=== PATIENT | female | born 1935 | race Caucasian/White ===

== ENCOUNTER 2016-06-28 17:39 | Inpatient (IN) | payer MEDICARE, BC ==
[2016-06-28] MEDS ORDERED: HYDROmorphone 0.5 MG/0.5 ML Syringe IVPUSH ONE (19:11)
--- NOTE | 2016-06-28 19:44 | EDM.PDOC ---
ED UPPER BACK/NECK PAIN/INJURY - General Chief Complaint: Back Pain or Injury Stated Complaint: LEFT SIDE BACK PN Time Seen by Provider: 06/28/16 19:01 Source of Information: Reports: Patient History Limitations: Reports: No limitations - History of Present Illness INITIAL COMMENTS - FREE TEXT/NARRATIVE: Patient is a 80-year-old female who presents to the ED complaining of thoracic/ lumbar back pain. States she's been complaining of back discomfort for the past 3 weeks between her shoulder blades with unknown etiology. Patient states pain is worsened with movement and palpation. She describes the pain as an achy sensation rated 10 out of 10 at its peak. Pain is localized with no radiation. She was seen by her nurse epidemiologist on June 20, 2016 for routine visit and was prescribed muscle relaxers with some improvement. States the medication is not working anymore and thus is here for further treatment. She's had no formal workup. She denies numbness tingling, fever/chills, chest pain, worsening shortness of breath, weakness, increasing weight, or worsening lower leg edema. States she does have a history of osteoporosis does not recall any event that may contribute to discomfort. Patient is oxygen dependent. Patient has history of Atrial Fibrillation, CHF, hypertension, CO, COPD, oxygen dependence, and anxiety/depression. Current medications include Tylenol, albuterol, aspirin, Celexa, Lasix, Cozaar, metoprolol succinate, Nitrostat, Zantac, zero to, Zocor, trazodone, albuterol, and lorazepam. Timing/Duration: Reports: Constant, Waxing/waning Location: Reports: upper, lower. 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 (see below) (See HPI) - Related Data Allergies/ADRs: Allergies Allergy/AdvReac Type Severity Reaction Status Date / Time No Known Allergies Allergy Verified 06/28/16 18:05 Home Meds: Home Meds Acetaminophen [Tylenol Arthritis Pain] 650 mg PO DAILY PRN 07/27/14 [History] Albuterol [Proventil Neb Soln] 2.5 mg NEB Q4HRRT PRN #60 neb 07/27/14 [Rx] Aspirin [Ernestine Chewable Aspirin] 81 mg PO DAILY 07/27/14 [History] Citalopram Hydrobromide [Celexa] 40 mg PO DAILY 07/27/14 [History] Furosemide [Lasix] 40 mg PO DAILY 07/27/14 [History] Losartan [Cozaar] 100 mg PO DAILY 07/27/14 [History] Metoprolol Succinate 25 mg PO DAILY 07/27/14 [History] Nitroglycerin [Nitrostat] 0.4 mg PO TID PRN 07/27/14 [History] Ranitidine [Zantac] 75 mg PO DAILY 07/27/14 [History] Rivaroxaban [Xarelto] 15 mg PO DAILY 07/27/14 [History] Simvastatin [Zocor] 20 mg PO DAILY 07/27/14 [History] traZODone 150 mg PO BEDTIME 07/27/14 [History] Albuterol Sulfate [Proair Hfa] 2 puff INH Q6H PRN 07/27/15 [History] LORazepam 1 mg PO Q4H PRN 07/27/15 [History] Past Medical History HEENT History: Reports: Cataract Cardiovascular History: Reports: Heart Failure, Hypertension, CO, Stents Other Cardiovascular History: CHF Respiratory History: Reports: COPD, Pneumonia, recurrent, SOB Gastrointestinal History: Reports: None Genitourinary History: Reports: None Other OB/BYN History: Hysterectomy 1994 Musculoskeletal History: Reports: Arthritis Neurological History: Reports: None Other Neuro History: bilateral carotoid Psychiatric History: Reports: None, Anxiety, Depression Endocrine/Metabolic History: Reports: None Hematologic History: Reports: None Immunologic History: Reports: None Oncologic (Cancer) History: Reports: None - Infectious Disease History Infectious Disease History: Reports: None, Shingles - Past Surgical History Cardiovascular Surgical History: Reports: Carotid endarterectomy Other Cardiovascular Surgeries/Procedures: 4 stents Respiratory Surgical History: Reports: None GI Surgical History: Reports: Appendectomy Female Surgical History: Reports: Hysterectomy Social & Family History - Family History Family Medical History: Noncontributory Neurological: Reports: CVA - Tobacco Use Smoking Status *Q: Former Smoker Years of Tobacco use: 30 Packs/Tins Daily: 1 Used Tobacco, but Quit: No Month Tobacco Last Used: mar Second Hand Smoke Exposure: No - Caffeine Use Caffeine Use: Reports: None - Recreational Drug Use Recreational Drug Use: No ED ROS GENERAL - Review of Systems Review Of Systems: See Below Constitutional: Denies: fever, chills, decreased appetite Respiratory: Reports: Shortness of Breath (chronic), Wheezing, Cough, Sputum Cardiovascular: Reports: Dyspnea on exertion. Denies: Chest pain, Palpitations GI/Abdominal: Denies: Abdominal pain, Diarrhea, Nausea, Vomiting : Denies: discharge, dysuria, flank pain Musculoskeletal: Reports: back pain (thoracic/lumbar) Neurological: Reports: Difficulty Walking. Denies: Dizziness, Numbness, Tingling ED EXAM, UPPER BACK/NECK PAIN - Physical Exam Exam: See Below Exam Limited By: No limitations General Appearance: alert, WD/WN, moderate distress Ears Exam: hearing grossly normal Nose Exam: normal inspection Throat/Mouth Exam: Normal voice, No airway compromise Cardiovascular/Respiratory: normal peripheral pulses, irregularly irregular, wheezing, other (crackles) GI/Abdominal: normal bowel sounds, soft, non tender, no distention Back Exam: CVA tenderness (L), CVA tenderness (R), paraspinal tenderness (t10- t12, l1-2), vertebral tenderness (t10-12, l1-l2) Extremities: non-tender, pedal edema Neurologic: no motor/sensory deficits, alert, normal mood/affect, oriented x 3 Psychiatric: normal affect, normal mood Skin Exam: Normal color, Warm/dry Course - Vital Signs Last Recorded V/S: Last Vital Signs Temp 97.9 F 06/28/16 17:55 Pulse 112 H 06/28/16 17:55 Resp 22 H 06/28/16 17:55 BP 123/89 06/28/16 17:55 Pulse Ox 94 L 06/28/16 17:55 - Orders/Labs/Meds Orders: Active Orders 24 hr Category Date Time Status Admission Status [Patient Status] [ADT] Routine ADT 06/28/16 22:06 Active EKG 12 Lead [EKG Documentation Completion] [RC] STAT Care 06/28/16 18:22 Active EKG Documentation Completion [RC] STAT Care 06/28/16 19:14 Active Chest 2V [CR] Stat Exams 06/28/16 19:11 Taken Lumbar Spine wo Cont [CT] Stat Exams 06/28/16 19:20 Stop Req Thoracic Spine wo Cont [CT] Stat Exams 06/28/16 19:20 Stop Req CULTURE URINE [RM] Stat Lab 06/28/16 22:07 Ordered TROPONIN I [CHEM] Timed Lab 06/28/16 21:49 Received cefTRIAXone [Rocephin] 1 gm Med 06/28/16 22:07 Ordered Sodium Chloride 0.9% [Normal Saline] 100 ml IV ONETIME Medication Orders Ceftriaxone Sodium 1 gm/ (Sodium Chloride) 100 mls @ 200 mls/hr IV ONETIME ONE Stop: 06/28/16 22:36 Labs: Laboratory Tests 06/28/16 06/28/16 06/28/16 Range/Units 19:40 19:40 19:40 WBC 12.55 H (3.98-10.04) K/mm3 RBC 5.25 H (3.98-5.22) M/mm3 Hgb 13.8 (11.2-15.7) gm/L Hct 46.3 H (34.1-44.9) % MCV 88.2 (79.4-94.8) fl MCH 26.3 (25.6-32.2) pg MCHC 29.8 L (32.2-35.5) g/dl RDW Std Deviation 52.1 H (36.4-46.3) fL Plt Count 246 (182-369) K/mm3 MPV 10.4 (9.4-12.3) fl Neut % (Auto) 83.4 H (34.0-71.1) % Lymph % (Auto) 5.2 L (19.3-51.7) % [place] % (Auto) 10.4 (4.7-12.5) % Eos % (Auto) 0.5 L (0.7-5.8) Baso % (Auto) 0.4 (0.1-1.2) % Neut # (Auto) 10.47 H (1.56-6.13) K/mm3 Lymph # (Auto) 0.65 L (1.18-3.74) K/mm3 [place] # (Auto) 1.31 H (0.24-0.36) K/mm3 Eos # (Auto) 0.06 (0.04-0.36) K/mm3 Baso # (Auto) 0.05 (0.01-0.08) K/mm3 Manual Slide Review Abnormal smear ESR (0-20) mm/hr Sodium 137 (136-145) mEq/L Potassium 3.9 (3.5-5.1) mEq/L Chloride 99 (98-107) mEq/L Carbon Dioxide 31 (21-32) mEq/L Anion Gap 10.9 (5-15) BUN 29 H (7-18) mg/dL Creatinine 1.4 H (0.55-1.02) mg/dL Est Cr Clr Drug Dosing 24.18 mL/min Estimated GFR (MDRD) 36 (>60) mL/min BUN/Creatinine Ratio 20.7 H (14-18) Glucose 104 (83-115) mg/dL Calcium 9.5 (8.5-10.1) mg/dL Total Bilirubin 0.6 (0.2-1.0) mg/dL AST 16 (15-37) U/L ALT 35 (14-59) U/L Alkaline Phosphatase 123 H (46-116) U/L Troponin I 0.061 H* (0.00-0.056) ng/mL C-Reactive Protein 5.8 H* (<1.0) mg/dL B-Natriuretic Peptide 1450 H (0-100) pg/mL Total Protein 7.8 (6.4-8.2) g/dl Albumin 3.3 L (3.4-5.0) g/dl Globulin 4.5 gm/dL Albumin/Globulin Ratio 0.7 L (1-2) Urine Color (Yellow) Urine Appearance (Clear) Urine pH (5.0-8.0) Ur Specific [place] (1.005-1.030) Urine Protein (Negative) Urine Glucose (UA) (Negative) Urine Ketones (Negative) Urine Occult Blood (Negative) Urine Nitrite (Negative) Urine Bilirubin (Negative) Urine Urobilinogen (0.2-1.0) Ur Leukocyte Esterase (Negative) Urine RBC (0-5) /hpf Urine WBC (0-5) /hpf Ur Epithelial Cells (0-5) /hpf Amorphous Sediment (NOT SEEN) /hpf Urine Bacteria (FEW) /hpf Hyaline Casts (0-5) /lpf Urine Mucus (FEW) /hpf Urine Yeast (Budding) (NOT SEEN) 06/28/16 06/28/16 Range/Units 19:40 21:10 WBC (3.98-10.04) K/mm3 RBC (3.98-5.22) M/mm3 Hgb (11.2-15.7) gm/L Hct (34.1-44.9) % MCV (79.4-94.8) fl MCH (25.6-32.2) pg MCHC (32.2-35.5) g/dl RDW Std Deviation (36.4-46.3) fL Plt Count (182-369) K/mm3 MPV (9.4-12.3) fl Neut % (Auto) (34.0-71.1) % Lymph % (Auto) (19.3-51.7) % [place] % (Auto) (4.7-12.5) % Eos % (Auto) (0.7-5.8) Baso % (Auto) (0.1-1.2) % Neut # (Auto) (1.56-6.13) K/mm3 Lymph # (Auto) (1.18-3.74) K/mm3 [place] # (Auto) (0.24-0.36) K/mm3 Eos # (Auto) (0.04-0.36) K/mm3 Baso # (Auto) (0.01-0.08) K/mm3 Manual Slide Review ESR 22 H (0-20) mm/hr Sodium (136-145) mEq/L Potassium (3.5-5.1) mEq/L Chloride (98-107) mEq/L Carbon Dioxide (21-32) mEq/L Anion Gap (5-15) BUN (7-18) mg/dL Creatinine (0.55-1.02) mg/dL Est Cr Clr Drug Dosing mL/min Estimated GFR (MDRD) (>60) mL/min BUN/Creatinine Ratio (14-18) Glucose (83-115) mg/dL Calcium (8.5-10.1) mg/dL Total Bilirubin (0.2-1.0) mg/dL AST (15-37) U/L ALT (14-59) U/L Alkaline Phosphatase (46-116) U/L Troponin I (0.00-0.056) ng/mL C-Reactive Protein (<1.0) mg/dL B-Natriuretic Peptide (0-100) pg/mL Total Protein (6.4-8.2) g/dl Albumin (3.4-5.0) g/dl Globulin gm/dL Albumin/Globulin Ratio (1-2) Urine Color Light yellow (Yellow) Urine Appearance Slt cloudy H (Clear) Urine pH 6.0 (5.0-8.0) Ur Specific [place] 1.020 (1.005-1.030) Urine Protein Trace H (Negative) Urine Glucose (UA) Negative (Negative) Urine Ketones Negative (Negative) Urine Occult Blood 2+ H (Negative) Urine Nitrite Negative (Negative) Urine Bilirubin Negative (Negative) Urine Urobilinogen 0.2 (0.2-1.0) Ur Leukocyte Esterase Trace H (Negative) Urine RBC 0-5 (0-5) /hpf Urine WBC 5-10 H (0-5) /hpf Ur Epithelial Cells 5-10 H (0-5) /hpf Amorphous Sediment Few H (NOT SEEN) /hpf Urine Bacteria Moderate H (FEW) /hpf Hyaline Casts 5-10 H (0-5) /lpf Urine Mucus Not seen (FEW) /hpf Urine Yeast (Budding) Few H (NOT SEEN) Meds: Medications Generic Name Dose Route Start Last Admin Trade Name Freq PRN Reason Stop Dose Admin Ceftriaxone Sodium 1 gm/ 100 mls @ 200 mls/hr 06/28/16 22:07 Sodium Chloride IV 06/28/16 22:36 ONETIME ONE Discontinued Medications Generic Name Dose Route Start Last Admin Trade Name Freq PRN Reason Stop Dose Admin Diazepam 2.5 mg 06/28/16 20:26 06/28/16 20:34 Valium IVPUSH 06/28/16 20:27 2.5 mg ONETIME ONE Administration Diltiazem HCl 5 mg 06/28/16 19:46 06/28/16 20:08 Diltiazem IVPUSH 06/28/16 19:47 5 mg ONETIME ONE Administration Diltiazem HCl 5 mg 06/28/16 20:25 06/28/16 20:26 Diltiazem IVPUSH 06/28/16 20:26 5 mg ONETIME ONE Administration Diltiazem HCl 5 mg 06/28/16 21:17 06/28/16 21:47 Diltiazem IVPUSH 06/28/16 21:18 5 mg ONETIME ONE Administration Diltiazem HCl 10 mg 06/28/16 22:02 Diltiazem IVPUSH 06/28/16 22:03 ONETIME ONE Furosemide 40 mg 06/28/16 20:32 06/28/16 20:42 Lasix IVPUSH 06/28/16 20:33 40 mg NOW ONE Administration Hydromorphone HCl 0.5 mg 06/28/16 19:11 06/28/16 19:47 Dilaudid IVPUSH 06/28/16 19:12 0.5 mg ONETIME ONE Administration - Re-Assessments/Exams Free Text/Narrative Re-Assessment/Exam: EKG revealed A. fib with a rate of 115 to 155. Blood pressure has been normotensive. She is on Toprol succinate 25 mg every day. Will go ahead with Cardizem 5 mg IVP. 06/28/16 20:[address] of the lumbar and thoracic spine secondary to worsening pain to her back. 06/28/16 20:20 Patient's heart rate continues to be in the 130s. Pain is minimally controlled with Dilaudid. Will go ahead with another 5 mg of Cardizem IVP. In addition will go to with valium 2.5 mg IVP for any spasms present. 06/28/16 20:30 White blood cell count 12.55, hemoglobin is 13.8, platelet count 246, neutrophil percentage 83.4, neutrophil #10.47, sodium is 137, potassium is 3.9, CO2 31, BUN is 29, creatinine 1.4, troponin 0.061, CRP is 5.8, BNP is 1450. Troponin most likely elevated due to A-Fib with RVR. Will obtain 2nd troponin in 2 hours. Chest x-ray reveals: Cardiomegaly with mild chronic pulmonary vascular congestion. Consistent with previous chest x-ray obtained jul 27 2015. Severe degenerative changes to the spine with possible compression fracture T6. This was reviewed by Dr. Rosado. BNP is 1450 which appears to be elevated above baseline of 700-800 from previous labs. Ordered Lasix 40 mg IVP. 06/28/16 21:18 Patient is resting much more comfortably in the wheelchair. Pain is drastically improved with the Valium. Heart rate remains 106-126. Blood pressure normotensive. Will go ahead with 5 mg Cardizem IVP. In addition second troponin order for 2140. 06/28/16 22:[address] 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 She has accepted patient. Will admit to ICU. Requested starting cardizem 10 mg/hr with 250ml bolus of NS if becomes hypotensive. Admission orders placed by Dr. Rosado. 06/28/16 22:08 UA was reviewed. Positive for UTI. Ordered rocephin 1 gram IV. Cardizem gtt will be started in the ICU. 06/28/16 22:26 2nd troponin 0.056. Departure - Departure Time of Disposition: 22:09 Disposition: Home, Self-Care 01 Condition: fair Clinical Impression: Atrial fibrillation with RVR, Elevated troponin CHF (congestive heart failure) Qualifiers: Congestive heart failure type: unspecified congestive heart failure type Congestive heart failure chronicity: acute on chronic Qualified Code(s): I50.9 - Heart failure, unspecified Back pain Qualifiers: Back pain location: back pain in unspecified location Chronicity: acute Back pain laterality: bilateral Qualified Code(s): M54.9 - Dorsalgia, unspecified UTI (urinary tract infection) Qualifiers: Urinary tract infection type: site unspecified Hematuria presence: with hematuria Qualified Code(s): N39.0 - Urinary tract infection, site not specified Referrals: Rodney Marin MD [Primary Care Provider] - Forms: ED Department Discharge - My Orders Last 24 Hours: My Active Orders 06/28/16 18:22 EKG 12 Lead [EKG Documentation Completion] [RC] STAT 06/28/16 19:11 Chest 2V [CR] Stat 06/28/16 19:14 EKG Documentation Completion [RC] STAT 06/28/16 19:20 Lumbar Spine wo Cont [CT] Stat Thoracic Spine wo Cont [CT] Stat 06/28/16 21:49 TROPONIN I [CHEM] Timed 06/28/16 22:07 CULTURE URINE [RM] Stat cefTRIAXone [Rocephin] 1 gm Sodium Chloride 0.9% [Normal Saline] 100 ml IV ONETIME - Assessment/Plan Last 24 Hours: My Active Orders 06/28/16 18:22 EKG 12 Lead [EKG Documentation Completion] [RC] STAT 06/28/16 19:11 Chest 2V [CR] Stat 06/28/16 19:14 EKG Documentation Completion [RC] STAT 06/28/16 19:20 Lumbar Spine wo Cont [CT] Stat Thoracic Spine wo Cont [CT] Stat 06/28/16 21:49 TROPONIN I [CHEM] Timed 06/28/16 22:07 CULTURE URINE [RM] Stat cefTRIAXone [Rocephin] 1 gm Sodium Chloride 0.9% [Normal Saline] 100 ml IV ONETIME
[2016-06-28] MEDS ORDERED: Diltiazem 25 MG/5 ML SDV IVPUSH ONE ×4 (19:46→22:02)
[2016-06-28] MEDS ORDERED: Furosemide 40 MG/4 ML VIAL IVPUSH ONE (20:32)
[2016-06-28] MEDS ORDERED: cefTRIAXone 1 GM in Sodium Chloride 0.9% 100 ML IV ONE (22:07)
[2016-06-28] MEDS ORDERED: methylPREDNISolone Sodium Succinate 40 MG/1 ML SDV IVPUSH ONE (22:26)
[2016-06-28] MEDS: Temazepam 7.5 MG Cap PO PRN (23:17)
[2016-06-28] MEDS: Acetaminophen/HYDROcodone 325-5 MG Tab PO PRN (23:17)
[2016-06-28] MEDS: Diltiazem 100 MG in Sodium Chloride 0.9% 100 ML IV SCH (23:18)
[2016-06-29] MEDS: Acetaminophen/HYDROcodone 325-5 MG Tab PO PRN ×4 (06:54→21:22)
--- NOTE | 2016-06-29 09:32 | PCM.HP ---
H&P History of Present Illness - General Date of Service: 06/29/16 Admit Problem/Dx: Admission Diagnosis/Problem Admission Diagnosis/Problem Atrial fibrillation Source of Information: Patient, Provider History Limitations: Reports: No limitations - History of Present Illness Initial Comments - Free Text/Narative: 80 year old female held in the ED, unable to be moved until day shift; treatment per ED until transferred to unit bed. At time of transfer, patient was in A fib with controlled ventricular rate at 80; Cardizem gtt was given in the ED. She had presented with a complaint of back pain, no recent injury or trauma. Initially had relief by prescription provided during scheduled cardiology office visit. However has had a return of the discomfort with minimal relief. No previous radiographic studies reportedly have been performed prior to the current ED visit per the patient. A UTI has been documented and Rocephin has been started. Onset of Symptoms: Reports: unknown/unsure Duration of Symptoms: Reports: Week(s):, Getting worse Location: Reports: back Quality: Reports: Same as previous episode Severity: moderate Improves with: Reports: Medication Worsens with: Reports: None Associated Symptoms: Reports: shortness of breath mid back/lower shoulder area Pain Score (Numeric/FACES): 3 - Related Data Allergies/Adverse Reactions: Allergies Allergy/AdvReac Type Severity Reaction Status Date / Time No Known Allergies Allergy Verified 06/28/16 18:05 Home Medications: Home Meds Acetaminophen [Tylenol Arthritis Pain] 650 mg PO DAILY PRN 07/27/14 [History] Albuterol [Proventil Neb Soln] 2.5 mg NEB Q4HRRT PRN #60 neb 07/27/14 [Rx] Aspirin [Ernestine Chewable Aspirin] 81 mg PO DAILY 07/27/14 [History] Citalopram Hydrobromide [Celexa] 40 mg PO DAILY 07/27/14 [History] Furosemide [Lasix] 40 mg PO DAILY 07/27/14 [History] Losartan [Cozaar] 100 mg PO DAILY 07/27/14 [History] Metoprolol Succinate 25 mg PO DAILY 07/27/14 [History] Nitroglycerin [Nitrostat] 0.4 mg PO TID PRN 07/27/14 [History] Ranitidine [Zantac] 75 mg PO DAILY 07/27/14 [History] Rivaroxaban [Xarelto] 15 mg PO DAILY 07/27/14 [History] Simvastatin [Zocor] 20 mg PO DAILY 07/27/14 [History] traZODone 150 mg PO BEDTIME 07/27/14 [History] Albuterol Sulfate [Proair Hfa] 2 puff INH Q6H PRN 07/27/15 [History] LORazepam 1 mg PO Q4H PRN 07/27/15 [History] Past Medical History HEENT History: Reports: Cataract Cardiovascular History: Reports: Heart Failure, Hypertension, SC, Stents Other Cardiovascular History: CHF Respiratory History: Reports: COPD, Pneumonia, recurrent, SOB Gastrointestinal History: Reports: None Genitourinary History: Reports: None Other OB/BYN History: Hysterectomy 1994 Musculoskeletal History: Reports: Arthritis Neurological History: Reports: None Other Neuro History: bilateral carotoid Psychiatric History: Reports: None, Anxiety, Depression Endocrine/Metabolic History: Reports: None Hematologic History: Reports: None Immunologic History: Reports: None Oncologic (Cancer) History: Reports: None - Infectious Disease History Infectious Disease History: Reports: None, Shingles - Past Surgical History Cardiovascular Surgical History: Reports: Carotid endarterectomy Other Cardiovascular Surgeries/Procedures: 4 stents Respiratory Surgical History: Reports: None GI Surgical History: Reports: Appendectomy Female Surgical History: Reports: Hysterectomy Social & Family History - Family History Family Medical History: Noncontributory Neurological: Reports: CVA - Tobacco Use Smoking Status *Q: Never Smoker Years of Tobacco use: 30 Packs/Tins Daily: 1 Used Tobacco, but Quit: No Month Tobacco Last Used: mar Second Hand Smoke Exposure: No - Caffeine Use Caffeine Use: Reports: None - Recreational Drug Use Recreational Drug Use: No H&P Review of Systems - Review of Systems: Review Of Systems: See Below General: Reports: weakness HEENT: Reports: no symptoms Pulmonary: Reports: Shortness of Breath Cardiovascular: Reports: palpitations, lightheadedness Gastrointestinal: Reports: No symptoms Genitourinary: Reports: no symptoms Musculoskeletal: Reports: back pain Skin: Reports: no symptoms Psychiatric: Reports: no symptoms Neurological: Reports: No Symptoms Hematologic/Lymphatic: Reports: no symptoms Immunologic: Reports: no symptoms Exam - Exam Exam: See Below - Vital Signs Vital Signs: Last Vital Signs Temp 36.5 C 06/29/16 07:59 Pulse 122 H 06/29/16 09:03 Resp 16 04/16/17 09:03 BP 105/60 06/29/16 09:03 Pulse Ox 100 06/29/16 09:03 Weight: 101.151 kg - Exam Quality Assessment: supplemental oxygen, DVT prophylaxis General: alert, oriented, cooperative HEENT: Conjunctiva clear, EACs clear, EOMI, Nares patent, Normal nasal septum, Pupils equal, Pupils reactive Neck: supple, trachea midline Lungs: Normal respiratory effort Cardiovascular: regular rate, irregular rhythm Abdomen: normal bowel sounds, soft (Female) Exam: Deferred Rectal (Female) Exam: Deferred Back Exam: normal inspection Extremities: normal inspection, normal pulses Skin: warm Neurological: cranial nerves intact Neuro Extensive - Mental Status: alert, oriented x3, normal mood/affect, normal cognition, memory intact Neuro Extensive - Motor, Sensory, Reflexes: CN II-XII intact Psychiatric: alert, normal affect, normal mood - Patient Data Lab Results last 24 hrs: Laboratory Results - last 24 hr 06/29/16 Range/Units 09:14 WBC 9.86 (3.98-10.04) K/mm3 RBC 5.22 (3.98-5.22) M/mm3 Hgb 13.7 (11.2-15.7) gm/L Hct 45.8 H (34.1-44.9) % MCV 87.7 (79.4-94.8) fl MCH 26.2 (25.6-32.2) pg MCHC 29.9 L (32.2-35.5) g/dl RDW Std Deviation 51.6 H (36.4-46.3) fL Plt Count 222 (182-369) K/mm3 MPV 10.1 (9.4-12.3) fl Result Diagrams: 06/29/16 09:14 06/29/16 09:14 *Q Meaningful Use (ADM) - VTE *Q VTE Criteria *Q: - Stroke *Q Stroke Criteria *Q: - AMI *Q AMI Criteria *Q: - Problem List (1) Atrial fibrillation with RVR SNOMED Code(s): 370056687485296 ICD Code: I48.91 - UNSPECIFIED ATRIAL FIBRILLATION Status: Acute Current Visit: Yes (2) Back pain SNOMED Code(s): 040528156 ICD Code: M54.9 - DORSALGIA, UNSPECIFIED Status: Acute Current Visit: Yes Qualifiers: Back pain location: back pain in unspecified location Chronicity: acute Back pain laterality: bilateral Qualified Code(s): M54.9 - Dorsalgia, unspecified (3) CHF (congestive heart failure) SNOMED Code(s): 91172058 ICD Code: I50.9 - HEART FAILURE, UNSPECIFIED Status: Acute Current Visit : Yes Qualifiers: Congestive heart failure type: unspecified congestive heart failure type Congestive heart failure chronicity: acute on chronic Qualified Code(s): I50.9 - Heart failure, unspecified (4) Elevated troponin SNOMED Code(s): 557034427, 940744255 ICD Code: R74.8 - ABNORMAL LEVELS OF OTHER SERUM ENZYMES Status: Acute Current Visit: Yes (5) UTI (urinary tract infection) SNOMED Code(s): 02235848 ICD Code: N39.0 - URINARY TRACT INFECTION, SITE NOT SPECIFIED Status: Acute Current Visit: Yes Qualifiers: Urinary tract infection type: site unspecified Hematuria presence: with hematuria Qualified Code(s): N39.0 - Urinary tract infection, site not specified; R31.9 - Hematuria, unspecified (6) COPD (chronic obstructive pulmonary disease) SNOMED Code(s): 61461988 ICD Code: J44.9 - CHRONIC OBSTRUCTIVE PULMONARY DISEASE, UNSPECIFIED Status : Acute Current Visit: No Qualifiers: COPD type: COPD with acute exacerbation Qualified Code(s): J44.1 - Chronic obstructive pulmonary disease with (acute) exacerbation (7) Leg edema SNOMED Code(s): 408965419 ICD Code: R60.0 - LOCALIZED EDEMA Status: Acute Current Visit: No Qualifiers: Laterality: bilateral Qualified Code(s): R60.0 - Localized edema Problem List Initiated/Reviewed/Updated: Yes Orders Last 24hrs: Active Orders 24 hr Category Date Time Status Heart Healthy Diet [DIET] Diet 06/29/16 Breakfast Active B-TYPE NATRIURETIC PEPTIDE,BNP [CHEM] Routine Lab 06/29/16 09:14 Received BASIC METABOLIC PANEL,BMP [CHEM] Routine Lab 06/29/16 09:14 Received CULTURE URINE [RM] Stat Lab 06/28/16 21:10 Results MAGNESIUM [CHEM] Routine Lab 06/29/16 09:14 Received Acetaminophen/HYDROcodone [Bessie 325-5 MG] Med 06/28/16 22:26 Active 1 tab PO Q4H PRN Diltiazem [Cardizem] 100 mg Med 06/28/16 22:30 Active Sodium Chloride 0.9% [Normal Saline] 100 ml IV TITRATE HYDROmorphone [Dilaudid] Med 06/28/16 22:26 Active 0.5 mg IVPUSH Q2H PRN Metoprolol Tartrate [Lopressor] Med 06/28/16 22:26 Active 5 mg IVPUSH Q6H PRN Ondansetron [Zofran] Med 06/28/16 22:26 Active 4 mg IVPUSH Q8H PRN Temazepam [Restoril] Med 06/28/16 22:26 Active 7.5 mg PO BEDTIME PRN Medication Orders Hydrocodone Bitart/Acetaminophen (Bessie 325-5 Mg) 1 tab PO Q4H PRN PRN Reason: Pain Last Admin: 06/29/16 06:54 Dose: 1 tab Admin: 06/28/16 23:17 Dose: 1 tab Hydromorphone HCl (Dilaudid) 0.5 mg IVPUSH Q2H PRN PRN Reason: Pain Diltiazem HCl 100 mg/ Sodium (Chloride) 100 mls @ 10 mls/hr IV TITRATE TONJA; 10 MG/HR PRN Reason: Protocol Last Titration: 06/29/16 08:18 Dose: 10 mg/hr, 10 mls/hr Titration: 06/29/16 02:29 Dose: 5 mg/hr, 5 mls/hr Titration: 06/29/16 02:05 Dose: 10 mg/hr, 10 mls/hr Admin: 06/28/16 23:18 Dose: 5 mg/hr, 5 mls/hr Metoprolol Tartrate (Lopressor) 5 mg IVPUSH Q6H PRN PRN Reason: Tachycardia Ondansetron HCl (Zofran) 4 mg IVPUSH Q8H PRN PRN Reason: Nausea Temazepam (Restoril) 7.5 mg PO BEDTIME PRN PRN Reason: Insomnia Last Admin: 06/28/16 23:17 Dose: 7.5 mg Assessment/Plan Comment:: Impression: AUTI, urine culture is pending AFib with RVR on Xarelto Back pain, intractable COPD, O2 dependent Elevated Tn, Demand ischemia Chronic CAD, history of [place]/PCI CHF Hyperlipidemia Anxiety Depression CKD Plan: Cardizem gtt Home meds IV ATB Nebs Obtain clinic EMR and noninvasive card reports DVT prophylaxis with Xarelto GI prophylaxis
[2016-06-29] MEDS ORDERED: Pneumococcal Polyvalent-23 Vaccine 0.5 ML SDV IM ONE (11:14)
[2016-06-29] MEDS: Diltiazem 100 MG in Sodium Chloride 0.9% 100 ML IV SCH ×2 (11:59→17:44)
[2016-06-29] MEDS ORDERED: Albuterol 6.7 GM Inhaler INH PRN (15:40)
[2016-06-29] MEDS ORDERED: Nitroglycerin 0.4 MG Tab.SL SL PRN (15:40)
[2016-06-29] MEDS ORDERED: Sodium Chloride 0.9% 1,000 ML IV SCH (16:00)
[2016-06-29] MEDS: Metoprolol Tartrate 5 MG/5 ML SDV IVPUSH PRN (17:43)
--- NOTE | 2016-06-29 17:45 | CR ---
Chest: Two views of the chest were obtained. Comparison: Previous chest x-ray of 07/27/15. Heart is enlarged. Pulmonary vessels appear somewhat congested. Findings are fairly stable from prior exam. Lungs otherwise are clear. Bony structures show scoliosis within the spine with mild scoliosis. Surgical clips are seen at the base of the neck. Impression: 1. Cardiomegaly and pulmonary vascular congestion which appear fairly stable from prior exam. 2. Other incidental findings as noted above. Diagnostic code #3
[2016-06-29] MEDS ORDERED: Losartan 100 MG Tab PO SCH (21:00)
[2016-06-29] MEDS: Temazepam 7.5 MG Cap PO PRN (21:22)
[2016-06-29] MEDS: traZODone 50 MG Tab PO SCH (21:22)
[2016-06-29] MEDS: LORazepam 1 MG Tab PO PRN (21:22)
[2016-06-29] MEDS: HYDROmorphone 0.5 MG/0.5 ML Syringe IVPUSH PRN (21:29)
[2016-06-29] MEDS ORDERED: cefTRIAXone 1 GM in Sodium Chloride 0.9% 100 ML IV SCH (22:00)
[2016-06-30] MEDS: HYDROmorphone 0.5 MG/0.5 ML Syringe IVPUSH PRN ×6 (02:36→22:01)
[2016-06-30] MEDS: Acetaminophen/HYDROcodone 325-5 MG Tab PO PRN ×3 (02:40→14:32)
[2016-06-30] MEDS: LORazepam 1 MG Tab PO PRN (05:12)
[2016-06-30] MEDS: Diltiazem 100 MG in Sodium Chloride 0.9% 100 ML IV SCH ×2 (06:17→14:29)
[2016-06-30] MEDS: Furosemide 40 MG Tab PO SCH (08:12)
[2016-06-30] MEDS: Aspirin 81 MG Tab.Chew PO SCH (08:12)
[2016-06-30] MEDS: Losartan 100 MG Tab PO SCH ×2 (08:13→20:32)
[2016-06-30] MEDS: Rivaroxaban 10 MG Tab PO SCH (08:15)
[2016-06-30] MEDS: Simvastatin 20 MG Tab PO SCH (08:16)
[2016-06-30] MEDS ORDERED: Metoprolol Succinate 25 MG Tab.ER PO SCH (09:00)
[2016-06-30] MEDS ORDERED: Citalopram 20 MG Tab PO SCH (09:00)
[2016-06-30] MEDS: Lidocaine 5% 700 MG Patch TRDERM SCH (11:58)
[2016-06-30] MEDS ORDERED: Diazepam 2 MG Tab PO PRN (13:37)
[2016-06-30] MEDS ORDERED: fentaNYL 12 MCG/HR Transdermal Patch TRDERM SCH (13:45)
--- NOTE | 2016-06-30 13:45 | PCM.PN ---
- General Info Date of Service: 06/30/16 Functional Status: Reports: tolerating diet, ambulating (minimal), urinating - Review of Systems General: Reports: No Symptoms HEENT: Reports: no symptoms Pulmonary: Reports: no symptoms Cardiovascular: Reports: No Symptoms Gastrointestinal: Reports: No symptoms Genitourinary: Reports: no symptoms Musculoskeletal: Reports: no symptoms Skin: Reports: no symptoms Neurological: Reports: No Symptoms Psychiatric: Reports: no symptoms - Patient Data Vitals - most recent: Last Vital Signs Temp 36.4 C 06/30/16 12:00 Pulse 76 06/30/16 12:00 Resp 18 06/30/16 12:00 BP 104/59 L 06/30/16 12:00 Pulse Ox 93 L 06/30/16 12:00 Weight - most recent: 103.2 kg I&O - last 24 hours: Intake & Output 06/29/16 06/30/16 06/30/16 22:59 06:59 14:59 Intake Total 1475 1100 720 Output Total 400 450 1 Balance 1075 650 719 Lab Results last 24 hrs: Laboratory Results - last 24 hr 06/30/16 06/30/16 06/30/16 Range/Units 05:07 05:07 05:07 WBC 13.93 H (3.98-10.04) K/mm3 RBC 4.70 (3.98-5.22) M/mm3 Hgb 12.5 (11.2-15.7) gm/L Hct 41.8 (34.1-44.9) % MCV 88.9 (79.4-94.8) fl MCH 26.6 (25.6-32.2) pg MCHC 29.9 L (32.2-35.5) g/dl RDW Std Deviation 51.2 H (36.4-46.3) fL Plt Count 217 (182-369) K/mm3 MPV 10.6 (9.4-12.3) fl Neut % (Auto) 87.6 H (34.0-71.1) % Lymph % (Auto) 4.3 L (19.3-51.7) % Pike % (Auto) 8.0 (4.7-12.5) % Eos % (Auto) 0 L (0.7-5.8) Baso % (Auto) 0.0 L (0.1-1.2) % Neut # (Auto) 12.21 H (1.56-6.13) K/mm3 Lymph # (Auto) 0.60 L (1.18-3.74) K/mm3 Pike # (Auto) 1.11 H (0.24-0.36) K/mm3 Eos # (Auto) 0.00 L (0.04-0.36) K/mm3 Baso # (Auto) 0.00 L (0.01-0.08) K/mm3 Manual Slide Review Abnormal smear Sodium 137 (136-145) mEq/L Potassium 4.5 (3.5-5.1) mEq/L Chloride 103 (98-107) mEq/L Carbon Dioxide 31 (21-32) mEq/L Anion Gap 7.5 (5-15) BUN 43 H (7-18) mg/dL Creatinine 1.4 H (0.55-1.02) mg/dL Est Cr Clr Drug Dosing 24.18 mL/min Estimated GFR (MDRD) 36 (>60) mL/min BUN/Creatinine Ratio 30.7 H (14-18) Glucose 122 H (83-115) mg/dL Calcium 9.1 (8.5-10.1) mg/dL Magnesium 2.2 (1.8-2.4) mg/dl Troponin I 0.029 (0.00-0.056) ng/mL C-Reactive Protein 4.7 H* (<1.0) mg/dL B-Natriuretic Peptide (0-100) pg/mL 06/30/16 Range/Units 05:07 WBC (3.98-10.04) K/mm3 RBC (3.98-5.22) M/mm3 Hgb (11.2-15.7) gm/L Hct (34.1-44.9) % MCV (79.4-94.8) fl MCH (25.6-32.2) pg MCHC (32.2-35.5) g/dl RDW Std Deviation (36.4-46.3) fL Plt Count (182-369) K/mm3 MPV (9.4-12.3) fl Neut % (Auto) (34.0-71.1) % Lymph % (Auto) (19.3-51.7) % Pike % (Auto) (4.7-12.5) % Eos % (Auto) (0.7-5.8) Baso % (Auto) (0.1-1.2) % Neut # (Auto) (1.56-6.13) K/mm3 Lymph # (Auto) (1.18-3.74) K/mm3 Pike # (Auto) (0.24-0.36) K/mm3 Eos # (Auto) (0.04-0.36) K/mm3 Baso # (Auto) (0.01-0.08) K/mm3 Manual Slide Review Sodium (136-145) mEq/L Potassium (3.5-5.1) mEq/L Chloride (98-107) mEq/L Carbon Dioxide (21-32) mEq/L Anion Gap (5-15) BUN (7-18) mg/dL Creatinine (0.55-1.02) mg/dL Est Cr Clr Drug Dosing mL/min Estimated GFR (MDRD) (>60) mL/min BUN/Creatinine Ratio (14-18) Glucose (83-115) mg/dL Calcium (8.5-10.1) mg/dL Magnesium (1.8-2.4) mg/dl Troponin I (0.00-0.056) ng/mL C-Reactive Protein (<1.0) mg/dL B-Natriuretic Peptide 921 H (0-100) pg/mL Med Orders - Current: Current Medications Hydrocodone Bitart/Acetaminophen ([place] 325-5 Mg) 1 tab PO Q4H PRN PRN Reason: Pain Last Admin: 06/30/16 08:11 Dose: 1 tab Albuterol (Proventil Hfa) 0 gm INH Q6H PRN PRN Reason: Shortness of Breath Albuterol (Proventil Neb Soln) 2.5 mg NEB Q4H PRN PRN Reason: Dyspnea Aspirin (Aspirin) 81 mg PO DAILY [facility] Last Admin: 06/30/16 08:12 Dose: 81 mg Citalopram Hydrobromide (Celexa) 20 mg PO DAILY TONJA Diazepam (Valium) 2 mg PO BEDTIME PRN PRN Reason: backpain Fentanyl (Duragesic) 12 mcg TRDERM Q72H TONJA Furosemide (Lasix) 40 mg PO DAILY [facility] Last Admin: 06/30/16 08:12 Dose: 40 mg Hydromorphone HCl (Dilaudid) 0.5 mg IVPUSH Q2H PRN PRN Reason: Pain Last Admin: 06/30/16 11:31 Dose: 0.5 mg Diltiazem HCl 100 mg/ Sodium (Chloride) 100 mls @ 10 mls/hr IV TITRATE TONJA; 10 MG/HR PRN Reason: Protocol Last Titration: 06/30/16 08:47 Dose: 15 mg/hr, 15 mls/hr Ceftriaxone Sodium 1 gm/ (Sodium Chloride) 100 mls @ 200 mls/hr IV Q24H TONJA Last Admin: 06/29/16 21:23 Dose: 200 mls/hr Lidocaine (Lidoderm 5%) 700 mg TRDERM Q24H [facility] Last Admin: 06/30/16 11:58 Dose: 700 mg Lorazepam (Ativan) 1 mg PO Q4H PRN PRN Reason: Anxiety Last Admin: 06/30/16 05:12 Dose: 1 mg Losartan Potassium (Cozaar) 50 mg PO BID [facility] Last Admin: 06/30/16 08:13 Dose: 50 mg Metoprolol Succinate (Toprol Xl) 25 mg PO BID [facility] Metoprolol Tartrate (Lopressor) 5 mg IVPUSH Q6H PRN PRN Reason: Tachycardia Last Admin: 06/29/16 17:43 Dose: 5 mg Miscellaneous Information (Remove Patch) 1 ea TRDERM Q24H [facility] Nitroglycerin (Nitrostat) 0.4 mg SL TID PRN PRN Reason: Chest Pain Ondansetron HCl (Zofran) 4 mg IVPUSH Q8H PRN PRN Reason: Nausea Rivaroxaban (Xarelto) 15 mg PO DAILY [facility] Last Admin: 06/30/16 08:15 Dose: 15 mg Simvastatin (Zocor) 20 mg PO DAILY [facility] Last Admin: 06/30/16 08:16 Dose: 20 mg Temazepam (Restoril) 7.5 mg PO BEDTIME PRN PRN Reason: Insomnia Last Admin: 06/29/16 21:22 Dose: 7.5 mg Trazodone HCl (Trazodone) 150 mg PO BEDTIME [facility] Last Admin: 06/29/16 21:22 Dose: 150 mg Discontinued Medications Citalopram Hydrobromide (Celexa) 40 mg PO DAILY [facility] Last Admin: 06/30/16 08:13 Dose: 40 mg Diazepam (Valium) 2.5 mg IVPUSH ONETIME ONE Stop: 06/28/16 20:27 Last Admin: 06/28/16 20:34 Dose: 2.5 mg Diltiazem HCl (Diltiazem) 5 mg IVPUSH ONETIME ONE Stop: 06/28/16 19:47 Last Admin: 06/28/16 20:08 Dose: 5 mg Diltiazem HCl (Diltiazem) 5 mg IVPUSH ONETIME ONE Stop: 06/28/16 20:26 Last Admin: 06/28/16 20:26 Dose: 5 mg Diltiazem HCl (Diltiazem) 5 mg IVPUSH ONETIME ONE Stop: 06/28/16 21:18 Last Admin: 06/28/16 21:47 Dose: 5 mg Diltiazem HCl (Diltiazem) 10 mg IVPUSH ONETIME ONE Stop: 06/28/16 22:03 Last Admin: 06/29/16 08:19 Dose: Not Given Furosemide (Lasix) 40 mg IVPUSH NOW ONE Stop: 06/28/16 20:33 Last Admin: 06/28/16 20:42 Dose: 40 mg Hydromorphone HCl (Dilaudid) 0.5 mg IVPUSH ONETIME ONE Stop: 06/28/16 19:12 Last Admin: 06/28/16 19:47 Dose: 0.5 mg Ceftriaxone Sodium 1 gm/ (Sodium Chloride) 100 mls @ 200 mls/hr IV ONETIME ONE Stop: 06/28/16 22:36 Last Admin: 06/28/16 22:17 Dose: 200 mls/hr Sodium Chloride (Normal Saline) 1,000 mls @ 75 mls/hr IV ASDIRECTED [facility] Stop: 06/29/16 22:01 Last Admin: 06/29/16 18:43 Dose: 75 mls/hr Losartan Potassium (Cozaar) 50 mg PO BID [facility] Methylprednisolone Sodium Succinate (Solu-Medrol) 80 mg IVPUSH ONETIME ONE Stop: 06/28/16 22:27 Last Admin: 06/28/16 23:17 Dose: 80 mg Metoprolol Succinate (Toprol Xl) 25 mg PO DAILY [facility] Last Admin: 06/30/16 08:14 Dose: 25 mg Pneumococcal Polyvalent Vaccine (Pneumovax 23) 0.5 ml IM .ONCE ONE Stop: 06/29/16 11:15 - Exam Quality Assessment: supplemental oxygen, DVT prophylaxis General: alert, oriented, cooperative HEENT: Pupils equal, Pupils reactive, EOMI Neck: supple, trachea midline Lungs: Clear to auscultation Cardiovascular: Regular Rate, Irregular Rhythm, Tachycardia Abdomen: bowel sounds present, soft, no tenderness, no distension (Female) Exam: Deferred Back Exam: normal inspection Extremities: normal pulses Skin: warm Neurological: no new focal deficit Psy/Mental Status: alert, normal affect, normal mood - Problem List & Annotations (1) Atrial fibrillation with RVR SNOMED Code(s): 741093495147250 Code(s): I48.91 - UNSPECIFIED ATRIAL FIBRILLATION Status: Acute Current Visit: Yes (2) Back pain SNOMED Code(s): 154394313 Code(s): M54.9 - DORSALGIA, UNSPECIFIED Status: Acute Current Visit: Yes Qualifiers: Back pain location: back pain in unspecified location Chronicity: acute Back pain laterality: bilateral Qualified Code(s): M54.9 - Dorsalgia, unspecified (3) CHF (congestive heart failure) SNOMED Code(s): 14213505 Code(s): I50.9 - HEART FAILURE, UNSPECIFIED Status: Acute Current Visit: Yes Qualifiers: Congestive heart failure type: unspecified congestive heart failure type Congestive heart failure chronicity: acute on chronic Qualified Code(s): I50.9 - Heart failure, unspecified (4) Elevated troponin SNOMED Code(s): 100530119, 558004925 Code(s): R74.8 - ABNORMAL LEVELS OF OTHER SERUM ENZYMES Status: Acute Current Visit: Yes (5) UTI (urinary tract infection) SNOMED Code(s): 56167603 Code(s): N39.0 - URINARY TRACT INFECTION, SITE NOT SPECIFIED Status: Acute Current Visit: Yes Qualifiers: Urinary tract infection type: site unspecified Hematuria presence: with hematuria Qualified Code(s): N39.0 - Urinary tract infection, site not specified; R31.9 - Hematuria, unspecified (6) COPD (chronic obstructive pulmonary disease) SNOMED Code(s): 74170252 Code(s): J44.9 - CHRONIC OBSTRUCTIVE PULMONARY DISEASE, UNSPECIFIED Status : Acute Current Visit: No Qualifiers: COPD type: COPD with acute exacerbation Qualified Code(s): J44.1 - Chronic obstructive pulmonary disease with (acute) exacerbation (7) Leg edema SNOMED Code(s): 034781656 Code(s): R60.0 - LOCALIZED EDEMA Status: Acute Current Visit: No Qualifiers: Laterality: bilateral Qualified Code(s): R60.0 - Localized edema - Problem List Review Problem List Initiated/Reviewed/Updated: Yes - My Orders Last 24 Hours: My Active Orders 06/29/16 15:40 Albuterol [Proventil HFA] 0 gm INH Q6H PRN Albuterol [Proventil Neb Soln] 2.5 mg NEB Q4H PRN LORazepam [Ativan] 1 mg PO Q4H PRN Nitroglycerin [Nitrostat] 0.4 mg SL TID PRN 06/29/16 15:49 Bedrest Bathroom Privileges [RC] ASDIRECTED Vital Signs [RC] PER UNIT ROUTINE 06/29/16 21:00 traZODone 150 mg PO BEDTIME 06/29/16 22:00 cefTRIAXone [Rocephin] 1 gm Sodium Chloride 0.9% [Normal Saline] 100 ml IV Q24H 06/30/16 09:00 Aspirin 81 mg PO DAILY Furosemide [Lasix] 40 mg PO DAILY Losartan [Cozaar] 50 mg PO BID Rivaroxaban [Xarelto] 15 mg PO DAILY Simvastatin [Zocor] 20 mg PO DAILY 06/30/16 10:00 Consult to Occupational Therapy [OT Evaluation and Treatment] [CONS] Routine Consult to Physical Therapy [PT Evaluation and Treatment] [CONS] Routine 06/30/16 12:00 Lidocaine 5% [Lidoderm 5%] 700 mg TRDERM Q24H 06/30/16 13:37 Diazepam [Valium] 2 mg PO BEDTIME PRN 06/30/16 13:45 fentaNYL [Duragesic] 12 mcg TRDERM Q72H 06/30/16 21:00 Metoprolol Succinate [Toprol XL] 25 mg PO BID 07/01/16 00:00 Remove Patch 1 ea TRDERM Q24H 07/01/16 05:00 BASIC METABOLIC PANEL,BMP [CHEM] DAILY CBC WITH AUTO DIFF [HEME] DAILY CRP [C-REACTIVE PROTEIN] [CHEM] DAILY MAGNESIUM [CHEM] DAILY 07/01/16 09:00 Citalopram [Celexa] 20 mg PO DAILY 07/02/16 05:00 BASIC METABOLIC PANEL,BMP [CHEM] DAILY CBC WITH AUTO DIFF [HEME] DAILY CRP [C-REACTIVE PROTEIN] [CHEM] DAILY MAGNESIUM [CHEM] DAILY 07/03/16 05:00 BASIC METABOLIC PANEL,BMP [CHEM] DAILY - Plan Plan:: Impression: AUTI, urine culture is sensitive to Rocephin AFib with RVR on Xarelto; BB was recently decreased by assistant hall director Back pain, intractable COPD, O2 dependent Elevated Tn, Demand ischemia Chronic CAD, history of [place]/PCI CHF Hyperlipidemia Anxiety Depression CKD Plan: Cardizem gtt Home meds IV ATB Nebs Obtain clinic EMR and noninvasive card reports DVT prophylaxis with Xarelto GI prophylaxis
[2016-06-30] MEDS ORDERED: Nitroglycerin 0.4 MG Tab.SL SL PRN (13:58)
[2016-06-30] MEDS: Metoprolol Succinate 25 MG Tab.ER PO SCH (20:29)
[2016-06-30] MEDS: traZODone 50 MG Tab PO SCH (20:29)
[2016-06-30] MEDS: Diazepam 2 MG Tab PO PRN (20:30)
[2016-06-30] MEDS: Temazepam 7.5 MG Cap PO PRN (20:31)
[2016-06-30] MEDS: cefTRIAXone 2 GM in Sodium Chloride 0.9% 100 ML IV SCH (22:01)
[2016-07-01] MEDS: Acetaminophen/HYDROcodone 325-10 MG Tab PO PRN ×3 (00:04→21:31)
[2016-07-01] MEDS: HYDROmorphone 0.5 MG/0.5 ML Syringe IVPUSH PRN ×3 (00:04→14:15)
[2016-07-01] MEDS: Albuterol 0.083% 2.5 MG/3 ML Neb Soln NEB PRN ×4 (02:27→13:49)
[2016-07-01] MEDS: Diltiazem 100 MG in Sodium Chloride 0.9% 100 ML IV SCH ×2 (03:41→11:22)
[2016-07-01] MEDS ORDERED: Polyethylene Glycol 3350 Powder 17 GM Packet PO PRN (06:30)
[2016-07-01] MEDS ORDERED: Sennosides 8.6 MG Tab PO PRN (06:31)
[2016-07-01] MEDS ORDERED: Naloxone 0.4 MG/ML SDV ONE (07:15)
[2016-07-01] MEDS ORDERED: Naloxone 2 MG/2 ML Syringe IVPUSH ONE (07:20)
[2016-07-01] MEDS ORDERED: Furosemide 40 MG/4 ML VIAL IVPUSH ONE (07:20)
[2016-07-01] MEDS ORDERED: Naloxone 0.4 MG/ML SDV IVPUSH ONE (07:30)
--- NOTE | 2016-07-01 08:33 | PCM.PN ---
<Yudith Machado - Last Filed: 07/01/16 08:23> - General Info Date of Service: 07/01/16 Admission Dx/Problem (Free Text): Admission Diagnosis/Problem Admission Diagnosis/Problem Atrial fibrillation Patient is seen this morning in her room. She has just had large emesis with hypoxemia, sats in the 70's. RT was summoned for breathing tx, then patient vomited. ABG was obtained. See labs for details. Denies abdominal pain, no nausea now. Last BM was 3 days ago (normal for her to go every 3 days) Patient states she feels "better" now, "less bloated". Continues to have back pain with radiation to bilateral sides, worse in the middle and "travels" to both sides. She has noted this pain for at least a week to 10 days. Muscle relaxants have provided minimal relief. She denies fall, lifting, pushing or pulling anything heavy or straining her back. Denies bladder concerns today, no dysuria or flank pain today. Functional Status: Reports: pain controlled, ambulating, urinating - Review of Systems Systems Review Comment:: See HPI for ROS - Patient Data Vitals - most recent: Last Vital Signs Temp 98.4 F 07/01/16 06:00 Pulse 88 07/01/16 06:00 Resp 14 07/01/16 06:00 BP 117/69 07/01/16 06:00 Pulse Ox 84 L 07/01/16 07:37 Weight - most recent: 104.1 kg I&O - last 24 hours: Intake & Output 06/30/16 07/01/16 07/01/16 22:59 06:59 14:59 Intake Total 1088 300 Output Total 100 200 Balance 988 100 Lab Results last 24 hrs: Laboratory Results - last 24 hr 07/01/16 07/01/16 07/01/16 Range/Units 02:35 02:35 02:35 WBC 14.29 H (3.98-10.04) K/mm3 RBC 5.03 (3.98-5.22) M/mm3 Hgb 13.2 (11.2-15.7) gm/L Hct 45.3 H (34.1-44.9) % MCV 90.1 (79.4-94.8) fl MCH 26.2 (25.6-32.2) pg MCHC 29.1 L (32.2-35.5) g/dl RDW Std Deviation 52.4 H (36.4-46.3) fL Plt Count 238 (182-369) K/mm3 MPV 10.6 (9.4-12.3) fl Neut % (Auto) 87.3 H (34.0-71.1) % Lymph % (Auto) 3.9 L (19.3-51.7) % [place] % (Auto) 8.5 (4.7-12.5) % Eos % (Auto) 0.1 L (0.7-5.8) Baso % (Auto) 0.1 (0.1-1.2) % Neut # (Auto) 12.47 H (1.56-6.13) K/mm3 Lymph # (Auto) 0.56 L (1.18-3.74) K/mm3 [place] # (Auto) 1.22 H (0.24-0.36) K/mm3 Eos # (Auto) 0.01 L (0.04-0.36) K/mm3 Baso # (Auto) 0.01 (0.01-0.08) K/mm3 Manual Slide Review Abnormal smear ESR 14 (0-20) mm/hr Puncture Site ABG pH (7.35-7.45) ABG pCO2 (35.0-45.0) mmHg ABG pO2 (80.0-100.0) mmHg ABG HCO3 (22.0-26.0) meq/L ABG O2 Saturation (96.0-97.0) % ABG Base Excess (-2-2.0) Asael Test A-a Gradient mmHg O2 Delivery Device Oxygen Flow Rate FiO2 (21.00-100.00) % Sodium 140 (136-145) mEq/L Potassium 3.9 (3.5-5.1) mEq/L Chloride 98 (98-107) mEq/L Carbon Dioxide 36 H (21-32) mEq/L Anion Gap 9.9 (5-15) BUN 54 H (7-18) mg/dL Creatinine 1.9 H (0.55-1.02) mg/dL Est Cr Clr Drug Dosing 17.82 mL/min Estimated GFR (MDRD) 25 (>60) mL/min BUN/Creatinine Ratio 28.4 H (14-18) Glucose 161 H (83-115) mg/dL Calcium 9.7 (8.5-10.1) mg/dL Magnesium 2.3 (1.8-2.4) mg/dl C-Reactive Protein 4.1 H* (<1.0) mg/dL B-Natriuretic Peptide (0-100) pg/mL 07/01/16 07/01/16 Range/Units 02:35 07:18 WBC (3.98-10.04) K/mm3 RBC (3.98-5.22) M/mm3 Hgb (11.2-15.7) gm/L Hct (34.1-44.9) % MCV (79.4-94.8) fl MCH (25.6-32.2) pg MCHC (32.2-35.5) g/dl RDW Std Deviation (36.4-46.3) fL Plt Count (182-369) K/mm3 MPV (9.4-12.3) fl Neut % (Auto) (34.0-71.1) % Lymph % (Auto) (19.3-51.7) % [place] % (Auto) (4.7-12.5) % Eos % (Auto) (0.7-5.8) Baso % (Auto) (0.1-1.2) % Neut # (Auto) (1.56-6.13) K/mm3 Lymph # (Auto) (1.18-3.74) K/mm3 [place] # (Auto) (0.24-0.36) K/mm3 Eos # (Auto) (0.04-0.36) K/mm3 Baso # (Auto) (0.01-0.08) K/mm3 Manual Slide Review ESR (0-20) mm/hr Puncture Site Rt radial ABG pH 7.32 L (7.35-7.45) ABG pCO2 71.2 H* (35.0-45.0) mmHg ABG pO2 55.0 L (80.0-100.0) mmHg ABG HCO3 35.6 H (22.0-26.0) meq/L ABG O2 Saturation 83.6 L (96.0-97.0) % ABG Base Excess 7.3 H (-2-2.0) Asael Test Positive A-a Gradient 85 mmHg O2 Delivery Device Nasal cannula Oxygen Flow Rate 3.5 FiO2 34.00 (21.00-100.00) % Sodium (136-145) mEq/L Potassium (3.5-5.1) mEq/L Chloride (98-107) mEq/L Carbon Dioxide (21-32) mEq/L Anion Gap (5-15) BUN (7-18) mg/dL Creatinine (0.55-1.02) mg/dL Est Cr Clr Drug Dosing mL/min Estimated GFR (MDRD) (>60) mL/min BUN/Creatinine Ratio (14-18) Glucose (83-115) mg/dL Calcium (8.5-10.1) mg/dL Magnesium (1.8-2.4) mg/dl C-Reactive Protein (<1.0) mg/dL B-Natriuretic Peptide 512 H (0-100) pg/mL Med Orders - Current: Current Medications Hydrocodone Bitart/Acetaminophen ([place] 325-10 Mg) 1 tab PO Q6H PRN PRN Reason: Pain Last Admin: 07/01/16 05:24 Dose: 1 tab Albuterol (Proventil Hfa) 0 gm INH Q6H PRN PRN Reason: Shortness of Breath Albuterol (Proventil Neb Soln) 2.5 mg NEB Q4H PRN PRN Reason: Dyspnea Last Admin: 07/01/16 07:37 Dose: 2.5 mg Aspirin (Aspirin) 81 mg PO DAILY TONJA Last Admin: 06/30/16 08:12 Dose: 81 mg Citalopram Hydrobromide (Celexa) 20 mg PO DAILY TONJA Diazepam (Valium) 2 mg PO BID PRN PRN Reason: backpain Last Admin: 06/30/16 20:30 Dose: 2 mg Furosemide (Lasix) 40 mg PO DAILY TONJA Last Admin: 06/30/16 08:12 Dose: 40 mg Hydromorphone HCl (Dilaudid) 0.5 mg IVPUSH Q2H PRN PRN Reason: Pain Last Admin: 07/01/16 05:24 Dose: 0.5 mg Diltiazem HCl 100 mg/ Sodium (Chloride) 100 mls @ 10 mls/hr IV TITRATE TONJA; 10 MG/HR PRN Reason: Protocol Last Admin: 07/01/16 03:41 Dose: 15 mg/hr, 15 mls/hr Ceftriaxone Sodium 2 gm/ (Sodium Chloride) 100 mls @ 200 mls/hr IV Q24H [facility] Last Admin: 06/30/16 22:01 Dose: 200 mls/hr Piperacillin Sod/Tazobactam (Sod 4.5 gm/ Sodium Chloride) 100 mls @ 25 mls/hr IV Q8H [facility] Lidocaine (Lidoderm 5%) 700 mg TRDERM Q24H [facility] Last Admin: 06/30/16 11:58 Dose: 700 mg Metoprolol Succinate (Toprol Xl) 25 mg PO BID [facility] Last Admin: 06/30/16 20:29 Dose: 25 mg Metoprolol Tartrate (Lopressor) 5 mg IVPUSH Q6H PRN PRN Reason: Tachycardia Last Admin: 06/29/16 17:43 Dose: 5 mg Miscellaneous Information (Remove Patch) 1 ea TRDERM Q24H [facility] Last Admin: 07/01/16 00:11 Dose: Not Given Miscellaneous Information (Remove Patch) 0 ea TRDERM Q72H [facility] Nitroglycerin (Nitrostat) 0.4 mg SL Q5M PRN PRN Reason: Chest Pain Ondansetron HCl (Zofran) 4 mg IVPUSH Q8H PRN PRN Reason: Nausea Polyethylene Glycol (Miralax) 17 gm PO TID PRN PRN Reason: Constipation Rivaroxaban (Xarelto) 15 mg PO DAILY [facility] Last Admin: 06/30/16 08:15 Dose: 15 mg Senna (Senna) 17.2 mg PO BID PRN PRN Reason: Constipation Simvastatin (Zocor) 20 mg PO DAILY [facility] Last Admin: 06/30/16 08:16 Dose: 20 mg Temazepam (Restoril) 7.5 mg PO BEDTIME PRN PRN Reason: Insomnia Last Admin: 06/30/16 20:31 Dose: 7.5 mg Trazodone HCl (Trazodone) 150 mg PO BEDTIME [facility] Last Admin: 06/30/16 20:29 Dose: 150 mg Discontinued Medications Hydrocodone Bitart/Acetaminophen ([place] 325-5 Mg) 1 tab PO Q4H PRN PRN Reason: Pain Last Admin: 06/30/16 14:32 Dose: 1 tab Citalopram Hydrobromide (Celexa) 40 mg PO DAILY [facility] Last Admin: 06/30/16 08:13 Dose: 40 mg Diazepam (Valium) 2.5 mg IVPUSH ONETIME ONE Stop: 06/28/16 20:27 Last Admin: 06/28/16 20:34 Dose: 2.5 mg Diazepam (Valium) 2 mg PO BEDTIME PRN PRN Reason: backpain Diltiazem HCl (Diltiazem) 5 mg IVPUSH ONETIME ONE Stop: 06/28/16 19:47 Last Admin: 06/28/16 20:08 Dose: 5 mg Diltiazem HCl (Diltiazem) 5 mg IVPUSH ONETIME ONE Stop: 06/28/16 20:26 Last Admin: 06/28/16 20:26 Dose: 5 mg Diltiazem HCl (Diltiazem) 5 mg IVPUSH ONETIME ONE Stop: 06/28/16 21:18 Last Admin: 06/28/16 21:47 Dose: 5 mg Diltiazem HCl (Diltiazem) 10 mg IVPUSH ONETIME ONE Stop: 06/28/16 22:03 Last Admin: 06/29/16 08:19 Dose: Not Given Fentanyl (Duragesic) 12 mcg TRDERM Q72H [facility] Last Admin: 06/30/16 13:52 Dose: 12 mcg Furosemide (Lasix) 40 mg IVPUSH NOW ONE Stop: 06/28/16 20:33 Last Admin: 06/28/16 20:42 Dose: 40 mg Furosemide (Lasix) 40 mg IVPUSH NOW ONE Stop: 07/01/16 07:21 Hydromorphone HCl (Dilaudid) 0.5 mg IVPUSH ONETIME ONE Stop: 06/28/16 19:12 Last Admin: 06/28/16 19:47 Dose: 0.5 mg Ceftriaxone Sodium 1 gm/ (Sodium Chloride) 100 mls @ 200 mls/hr IV ONETIME ONE Stop: 06/28/16 22:36 Last Admin: 06/28/16 22:17 Dose: 200 mls/hr Ceftriaxone Sodium 1 gm/ (Sodium Chloride) 100 mls @ 200 mls/hr IV Q24H [facility] Last Admin: 06/29/16 21:23 Dose: 200 mls/hr Sodium Chloride (Normal Saline) 1,000 mls @ 75 mls/hr IV ASDIRECTED [facility] Stop: 06/29/16 22:01 Last Admin: 06/29/16 18:43 Dose: 75 mls/hr Lorazepam (Ativan) 1 mg PO Q4H PRN PRN Reason: Anxiety Last Admin: 06/30/16 05:12 Dose: 1 mg Losartan Potassium (Cozaar) 50 mg PO BID [facility] Losartan Potassium (Cozaar) 50 mg PO BID [facility] Last Admin: 06/30/16 20:32 Dose: Not Given Methylprednisolone Sodium Succinate (Solu-Medrol) 80 mg IVPUSH ONETIME ONE Stop: 06/28/16 22:27 Last Admin: 06/28/16 23:17 Dose: 80 mg Metoprolol Succinate (Toprol Xl) 25 mg PO DAILY [facility] Last Admin: 06/30/16 08:14 Dose: 25 mg Naloxone HCl (Narcan) Confirm Administered Dose 0.8 mg .ROUTE .STK-MED ONE Stop: 07/01/16 07:16 Naloxone HCl (Narcan) 0.6 mg IVPUSH ONETIME ONE Stop: 07/01/16 07:31 Nitroglycerin (Nitrostat) 0.4 mg SL TID PRN PRN Reason: Chest Pain Pneumococcal Polyvalent Vaccine (Pneumovax 23) 0.5 ml IM .ONCE ONE Stop: 06/29/16 11:15 - Exam Quality Assessment: supplemental oxygen, DVT prophylaxis (Eliquis) General: alert, oriented, cooperative, no acute distress HEENT: Pupils equal, Pupils reactive, EOMI, Mucous membr. moist/pink Neck: supple Lungs: Decreased breath sounds (to bases), Crackles (fine to lt base), Wheezing (scattered throughout) Cardiovascular: Irregular Rhythm Abdomen: bowel sounds present, soft, no tenderness, no distension (Female) Exam: Deferred Back Exam: normal inspection Extremities: no calf tenderness (no popliteal tenderness, no medial thigh tenderness), edema (trace to ankles/pedal) Peripheral Pulses: 1+: dorsalis pedis (L), dorsalis pedis (R) Skin: warm, dry, intact Neurological: no new focal deficit Psy/Mental Status: alert, normal affect, normal mood, other (confused to time) - Problem List & Annotations (1) Chronic congestive heart failure SNOMED Code(s): 02672868 Code(s): I50.9 - HEART FAILURE, UNSPECIFIED Status: Acute Priority: High Current Visit: Yes Qualifiers: Congestive heart failure type: unspecified congestive heart failure type Qualified Code(s): I50.9 - Heart failure, unspecified Annotation/Comment:: acute on chronic (2) COPD (chronic obstructive pulmonary disease) SNOMED Code(s): 10164933 Code(s): J44.9 - CHRONIC OBSTRUCTIVE PULMONARY DISEASE, UNSPECIFIED Status : Acute Priority: High Current Visit: Yes Qualifiers: COPD type: COPD with acute exacerbation Qualified Code(s): J44.1 - Chronic obstructive pulmonary disease with (acute) exacerbation (3) Morbid obesity with BMI of 40.0-44.9, adult SNOMED Code(s): 731267364 Code(s): E66.01 - MORBID (SEVERE) OBESITY DUE TO EXCESS CALORIES; Z68.41 - BODY MASS INDEX (BMI) 40.0-44.9, ADULT Status: Chronic Priority: Medium Current Visit: No (4) Back pain SNOMED Code(s): 094348932 Code(s): M54.9 - DORSALGIA, UNSPECIFIED Status: Acute Priority: High Current Visit: Yes Qualifiers: Back pain location: thoracic back pain Chronicity: acute Back pain laterality: bilateral Qualified Code(s): M54.6 - Pain in thoracic spine (5) Atrial fibrillation with RVR SNOMED Code(s): 047192218586078 Code(s): I48.91 - UNSPECIFIED ATRIAL FIBRILLATION Status: Acute Priority : High Current Visit: Yes (6) UTI (urinary tract infection) SNOMED Code(s): 57102192 Code(s): N39.0 - URINARY TRACT INFECTION, SITE NOT SPECIFIED Status: Acute Priority: High Current Visit: Yes Qualifiers: Urinary tract infection type: acute cystitis Hematuria presence: with hematuria Qualified Code(s): N30.01 - Acute cystitis with hematuria - Problem List Review Problem List Initiated/Reviewed/Updated: Yes - My Orders Last 24 Hours: My Active Orders 07/01/16 08:30 Piperacillin/Tazobactam [Zosyn] 4.5 gm Sodium Chloride 0.9% [Normal Saline] 100 ml IV Q8H - Plan Plan:: Impression: AUTI, urine culture is sensitive to Rocephin; minimal improvement of labs/WBC; will add Zosyn today AFib with RVR on Xarelto; BB was recently decreased by paid search marketing strategist- on cardiazem drip Back pain, intractable--discussed obtaining CT of thoracic spine to assess ? compression fx. She wishes to think this over COPD, O2 dependent Elevated Tn, Demand ischemia Chronic CAD, history of NM/PCI CHF--CXR early this am with worsening cardiomegaly, lt pleural effusion Hyperlipidemia Anxiety Depression CKD Plan: Cardizem gtt Home meds IV ATB- added zosyn to rocephin Nebs Obtain clinic EMR and noninvasive card reports- obtain most recent echo: EF of 55% in 2016 DVT prophylaxis with Xarelto GI prophylaxis Discussed obtaining thoracic CT Episode of emesis this am with hypoxia; feels better now. Continues with intermittent hypoxia. Cont to assess through the day. Cont with current tx. LOS will be >96 hours due to complexity of case, longer than expected course of improvement/recovery, still on cardizem drip, hypoxia. <Doris Kendall - Last Filed: 07/01/16 19:53> - Patient Data Vitals - most recent: Last Vital Signs Temp 36.7 C 07/01/16 16:00 Pulse 105 H 07/01/16 18:55 Resp 14 07/01/16 18:55 BP 107/58 L 07/01/16 18:55 Pulse Ox 94 L 07/01/16 18:55 I&O - last 24 hours: Intake & Output 07/01/16 07/01/16 07/01/16 06:59 14:59 22:59 Intake Total 300 700 118 Output Total 200 500 575 Balance 100 200 -457 Lab Results last 24 hrs: Laboratory Results - last 24 hr 07/01/16 07/01/16 07/01/16 Range/Units 02:35 02:35 02:35 WBC 14.29 H (3.98-10.04) K/mm3 RBC 5.03 (3.98-5.22) M/mm3 Hgb 13.2 (11.2-15.7) gm/L Hct 45.3 H (34.1-44.9) % MCV 90.1 (79.4-94.8) fl MCH 26.2 (25.6-32.2) pg MCHC 29.1 L (32.2-35.5) g/dl RDW Std Deviation 52.4 H (36.4-46.3) fL Plt Count 238 (182-369) K/mm3 MPV 10.6 (9.4-12.3) fl Neut % (Auto) 87.3 H (34.0-71.1) % Lymph % (Auto) 3.9 L (19.3-51.7) % [place] % (Auto) 8.5 (4.7-12.5) % Eos % (Auto) 0.1 L (0.7-5.8) Baso % (Auto) 0.1 (0.1-1.2) % Neut # (Auto) 12.47 H (1.56-6.13) K/mm3 Lymph # (Auto) 0.56 L (1.18-3.74) K/mm3 [place] # (Auto) 1.22 H (0.24-0.36) K/mm3 Eos # (Auto) 0.01 L (0.04-0.36) K/mm3 Baso # (Auto) 0.01 (0.01-0.08) K/mm3 Manual Slide Review Abnormal smear ESR 14 (0-20) mm/hr Puncture Site ABG pH (7.35-7.45) ABG pCO2 (35.0-45.0) mmHg ABG pO2 (80.0-100.0) mmHg ABG HCO3 (22.0-26.0) meq/L ABG O2 Saturation (96.0-97.0) % ABG Base Excess (-2-2.0) Asael Test A-a Gradient mmHg O2 Delivery Device Oxygen Flow Rate FiO2 (21.00-100.00) % Tidal Volume cc Blood Gas Comments Sodium 140 (136-145) mEq/L Potassium 3.9 (3.5-5.1) mEq/L Chloride 98 (98-107) mEq/L Carbon Dioxide 36 H (21-32) mEq/L Anion Gap 9.9 (5-15) BUN 54 H (7-18) mg/dL Creatinine 1.9 H (0.55-1.02) mg/dL Est Cr Clr Drug Dosing 17.82 mL/min Estimated GFR (MDRD) 25 (>60) mL/min BUN/Creatinine Ratio 28.4 H (14-18) Glucose 161 H (83-115) mg/dL Calcium 9.7 (8.5-10.1) mg/dL Magnesium 2.3 (1.8-2.4) mg/dl C-Reactive Protein 4.1 H* (<1.0) mg/dL B-Natriuretic Peptide (0-100) pg/mL 07/01/16 07/01/16 07/01/16 Range/Units 02:35 07:18 13:56 WBC (3.98-10.04) K/mm3 RBC (3.98-5.22) M/mm3 Hgb (11.2-15.7) gm/L Hct (34.1-44.9) % MCV (79.4-94.8) fl MCH (25.6-32.2) pg MCHC (32.2-35.5) g/dl RDW Std Deviation (36.4-46.3) fL Plt Count (182-369) K/mm3 MPV (9.4-12.3) fl Neut % (Auto) (34.0-71.1) % Lymph % (Auto) (19.3-51.7) % [place] % (Auto) (4.7-12.5) % Eos % (Auto) (0.7-5.8) Baso % (Auto) (0.1-1.2) % Neut # (Auto) (1.56-6.13) K/mm3 Lymph # (Auto) (1.18-3.74) K/mm3 [place] # (Auto) (0.24-0.36) K/mm3 Eos # (Auto) (0.04-0.36) K/mm3 Baso # (Auto) (0.01-0.08) K/mm3 Manual Slide Review ESR (0-20) mm/hr Puncture Site Rt radial Rt radial ABG pH 7.32 L 7.26 L (7.35-7.45) ABG pCO2 71.2 H* 80.6 H* (35.0-45.0) mmHg ABG pO2 55.0 L 65.0 L (80.0-100.0) mmHg ABG HCO3 35.6 H 34.9 H (22.0-26.0) meq/L ABG O2 Saturation 83.6 L 87.5 L (96.0-97.0) % ABG Base Excess 7.3 H 5.6 H (-2-2.0) Asael Test Positive A-a Gradient 85 77 mmHg O2 Delivery Device Nasal cannula Nasal cannula Oxygen Flow Rate 3.5 4.0 FiO2 34.00 36.00 (21.00-100.00) % Tidal Volume cc Blood Gas Comments P Sodium (136-145) mEq/L Potassium (3.5-5.1) mEq/L Chloride (98-107) mEq/L Carbon Dioxide (21-32) mEq/L Anion Gap (5-15) BUN (7-18) mg/dL Creatinine (0.55-1.02) mg/dL Est Cr Clr Drug Dosing mL/min Estimated GFR (MDRD) (>60) mL/min BUN/Creatinine Ratio (14-18) Glucose (83-115) mg/dL Calcium (8.5-10.1) mg/dL Magnesium (1.8-2.4) mg/dl C-Reactive Protein (<1.0) mg/dL B-Natriuretic Peptide 512 H (0-100) pg/mL 07/01/16 07/01/16 07/01/16 Range/Units 14:02 14:02 16:50 WBC 13.80 H (3.98-10.04) K/mm3 RBC 4.84 (3.98-5.22) M/mm3 Hgb 12.7 (11.2-15.7) gm/L Hct 44.4 (34.1-44.9) % MCV 91.7 (79.4-94.8) fl MCH 26.2 (25.6-32.2) pg MCHC 28.6 L (32.2-35.5) g/dl RDW Std Deviation 53.2 H (36.4-46.3) fL Plt Count 224 (182-369) K/mm3 MPV 10.4 (9.4-12.3) fl Neut % (Auto) 86.5 H (34.0-71.1) % Lymph % (Auto) 4.2 L (19.3-51.7) % [place] % (Auto) 9.1 (4.7-12.5) % Eos % (Auto) 0 L (0.7-5.8) Baso % (Auto) 0.1 (0.1-1.2) % Neut # (Auto) 11.93 H (1.56-6.13) K/mm3 Lymph # (Auto) 0.58 L (1.18-3.74) K/mm3 [place] # (Auto) 1.26 H (0.24-0.36) K/mm3 Eos # (Auto) 0.00 L (0.04-0.36) K/mm3 Baso # (Auto) 0.01 (0.01-0.08) K/mm3 Manual Slide Review Abnormal smear ESR (0-20) mm/hr Puncture Site Rt radial ABG pH 7.30 L (7.35-7.45) ABG pCO2 71.2 H* (35.0-45.0) mmHg ABG pO2 76.0 L (80.0-100.0) mmHg ABG HCO3 33.7 H (22.0-26.0) meq/L ABG O2 Saturation 95.2 L (96.0-97.0) % ABG Base Excess 5.5 H (-2-2.0) Asael Test A-a Gradient 104 mmHg O2 Delivery Device Bipap 12 Oxygen Flow Rate FiO2 40.00 (21.00-100.00) % Tidal Volume 361.0 cc Blood Gas Comments Sodium 142 (136-145) mEq/L Potassium 4.1 (3.5-5.1) mEq/L Chloride 100 (98-107) mEq/L Carbon Dioxide 38 H (21-32) mEq/L Anion Gap 8.1 (5-15) BUN 54 H (7-18) mg/dL Creatinine 1.7 H (0.55-1.02) mg/dL Est Cr Clr Drug Dosing 19.92 mL/min Estimated GFR (MDRD) 29 (>60) mL/min BUN/Creatinine Ratio 31.8 H (14-18) Glucose 139 H (83-115) mg/dL Calcium 9.3 (8.5-10.1) mg/dL Magnesium (1.8-2.4) mg/dl C-Reactive Protein 5.4 H* (<1.0) mg/dL B-Natriuretic Peptide (0-100) pg/mL Med Orders - Current: Current Medications Hydrocodone Bitart/Acetaminophen ([place] 325-10 Mg) 1 tab PO Q6H PRN PRN Reason: Pain Last Admin: 07/01/16 05:24 Dose: 1 tab Albuterol (Proventil Hfa) 0 gm INH Q6H PRN PRN Reason: Shortness of Breath Albuterol (Proventil Neb Soln) 2.5 mg NEB Q4H PRN PRN Reason: Dyspnea Last Admin: 07/01/16 13:49 Dose: 2.5 mg Aspirin (Aspirin) 81 mg PO DAILY [facility]ONJA Last Admin: 07/01/16 08:36 Dose: 81 mg Citalopram Hydrobromide (Celexa) 20 mg PO DAILY [facility]ON[facility] Last Admin: 07/01/16 08:37 Dose: 20 mg Diazepam (Valium) 2 mg PO BID PRN PRN Reason: backpain Last Admin: 06/30/16 20:30 Dose: 2 mg Diltiazem HCl (Cardizem) 30 mg PO Q6HR [facility]ON[facility] Last Admin: 07/01/16 17:22 Dose: 30 mg Furosemide (Lasix) 40 mg PO DAILY [facility]ON[facility] Last Admin: 07/01/16 08:48 Dose: Not Given Hydralazine HCl (Apresoline) 25 mg IVPUSH Q6H PRN PRN Reason: Hypertension Hydromorphone HCl (Dilaudid) 0.5 mg IVPUSH Q2H PRN PRN Reason: Pain Last Admin: 07/01/16 14:15 Dose: 0.5 mg Diltiazem HCl 100 mg/ Sodium (Chloride) 100 mls @ 10 mls/hr IV TITRATE TONJA; 10 MG/HR PRN Reason: Protocol Last Titration: 07/01/16 12:29 Dose: 5 mg/hr, 5 mls/hr Ceftriaxone Sodium 2 gm/ (Sodium Chloride) 100 mls @ 200 mls/hr IV Q24H [facility] Last Admin: 06/30/16 22:01 Dose: 200 mls/hr Piperacillin Sod/Tazobactam (Sod 4.5 gm/ Sodium Chloride) 100 mls @ 25 mls/hr IV Q12H [facility] Lidocaine (Lidoderm 5%) 700 mg TRDERM Q24H [facility] Last Admin: 07/01/16 11:25 Dose: Not Given Metoclopramide HCl (Reglan) 5 mg IVPUSH Q6H [facility] Last Admin: 07/01/16 15:42 Dose: 5 mg Metoprolol Succinate (Toprol Xl) 25 mg PO BID [facility] Last Admin: 07/01/16 08:38 Dose: 25 mg Metoprolol Tartrate (Lopressor) 5 mg IVPUSH Q6H PRN PRN Reason: Tachycardia Last Admin: 06/29/16 17:43 Dose: 5 mg Miscellaneous Information (Remove Patch) 1 ea TRDERM Q24H [facility] Last Admin: 07/01/16 00:11 Dose: Not Given Nitroglycerin (Nitrostat) 0.4 mg SL Q5M PRN PRN Reason: Chest Pain Ondansetron HCl (Zofran) 4 mg IVPUSH Q8H PRN PRN Reason: Nausea Last Admin: 07/01/16 09:45 Dose: 4 mg [facility] Admin: 07/01/16 17:22 Dose: 40 mg Polyethylene Glycol (Miralax) 17 gm PO TID PRN PRN Reason: Constipation Last Admin: 07/01/16 08:38 Dose: 17 gm Rivaroxaban (Xarelto) 15 mg PO DAILY [facility] Last Admin: 07/01/16 08:37 Dose: 15 mg Senna (Senna) 17.2 mg PO BID PRN PRN Reason: Constipation Last Admin: 07/01/16 08:38 Dose: 17.2 mg Simvastatin (Zocor) 20 mg PO DAILY [facility] Last Admin: 07/01/16 08:39 Dose: 20 mg Temazepam (Restoril) 7.5 mg PO BEDTIME PRN PRN Reason: Insomnia Last Admin: 06/30/16 20:31 Dose: 7.5 mg Trazodone HCl (Trazodone) 150 mg PO BEDTIME [facility] Last Admin: 06/30/16 20:29 Dose: 150 mg Discontinued Medications Hydrocodone Bitart/Acetaminophen ([place] 325-5 Mg) 1 tab PO Q4H PRN PRN Reason: Pain Last Admin: 06/30/16 14:32 Dose: 1 tab Citalopram Hydrobromide (Celexa) 40 mg PO DAILY [facility] Last Admin: 06/30/16 08:13 Dose: 40 mg Diazepam (Valium) 2.5 mg IVPUSH ONETIME ONE Stop: 06/28/16 20:27 Last Admin: 06/28/16 20:34 Dose: 2.5 mg Diazepam (Valium) 2 mg PO BEDTIME PRN PRN Reason: backpain Diltiazem HCl (Diltiazem) 5 mg IVPUSH ONETIME ONE Stop: 06/28/16 19:47 Last Admin: 06/28/16 20:08 Dose: 5 mg Diltiazem HCl (Diltiazem) 5 mg IVPUSH ONETIME ONE Stop: 06/28/16 20:26 Last Admin: 06/28/16 20:26 Dose: 5 mg Diltiazem HCl (Diltiazem) 5 mg IVPUSH ONETIME ONE Stop: 06/28/16 21:18 Last Admin: 06/28/16 21:47 Dose: 5 mg Diltiazem HCl (Diltiazem) 10 mg IVPUSH ONETIME ONE Stop: 06/28/16 22:03 Last Admin: 06/29/16 08:19 Dose: Not Given Famotidine (Pepcid) 20 mg IVPUSH ONETIME ONE Stop: 07/01/16 09:31 Last Admin: 07/01/16 09:44 Dose: 20 mg Fentanyl (Duragesic) 12 mcg TRDERM Q72H [facility] Last Admin: 06/30/16 13:52 Dose: 12 mcg Flumazenil (Romazicon) 0.2 mg IVPUSH ONETIME ONE Stop: 07/01/16 15:32 Last Admin: 07/01/16 15:47 Dose: 0.2 mg Furosemide (Lasix) 40 mg IVPUSH NOW ONE Stop: 06/28/16 20:33 Last Admin: 06/28/16 20:42 Dose: 40 mg Furosemide (Lasix) 40 mg IVPUSH NOW ONE Stop: 07/01/16 07:21 Last Admin: 07/01/16 08:39 Dose: 40 mg Haloperidol Lactate (Haldol) 0.5 mg IVPUSH ONETIME ONE Stop: 07/01/16 14:46 Last Admin: 07/01/16 14:50 Dose: 0.5 mg Haloperidol Lactate (Haldol) 1 mg IVPUSH ONETIME ONE Stop: 07/01/16 15:01 Last Admin: 07/01/16 15:10 Dose: 1 mg Hydromorphone HCl (Dilaudid) 0.5 mg IVPUSH ONETIME ONE Stop: 06/28/16 19:12 Last Admin: 06/28/16 19:47 Dose: 0.5 mg Ceftriaxone Sodium 1 gm/ (Sodium Chloride) 100 mls @ 200 mls/hr IV ONETIME ONE Stop: 06/28/16 22:36 Last Admin: 06/28/16 22:17 Dose: 200 mls/hr Ceftriaxone Sodium 1 gm/ (Sodium Chloride) 100 mls @ 200 mls/hr IV Q24H [facility] Last Admin: 06/29/16 21:23 Dose: 200 mls/hr Sodium Chloride (Normal Saline) 1,000 mls @ 75 mls/hr IV ASDIRECTED [facility] Stop: 06/29/16 22:01 Last Admin: 06/29/16 18:43 Dose: 75 mls/hr Piperacillin Sod/Tazobactam (Sod 4.5 gm/ Sodium Chloride) 100 mls @ 200 mls/hr IV ONETIME ONE Stop: 07/01/16 09:29 Last Admin: 07/01/16 09:47 Dose: 200 mls/hr Lorazepam (Ativan) 1 mg PO Q4H PRN PRN Reason: Anxiety Last Admin: 06/30/16 05:12 Dose: 1 mg Lorazepam (Ativan) 0.5 mg PO ONETIME ONE Stop: 07/01/16 09:31 Last Admin: 07/01/16 10:03 Dose: 0.5 mg Losartan Potassium (Cozaar) 50 mg PO BID [facility] Losartan Potassium (Cozaar) 50 mg PO BID [facility] Last Admin: 06/30/16 20:32 Dose: Not Given Methylprednisolone Sodium Succinate (Solu-Medrol) 80 mg IVPUSH ONETIME ONE Stop: 06/28/16 22:27 Last Admin: 06/28/16 23:17 Dose: 80 mg Metoprolol Succinate (Toprol Xl) 25 mg PO DAILY [facility] Last Admin: 06/30/16 08:14 Dose: 25 mg Miscellaneous Information (Remove Patch) 0 ea TRDERM Q72H [facility] Naloxone HCl (Narcan) Confirm Administered Dose 0.8 mg .ROUTE .STK-MED ONE Stop: 07/01/16 07:16 Last Admin: 07/01/16 08:48 Dose: Not Given Naloxone HCl (Narcan) 0.6 mg IVPUSH ONETIME ONE Stop: 07/01/16 07:31 Last Admin: 07/01/16 07:18 Dose: 0.6 mg Nitroglycerin (Nitrostat) 0.4 mg SL TID PRN PRN Reason: Chest Pain Ondansetron HCl (Zofran) 4 mg IVPUSH ONETIME ONE Stop: 07/01/16 14:49 Last Admin: 07/01/16 15:42 Dose: 4 mg Pneumococcal Polyvalent Vaccine (Pneumovax 23) 0.5 ml IM .ONCE ONE Stop: 06/29/16 11:15 - Problem List & Annotations (1) Atrial fibrillation with RVR SNOMED Code(s): 121999592927777 Code(s): I48.91 - UNSPECIFIED ATRIAL FIBRILLATION Status: Acute Priority : High Current Visit: Yes (2) Back pain SNOMED Code(s): 524476901 Code(s): M54.9 - DORSALGIA, UNSPECIFIED Status: Acute Priority: High Current Visit: Yes Qualifiers: Back pain location: thoracic back pain Chronicity: acute Back pain laterality: bilateral Qualified Code(s): M54.6 - Pain in thoracic spine (3) CHF (congestive heart failure) SNOMED Code(s): 67954582 Code(s): I50.9 - HEART FAILURE, UNSPECIFIED Status: Acute Current Visit: Yes Qualifiers: Congestive heart failure type: unspecified congestive heart failure type Congestive heart failure chronicity: acute on chronic Qualified Code(s): I50.9 - Heart failure, unspecified (4) Elevated troponin SNOMED Code(s): 646826291, 112806980 Code(s): R74.8 - ABNORMAL LEVELS OF OTHER SERUM ENZYMES Status: Acute Current Visit: Yes (5) UTI (urinary tract infection) SNOMED Code(s): 91657532 Code(s): N39.0 - URINARY TRACT INFECTION, SITE NOT SPECIFIED Status: Acute Priority: High Current Visit: Yes Qualifiers: Urinary tract infection type: acute cystitis Hematuria presence: with hematuria Qualified Code(s): N30.01 - Acute cystitis with hematuria (6) COPD (chronic obstructive pulmonary disease) SNOMED Code(s): 25735155 Code(s): J44.9 - CHRONIC OBSTRUCTIVE PULMONARY DISEASE, UNSPECIFIED Status : Acute Priority: High Current Visit: Yes Qualifiers: COPD type: COPD with acute exacerbation Qualified Code(s): J44.1 - Chronic obstructive pulmonary disease with (acute) exacerbation (7) Leg edema SNOMED Code(s): 929375683 Code(s): R60.0 - LOCALIZED EDEMA Status: Acute Current Visit: No Qualifiers: Laterality: bilateral Qualified Code(s): R60.0 - Localized edema - My Orders Last 24 Hours: My Active Orders 06/30/16 20:08 Acetaminophen/HYDROcodone [[place] 325-10 MG] 1 tab PO Q6H PRN 06/30/16 20:11 Diazepam [Valium] 2 mg PO BID PRN 06/30/16 21:00 Metoprolol Succinate [Toprol XL] 25 mg PO BID 06/30/16 22:00 cefTRIAXone [Rocephin] 2 gm Sodium Chloride 0.9% [Normal Saline] 100 ml IV Q24H 06/30/16 22:29 Oxygen Therapy [RC] ASDIRECTED 07/01/16 00:00 Remove Patch 1 ea TRDERM Q24H 07/01/16 06:30 Polyethylene Glycol 3350 [MiraLAX] 17 gm PO TID PRN 07/01/16 06:31 Sennosides [Senna] 17.2 mg PO BID PRN 07/01/16 09:00 Citalopram [Celexa] 20 mg PO DAILY 07/01/16 09:29 PT Evaluation and Treatment [CONS] Routine hydrALAZINE [Apresoline] 25 mg IVPUSH Q6H PRN 07/01/16 09:30 Consult to Plant Specialist [CONS] Routine 07/01/16 15:25 RT BiPAP/CPAP [RC] ASDIRECTED BiPAP [RESPCARE] Routine 07/01/16 21:00 Piperacillin/Tazobactam [Zosyn] 4.5 gm Sodium Chloride 0.9% [Normal Saline] 100 ml IV Q12H 07/02/16 05:00 BASIC METABOLIC PANEL,BMP [CHEM] DAILY CBC WITH AUTO DIFF [HEME] DAILY CRP [C-REACTIVE PROTEIN] [CHEM] DAILY MAGNESIUM [CHEM] DAILY 07/02/16 05:11 B-TYPE NATRIURETIC PEPTIDE,BNP [CHEM] AM C-REACTIVE PROTEIN [CHEM] AM CBC WITH MANUAL DIFF [HEME] AM LACTIC ACID [CHEM] AM 07/02/16 06:00 Chest 1V Frontal [CR] Routine 07/03/16 05:00 BASIC METABOLIC PANEL,BMP [CHEM] DAILY - Plan Plan:: Periodic increase in pCO2 with MS changes; ABGs serially after change on O2 delivery. Has responded to BiPAP.
[2016-07-01] MEDS: Aspirin 81 MG Tab.Chew PO SCH (08:36)
[2016-07-01] MEDS: Rivaroxaban 10 MG Tab PO SCH (08:37)
[2016-07-01] MEDS: Metoprolol Succinate 25 MG Tab.ER PO SCH ×2 (08:38→20:27)
[2016-07-01] MEDS: Simvastatin 20 MG Tab PO SCH (08:39)
[2016-07-01] MEDS: Furosemide 40 MG Tab PO SCH (08:48)
--- NOTE | 2016-07-01 08:53 | CR ---
Chest: Frontal view of the chest was obtained. Comparison: Previous chest x-ray of 06/28/16. Heart is enlarged. Pulmonary vessels show stable prominence. Left retrocardiac region not well penetrated. Lungs otherwise are clear. Bony structures are grossly intact. Impression: 1. Cardiomegaly with stable pulmonary vascular congestion. 2. Poorly seen left retrocardiac region due to portable technique. Agree with preliminary report issued by [facility] (preliminary report dictated on 07/01/16, 5:24 AM Central Time) Diagnostic code #3
[2016-07-01] MEDS ORDERED: Citalopram 20 MG Tab PO SCH (09:00)
[2016-07-01] MEDS ORDERED: Piperacillin/Tazobactam 4.5 GM in Sodium Chloride 0.9% 100 ML IV ONE (09:00)
[2016-07-01] MEDS ORDERED: hydrALAZINE 20 MG/ML SDV IVPUSH PRN (09:29)
[2016-07-01] MEDS ORDERED: LORazepam 0.5 MG Tab PO ONE (09:30)
[2016-07-01] MEDS ORDERED: Famotidine 20 MG/2 ML SDV IVPUSH ONE (09:30)
[2016-07-01] MEDS: Ondansetron 4 MG/2 ML SDV IVPUSH PRN (09:45)
[2016-07-01] MEDS: Diltiazem IR 30 MG Tab PO SCH ×3 (11:24→22:07)
[2016-07-01] MEDS: Lidocaine 5% 700 MG Patch TRDERM SCH (11:25)
--- NOTE | 2016-07-01 12:24 | CT ---
CT chest Technique: Multiple axial sections through the chest were obtained. Intravenous contrast not utilized. Comparison: Previous chest x-ray performed on the same day, no previous chest CT. Findings: No axillary adenopathy is seen. Atherosclerotic calcification noted within a nondilated thoracic aorta. Prominent coronary artery calcification is seen. Mitral annulus calcification noted. Heart is enlarged. Gallstones are seen within the gallbladder. Minimal left sided pleural effusion is seen. Slight parenchymal density within the left base is noted. Nodule noted within the left mid lung measuring approximately 9 mm. This shows no calcifications. Emphysematous change is seen within both lungs. Scattered degenerative spurring is seen within the spine. Impression: 1. Minimal left-sided pleural effusion. 2. Mild parenchymal density within the left base. Differential includes chronic change, small area of pneumonia as well as aspiration. 3. 9 mm noncalcified nodule within the left mid lung with differential of a solitary pulmonary nodule. 4. Emphysematous change. Diagnostic code #9 Social Media Developer called report to Yudith Machado at 11:40 on 07/01/2016
--- NOTE | 2016-07-01 12:24 | CT ---
CT thoracic spine Technique: Multiple axial sections were obtained through the thoracic spine. Reconstructed sagittal and coronal images were reviewed. Findings: Disc space narrowing is seen within the mid and lower thoracic spine. Diffuse endplate osteophytes are seen most prominent within the mid to lower thoracic spine. Compression deformity seen of T7 with what appears to be an osteolytic lesion to the left side of this vertebral body. This lytic lesion extends into the left pedicle. No other lytic lesions are appreciated within the thoracic spine. Impression: 1. Lytic lesion within the left vertebral body of T7 extending into the left pedicle. This is most likely metastatic in etiology with infection being within the differential but felt less likely. Minimal soft tissue density anterior to the thoracic cord is partially seen. 2. Degenerative change as noted above. No additional lytic lesions are seen. Diagnostic code #9 [employer] Coater Machine Operator called report to Hazel Machado at 11:46 on 07/01/2016
--- NOTE | 2016-07-01 14:44 | PCM.SN ---
- Free Text/Narrative Note: Repeat ABG obtained with PH of 7.26; pCO2 of 80.6 and pO2 at 65; RT notified, due to hypercapnia will start and apply bipap at 12/6 settings. I had a long phone conversation with daughter Jumana: reviewed events of the day, CXR, chest CT and thoracic spine CT results with daughter including lytic lesion in T7, likely metastatic lesion. Discussed that respiratory status and hypoxia is fluctuating; currently in xray for VQ to R/O PE. Labs ordered for further evaluation of possible metastatic process, will need further imaging of of abdomen and pelvis- likely tomorrow, CEA ordered. Discussed case with Dr. Lizarraga briefly. Reviewed above with Dr. Kendall
[2016-07-01] MEDS ORDERED: Haloperidol Lactate 5 MG/ML SDV IVPUSH ONE ×2 (14:45→15:00)
[2016-07-01] MEDS ORDERED: Ondansetron 4 MG/2 ML SDV IVPUSH ONE (14:48)
[2016-07-01] MEDS ORDERED: Flumazenil 0.1 MG/ML 5 ML MDV ONE (15:25)
[2016-07-01] MEDS ORDERED: Flumazenil 0.1 MG/ML 5 ML MDV IVPUSH ONE (15:31)
[2016-07-01] MEDS: Metoclopramide 10 MG/2 ML SDV IVPUSH SCH ×2 (15:42→20:30)
--- NOTE | 2016-07-01 15:45 | NM ---
Ventilation/perfusion lung scan Technique: 2.0 mCi of technetium 99m MAA was injected. Scintigraphic imaging obtained over the lung crane. 40 mCi of technetium 99m DTPA was aerosolized and patient inhaled mixture. Study is incomplete as patient could not complete ventilation study. Findings: Minimal patchiness of uptake is seen. Findings are felt to have a low probability for pulmonary embolism. Impression: 1. Low probability for pulmonary embolism. Diagnostic code #2
[2016-07-01] MEDS: Pantoprazole 40 MG Tab.CR PO SCH (17:22)
[2016-07-01] MEDS: traZODone 50 MG Tab PO SCH (20:28)
[2016-07-01] MEDS ORDERED: Piperacillin/Tazobactam 4.5 GM in Sodium Chloride 0.9% 100 ML IV SCH (21:00)
[2016-07-01] MEDS ORDERED: cefTRIAXone 1 GM AdvVial IV ONE (22:49)
[2016-07-01] MEDS: cefTRIAXone 2 GM in Sodium Chloride 0.9% 100 ML IV SCH ×2 (23:05→23:52)
[2016-07-02] MEDS: Diltiazem IR 30 MG Tab PO SCH ×5 (00:55→23:58)
[2016-07-02] MEDS: Metoclopramide 10 MG/2 ML SDV IVPUSH SCH ×4 (02:24→21:25)
[2016-07-02] MEDS ORDERED: Bumetanide 1 MG/4 ML MDV IVPUSH ONE (06:42)
[2016-07-02] MEDS: Pantoprazole 40 MG Tab.CR PO SCH ×2 (06:57→15:04)
[2016-07-02] MEDS: Piperacillin/Tazobactam 4.5 GM in Sodium Chloride 0.9% 100 ML IV SCH ×2 (08:02→17:27)
[2016-07-02] MEDS: Rivaroxaban 10 MG Tab PO SCH (08:06)
[2016-07-02] MEDS: traMADol 50 MG Tab PO PRN (08:08)
[2016-07-02] MEDS: Acetaminophen/HYDROcodone 325-10 MG Tab PO PRN (09:40)
[2016-07-02] MEDS: Aspirin 81 MG Tab.Chew PO SCH (09:46)
[2016-07-02] MEDS: Metoprolol Succinate 25 MG Tab.ER PO SCH ×2 (09:47→21:28)
[2016-07-02] MEDS: Citalopram 20 MG Tab PO SCH (09:47)
[2016-07-02] MEDS: Simvastatin 20 MG Tab PO SCH (09:48)
--- NOTE | 2016-07-02 13:37 | PCM.PN ---
<Yudith Machado M - Last Filed: 07/02/16 13:46> - General Info Date of Service: 07/02/16 Admission Dx/Problem (Free Text): Admission Diagnosis/Problem Admission Diagnosis/Problem Atrial fibrillation Patient is seen this morning in ICU room, resting. She was maintained on bipap for part of the night due to hypercapnia; maintained sats while on bipap. Rested fairly well. At times she is orientated to place, time and situation but currently disorientated and confused. She is arousable this morning and will answer questions. Denies complaints of pain, discomfort, chest or abdominal pain. Has c/o thoracic back pain with any movements. CT of thoracic spine done yesterday reveals lytic lesion in T7 vertebra, suspicious for metastatic disease. She also underwent VQ scan yesterday which was with low probability for PE. HR has been 80's-140's since off diltiazem drip yesterday, transitioned to PO- tolerating well thus far, continues metoprolol BID and xarelto for afib. Lopez catheter was placed yesterday for adequate I&O with IV diuretic therapy for CHF exacerbation. Output was not as good as expected with IV lasix dosing. Daughter Jumana was updated of all of above findings by myself yesterday afternoon. Functional Status: Reports: urinating (lopez cath ). Denies: tolerating diet - Review of Systems General: Denies: Fever HEENT: Denies: headaches Pulmonary: Reports: shortness of breath Cardiovascular: Denies: Chest Pain, Palpitations Neurological: Reports: Confusion Psychiatric: Reports: confusion (difficult to obtain this morning as patient is confused and intermittently lethargic) - Patient Data Vitals - most recent: Last Vital Signs Temp 98.1 F 07/02/16 12:00 Pulse 47 L 07/02/16 06:46 Resp 24 H 07/02/16 12:00 BP 98/52 L 07/02/16 12:00 Pulse Ox 97 07/02/16 12:00 Weight - most recent: 103.782 kg I&O - last 24 hours: Intake & Output 07/01/16 07/02/16 07/02/16 22:59 06:59 14:59 Intake Total 558 840 360 Output Total 715 465 750 Balance -157 375 -390 Lab Results last 24 hrs: Laboratory Results - last 24 hr 07/01/16 07/01/16 07/01/16 Range/Units 13:56 14:02 14:02 WBC 13.80 H (3.98-10.04) K/mm3 RBC 4.84 (3.98-5.22) M/mm3 Hgb 12.7 (11.2-15.7) gm/L Hct 44.4 (34.1-44.9) % MCV 91.7 (79.4-94.8) fl MCH 26.2 (25.6-32.2) pg MCHC 28.6 L (32.2-35.5) g/dl RDW Std Deviation 53.2 H (36.4-46.3) fL Plt Count 224 (182-369) K/mm3 MPV 10.4 (9.4-12.3) fl Neut % (Auto) 86.5 H (34.0-71.1) % Lymph % (Auto) 4.2 L (19.3-51.7) % York % (Auto) 9.1 (4.7-12.5) % Eos % (Auto) 0 L (0.7-5.8) Baso % (Auto) 0.1 (0.1-1.2) % Neut # (Auto) 11.93 H (1.56-6.13) K/mm3 Lymph # (Auto) 0.58 L (1.18-3.74) K/mm3 York # (Auto) 1.26 H (0.24-0.36) K/mm3 Eos # (Auto) 0.00 L (0.04-0.36) K/mm3 Baso # (Auto) 0.01 (0.01-0.08) K/mm3 Neutrophils % (Manual) (40-60) % Band Neutrophils % (0-10) % Lymphocytes % (Manual) (20-40) % Atypical Lymphs % % Monocytes % (Manual) (2-10) % Eosinophils % (Manual) (0.7-5.8) % Basophils % (Manual) (0.1-1.2) Differential Comment Manual Slide Review Abnormal smear Platelet Estimate RBC Morph Comment Puncture Site Rt radial ABG pH 7.26 L (7.35-7.45) ABG pCO2 80.6 H* (35.0-45.0) mmHg ABG pO2 65.0 L (80.0-100.0) mmHg ABG HCO3 34.9 H (22.0-26.0) meq/L ABG O2 Saturation 87.5 L (96.0-97.0) % ABG Base Excess 5.6 H (-2-2.0) Asael Test A-a Gradient 77 mmHg O2 Delivery Device Nasal cannula Oxygen Flow Rate 4.0 FiO2 36.00 (21.00-100.00) % Tidal Volume cc Blood Gas Comments P Sodium 142 (136-145) mEq/L Potassium 4.1 (3.5-5.1) mEq/L Chloride 100 (98-107) mEq/L Carbon Dioxide 38 H (21-32) mEq/L Anion Gap 8.1 (5-15) BUN 54 H (7-18) mg/dL Creatinine 1.7 H (0.55-1.02) mg/dL Est Cr Clr Drug Dosing 19.92 mL/min Estimated GFR (MDRD) 29 (>60) mL/min BUN/Creatinine Ratio 31.8 H (14-18) Glucose 139 H (83-115) mg/dL Lactic Acid (0.4-2.0) mmol/L Calcium 9.3 (8.5-10.1) mg/dL Magnesium (1.8-2.4) mg/dl C-Reactive Protein 5.4 H* (<1.0) mg/dL B-Natriuretic Peptide (0-100) pg/mL 07/01/16 07/02/16 07/02/16 Range/Units 16:50 04:47 04:47 WBC 12.70 H (3.98-10.04) K/mm3 RBC 4.47 (3.98-5.22) M/mm3 Hgb 11.8 (11.2-15.7) gm/L Hct 41.0 (34.1-44.9) % MCV 91.7 (79.4-94.8) fl MCH 26.4 (25.6-32.2) pg MCHC 28.8 L (32.2-35.5) g/dl RDW Std Deviation 52.4 H (36.4-46.3) fL Plt Count 165 L (182-369) K/mm3 MPV 10.6 (9.4-12.3) fl Neut % (Auto) (34.0-71.1) % Lymph % (Auto) (19.3-51.7) % York % (Auto) (4.7-12.5) % Eos % (Auto) (0.7-5.8) Baso % (Auto) (0.1-1.2) % Neut # (Auto) (1.56-6.13) K/mm3 Lymph # (Auto) (1.18-3.74) K/mm3 York # (Auto) (0.24-0.36) K/mm3 Eos # (Auto) (0.04-0.36) K/mm3 Baso # (Auto) (0.01-0.08) K/mm3 Neutrophils % (Manual) 87 H (40-60) % Band Neutrophils % 1 (0-10) % Lymphocytes % (Manual) 6 L (20-40) % Atypical Lymphs % 0 % Monocytes % (Manual) 6 (2-10) % Eosinophils % (Manual) 0 L (0.7-5.8) % Basophils % (Manual) 0 L (0.1-1.2) Differential Comment See note Manual Slide Review Platelet Estimate Adequate RBC Morph Comment Normal Puncture Site Rt radial ABG pH 7.30 L (7.35-7.45) ABG pCO2 71.2 H* (35.0-45.0) mmHg ABG pO2 76.0 L (80.0-100.0) mmHg ABG HCO3 33.7 H (22.0-26.0) meq/L ABG O2 Saturation 95.2 L (96.0-97.0) % ABG Base Excess 5.5 H (-2-2.0) Asael Test A-a Gradient 104 mmHg O2 Delivery Device Bipap 12 Oxygen Flow Rate FiO2 40.00 (21.00-100.00) % Tidal Volume 361.0 cc Blood Gas Comments Sodium 140 (136-145) mEq/L Potassium 3.8 (3.5-5.1) mEq/L Chloride 103 (98-107) mEq/L Carbon Dioxide 33 H (21-32) mEq/L Anion Gap 7.8 (5-15) BUN 46 H (7-18) mg/dL Creatinine 1.5 H (0.55-1.02) mg/dL Est Cr Clr Drug Dosing 22.57 mL/min Estimated GFR (MDRD) 33 (>60) mL/min BUN/Creatinine Ratio 30.7 H (14-18) Glucose 152 H (83-115) mg/dL Lactic Acid (0.4-2.0) mmol/L Calcium 8.7 (8.5-10.1) mg/dL Magnesium 2.2 (1.8-2.4) mg/dl C-Reactive Protein (<1.0) mg/dL B-Natriuretic Peptide (0-100) pg/mL 07/02/16 07/02/16 07/02/16 Range/Units 04:47 04:47 04:47 WBC (3.98-10.04) K/mm3 RBC (3.98-5.22) M/mm3 Hgb (11.2-15.7) gm/L Hct (34.1-44.9) % MCV (79.4-94.8) fl MCH (25.6-32.2) pg MCHC (32.2-35.5) g/dl RDW Std Deviation (36.4-46.3) fL Plt Count (182-369) K/mm3 MPV (9.4-12.3) fl Neut % (Auto) (34.0-71.1) % Lymph % (Auto) (19.3-51.7) % York % (Auto) (4.7-12.5) % Eos % (Auto) (0.7-5.8) Baso % (Auto) (0.1-1.2) % Neut # (Auto) (1.56-6.13) K/mm3 Lymph # (Auto) (1.18-3.74) K/mm3 York # (Auto) (0.24-0.36) K/mm3 Eos # (Auto) (0.04-0.36) K/mm3 Baso # (Auto) (0.01-0.08) K/mm3 Neutrophils % (Manual) (40-60) % Band Neutrophils % (0-10) % Lymphocytes % (Manual) (20-40) % Atypical Lymphs % % Monocytes % (Manual) (2-10) % Eosinophils % (Manual) (0.7-5.8) % Basophils % (Manual) (0.1-1.2) Differential Comment Manual Slide Review Platelet Estimate RBC Morph Comment Puncture Site ABG pH (7.35-7.45) ABG pCO2 (35.0-45.0) mmHg ABG pO2 (80.0-100.0) mmHg ABG HCO3 (22.0-26.0) meq/L ABG O2 Saturation (96.0-97.0) % ABG Base Excess (-2-2.0) Asael Test A-a Gradient mmHg O2 Delivery Device Oxygen Flow Rate FiO2 (21.00-100.00) % Tidal Volume cc Blood Gas Comments Sodium (136-145) mEq/L Potassium (3.5-5.1) mEq/L Chloride (98-107) mEq/L Carbon Dioxide (21-32) mEq/L Anion Gap (5-15) BUN (7-18) mg/dL Creatinine (0.55-1.02) mg/dL Est Cr Clr Drug Dosing mL/min Estimated GFR (MDRD) (>60) mL/min BUN/Creatinine Ratio (14-18) Glucose (83-115) mg/dL Lactic Acid 0.8 (0.4-2.0) mmol/L Calcium (8.5-10.1) mg/dL Magnesium (1.8-2.4) mg/dl C-Reactive Protein 6.5 H* (<1.0) mg/dL B-Natriuretic Peptide 1049 H (0-100) pg/mL 07/02/16 07/02/16 Range/Units 07:54 12:38 WBC (3.98-10.04) K/mm3 RBC (3.98-5.22) M/mm3 Hgb (11.2-15.7) gm/L Hct (34.1-44.9) % MCV (79.4-94.8) fl MCH (25.6-32.2) pg MCHC (32.2-35.5) g/dl RDW Std Deviation (36.4-46.3) fL Plt Count (182-369) K/mm3 MPV (9.4-12.3) fl Neut % (Auto) (34.0-71.1) % Lymph % (Auto) (19.3-51.7) % York % (Auto) (4.7-12.5) % Eos % (Auto) (0.7-5.8) Baso % (Auto) (0.1-1.2) % Neut # (Auto) (1.56-6.13) K/mm3 Lymph # (Auto) (1.18-3.74) K/mm3 York # (Auto) (0.24-0.36) K/mm3 Eos # (Auto) (0.04-0.36) K/mm3 Baso # (Auto) (0.01-0.08) K/mm3 Neutrophils % (Manual) (40-60) % Band Neutrophils % (0-10) % Lymphocytes % (Manual) (20-40) % Atypical Lymphs % % Monocytes % (Manual) (2-10) % Eosinophils % (Manual) (0.7-5.8) % Basophils % (Manual) (0.1-1.2) Differential Comment Manual Slide Review Platelet Estimate RBC Morph Comment Puncture Site Lt radial Rt radial ABG pH 7.27 L 7.31 L (7.35-7.45) ABG pCO2 77.1 H* 71.8 H* (35.0-45.0) mmHg ABG pO2 60.0 L 82.0 (80.0-100.0) mmHg ABG HCO3 34.3 H 35.0 H (22.0-26.0) meq/L ABG O2 Saturation 88.2 L 96.0 (96.0-97.0) % ABG Base Excess 5.6 H 7.1 H (-2-2.0) Asael Test Positive A-a Gradient 33 98 mmHg O2 Delivery Device Nasal cannula Bipap 12/6 Oxygen Flow Rate 2.0 FiO2 40.00 (21.00-100.00) % Tidal Volume cc Blood Gas Comments Sodium (136-145) mEq/L Potassium (3.5-5.1) mEq/L Chloride (98-107) mEq/L Carbon Dioxide (21-32) mEq/L Anion Gap (5-15) BUN (7-18) mg/dL Creatinine (0.55-1.02) mg/dL Est Cr Clr Drug Dosing mL/min Estimated GFR (MDRD) (>60) mL/min BUN/Creatinine Ratio (14-18) Glucose (83-115) mg/dL Lactic Acid (0.4-2.0) mmol/L Calcium (8.5-10.1) mg/dL Magnesium (1.8-2.4) mg/dl C-Reactive Protein (<1.0) mg/dL B-Natriuretic Peptide (0-100) pg/mL Med Orders - Current: Current Medications Hydrocodone Bitart/Acetaminophen ([place] 325-10 Mg) 1 tab PO Q6H PRN PRN Reason: Pain Last Admin: 07/02/16 09:40 Dose: 1 tab Albuterol (Proventil Hfa) 0 gm INH Q6H PRN PRN Reason: Shortness of Breath Albuterol (Proventil Neb Soln) 2.5 mg NEB Q4H PRN PRN Reason: Dyspnea Last Admin: 07/01/16 13:49 Dose: 2.5 mg Aspirin (Aspirin) 81 mg PO DAILY [facility] Last Admin: 07/02/16 09:46 Dose: Not Given Citalopram Hydrobromide (Celexa) 30 mg PO DAILY [facility] Last Admin: 07/02/16 09:47 Dose: Not Given Diazepam (Valium) 2 mg PO BID PRN PRN Reason: backpain Last Admin: 06/30/16 20:30 Dose: 2 mg Diltiazem HCl (Cardizem) 30 mg PO Q6HR [facility] Last Admin: 07/02/16 06:57 Dose: 30 mg Furosemide (Lasix) 40 mg PO DAILY [facility] Hydralazine HCl (Apresoline) 25 mg IVPUSH Q6H PRN PRN Reason: Hypertension Ceftriaxone Sodium 2 gm/ (Sodium Chloride) 100 mls @ 200 mls/hr IV Q24H [facility] Last Admin: 07/01/16 23:05 Dose: 200 mls/hr Piperacillin Sod/Tazobactam (Sod 4.5 gm/ Sodium Chloride) 100 mls @ 25 mls/hr IV Q8H [facility] Last Admin: 07/02/16 08:02 Dose: 25 mls/hr Lidocaine (Lidoderm 5%) 700 mg TRDERM Q24H [facility] Last Admin: 07/01/16 11:25 Dose: Not Given Metoclopramide HCl (Reglan) 5 mg IVPUSH Q6H [facility] Last Admin: 07/02/16 08:03 Dose: 5 mg Metoprolol Succinate (Toprol Xl) 25 mg PO BID [facility] Last Admin: 07/02/16 09:47 Dose: Not Given Metoprolol Tartrate (Lopressor) 5 mg IVPUSH Q6H PRN PRN Reason: Tachycardia Last Admin: 06/29/16 17:43 Dose: 5 mg Miscellaneous Information (Remove Patch) 1 ea TRDERM Q24H [facility] Last Admin: 07/02/16 00:56 Dose: Not Given Nitroglycerin (Nitrostat) 0.4 mg SL Q5M PRN PRN Reason: Chest Pain Ondansetron HCl (Zofran) 4 mg IVPUSH Q8H PRN PRN Reason: Nausea Last Admin: 07/01/16 09:45 Dose: 4 mg [facility] Last Admin: 07/02/16 06:57 Dose: 40 mg Polyethylene Glycol (Miralax) 17 gm PO TID PRN PRN Reason: Constipation Last Admin: 07/01/16 08:38 Dose: 17 gm Rivaroxaban (Xarelto) 15 mg PO DAILY [facility] Senna (Senna) 17.2 mg PO BID PRN PRN Reason: Constipation Last Admin: 07/01/16 08:38 Dose: 17.2 mg Simvastatin (Zocor) 20 mg PO DAILY [facility] Last Admin: 07/02/16 09:48 Dose: Not Given Temazepam (Restoril) 7.5 mg PO BEDTIME PRN PRN Reason: Insomnia Last Admin: 06/30/16 20:31 Dose: 7.5 mg Tramadol HCl (Ultram) 50 mg PO Q4H PRN PRN Reason: Pain Last Admin: 07/02/16 08:08 Dose: 50 mg Trazodone HCl (Trazodone) 150 mg PO BEDTIME [facility] Last Admin: 07/01/16 20:28 Dose: 150 mg Discontinued Medications Hydrocodone Bitart/Acetaminophen ([place] 325-5 Mg) 1 tab PO Q4H PRN PRN Reason: Pain Last Admin: 06/30/16 14:32 Dose: 1 tab Bumetanide (Bumex) 1 mg IVPUSH ONETIME ONE Stop: 07/02/16 06:43 Last Admin: 07/02/16 08:06 Dose: 1 mg Ceftriaxone Sodium (Rocephin) Confirm Administered Dose 2 gm IV .STK-MED ONE Stop: 07/01/16 22:50 Last Admin: 07/01/16 23:00 Dose: Not Given Citalopram Hydrobromide (Celexa) 40 mg PO DAILY [facility] Last Admin: 06/30/16 08:13 Dose: 40 mg Citalopram Hydrobromide (Celexa) 20 mg PO DAILY [facility] Last Admin: 07/01/16 08:37 Dose: 20 mg Diazepam (Valium) 2.5 mg IVPUSH ONETIME ONE Stop: 06/28/16 20:27 Last Admin: 06/28/16 20:34 Dose: 2.5 mg Diazepam (Valium) 2 mg PO BEDTIME PRN PRN Reason: backpain Diltiazem HCl (Diltiazem) 5 mg IVPUSH ONETIME ONE Stop: 06/28/16 19:47 Last Admin: 06/28/16 20:08 Dose: 5 mg Diltiazem HCl (Diltiazem) 5 mg IVPUSH ONETIME ONE Stop: 06/28/16 20:26 Last Admin: 06/28/16 20:26 Dose: 5 mg Diltiazem HCl (Diltiazem) 5 mg IVPUSH ONETIME ONE Stop: 06/28/16 21:18 Last Admin: 06/28/16 21:47 Dose: 5 mg Diltiazem HCl (Diltiazem) 10 mg IVPUSH ONETIME ONE Stop: 06/28/16 22:03 Last Admin: 06/29/16 08:19 Dose: Not Given Famotidine (Pepcid) 20 mg IVPUSH ONETIME ONE Stop: 07/01/16 09:31 Last Admin: 07/01/16 09:44 Dose: 20 mg Fentanyl (Duragesic) 12 mcg TRDERM Q72H [facility] Last Admin: 06/30/16 13:52 Dose: 12 mcg Flumazenil (Romazicon) 0.2 mg IVPUSH ONETIME ONE Stop: 07/01/16 15:32 Last Admin: 07/01/16 15:47 Dose: 0.2 mg Furosemide (Lasix) 40 mg IVPUSH NOW ONE Stop: 06/28/16 20:33 Last Admin: 06/28/16 20:42 Dose: 40 mg Furosemide (Lasix) 40 mg PO DAILY [facility] Last Admin: 07/01/16 08:48 Dose: Not Given Furosemide (Lasix) 40 mg IVPUSH NOW ONE Stop: 07/01/16 07:21 Last Admin: 07/01/16 08:39 Dose: 40 mg Haloperidol Lactate (Haldol) 0.5 mg IVPUSH ONETIME ONE Stop: 07/01/16 14:46 Last Admin: 07/01/16 14:50 Dose: 0.5 mg Haloperidol Lactate (Haldol) 1 mg IVPUSH ONETIME ONE Stop: 07/01/16 15:01 Last Admin: 07/01/16 15:10 Dose: 1 mg Hydromorphone HCl (Dilaudid) 0.5 mg IVPUSH ONETIME ONE Stop: 06/28/16 19:12 Last Admin: 06/28/16 19:47 Dose: 0.5 mg Hydromorphone HCl (Dilaudid) 0.5 mg IVPUSH Q2H PRN PRN Reason: Pain Last Admin: 07/01/16 14:15 Dose: 0.5 mg Ceftriaxone Sodium 1 gm/ (Sodium Chloride) 100 mls @ 200 mls/hr IV ONETIME ONE Stop: 06/28/16 22:36 Last Admin: 06/28/16 22:17 Dose: 200 mls/hr Diltiazem HCl 100 mg/ Sodium (Chloride) 100 mls @ 10 mls/hr IV TITRATE [facility]ONJA; 10 MG/HR PRN Reason: Protocol Last Titration: 07/01/16 12:29 Dose: 5 mg/hr, 5 mls/hr Ceftriaxone Sodium 1 gm/ (Sodium Chloride) 100 mls @ 200 mls/hr IV Q24H [facility] Last Admin: 06/29/16 21:23 Dose: 200 mls/hr Sodium Chloride (Normal Saline) 1,000 mls @ 75 mls/hr IV ASDIRECTED TONJA Stop: 06/29/16 22:01 Last Admin: 06/29/16 18:43 Dose: 75 mls/hr Ceftriaxone Sodium 2 gm/ (Sodium Chloride) 100 mls @ 200 mls/hr IV Q24H [facility] Last Admin: 07/01/16 23:52 Dose: Not Given Piperacillin Sod/Tazobactam (Sod 4.5 gm/ Sodium Chloride) 100 mls @ 200 mls/hr IV ONETIME ONE Stop: 07/01/16 09:29 Last Admin: 07/01/16 09:47 Dose: 200 mls/hr Piperacillin Sod/Tazobactam (Sod 4.5 gm/ Sodium Chloride) 100 mls @ 25 mls/hr IV Q12H [facility] Last Admin: 07/01/16 20:38 Dose: 25 mls/hr Albumin Human (Flexbumin 25%) 25 gm in 100 mls @ 100 mls/hr IV ONETIME ONE Stop: 07/02/16 11:30 Last Admin: 07/02/16 11:19 Dose: 100 mls/hr Lorazepam (Ativan) 1 mg PO Q4H PRN PRN Reason: Anxiety Last Admin: 06/30/16 05:12 Dose: 1 mg Lorazepam (Ativan) 0.5 mg PO ONETIME ONE Stop: 07/01/16 09:31 Last Admin: 07/01/16 10:03 Dose: 0.5 mg Losartan Potassium (Cozaar) 50 mg PO BID [facility] Losartan Potassium (Cozaar) 50 mg PO BID [facility] Last Admin: 06/30/16 20:32 Dose: Not Given Methylprednisolone Sodium Succinate (Solu-Medrol) 80 mg IVPUSH ONETIME ONE Stop: 06/28/16 22:27 Last Admin: 06/28/16 23:17 Dose: 80 mg Metoprolol Succinate (Toprol Xl) 25 mg PO DAILY [facility] Last Admin: 06/30/16 08:14 Dose: 25 mg Miscellaneous Information (Remove Patch) 0 ea TRDERM Q72H [facility] Naloxone HCl (Narcan) Confirm Administered Dose 0.8 mg .ROUTE .STK-MED ONE Stop: 07/01/16 07:16 Last Admin: 07/01/16 08:48 Dose: Not Given Naloxone HCl (Narcan) 0.6 mg IVPUSH ONETIME ONE Stop: 07/01/16 07:31 Last Admin: 07/01/16 07:18 Dose: 0.6 mg Nitroglycerin (Nitrostat) 0.4 mg SL TID PRN PRN Reason: Chest Pain Ondansetron HCl (Zofran) 4 mg IVPUSH ONETIME ONE Stop: 07/01/16 14:49 Last Admin: 07/01/16 15:42 Dose: 4 mg Pneumococcal Polyvalent Vaccine (Pneumovax 23) 0.5 ml IM .ONCE ONE Stop: 06/29/16 11:15 Rivaroxaban (Xarelto) 15 mg PO DAILY [facility] Last Admin: 07/02/16 08:06 Dose: 15 mg - Exam Quality Assessment: supplemental oxygen, DVT prophylaxis General: alert, cooperative HEENT: Pupils equal, Pupils reactive Neck: supple Lungs: Rales (fine to left mid and lower lobes), Wheezing Cardiovascular: Irregular Rhythm Abdomen: bowel sounds present, soft, no tenderness, other (round, somewhat distended today) (Female) Exam: Deferred Back Exam: normal inspection Extremities: edema (trace at ankles/pedal) Peripheral Pulses: 1+: dorsalis pedis (L), dorsalis pedis (R) Skin: warm, dry Neurological: other (confusion intermittent) Psy/Mental Status: other (intermittent confusion; anxious at times) - Problem List & Annotations (1) Chronic congestive heart failure SNOMED Code(s): 90733381 Code(s): I50.9 - HEART FAILURE, UNSPECIFIED Status: Acute Priority: High Current Visit: Yes Qualifiers: Congestive heart failure type: unspecified congestive heart failure type Qualified Code(s): I50.9 - Heart failure, unspecified Annotation/Comment:: acute on chronic (2) COPD (chronic obstructive pulmonary disease) SNOMED Code(s): 59356959 Code(s): J44.9 - CHRONIC OBSTRUCTIVE PULMONARY DISEASE, UNSPECIFIED Status : Acute Priority: High Current Visit: Yes Qualifiers: COPD type: COPD with acute exacerbation Qualified Code(s): J44.1 - Chronic obstructive pulmonary disease with (acute) exacerbation (3) Hypercapnia SNOMED Code(s): 66970149 Code(s): R06.89 - OTHER ABNORMALITIES OF BREATHING Status: Acute Priority : High Current Visit: Yes (4) Back pain SNOMED Code(s): 100922085 Code(s): M54.9 - DORSALGIA, UNSPECIFIED Status: Acute Priority: High Current Visit: Yes Qualifiers: Back pain location: thoracic back pain Chronicity: acute Back pain laterality: bilateral Qualified Code(s): M54.6 - Pain in thoracic spine (5) Atrial fibrillation with RVR SNOMED Code(s): 078766690615693 Code(s): I48.91 - UNSPECIFIED ATRIAL FIBRILLATION Status: Acute Priority : High Current Visit: Yes (6) UTI (urinary tract infection) SNOMED Code(s): 93051628 Code(s): N39.0 - URINARY TRACT INFECTION, SITE NOT SPECIFIED Status: Acute Priority: High Current Visit: Yes Qualifiers: Urinary tract infection type: acute cystitis Hematuria presence: with hematuria Qualified Code(s): N30.01 - Acute cystitis with hematuria (7) Thoracic spine tumor SNOMED Code(s): 47735720 Code(s): D49.2 - NEOPLASM OF UNSP BEHAVIOR OF BONE, SOFT TISSUE, AND SKIN Status: Acute Priority: High Current Visit: Yes Annotation/Comment:: lytic lesion of T7, 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 by Radiology report (8) Morbid obesity with BMI of 40.0-44.9, adult SNOMED Code(s): 019945024 Code(s): E66.01 - MORBID (SEVERE) OBESITY DUE TO EXCESS CALORIES; Z68.41 - BODY MASS INDEX (BMI) 40.0-44.9, ADULT Status: Chronic Priority: Medium Current Visit: No - Problem List Review Problem List Initiated/Reviewed/Updated: Yes - My Orders Last 24 Hours: My Active Orders 07/01/16 13:40 Urinary Catheter Assessment [RC] Q2HR 07/01/16 13:45 Lopez Catheter Insertion [Insert Urinary Catheter] [OM.PC] Q24H 07/01/16 15:00 Metoclopramide [Reglan] 5 mg IVPUSH Q6H 07/01/16 16:00 Pantoprazole [ProTONIX] 40 mg PO BIDAC 07/02/16 07:17 Chest 2V [CR] Routine 07/02/16 07:38 Abdomen Pelvis wo Cont [CT] Routine 07/02/16 07:41 traMADol [Ultram] 50 mg PO Q4H PRN 07/02/16 09:00 Citalopram [Celexa] 30 mg PO DAILY 07/02/16 11:10 Antiembolic Devices [RC] PER UNIT ROUTINE SUSANNE Hose [Antiembolic Hose] [OM.PC] Routine 07/02/16 11:13 Echo Comp wo Cont [US] Routine 07/02/16 13:35 Venous Doppler Lwr Ext Bi [US] Routine 07/03/16 05:11 C-REACTIVE PROTEIN [CHEM] AM CBC WITH AUTO DIFF [HEME] AM 07/04/16 05:11 C-REACTIVE PROTEIN [CHEM] AM CBC WITH AUTO DIFF [HEME] AM 07/05/16 05:11 C-REACTIVE PROTEIN [CHEM] AM CBC WITH AUTO DIFF [HEME] AM 07/06/16 05:11 C-REACTIVE PROTEIN [CHEM] AM CBC WITH AUTO DIFF [HEME] AM 07/07/16 05:11 C-REACTIVE PROTEIN [CHEM] AM CBC WITH AUTO DIFF [HEME] AM - Plan Plan:: Impression/Plan CHF exacerbation -Last echo with EF of 55% in 2015; repeat echo today -BNP up to >1,000 today from 500 range yesterday, CXR with cardiomegaly and lt sided effusion- worsening -IV lasix yesterday with some diuresis but not as much as would like; will try bumex IVP today -Albumin infusion this afternoon -Lopez cath for accurate I&O -Bipap as below for hypercapnia -For now plan to hold xarelto in preparation for lt sided thoracentesis in 48 hours COPD, O2 dependent- acute exacerbation -hypercapnia -failed with supplemental oxygen- on Bipap now; repeat ABG's as ordered -RT for Bipap -Rocephin and Zosyn as below AUTI -Urine culture is pansensitive. -Initially on Rocephin with minimal lab improvement; added zosyn yesterday, WBC improved today. -Cont with current abx therapy AFib with RVR on Xarelto -BB was recently decreased by civil rights representative -Transitioned to PO Cardizem from drip yesterday- HR in good control thus far Back pain, intractable -discussed obtaining CT of thoracic spine to assess ? compression fx. Patient was agreeable yesterday -CT findings with lytic lesion of T7, likely representing metastatic disease -Pain is fluctuant; she is very sensitive to any narcotic medications- has required narcan on 2 occasions thus far due to resp depression. Would like to avoid narcotics and benzodiazapines if possible due to increased sedation for this patient. Will try tramadol Q4 hours and tylenol for now. Warm packs PRN. -CT abd/pelvis today to look for primary site, CEA ordered. CT of chest is completed and with 9mm nodule, not suspicious at this time by Radiologists report. -I reviewed findings and further eval/workup process with daughter Jumana yesterday afternoon and this morning. She wishes to proceed with further eval for location of a primary site. Reviewed with her that if negative CT scans today, this may need to have further evaluation done as outpatient- she voices understanding and is in agreement. Elevated Tn, Demand ischemia Chronic CAD, history of RI/PCI CHF--CXR early this am with worsening cardiomegaly, lt pleural effusion---- acute exacerbation as above Hyperlipidemia Anxiety Depression CKD Other: Cont usual Home meds when not on bipap Obtain clinic EMR and noninvasive card reports- obtain most recent echo: EF of 55% in 2016 DVT prophylaxis with Xarelto; teds when xarelto on hold GI prophylaxis PT/OT Code status is DNR/DNI- reviewed this with patient yesterday when she was in usual and alert mental status. LOS will be >96 hours due to complexity of case, longer than expected course of improvement/recovery, now with hypercapnia, CHF exacerbation requiring IV diuretics/albumin, serial CXR/ABG levels, spinal lytic mass. <Doris Kendall M - Last Filed: 07/02/16 18:47> - Patient Data Vitals - most recent: Last Vital Signs Temp 36.8 C 07/02/16 16:00 Pulse 47 L 07/02/16 06:46 Resp 17 07/02/16 16:00 BP 122/73 07/02/16 16:00 Pulse Ox 96 07/02/16 16:00 I&O - last 24 hours: Intake & Output 07/02/16 07/02/16 07/02/16 06:59 14:59 22:59 Intake Total 840 480 270 Output Total 465 900 210 Balance 375 -420 60 Lab Results last 24 hrs: Laboratory Results - last 24 hr 07/02/16 07/02/16 07/02/16 Range/Units 04:47 04:47 04:47 WBC 12.70 H (3.98-10.04) K/mm3 RBC 4.47 (3.98-5.22) M/mm3 Hgb 11.8 (11.2-15.7) gm/L Hct 41.0 (34.1-44.9) % MCV 91.7 (79.4-94.8) fl MCH 26.4 (25.6-32.2) pg MCHC 28.8 L (32.2-35.5) g/dl RDW Std Deviation 52.4 H (36.4-46.3) fL Plt Count 165 L (182-369) K/mm3 MPV 10.6 (9.4-12.3) fl Neutrophils % (Manual) 87 H (40-60) % Band Neutrophils % 1 (0-10) % Lymphocytes % (Manual) 6 L (20-40) % Atypical Lymphs % 0 % Monocytes % (Manual) 6 (2-10) % Eosinophils % (Manual) 0 L (0.7-5.8) % Basophils % (Manual) 0 L (0.1-1.2) Differential Comment See note Platelet Estimate Adequate RBC Morph Comment Normal Puncture Site ABG pH (7.35-7.45) ABG pCO2 (35.0-45.0) mmHg ABG pO2 (80.0-100.0) mmHg ABG HCO3 (22.0-26.0) meq/L ABG O2 Saturation (96.0-97.0) % ABG Base Excess (-2-2.0) Asael Test A-a Gradient mmHg O2 Delivery Device Oxygen Flow Rate FiO2 (21.00-100.00) % Sodium 140 (136-145) mEq/L Potassium 3.8 (3.5-5.1) mEq/L Chloride 103 (98-107) mEq/L Carbon Dioxide 33 H (21-32) mEq/L Anion Gap 7.8 (5-15) BUN 46 H (7-18) mg/dL Creatinine 1.5 H (0.55-1.02) mg/dL Est Cr Clr Drug Dosing 22.57 mL/min Estimated GFR (MDRD) 33 (>60) mL/min BUN/Creatinine Ratio 30.7 H (14-18) Glucose 152 H (83-115) mg/dL Lactic Acid (0.4-2.0) mmol/L Calcium 8.7 (8.5-10.1) mg/dL Magnesium 2.2 (1.8-2.4) mg/dl C-Reactive Protein 6.5 H* (<1.0) mg/dL B-Natriuretic Peptide (0-100) pg/mL 07/02/16 07/02/16 07/02/16 Range/Units 04:47 04:47 07:54 WBC (3.98-10.04) K/mm3 RBC (3.98-5.22) M/mm3 Hgb (11.2-15.7) gm/L Hct (34.1-44.9) % MCV (79.4-94.8) fl MCH (25.6-32.2) pg MCHC (32.2-35.5) g/dl RDW Std Deviation (36.4-46.3) fL Plt Count (182-369) K/mm3 MPV (9.4-12.3) fl Neutrophils % (Manual) (40-60) % Band Neutrophils % (0-10) % Lymphocytes % (Manual) (20-40) % Atypical Lymphs % % Monocytes % (Manual) (2-10) % Eosinophils % (Manual) (0.7-5.8) % Basophils % (Manual) (0.1-1.2) Differential Comment Platelet Estimate RBC Morph Comment Puncture Site Lt radial ABG pH 7.27 L (7.35-7.45) ABG pCO2 77.1 H* (35.0-45.0) mmHg ABG pO2 60.0 L (80.0-100.0) mmHg ABG HCO3 34.3 H (22.0-26.0) meq/L ABG O2 Saturation 88.2 L (96.0-97.0) % ABG Base Excess 5.6 H (-2-2.0) Asael Test A-a Gradient 33 mmHg O2 Delivery Device Nasal cannula Oxygen Flow Rate 2.0 FiO2 (21.00-100.00) % Sodium (136-145) mEq/L Potassium (3.5-5.1) mEq/L Chloride (98-107) mEq/L Carbon Dioxide (21-32) mEq/L Anion Gap (5-15) BUN (7-18) mg/dL Creatinine (0.55-1.02) mg/dL Est Cr Clr Drug Dosing mL/min Estimated GFR (MDRD) (>60) mL/min BUN/Creatinine Ratio (14-18) Glucose (83-115) mg/dL Lactic Acid 0.8 (0.4-2.0) mmol/L Calcium (8.5-10.1) mg/dL Magnesium (1.8-2.4) mg/dl C-Reactive Protein (<1.0) mg/dL B-Natriuretic Peptide 1049 H (0-100) pg/mL 07/02/16 Range/Units 12:38 WBC (3.98-10.04) K/mm3 RBC (3.98-5.22) M/mm3 Hgb (11.2-15.7) gm/L Hct (34.1-44.9) % MCV (79.4-94.8) fl MCH (25.6-32.2) pg MCHC (32.2-35.5) g/dl RDW Std Deviation (36.4-46.3) fL Plt Count (182-369) K/mm3 MPV (9.4-12.3) fl Neutrophils % (Manual) (40-60) % Band Neutrophils % (0-10) % Lymphocytes % (Manual) (20-40) % Atypical Lymphs % % Monocytes % (Manual) (2-10) % Eosinophils % (Manual) (0.7-5.8) % Basophils % (Manual) (0.1-1.2) Differential Comment Platelet Estimate RBC Morph Comment Puncture Site Rt radial ABG pH 7.31 L (7.35-7.45) ABG pCO2 71.8 H* (35.0-45.0) mmHg ABG pO2 82.0 (80.0-100.0) mmHg ABG HCO3 35.0 H (22.0-26.0) meq/L ABG O2 Saturation 96.0 (96.0-97.0) % ABG Base Excess 7.1 H (-2-2.0) Asael Test Positive A-a Gradient 98 mmHg O2 Delivery Device Bipap 12/6 Oxygen Flow Rate FiO2 40.00 (21.00-100.00) % Sodium (136-145) mEq/L Potassium (3.5-5.1) mEq/L Chloride (98-107) mEq/L Carbon Dioxide (21-32) mEq/L Anion Gap (5-15) BUN (7-18) mg/dL Creatinine (0.55-1.02) mg/dL Est Cr Clr Drug Dosing mL/min Estimated GFR (MDRD) (>60) mL/min BUN/Creatinine Ratio (14-18) Glucose (83-115) mg/dL Lactic Acid (0.4-2.0) mmol/L Calcium (8.5-10.1) mg/dL Magnesium (1.8-2.4) mg/dl C-Reactive Protein (<1.0) mg/dL B-Natriuretic Peptide (0-100) pg/mL Med Orders - Current: Current Medications Hydrocodone Bitart/Acetaminophen ([place] 325-10 Mg) 1 tab PO Q6H PRN PRN Reason: Pain Last Admin: 07/02/16 09:40 Dose: 1 tab Albuterol (Proventil Hfa) 0 gm INH Q6H PRN PRN Reason: Shortness of Breath Albuterol (Proventil Neb Soln) 2.5 mg NEB Q4H PRN PRN Reason: Dyspnea Last Admin: 07/01/16 13:49 Dose: 2.5 mg Aspirin (Aspirin) 81 mg PO DAILY [facility] Last Admin: 07/02/16 09:46 Dose: Not Given Citalopram Hydrobromide (Celexa) 30 mg PO DAILY [facility] Last Admin: 07/02/16 09:47 Dose: Not Given Diazepam (Valium) 2 mg PO BID PRN PRN Reason: backpain Last Admin: 06/30/16 20:30 Dose: 2 mg Diltiazem HCl (Cardizem) 30 mg PO Q6HR [facility] Last Admin: 07/02/16 17:33 Dose: Not Given Furosemide (Lasix) 40 mg PO DAILY [facility] Hydralazine HCl (Apresoline) 25 mg IVPUSH Q6H PRN PRN Reason: Hypertension Ceftriaxone Sodium 2 gm/ (Sodium Chloride) 100 mls @ 200 mls/hr IV Q24H [facility] Last Admin: 07/01/16 23:05 Dose: 200 mls/hr Piperacillin Sod/Tazobactam (Sod 4.5 gm/ Sodium Chloride) 100 mls @ 25 mls/hr IV Q8H [facility] Last Admin: 07/02/16 17:27 Dose: 25 mls/hr Lidocaine (Lidoderm 5%) 700 mg TRDERM Q24H [facility] Last Admin: 07/02/16 14:45 Dose: 700 mg Metoclopramide HCl (Reglan) 5 mg IVPUSH Q6H [facility] Last Admin: 07/02/16 14:43 Dose: 5 mg Metoprolol Succinate (Toprol Xl) 25 mg PO BID [facility] Last Admin: 07/02/16 09:47 Dose: Not Given Metoprolol Tartrate (Lopressor) 5 mg IVPUSH Q6H PRN PRN Reason: Tachycardia Last Admin: 06/29/16 17:43 Dose: 5 mg Miscellaneous Information (Remove Patch) 1 ea TRDERM Q24H [facility] Last Admin: 07/02/16 00:56 Dose: Not Given Nitroglycerin (Nitrostat) 0.4 mg SL Q5M PRN PRN Reason: Chest Pain Ondansetron HCl (Zofran) 4 mg IVPUSH Q8H PRN PRN Reason: Nausea Last Admin: 07/01/16 09:45 Dose: 4 mg Pantoprazole Sodium (Protonix) 40 mg PO BIDAC [facility] Last Admin: 07/02/16 15:04 Dose: 40 mg Polyethylene Glycol (Miralax) 17 gm PO TID PRN PRN Reason: Constipation Last Admin: 07/01/16 08:38 Dose: 17 gm Rivaroxaban (Xarelto) 15 mg PO DAILY [facility] Senna (Senna) 17.2 mg PO BID PRN PRN Reason: Constipation Last Admin: 07/01/16 08:38 Dose: 17.2 mg Simvastatin (Zocor) 20 mg PO DAILY [facility] Last Admin: 07/02/16 09:48 Dose: Not Given Temazepam (Restoril) 7.5 mg PO BEDTIME PRN PRN Reason: Insomnia Last Admin: 06/30/16 20:31 Dose: 7.5 mg Tramadol HCl (Ultram) 50 mg PO Q4H PRN PRN Reason: Pain Last Admin: 07/02/16 08:08 Dose: 50 mg Trazodone HCl (Trazodone) 150 mg PO BEDTIME [facility] Last Admin: 07/01/16 20:28 Dose: 150 mg Discontinued Medications Hydrocodone Bitart/Acetaminophen ([place] 325-5 Mg) 1 tab PO Q4H PRN PRN Reason: Pain Last Admin: 06/30/16 14:32 Dose: 1 tab Bumetanide (Bumex) 1 mg IVPUSH ONETIME ONE Stop: 07/02/16 06:43 Last Admin: 07/02/16 08:06 Dose: 1 mg Ceftriaxone Sodium (Rocephin) Confirm Administered Dose 2 gm IV .STK-MED ONE Stop: 07/01/16 22:50 Last Admin: 07/01/16 23:00 Dose: Not Given Citalopram Hydrobromide (Celexa) 40 mg PO DAILY [facility] Last Admin: 06/30/16 08:13 Dose: 40 mg Citalopram Hydrobromide (Celexa) 20 mg PO DAILY [facility] Last Admin: 07/01/16 08:37 Dose: 20 mg Diazepam (Valium) 2.5 mg IVPUSH ONETIME ONE Stop: 06/28/16 20:27 Last Admin: 06/28/16 20:34 Dose: 2.5 mg Diazepam (Valium) 2 mg PO BEDTIME PRN PRN Reason: backpain Diltiazem HCl (Diltiazem) 5 mg IVPUSH ONETIME ONE Stop: 06/28/16 19:47 Last Admin: 06/28/16 20:08 Dose: 5 mg Diltiazem HCl (Diltiazem) 5 mg IVPUSH ONETIME ONE Stop: 06/28/16 20:26 Last Admin: 06/28/16 20:26 Dose: 5 mg Diltiazem HCl (Diltiazem) 5 mg IVPUSH ONETIME ONE Stop: 06/28/16 21:18 Last Admin: 06/28/16 21:47 Dose: 5 mg Diltiazem HCl (Diltiazem) 10 mg IVPUSH ONETIME ONE Stop: 06/28/16 22:03 Last Admin: 06/29/16 08:19 Dose: Not Given Famotidine (Pepcid) 20 mg IVPUSH ONETIME ONE Stop: 07/01/16 09:31 Last Admin: 07/01/16 09:44 Dose: 20 mg Fentanyl (Duragesic) 12 mcg TRDERM Q72H [facility] Last Admin: 06/30/16 13:52 Dose: 12 mcg Flumazenil (Romazicon) 0.2 mg IVPUSH ONETIME ONE Stop: 07/01/16 15:32 Last Admin: 07/01/16 15:47 Dose: 0.2 mg Furosemide (Lasix) 40 mg IVPUSH NOW ONE Stop: 06/28/16 20:33 Last Admin: 06/28/16 20:42 Dose: 40 mg Furosemide (Lasix) 40 mg PO DAILY [facility] Last Admin: 07/01/16 08:48 Dose: Not Given Furosemide (Lasix) 40 mg IVPUSH NOW ONE Stop: 07/01/16 07:21 Last Admin: 07/01/16 08:39 Dose: 40 mg Haloperidol Lactate (Haldol) 0.5 mg IVPUSH ONETIME ONE Stop: 07/01/16 14:46 Last Admin: 07/01/16 14:50 Dose: 0.5 mg Haloperidol Lactate (Haldol) 1 mg IVPUSH ONETIME ONE Stop: 07/01/16 15:01 Last Admin: 07/01/16 15:10 Dose: 1 mg Hydromorphone HCl (Dilaudid) 0.5 mg IVPUSH ONETIME ONE Stop: 06/28/16 19:12 Last Admin: 06/28/16 19:47 Dose: 0.5 mg Hydromorphone HCl (Dilaudid) 0.5 mg IVPUSH Q2H PRN PRN Reason: Pain Last Admin: 07/01/16 14:15 Dose: 0.5 mg Ceftriaxone Sodium 1 gm/ (Sodium Chloride) 100 mls @ 200 mls/hr IV ONETIME ONE Stop: 06/28/16 22:36 Last Admin: 06/28/16 22:17 Dose: 200 mls/hr Diltiazem HCl 100 mg/ Sodium (Chloride) 100 mls @ 10 mls/hr IV TITRATE [facility]; 10 MG/HR PRN Reason: Protocol Last Titration: 07/01/16 12:29 Dose: 5 mg/hr, 5 mls/hr Ceftriaxone Sodium 1 gm/ (Sodium Chloride) 100 mls @ 200 mls/hr IV Q24H [facility] Last Admin: 06/29/16 21:23 Dose: 200 mls/hr Sodium Chloride (Normal Saline) 1,000 mls @ 75 mls/hr IV ASDIRECTED [facility]ONJA Stop: 06/29/16 22:01 Last Admin: 06/29/16 18:43 Dose: 75 mls/hr Ceftriaxone Sodium 2 gm/ (Sodium Chloride) 100 mls @ 200 mls/hr IV Q24H [facility] Last Admin: 07/01/16 23:52 Dose: Not Given Piperacillin Sod/Tazobactam (Sod 4.5 gm/ Sodium Chloride) 100 mls @ 200 mls/hr IV ONETIME ONE Stop: 07/01/16 09:29 Last Admin: 07/01/16 09:47 Dose: 200 mls/hr Piperacillin Sod/Tazobactam (Sod 4.5 gm/ Sodium Chloride) 100 mls @ 25 mls/hr IV Q12H [facility] Last Admin: 07/01/16 20:38 Dose: 25 mls/hr Albumin Human (Flexbumin 25%) 25 gm in 100 mls @ 100 mls/hr IV ONETIME ONE Stop: 07/02/16 11:30 Last Admin: 07/02/16 11:19 Dose: 100 mls/hr Lorazepam (Ativan) 1 mg PO Q4H PRN PRN Reason: Anxiety Last Admin: 06/30/16 05:12 Dose: 1 mg Lorazepam (Ativan) 0.5 mg PO ONETIME ONE Stop: 07/01/16 09:31 Last Admin: 07/01/16 10:03 Dose: 0.5 mg Losartan Potassium (Cozaar) 50 mg PO BID [facility] Losartan Potassium (Cozaar) 50 mg PO BID [facility] Last Admin: 06/30/16 20:32 Dose: Not Given Methylprednisolone Sodium Succinate (Solu-Medrol) 80 mg IVPUSH ONETIME ONE Stop: 06/28/16 22:27 Last Admin: 06/28/16 23:17 Dose: 80 mg Metoprolol Succinate (Toprol Xl) 25 mg PO DAILY [facility] Last Admin: 06/30/16 08:14 Dose: 25 mg Miscellaneous Information (Remove Patch) 0 ea TRDERM Q72H [facility] Naloxone HCl (Narcan) Confirm Administered Dose 0.8 mg .ROUTE .STK-MED ONE Stop: 07/01/16 07:16 Last Admin: 07/01/16 08:48 Dose: Not Given Naloxone HCl (Narcan) 0.6 mg IVPUSH ONETIME ONE Stop: 07/01/16 07:31 Last Admin: 07/01/16 07:18 Dose: 0.6 mg Nitroglycerin (Nitrostat) 0.4 mg SL TID PRN PRN Reason: Chest Pain Ondansetron HCl (Zofran) 4 mg IVPUSH ONETIME ONE Stop: 07/01/16 14:49 Last Admin: 07/01/16 15:42 Dose: 4 mg Pneumococcal Polyvalent Vaccine (Pneumovax 23) 0.5 ml IM .ONCE ONE Stop: 06/29/16 11:15 Rivaroxaban (Xarelto) 15 mg PO DAILY [facility] Last Admin: 07/02/16 08:06 Dose: 15 mg - Problem List & Annotations (1) Atrial fibrillation with RVR SNOMED Code(s): 252939750261224 Code(s): I48.91 - UNSPECIFIED ATRIAL FIBRILLATION Status: Acute Priority : High Current Visit: Yes (2) Back pain SNOMED Code(s): 068215215 Code(s): M54.9 - DORSALGIA, UNSPECIFIED Status: Acute Priority: High Current Visit: Yes Qualifiers: Back pain location: thoracic back pain Chronicity: acute Back pain laterality: bilateral Qualified Code(s): M54.6 - Pain in thoracic spine (3) CHF (congestive heart failure) SNOMED Code(s): 47591653 Code(s): I50.9 - HEART FAILURE, UNSPECIFIED Status: Acute Current Visit: Yes Qualifiers: Congestive heart failure type: unspecified congestive heart failure type Congestive heart failure chronicity: acute on chronic Qualified Code(s): I50.9 - Heart failure, unspecified (4) Elevated troponin SNOMED Code(s): 590548614, 044161214 Code(s): R74.8 - ABNORMAL LEVELS OF OTHER SERUM ENZYMES Status: Acute Current Visit: Yes (5) UTI (urinary tract infection) SNOMED Code(s): 35024182 Code(s): N39.0 - URINARY TRACT INFECTION, SITE NOT SPECIFIED Status: Acute Priority: High Current Visit: Yes Qualifiers: Urinary tract infection type: acute cystitis Hematuria presence: with hematuria Qualified Code(s): N30.01 - Acute cystitis with hematuria (6) COPD (chronic obstructive pulmonary disease) SNOMED Code(s): 60364686 Code(s): J44.9 - CHRONIC OBSTRUCTIVE PULMONARY DISEASE, UNSPECIFIED Status : Acute Priority: High Current Visit: Yes Qualifiers: COPD type: COPD with acute exacerbation Qualified Code(s): J44.1 - Chronic obstructive pulmonary disease with (acute) exacerbation (7) Leg edema SNOMED Code(s): 604610580 Code(s): R60.0 - LOCALIZED EDEMA Status: Acute Current Visit: No Qualifiers: Laterality: bilateral Qualified Code(s): R60.0 - Localized edema - Problem List Review Problem List Initiated/Reviewed/Updated: Yes - My Orders Last 24 Hours: My Active Orders 07/01/16 23:00 [email or web address] [Rocephin] 2 gm Sodium Chloride 0.9% [Normal Saline] 100 ml IV Q24H 07/02/16 09:00 Piperacillin/Tazobactam [Zosyn] 4.5 gm Sodium Chloride 0.9% [Normal Saline] 100 ml IV Q8H 07/02/16 14:14 One To One Therapy [BH] Stat 07/02/16 21:00 ABG [BLOOD GAS ARTERIAL] [BG] Urgent 07/03/16 05:00 ABG [BLOOD GAS ARTERIAL] [BG] Urgent BASIC METABOLIC PANEL,BMP [CHEM] DAILY 07/03/16 09:00 Furosemide [Lasix] 40 mg PO DAILY 07/07/16 09:00 Rivaroxaban [Xarelto] 15 mg PO DAILY - Plan Plan:: Improving slowly, continues to need BiPAP. CXR increasing pulmonary congestion and possible infiltrate, left base.
[2016-07-02] MEDS: Lidocaine 5% 700 MG Patch TRDERM SCH (14:45)
--- NOTE | 2016-07-02 15:17 | CT ---
CT abdomen and pelvis Technique: Multiple axial sections were obtained from above the dome of the diaphragm inferiorly through the pubic symphysis. Intravenous and oral contrast was not utilized. Comparison: Previous noncontrast chest CT study of 07/01/16. Findings: Minimal pleural effusions are seen. Increased density within the left lung base is seen compatible with atelectasis/aspiration or small area of pneumonia. This finding within the left base has slightly increased from previous exam. Heart is enlarged. Liver shows no focal abnormality. Spleen appears normal. Adrenal glands show no nodule. Pancreas is atrophied but shows no discrete mass. Gallstones seen within the gallbladder. Air-filled structure seen next to the duodenum presumably due to duodenal diverticulum. Aorta shows atherosclerotic change without aneurysmal dilatation. Atherosclerotic change continues into the iliac vessels. Kidneys show no hydronephrosis or abnormal calcifications. No mesenteric abnormalities are seen. No pelvic mass or adenopathy is noted. Diverticuli seen within the descending and sigmoid regions of the colon. Minimal fluid seen within the pelvis. Haziness noted within the subcutaneous fat of the abdomen presumably due to mild body wall edema. Degenerative change is present within the spine. Impression: 1. Mild increasing density within the left lung base from prior's chest CT with differential being atelectasis, small area of pneumonia or change from aspiration. 2. Small bilateral pleural effusions are seen. 3. Calcified gallstones. Probable duodenal diverticulum. 4. Other incidental findings as described above. Nothing acute is appreciated on noncontrast CT study of the abdomen and pelvis. Diagnostic code #3
--- NOTE | 2016-07-02 15:18 | CR ---
Chest: Two views of the chest were obtained. Comparison: Previous chest x-ray of 07/01/16. Heart is enlarged. Increasing pulmonary vascular congestion is seen from prior study. Left retrocardiac region poorly penetrated. Bony structures are grossly intact. Surgical clips are seen within the right side of the neck. Impression: 1. Increasing pulmonary vascular congestion. 2. Other incidental findings as noted above. Diagnostic code #3
[2016-07-02] MEDS: traZODone 50 MG Tab PO SCH (21:29)
[2016-07-02] MEDS: methylPREDNISolone Sodium Succinate 125 MG/2 ML SDV IVPUSH SCH (21:38)
[2016-07-02] MEDS: cefTRIAXone 2 GM in Sodium Chloride 0.9% 100 ML IV SCH (22:33)
[2016-07-03] MEDS: Piperacillin/Tazobactam 4.5 GM in Sodium Chloride 0.9% 100 ML IV SCH ×2 (00:04→08:54)
[2016-07-03] MEDS: traMADol 50 MG Tab PO PRN (00:20)
[2016-07-03] MEDS: Metoclopramide 10 MG/2 ML SDV IVPUSH SCH ×2 (03:09→08:45)
[2016-07-03] MEDS: methylPREDNISolone Sodium Succinate 125 MG/2 ML SDV IVPUSH SCH ×2 (03:11→08:49)
[2016-07-03] MEDS: Acetaminophen/HYDROcodone 325-10 MG Tab PO PRN ×2 (03:37→20:31)
[2016-07-03] MEDS ORDERED: Bumetanide 1 MG/4 ML MDV IVPUSH ONE (05:00)
[2016-07-03] MEDS: Diltiazem IR 30 MG Tab PO SCH ×2 (05:41→11:33)
[2016-07-03] MEDS: Pantoprazole 40 MG Tab.CR PO SCH ×2 (05:41→15:59)
[2016-07-03] MEDS: Simvastatin 20 MG Tab PO SCH (08:41)
[2016-07-03] MEDS: Metoprolol Succinate 25 MG Tab.ER PO SCH ×2 (08:42→20:28)
[2016-07-03] MEDS: Aspirin 81 MG Tab.Chew PO SCH (08:43)
[2016-07-03] MEDS: Citalopram 20 MG Tab PO SCH (08:44)
[2016-07-03] MEDS ORDERED: Furosemide 40 MG Tab PO SCH (09:00)
--- NOTE | 2016-07-03 09:15 | CR ---
Chest: Two views of the chest were obtained. Comparison: Previous chest x-ray of 07/01/16. Heart is enlarged. Pulmonary vessels are increased. Focal parenchymal density is seen behind the left heart. Lungs otherwise are clear. Bony structures are unremarkable for the patient's age. Impression: 1. Focal density behind the left heart. This appears as an interval change from prior exam and difficult to exclude change from aspiration or worsening pneumonia. 2. Cardiomegaly and pulmonary vascular congestion. Pulmonary vascular congestion may be slightly increased from previous exam. Diagnostic code #3
[2016-07-03] MEDS: Metoprolol Tartrate 5 MG/5 ML SDV IVPUSH PRN (09:50)
--- NOTE | 2016-07-03 09:51 | PCM.PN ---
- General Info Date of Service: 07/03/16 Admission Dx/Problem (Free Text): Admission Diagnosis/Problem Admission Diagnosis/Problem Atrial fibrillation Subjective Update: Follow Up Functional Status: Reports: pain controlled, tolerating diet, ambulating, urinating. Denies: new symptoms - Review of Systems General: Denies: Fever, Chills HEENT: Reports: no symptoms Pulmonary: Reports: shortness of breath, wheezing Cardiovascular: Denies: Chest Pain, Palpitations, Dyspnea on Exertion, Edema Gastrointestinal: Denies: Abdominal pain, Difficulty swallowing, Nausea, Vomiting Genitourinary: Reports: no symptoms Musculoskeletal: Reports: no symptoms Skin: Reports: no symptoms Neurological: Denies: Confusion, Dizziness, Difficulty Walking, Weakness, Gait Disturbance Psychiatric: Denies: depression, anxiety, hallucinations Systems Review Comment:: No overnight issues. She is alert and awake, very reasonable. She is currently on BIPAP. She feels she is getting better. - Patient Data Vitals - most recent: Last Vital Signs Temp 36.3 C 07/03/16 07:39 Pulse 114 H 07/03/16 08:42 Resp 15 07/03/16 07:39 BP 158/93 H 07/03/16 08:42 Pulse Ox 97 07/03/16 07:39 Weight - most recent: 103.192 kg I&O - last 24 hours: Intake & Output 07/02/16 07/03/16 07/03/16 22:59 06:59 14:59 Intake Total 910 650 180 Output Total 410 800 350 Balance 500 -150 -170 Lab Results last 24 hrs: Laboratory Results - last 24 hr 07/01/16 07/02/16 07/02/16 Range/Units 02:35 12:38 20:00 WBC (3.98-10.04) K/mm3 RBC (3.98-5.22) M/mm3 Hgb (11.2-15.7) gm/L Hct (34.1-44.9) % MCV (79.4-94.8) fl MCH (25.6-32.2) pg MCHC (32.2-35.5) g/dl RDW Std Deviation (36.4-46.3) fL Plt Count (182-369) K/mm3 MPV (9.4-12.3) fl Neut % (Auto) (34.0-71.1) % Lymph % (Auto) (19.3-51.7) % [place] % (Auto) (4.7-12.5) % Eos % (Auto) (0.7-5.8) Baso % (Auto) (0.1-1.2) % Neut # (Auto) (1.56-6.13) K/mm3 Lymph # (Auto) (1.18-3.74) K/mm3 [place] # (Auto) (0.24-0.36) K/mm3 Eos # (Auto) (0.04-0.36) K/mm3 Baso # (Auto) (0.01-0.08) K/mm3 Manual Slide Review Puncture Site Rt radial ABG pH 7.31 L (7.35-7.45) ABG pCO2 71.8 H* (35.0-45.0) mmHg ABG pO2 82.0 (80.0-100.0) mmHg ABG HCO3 35.0 H (22.0-26.0) meq/L ABG O2 Saturation 96.0 (96.0-97.0) % ABG Base Excess 7.1 H (-2-2.0) Asael Test Positive A-a Gradient 98 mmHg O2 Delivery Device Bipap 12/6 FiO2 40.00 (21.00-100.00) % Sodium (136-145) mEq/L Potassium (3.5-5.1) mEq/L Chloride (98-107) mEq/L Carbon Dioxide (21-32) mEq/L Anion Gap (5-15) BUN (7-18) mg/dL Creatinine (0.55-1.02) mg/dL Est Cr Clr Drug Dosing mL/min Estimated GFR (MDRD) (>60) mL/min BUN/Creatinine Ratio (14-18) Glucose (83-115) mg/dL Calcium (8.5-10.1) mg/dL Troponin I 0.032 (0.00-0.056) ng/mL C-Reactive Protein (<1.0) mg/dL B-Natriuretic Peptide (0-100) pg/mL Carcinoembryonic Ag 1.5 (0.0-3.0) ng/mL 07/02/16 07/02/16 07/03/16 Range/Units 20:00 21:00 05:00 WBC (3.98-10.04) K/mm3 RBC (3.98-5.22) M/mm3 Hgb (11.2-15.7) gm/L Hct (34.1-44.9) % MCV (79.4-94.8) fl MCH (25.6-32.2) pg MCHC (32.2-35.5) g/dl RDW Std Deviation (36.4-46.3) fL Plt Count (182-369) K/mm3 MPV (9.4-12.3) fl Neut % (Auto) (34.0-71.1) % Lymph % (Auto) (19.3-51.7) % [place] % (Auto) (4.7-12.5) % Eos % (Auto) (0.7-5.8) Baso % (Auto) (0.1-1.2) % Neut # (Auto) (1.56-6.13) K/mm3 Lymph # (Auto) (1.18-3.74) K/mm3 [place] # (Auto) (0.24-0.36) K/mm3 Eos # (Auto) (0.04-0.36) K/mm3 Baso # (Auto) (0.01-0.08) K/mm3 Manual Slide Review Puncture Site Lt radial Lt radial ABG pH 7.31 L 7.33 L (7.35-7.45) ABG pCO2 71.2 H* 68.1 H (35.0-45.0) mmHg ABG pO2 89.0 85.0 (80.0-100.0) mmHg ABG HCO3 34.4 H 34.8 H (22.0-26.0) meq/L ABG O2 Saturation 97.2 H 97.5 H (96.0-97.0) % ABG Base Excess 6.3 H 7.3 H (-2-2.0) Asael Test Positive Positive A-a Gradient 92 99 mmHg O2 Delivery Device Bipap Bipap FiO2 0.00 L 0.00 L (21.00-100.00) % Sodium (136-145) mEq/L Potassium (3.5-5.1) mEq/L Chloride (98-107) mEq/L Carbon Dioxide (21-32) mEq/L Anion Gap (5-15) BUN (7-18) mg/dL Creatinine (0.55-1.02) mg/dL Est Cr Clr Drug Dosing mL/min Estimated GFR (MDRD) (>60) mL/min BUN/Creatinine Ratio (14-18) Glucose (83-115) mg/dL Calcium (8.5-10.1) mg/dL Troponin I (0.00-0.056) ng/mL C-Reactive Protein (<1.0) mg/dL B-Natriuretic Peptide 957 H (0-100) pg/mL Carcinoembryonic Ag (0.0-3.0) ng/mL 07/03/16 07/03/16 07/03/16 Range/Units 06:20 06:20 06:20 WBC 6.54 (3.98-10.04) K/mm3 RBC 4.66 (3.98-5.22) M/mm3 Hgb 12.4 (11.2-15.7) gm/L Hct 42.5 (34.1-44.9) % MCV 91.2 (79.4-94.8) fl MCH 26.6 (25.6-32.2) pg MCHC 29.2 L (32.2-35.5) g/dl RDW Std Deviation 51.9 H (36.4-46.3) fL Plt Count 166 L (182-369) K/mm3 MPV 10.6 (9.4-12.3) fl Neut % (Auto) 96.1 H (34.0-71.1) % Lymph % (Auto) 2.9 L (19.3-51.7) % [place] % (Auto) 0.8 L (4.7-12.5) % Eos % (Auto) 0 L (0.7-5.8) Baso % (Auto) 0.0 L (0.1-1.2) % Neut # (Auto) 6.29 H (1.56-6.13) K/mm3 Lymph # (Auto) 0.19 L (1.18-3.74) K/mm3 [place] # (Auto) 0.05 L (0.24-0.36) K/mm3 Eos # (Auto) 0.00 L (0.04-0.36) K/mm3 Baso # (Auto) 0.00 L (0.01-0.08) K/mm3 Manual Slide Review Abnormal smear Puncture Site ABG pH (7.35-7.45) ABG pCO2 (35.0-45.0) mmHg ABG pO2 (80.0-100.0) mmHg ABG HCO3 (22.0-26.0) meq/L ABG O2 Saturation (96.0-97.0) % ABG Base Excess (-2-2.0) Asael Test A-a Gradient mmHg O2 Delivery Device FiO2 (21.00-100.00) % Sodium 139 (136-145) mEq/L Potassium 3.8 (3.5-5.1) mEq/L Chloride 99 (98-107) mEq/L Carbon Dioxide 34 H (21-32) mEq/L Anion Gap 9.8 (5-15) BUN 31 H (7-18) mg/dL Creatinine 1.2 H (0.55-1.02) mg/dL Est Cr Clr Drug Dosing 28.21 mL/min Estimated GFR (MDRD) 43 (>60) mL/min BUN/Creatinine Ratio 25.8 H (14-18) Glucose 152 H (83-115) mg/dL Calcium 9.2 (8.5-10.1) mg/dL Troponin I (0.00-0.056) ng/mL C-Reactive Protein 6.3 H* (<1.0) mg/dL B-Natriuretic Peptide (0-100) pg/mL Carcinoembryonic Ag (0.0-3.0) ng/mL Med Orders - Current: Current Medications Hydrocodone Bitart/Acetaminophen ([place] 325-10 Mg) 1 tab PO Q6H PRN PRN Reason: Pain Last Admin: 07/03/16 03:37 Dose: 1 tab Albuterol (Proventil Hfa) 0 gm INH Q6H PRN PRN Reason: Shortness of Breath Albuterol (Proventil Neb Soln) 2.5 mg NEB Q4H PRN PRN Reason: Dyspnea Last Admin: 07/01/16 13:49 Dose: 2.5 mg Aspirin (Aspirin) 81 mg PO DAILY [facility] Last Admin: 07/03/16 08:43 Dose: 81 mg Citalopram Hydrobromide (Celexa) 30 mg PO DAILY [facility] Last Admin: 07/03/16 08:44 Dose: 30 mg Diazepam (Valium) 2 mg PO BID PRN PRN Reason: backpain Last Admin: 06/30/16 20:30 Dose: 2 mg Diltiazem HCl (Cardizem) 30 mg PO Q6HR [facility] Last Admin: 07/03/16 05:41 Dose: 30 mg Hydralazine HCl (Apresoline) 25 mg IVPUSH Q6H PRN PRN Reason: Hypertension Piperacillin Sod/Tazobactam (Sod 4.5 gm/ Sodium Chloride) 100 mls @ 25 mls/hr IV Q8H [facility] Last Admin: 07/03/16 08:54 Dose: 25 mls/hr Levofloxacin/Dextrose 750 mg/ (Premix) 150 mls @ 100 mls/hr IV Q48H [facility] Lidocaine (Lidoderm 5%) 700 mg TRDERM Q24H [facility] Last Admin: 07/02/16 14:45 Dose: 700 mg Methylprednisolone Sodium Succinate (Solu-Medrol) 125 mg IVPUSH Q6H [facility] Last Admin: 07/03/16 08:49 Dose: 125 mg Metoclopramide HCl (Reglan) 5 mg IVPUSH Q6H [facility] Last Admin: 07/03/16 08:45 Dose: 5 mg Metoprolol Succinate (Toprol Xl) 25 mg PO BID [facility] Last Admin: 07/03/16 08:42 Dose: 25 mg Metoprolol Tartrate (Lopressor) 5 mg IVPUSH Q6H PRN PRN Reason: Tachycardia Last Admin: 06/29/16 17:43 Dose: 5 mg Miscellaneous Information (Remove Patch) 1 ea TRDERM Q24H [facility] Last Admin: 07/03/16 00:24 Dose: 1 ea Nitroglycerin (Nitrostat) 0.4 mg SL Q5M PRN PRN Reason: Chest Pain Ondansetron HCl (Zofran) 4 mg IVPUSH Q8H PRN PRN Reason: Nausea Last Admin: 07/01/16 09:45 Dose: 4 mg Pantoprazole Sodium (Protonix) 40 mg PO BIDAC [facility] Last Admin: 07/03/16 05:41 Dose: 40 mg Polyethylene Glycol (Miralax) 17 gm PO TID PRN PRN Reason: Constipation Last Admin: 07/01/16 08:38 Dose: 17 gm Rivaroxaban (Xarelto) 15 mg PO DAILY [facility] Senna (Senna) 17.2 mg PO BID PRN PRN Reason: Constipation Last Admin: 07/01/16 08:38 Dose: 17.2 mg Simvastatin (Zocor) 20 mg PO DAILY [facility] Last Admin: 07/03/16 08:41 Dose: 20 mg Temazepam (Restoril) 7.5 mg PO BEDTIME PRN PRN Reason: Insomnia Last Admin: 06/30/16 20:31 Dose: 7.5 mg Tramadol HCl (Ultram) 50 mg PO Q4H PRN PRN Reason: Pain Last Admin: 07/03/16 00:20 Dose: 50 mg Trazodone HCl (Trazodone) 150 mg PO BEDTIME [facility] Last Admin: 07/02/16 21:29 Dose: 150 mg Discontinued Medications Hydrocodone Bitart/Acetaminophen ([place] 325-5 Mg) 1 tab PO Q4H PRN PRN Reason: Pain Last Admin: 06/30/16 14:32 Dose: 1 tab Bumetanide (Bumex) 1 mg IVPUSH ONETIME ONE Stop: 07/02/16 06:43 Last Admin: 07/02/16 08:06 Dose: 1 mg Bumetanide (Bumex) 1 mg IVPUSH ONETIME ONE Stop: 07/03/16 05:01 Last Admin: 07/03/16 05:01 Dose: 1 mg Ceftriaxone Sodium (Rocephin) Confirm Administered Dose 2 gm IV .STK-MED ONE Stop: 07/01/16 22:50 Last Admin: 07/01/16 23:00 Dose: Not Given Citalopram Hydrobromide (Celexa) 40 mg PO DAILY [facility] Last Admin: 06/30/16 08:13 Dose: 40 mg Citalopram Hydrobromide (Celexa) 20 mg PO DAILY [facility] Last Admin: 07/01/16 08:37 Dose: 20 mg Diazepam (Valium) 2.5 mg IVPUSH ONETIME ONE Stop: 06/28/16 20:27 Last Admin: 06/28/16 20:34 Dose: 2.5 mg Diazepam (Valium) 2 mg PO BEDTIME PRN PRN Reason: backpain Diltiazem HCl (Diltiazem) 5 mg IVPUSH ONETIME ONE Stop: 06/28/16 19:47 Last Admin: 06/28/16 20:08 Dose: 5 mg Diltiazem HCl (Diltiazem) 5 mg IVPUSH ONETIME ONE Stop: 06/28/16 20:26 Last Admin: 06/28/16 20:26 Dose: 5 mg Diltiazem HCl (Diltiazem) 5 mg IVPUSH ONETIME ONE Stop: 06/28/16 21:18 Last Admin: 06/28/16 21:47 Dose: 5 mg Diltiazem HCl (Diltiazem) 10 mg IVPUSH ONETIME ONE Stop: 06/28/16 22:03 Last Admin: 06/29/16 08:19 Dose: Not Given Famotidine (Pepcid) 20 mg IVPUSH ONETIME ONE Stop: 07/01/16 09:31 Last Admin: 07/01/16 09:44 Dose: 20 mg Fentanyl (Duragesic) 12 mcg TRDERM Q72H [facility] Last Admin: 06/30/16 13:52 Dose: 12 mcg Flumazenil (Romazicon) 0.2 mg IVPUSH ONETIME ONE Stop: 07/01/16 15:32 Last Admin: 07/01/16 15:47 Dose: 0.2 mg Furosemide (Lasix) 40 mg IVPUSH NOW ONE Stop: 06/28/16 20:33 Last Admin: 06/28/16 20:42 Dose: 40 mg Furosemide (Lasix) 40 mg PO DAILY [facility] Last Admin: 07/01/16 08:48 Dose: Not Given Furosemide (Lasix) 40 mg IVPUSH NOW ONE Stop: 07/01/16 07:21 Last Admin: 07/01/16 08:39 Dose: 40 mg Furosemide (Lasix) 40 mg PO DAILY [facility] Haloperidol Lactate (Haldol) 0.5 mg IVPUSH ONETIME ONE Stop: 07/01/16 14:46 Last Admin: 07/01/16 14:50 Dose: 0.5 mg Haloperidol Lactate (Haldol) 1 mg IVPUSH ONETIME ONE Stop: 07/01/16 15:01 Last Admin: 07/01/16 15:10 Dose: 1 mg Hydromorphone HCl (Dilaudid) 0.5 mg IVPUSH ONETIME ONE Stop: 06/28/16 19:12 Last Admin: 06/28/16 19:47 Dose: 0.5 mg Hydromorphone HCl (Dilaudid) 0.5 mg IVPUSH Q2H PRN PRN Reason: Pain Last Admin: 07/01/16 14:15 Dose: 0.5 mg Ceftriaxone Sodium 1 gm/ (Sodium Chloride) 100 mls @ 200 mls/hr IV ONETIME ONE Stop: 06/28/16 22:36 Last Admin: 06/28/16 22:17 Dose: 200 mls/hr Diltiazem HCl 100 mg/ Sodium (Chloride) 100 mls @ 10 mls/hr IV TITRATE TONJA; 10 MG/HR PRN Reason: Protocol Last Titration: 07/01/16 12:29 Dose: 5 mg/hr, 5 mls/hr Ceftriaxone Sodium 1 gm/ (Sodium Chloride) 100 mls @ 200 mls/hr IV Q24H [facility] Last Admin: 06/29/16 21:23 Dose: 200 mls/hr Sodium Chloride (Normal Saline) 1,000 mls @ 75 mls/hr IV ASDIRECTED [facility] Stop: 06/29/16 22:01 Last Admin: 06/29/16 18:43 Dose: 75 mls/hr Ceftriaxone Sodium 2 gm/ (Sodium Chloride) 100 mls @ 200 mls/hr IV Q24H [facility] Last Admin: 07/01/16 23:52 Dose: Not Given Piperacillin Sod/Tazobactam (Sod 4.5 gm/ Sodium Chloride) 100 mls @ 200 mls/hr IV ONETIME ONE Stop: 07/01/16 09:29 Last Admin: 07/01/16 09:47 Dose: 200 mls/hr Piperacillin Sod/Tazobactam (Sod 4.5 gm/ Sodium Chloride) 100 mls @ 25 mls/hr IV Q12H [facility] Last Admin: 07/01/16 20:38 Dose: 25 mls/hr Ceftriaxone Sodium 2 gm/ (Sodium Chloride) 100 mls @ 200 mls/hr IV Q24H [facility] Last Admin: 07/02/16 22:33 Dose: 200 mls/hr Albumin Human (Flexbumin 25%) 25 gm in 100 mls @ 100 mls/hr IV ONETIME ONE Stop: 07/02/16 11:30 Last Admin: 07/02/16 11:19 Dose: 100 mls/hr Lorazepam (Ativan) 1 mg PO Q4H PRN PRN Reason: Anxiety Last Admin: 06/30/16 05:12 Dose: 1 mg Lorazepam (Ativan) 0.5 mg PO ONETIME ONE Stop: 07/01/16 09:31 Last Admin: 07/01/16 10:03 Dose: 0.5 mg Losartan Potassium (Cozaar) 50 mg PO BID [facility] Losartan Potassium (Cozaar) 50 mg PO BID [facility] Last Admin: 06/30/16 20:32 Dose: Not Given Methylprednisolone Sodium Succinate (Solu-Medrol) 80 mg IVPUSH ONETIME ONE Stop: 06/28/16 22:27 Last Admin: 06/28/16 23:17 Dose: 80 mg Metoprolol Succinate (Toprol Xl) 25 mg PO DAILY [facility] Last Admin: 06/30/16 08:14 Dose: 25 mg Miscellaneous Information (Remove Patch) 0 ea TRDERM Q72H [facility] Naloxone HCl (Narcan) Confirm Administered Dose 0.8 mg .ROUTE .STK-MED ONE Stop: 07/01/16 07:16 Last Admin: 07/01/16 08:48 Dose: Not Given Naloxone HCl (Narcan) 0.6 mg IVPUSH ONETIME ONE Stop: 07/01/16 07:31 Last Admin: 07/01/16 07:18 Dose: 0.6 mg Nitroglycerin (Nitrostat) 0.4 mg SL TID PRN PRN Reason: Chest Pain Ondansetron HCl (Zofran) 4 mg IVPUSH ONETIME ONE Stop: 07/01/16 14:49 Last Admin: 07/01/16 15:42 Dose: 4 mg Pneumococcal Polyvalent Vaccine (Pneumovax 23) 0.5 ml IM .ONCE ONE Stop: 06/29/16 11:15 Rivaroxaban (Xarelto) 15 mg PO DAILY [facility] Last Admin: 07/02/16 08:06 Dose: 15 mg - Exam Quality Assessment: supplemental oxygen General: alert, cooperative, no acute distress, other (Obese) HEENT: Pupils equal, Pupils reactive, EOMI, Mucous membr. moist/pink Neck: supple, trachea midline, no JVD, no thyromegaly, other (short and Thcik) Lungs: Normal respiratory effort, Decreased breath sounds, Wheezing Cardiovascular: Irregular Rhythm Abdomen: bowel sounds present, soft, no tenderness, no distension, other (Obese) (Female) Exam: Other (Indwelling lopez catheter) Back Exam: normal inspection, decreased range of motion Extremities: no edema, normal pulses, no tenderness/swelling, no clubbing, no cyanosis, no calf tenderness Skin: warm, dry, intact Neurological: no new focal deficit Psy/Mental Status: alert, normal affect, normal mood - Problem List Review Problem List Initiated/Reviewed/Updated: Yes - Plan Plan:: Assessment/Plan: Acute: LLPNA - Continue Levaquin 750 mg IV Q48hrs - IS q2 awake Chronic Atrial Fibrillation with RVR - HR not fully controlled - HR spike up in the 130s with activity - Xarelto was held due to possible thoracenthesis - She is on BB 25 mg BID and Cardizem 30 m gpo Q6 for rate control UTI 2/2 E. Coli - Already on IV Zosyn/Levaquin - E. coli sensitive to both - Will d/c Zosyn and keep Levaquin only COPD with mild Exacerbation - Very mild wheezing - Will d/c Solumedrol 15 mg IVP Q6 - on BIPAP, will d/c by 11 and repeat ABG at 1300 - Goal: titrate to 2L NC, her baseline Small Pleural Effusion - Left Sided - Thoracentesis is not indicated at this time - Continue Bumex for diuretics 9 mm Non-calcified Nodule within Left Mid Lung - Pulmonology follow up after discharge - May not need any further work up if she decides not to pursue oncologic evaluation T7 Lytic Lesion (Possible Metastatic Disease) - CT scan Findings - Unknown primary site - Informed patient on this abnormal finding in the presence of her daughter - She will be referred to Oncology outpatient for further work up Resolved: S/P Elevated Troponin - 2/2 Demand Ischemia Chronic: CAD HF with Preserved EF at 55% with Grade 2 Diastolic Dysfunction 04/02/2015 MVR HLD CKD Stage 3 Anxiety/Depression Back Pain Plan: Patient is clinically improving, she is alert and awake Continue current treatment Transfer to Med-Surg w/ Tele D/c Cardizem 30 mg Q6 BIPAP PRN Cardizem 120 mg po at 1800 (we have no 90 mg available in formulary), start Cardizem 180 mg po daily tomorrow Resume Xarelto, no need for thoracentesis: pleural effusion is small-risk is higher than benefits, will continue diuretics Routine Am Labs Recommend SNF, patient is not amenable Home Health on discharge Discharge 1-2 days once HR is more stable LOS > 96hrs due to complexity of presenting illness
[2016-07-03] MEDS: Polyethylene Glycol 3350 Powder 17 GM Packet PO SCH ×2 (11:32→20:44)
[2016-07-03] MEDS: Lidocaine 5% 700 MG Patch TRDERM SCH (11:33)
[2016-07-03] MEDS: Levofloxacin/Dextrose 5%-Water 750 MG in Premix Bag 1 BAG IV SCH (12:55)
[2016-07-03] MEDS ORDERED: Metoclopramide 10 MG/2 ML SDV IVPUSH PRN (14:26)
[2016-07-03] MEDS ORDERED: Diltiazem 120 MG Cap.CD PO ONE (18:00)
[2016-07-03] MEDS: traZODone 50 MG Tab PO SCH (20:30)
[2016-07-03] MEDS: Saccharomyces Boulardii (Probiotic) 250 MG Cap PO SCH (20:30)
[2016-07-04] MEDS: Diazepam 2 MG Tab PO PRN ×2 (01:32→13:39)
[2016-07-04] MEDS: Saccharomyces Boulardii (Probiotic) 250 MG Cap PO SCH ×2 (08:06→21:24)
[2016-07-04] MEDS: Citalopram 20 MG Tab PO SCH (08:06)
[2016-07-04] MEDS: Aspirin 81 MG Tab.Chew PO SCH (08:06)
[2016-07-04] MEDS: Metoprolol Succinate 25 MG Tab.ER PO SCH ×2 (08:06→21:25)
[2016-07-04] MEDS: Simvastatin 20 MG Tab PO SCH (08:07)
[2016-07-04] MEDS: Pantoprazole 40 MG Tab.CR PO SCH ×2 (08:11→15:59)
[2016-07-04] MEDS: Polyethylene Glycol 3350 Powder 17 GM Packet PO SCH (08:27)
[2016-07-04] MEDS: Rivaroxaban 10 MG Tab PO SCH (08:30)
[2016-07-04] MEDS ORDERED: Diltiazem 180 MG Cap.CD PO SCH (09:00)
[2016-07-04] MEDS: Furosemide 80 MG Tab PO SCH (09:45)
[2016-07-04] MEDS: Diltiazem IR 30 MG Tab PO SCH ×2 (09:45→21:28)
--- NOTE | 2016-07-04 09:55 | PCM.PN ---
- General Info Date of Service: 07/04/16 Admission Dx/Problem (Free Text): Admission Diagnosis/Problem Admission Diagnosis/Problem Atrial fibrillation Subjective Update: Follow Up Functional Status: Reports: pain controlled, tolerating diet, ambulating, urinating. Denies: new symptoms - Review of Systems General: Denies: Fever, Chills HEENT: Reports: no symptoms Pulmonary: Denies: shortness of breath Cardiovascular: Denies: Chest Pain Gastrointestinal: Denies: Abdominal pain, Nausea, Vomiting Genitourinary: Reports: no symptoms Musculoskeletal: Reports: no symptoms Skin: Reports: no symptoms Neurological: Reports: Confusion (intermittent). Denies: Seizure, Weakness Psychiatric: Denies: depression, anxiety, agitation, hallucinations, homicidal ideation Systems Review Comment:: No overnight issues. Her HR is not fully controlled. She is currently in the teens to 120s with activity. She has no acute issues. She remains afebrile w/o leukocytosis. CRP is 3.3 from 6.3 yesterday. She is alert and awake. She is at baseline 2L NC. - Patient Data Vitals - most recent: Last Vital Signs Temp 36.3 C 07/04/16 08:00 Pulse 94 07/04/16 08:06 Resp 18 07/04/16 08:00 BP 141/91 H 07/04/16 08:06 Pulse Ox 98 07/04/16 08:00 Weight - most recent: 103.419 kg I&O - last 24 hours: Intake & Output 07/03/16 07/04/16 07/04/16 22:59 06:59 14:59 Intake Total 1060 220 360 Output Total 180 200 400 Balance 880 20 -40 Lab Results last 24 hrs: Laboratory Results - last 24 hr 07/03/16 07/04/16 07/04/16 Range/Units 13:00 07:01 07:01 WBC 7.78 (3.98-10.04) K/mm3 RBC 5.11 (3.98-5.22) M/mm3 Hgb 13.4 (11.2-15.7) gm/L Hct 45.5 H (34.1-44.9) % MCV 89.0 (79.4-94.8) fl MCH 26.2 (25.6-32.2) pg MCHC 29.5 L (32.2-35.5) g/dl RDW Std Deviation 50.6 H (36.4-46.3) fL Plt Count 162 L (182-369) K/mm3 MPV 11.2 (9.4-12.3) fl Neut % (Auto) 88.4 H (34.0-71.1) % Lymph % (Auto) 5.3 L (19.3-51.7) % Converse % (Auto) 6.2 (4.7-12.5) % Eos % (Auto) 0 L (0.7-5.8) Baso % (Auto) 0.0 L (0.1-1.2) % Neut # (Auto) 6.88 H (1.56-6.13) K/mm3 Lymph # (Auto) 0.41 L (1.18-3.74) K/mm3 Converse # (Auto) 0.48 H (0.24-0.36) K/mm3 Eos # (Auto) 0.00 L (0.04-0.36) K/mm3 Baso # (Auto) 0.00 L (0.01-0.08) K/mm3 Manual Slide Review Abnormal smear Puncture Site Rt radial ABG pH 7.38 (7.35-7.45) ABG pCO2 64.1 H (35.0-45.0) mmHg ABG pO2 68.0 L (80.0-100.0) mmHg ABG HCO3 36.9 H (22.0-26.0) meq/L ABG O2 Saturation 93.3 L (96.0-97.0) % ABG Base Excess 9.7 H (-2-2.0) Asael Test Positive A-a Gradient 41 mmHg O2 Delivery Device Nasal cannula Oxygen Flow Rate 2.0 FiO2 28.00 (21.00-100.00) % C-Reactive Protein 3.3 H* (<1.0) mg/dL Med Orders - Current: Current Medications Hydrocodone Bitart/Acetaminophen (Central 325-10 Mg) 1 tab PO Q6H PRN PRN Reason: Pain Last Admin: 07/03/16 20:31 Dose: 1 tab Albuterol (Proventil Hfa) 0 gm INH Q6H PRN PRN Reason: Shortness of Breath Albuterol (Proventil Neb Soln) 2.5 mg NEB Q4H PRN PRN Reason: Dyspnea Last Admin: 07/01/16 13:49 Dose: 2.5 mg Aspirin (Aspirin) 81 mg PO DAILY [facility] Last Admin: 07/04/16 08:06 Dose: 81 mg Citalopram Hydrobromide (Celexa) 30 mg PO DAILY [facility] Last Admin: 07/04/16 08:06 Dose: 30 mg Diazepam (Valium) 2 mg PO BID PRN PRN Reason: backpain Last Admin: 07/04/16 01:32 Dose: 2 mg Diltiazem HCl (Cardizem Cd) 180 mg PO DAILY [facility] Last Admin: 07/04/16 08:06 Dose: 180 mg Diltiazem HCl (Cardizem) 30 mg PO Q12H [facility] Stop: 07/04/16 21:46 Last Admin: 07/04/16 09:45 Dose: 30 mg Furosemide (Lasix) 80 mg PO DAILY [facility] Last Admin: 07/04/16 09:45 Dose: 80 mg Hydralazine HCl (Apresoline) 25 mg IVPUSH Q6H PRN PRN Reason: Hypertension Levofloxacin/Dextrose 750 mg/ (Premix) 150 mls @ 100 mls/hr IV Q48H [facility] Last Admin: 07/03/16 12:55 Dose: 100 mls/hr Lidocaine (Lidoderm 5%) 700 mg TRDERM Q24H [facility] Last Admin: 07/03/16 11:33 Dose: 700 mg Metoclopramide HCl (Reglan) 5 mg IVPUSH Q6H PRN PRN Reason: Nausea/Vomiting Metoprolol Succinate (Toprol Xl) 25 mg PO BID [facility] Last Admin: 07/04/16 08:06 Dose: 25 mg Metoprolol Tartrate (Lopressor) 5 mg IVPUSH Q6H PRN PRN Reason: Tachycardia Last Admin: 07/03/16 09:50 Dose: 5 mg Miscellaneous Information (Remove Patch) 1 ea TRDERM Q24H [facility] Last Admin: 07/04/16 00:28 Dose: 1 ea Nitroglycerin (Nitrostat) 0.4 mg SL Q5M PRN PRN Reason: Chest Pain Ondansetron HCl (Zofran) 4 mg IVPUSH Q8H PRN PRN Reason: Nausea Last Admin: 07/01/16 09:45 Dose: 4 mg Pantoprazole Sodium (Protonix) 40 mg PO BIDAC [facility] Last Admin: 07/04/16 08:11 Dose: 40 mg Polyethylene Glycol (Miralax) 17 gm PO TID PRN PRN Reason: Constipation Last Admin: 07/01/16 08:38 Dose: 17 gm Polyethylene Glycol (Miralax) 17 gm PO BID [facility] Last Admin: 07/04/16 08:27 Dose: Not Given Rivaroxaban (Xarelto) 15 mg PO DAILY [facility] Last Admin: 07/04/16 08:30 Dose: 15 mg Saccharomyces Boulardii (Florastor) 250 mg PO BID [facility] Last Admin: 07/04/16 08:06 Dose: 250 mg Senna (Senna) 17.2 mg PO BID PRN PRN Reason: Constipation Last Admin: 07/01/16 08:38 Dose: 17.2 mg Senna/Docusate Sodium (Senna Plus) 1 tab PO BID [facility] Last Admin: 07/04/16 08:07 Dose: 1 tab Simvastatin (Zocor) 20 mg PO DAILY [facility] Last Admin: 07/04/16 08:07 Dose: 20 mg Temazepam (Restoril) 7.5 mg PO BEDTIME PRN PRN Reason: Insomnia Last Admin: 06/30/16 20:31 Dose: 7.5 mg Tramadol HCl (Ultram) 50 mg PO Q4H PRN PRN Reason: Pain Last Admin: 07/03/16 00:20 Dose: 50 mg Trazodone HCl (Trazodone) 150 mg PO BEDTIME [facility] Last Admin: 07/03/16 20:30 Dose: 150 mg Discontinued Medications Hydrocodone Bitart/Acetaminophen (Central 325-5 Mg) 1 tab PO Q4H PRN PRN Reason: Pain Last Admin: 06/30/16 14:32 Dose: 1 tab Bumetanide (Bumex) 1 mg IVPUSH ONETIME ONE Stop: 07/02/16 06:43 Last Admin: 07/02/16 08:06 Dose: 1 mg Bumetanide (Bumex) 1 mg IVPUSH ONETIME ONE Stop: 07/03/16 05:01 Last Admin: 07/03/16 05:01 Dose: 1 mg Ceftriaxone Sodium (Rocephin) Confirm Administered Dose 2 gm IV .STK-MED ONE Stop: 07/01/16 22:50 Last Admin: 07/01/16 23:00 Dose: Not Given Citalopram Hydrobromide (Celexa) 40 mg PO DAILY [facility] Last Admin: 06/30/16 08:13 Dose: 40 mg Citalopram Hydrobromide (Celexa) 20 mg PO DAILY [facility] Last Admin: 07/01/16 08:37 Dose: 20 mg Diazepam (Valium) 2.5 mg IVPUSH ONETIME ONE Stop: 06/28/16 20:27 Last Admin: 06/28/16 20:34 Dose: 2.5 mg Diazepam (Valium) 2 mg PO BEDTIME PRN PRN Reason: backpain Diltiazem HCl (Diltiazem) 5 mg IVPUSH ONETIME ONE Stop: 06/28/16 19:47 Last Admin: 06/28/16 20:08 Dose: 5 mg Diltiazem HCl (Diltiazem) 5 mg IVPUSH ONETIME ONE Stop: 06/28/16 20:26 Last Admin: 06/28/16 20:26 Dose: 5 mg Diltiazem HCl (Diltiazem) 5 mg IVPUSH ONETIME ONE Stop: 06/28/16 21:18 Last Admin: 06/28/16 21:47 Dose: 5 mg Diltiazem HCl (Diltiazem) 10 mg IVPUSH ONETIME ONE Stop: 06/28/16 22:03 Last Admin: 06/29/16 08:19 Dose: Not Given Diltiazem HCl (Cardizem) 30 mg PO Q6HR [facility] Last Admin: 07/03/16 11:33 Dose: 30 mg Diltiazem HCl (Cardizem Cd) 120 mg PO ONETIME ONE Stop: 07/03/16 18:01 Last Admin: 07/03/16 18:09 Dose: 120 mg Famotidine (Pepcid) 20 mg IVPUSH ONETIME ONE Stop: 07/01/16 09:31 Last Admin: 07/01/16 09:44 Dose: 20 mg Fentanyl (Duragesic) 12 mcg TRDERM Q72H [facility] Last Admin: 06/30/16 13:52 Dose: 12 mcg Flumazenil (Romazicon) 0.2 mg IVPUSH ONETIME ONE Stop: 07/01/16 15:32 Last Admin: 07/01/16 15:47 Dose: 0.2 mg Furosemide (Lasix) 40 mg IVPUSH NOW ONE Stop: 06/28/16 20:33 Last Admin: 06/28/16 20:42 Dose: 40 mg Furosemide (Lasix) 40 mg PO DAILY [facility] Last Admin: 07/01/16 08:48 Dose: Not Given Furosemide (Lasix) 40 mg IVPUSH NOW ONE Stop: 07/01/16 07:21 Last Admin: 07/01/16 08:39 Dose: 40 mg Furosemide (Lasix) 40 mg PO DAILY [facility] Haloperidol Lactate (Haldol) 0.5 mg IVPUSH ONETIME ONE Stop: 07/01/16 14:46 Last Admin: 07/01/16 14:50 Dose: 0.5 mg Haloperidol Lactate (Haldol) 1 mg IVPUSH ONETIME ONE Stop: 07/01/16 15:01 Last Admin: 07/01/16 15:10 Dose: 1 mg Hydromorphone HCl (Dilaudid) 0.5 mg IVPUSH ONETIME ONE Stop: 06/28/16 19:12 Last Admin: 06/28/16 19:47 Dose: 0.5 mg Hydromorphone HCl (Dilaudid) 0.5 mg IVPUSH Q2H PRN PRN Reason: Pain Last Admin: 07/01/16 14:15 Dose: 0.5 mg Ceftriaxone Sodium 1 gm/ (Sodium Chloride) 100 mls @ 200 mls/hr IV ONETIME ONE Stop: 06/28/16 22:36 Last Admin: 06/28/16 22:17 Dose: 200 mls/hr Diltiazem HCl 100 mg/ Sodium (Chloride) 100 mls @ 10 mls/hr IV TITRATE TONJA; 10 MG/HR PRN Reason: Protocol Last Titration: 07/01/16 12:29 Dose: 5 mg/hr, 5 mls/hr Ceftriaxone Sodium 1 gm/ (Sodium Chloride) 100 mls @ 200 mls/hr IV Q24H [facility] Last Admin: 06/29/16 21:23 Dose: 200 mls/hr Sodium Chloride (Normal Saline) 1,000 mls @ 75 mls/hr IV ASDIRECTED [facility]ONJA Stop: 06/29/16 22:01 Last Admin: 06/29/16 18:43 Dose: 75 mls/hr Ceftriaxone Sodium 2 gm/ (Sodium Chloride) 100 mls @ 200 mls/hr IV Q24H [facility] Last Admin: 07/01/16 23:52 Dose: Not Given Piperacillin Sod/Tazobactam (Sod 4.5 gm/ Sodium Chloride) 100 mls @ 200 mls/hr IV ONETIME ONE Stop: 07/01/16 09:29 Last Admin: 07/01/16 09:47 Dose: 200 mls/hr Piperacillin Sod/Tazobactam (Sod 4.5 gm/ Sodium Chloride) 100 mls @ 25 mls/hr IV Q12H [facility] Last Admin: 07/01/16 20:38 Dose: 25 mls/hr Ceftriaxone Sodium 2 gm/ (Sodium Chloride) 100 mls @ 200 mls/hr IV Q24H [facility] Last Admin: 07/02/16 22:33 Dose: 200 mls/hr Piperacillin Sod/Tazobactam (Sod 4.5 gm/ Sodium Chloride) 100 mls @ 25 mls/hr IV Q8H [facility] Last Admin: 07/03/16 08:54 Dose: 25 mls/hr Albumin Human (Flexbumin 25%) 25 gm in 100 mls @ 100 mls/hr IV ONETIME ONE Stop: 07/02/16 11:30 Last Admin: 07/02/16 11:19 Dose: 100 mls/hr Lorazepam (Ativan) 1 mg PO Q4H PRN PRN Reason: Anxiety Last Admin: 06/30/16 05:12 Dose: 1 mg Lorazepam (Ativan) 0.5 mg PO ONETIME ONE Stop: 07/01/16 09:31 Last Admin: 07/01/16 10:03 Dose: 0.5 mg Losartan Potassium (Cozaar) 50 mg PO BID [facility] Losartan Potassium (Cozaar) 50 mg PO BID [facility] Last Admin: 06/30/16 20:32 Dose: Not Given Methylprednisolone Sodium Succinate (Solu-Medrol) 80 mg IVPUSH ONETIME ONE Stop: 06/28/16 22:27 Last Admin: 06/28/16 23:17 Dose: 80 mg Methylprednisolone Sodium Succinate (Solu-Medrol) 125 mg IVPUSH Q6H [facility] Last Admin: 07/03/16 08:49 Dose: 125 mg Metoclopramide HCl (Reglan) 5 mg IVPUSH Q6H [facility] Last Admin: 07/03/16 08:45 Dose: 5 mg Metoprolol Succinate (Toprol Xl) 25 mg PO DAILY [facility] Last Admin: 06/30/16 08:14 Dose: 25 mg Miscellaneous Information (Remove Patch) 0 ea TRDERM Q72H [facility] Naloxone HCl (Narcan) Confirm Administered Dose 0.8 mg .ROUTE .STK-MED ONE Stop: 07/01/16 07:16 Last Admin: 07/01/16 08:48 Dose: Not Given Naloxone HCl (Narcan) 0.6 mg IVPUSH ONETIME ONE Stop: 07/01/16 07:31 Last Admin: 07/01/16 07:18 Dose: 0.6 mg Nitroglycerin (Nitrostat) 0.4 mg SL TID PRN PRN Reason: Chest Pain Ondansetron HCl (Zofran) 4 mg IVPUSH ONETIME ONE Stop: 07/01/16 14:49 Last Admin: 07/01/16 15:42 Dose: 4 mg Pneumococcal Polyvalent Vaccine (Pneumovax 23) 0.5 ml IM .ONCE ONE Stop: 06/29/16 11:15 Rivaroxaban (Xarelto) 15 mg PO DAILY [facility] Last Admin: 07/02/16 08:06 Dose: 15 mg Rivaroxaban (Xarelto) 15 mg PO DAILY [facility] - Exam Quality Assessment: supplemental oxygen General: alert, cooperative, no acute distress, other (Obese) HEENT: Pupils equal, Pupils reactive, EOMI, Mucous membr. moist/pink Neck: supple, trachea midline, no JVD, no thyromegaly, other (short and thick) Lungs: Clear to auscultation, Normal respiratory effort Cardiovascular: Irregular Rhythm Abdomen: bowel sounds present, soft, no tenderness, no distension (Female) Exam: Deferred Back Exam: normal inspection, decreased range of motion Extremities: no edema, normal pulses, no tenderness/swelling, no clubbing, no cyanosis, no calf tenderness Skin: warm, dry, intact Neurological: no new focal deficit Psy/Mental Status: alert, normal affect, normal mood - Problem List Review Problem List Initiated/Reviewed/Updated: Yes - My Orders Last 24 Hours: My Active Orders 07/03/16 17:46 Admission Status [Patient Status] [ADT] Routine 04/20/17 17:48 Incentive Spirometry [RT Incentive Spirometry] [RC] ASDIRECTED 07/04/16 09:00 Diltiazem [Cardizem CD] 180 mg PO DAILY 07/04/16 09:45 Diltiazem [Cardizem] 30 mg PO Q12H Furosemide [Lasix] 80 mg PO DAILY - Plan Plan:: Assessment/Plan: Acute: LLPNA - Likely improving - Continue Levaquin 750 mg IV Q48hrs - IS q2 awake Atrial Fibrillation - HR not improved - HR is now in the teens to 120s with activity - Xarelto was not given yesterday as instructed, will resume today - Cardizem 180 mg po daily but may need 240 mg po daily with her HR not fully controlled COPD - Improved - Supplemental O2 - Has not had to uses on BIPAP - She is now at baseline 2L NC Small Pleural Effusion - Left Sided - Thoracentesis is not indicated at this time - Will resume home lasix dose for diuretics 9 mm Non-calcified Nodule within Left Mid Lung - No Pulmonology or Oncology outpatient evaluation - She is is not amenable to further evaluation - Asked what she wants to do if she has cancer, she states, "I'm 80 years old " T7 Lytic Lesion (Possible Metastatic Disease) - CT scan Findings - Unknown primary site - Informed patient on this abnormal finding in the presence of her daughter - Will hold off on the referral to Oncology, at this point she is not willing to pursue it given her advanced age Questionable Memory Impairment and or Confusion - Has Mild-Moderate Cognitive Dysfunction per Cognitive Eval by SCHEDULING CLERK - Given this new findings, we will discuss with her daughter if again patient is agreeable to go for SNF/NH as I felt she would not be safe to be alone on her own - Per nurse, she was off at the time of admission - Patient is on Ultram, Trazodone and Valium - Mini-MS Exam score is 27/30 suggestive of no cognitive impairment Resolved: S/P Elevated Troponin - 2/2 Demand Ischemia S/p UTI 2/2 E. Coli - Received IV Zosyn/Levaquin - E. coli sensitive to both - Had 5 day course of antibiotic Chronic: CAD HF with Preserved EF at 55% with Grade 2 Diastolic Dysfunction 04/02/2015 MVR HLD CKD Stage 3 Anxiety/Depression Back Pain Plan: Patient continues to clinically improve Continue current treatment Will adjust Cardizem to she will get a total of 240 mg po daily Valium and Ultram were held prior to COG eval Resume Xarelto today Routine Am Labs Recommend SNF Home Health on discharge still in place Possible d/c in am is HR is better LOS > 96hrs due to complexity of presenting illness
[2016-07-04] MEDS: Lidocaine 5% 700 MG Patch TRDERM SCH (11:28)
[2016-07-04] MEDS: Ondansetron 4 MG/2 ML SDV IVPUSH PRN (13:39)
[2016-07-04] MEDS: traZODone 50 MG Tab PO SCH ×2 (21:29→21:42)
[2016-07-04] MEDS: Acetaminophen/HYDROcodone 325-10 MG Tab PO PRN (21:46)
[2016-07-05] MEDS: Diazepam 2 MG Tab PO PRN ×2 (02:40→15:02)
[2016-07-05] MEDS: Pantoprazole 40 MG Tab.CR PO SCH ×2 (06:01→15:02)
[2016-07-05] MEDS: Citalopram 20 MG Tab PO SCH (08:01)
[2016-07-05] MEDS: Saccharomyces Boulardii (Probiotic) 250 MG Cap PO SCH ×2 (08:01→20:44)
[2016-07-05] MEDS: Diltiazem 240 MG Cap.ER PO SCH (08:02)
[2016-07-05] MEDS: Rivaroxaban 10 MG Tab PO SCH (08:03)
[2016-07-05] MEDS: Furosemide 80 MG Tab PO SCH (08:03)
[2016-07-05] MEDS: Simvastatin 20 MG Tab PO SCH (08:03)
[2016-07-05] MEDS: Aspirin 81 MG Tab.Chew PO SCH (08:03)
[2016-07-05] MEDS: Metoprolol Succinate 25 MG Tab.ER PO SCH ×2 (08:04→20:44)
[2016-07-05] MEDS: Acetaminophen/HYDROcodone 325-10 MG Tab PO PRN ×3 (08:04→20:46)
--- NOTE | 2016-07-05 09:05 | PCM.PN ---
- General Info Date of Service: 07/05/16 Admission Dx/Problem (Free Text): Admission Diagnosis/Problem Admission Diagnosis/Problem Atrial fibrillation Subjective Update: Follow Up Functional Status: Reports: pain controlled, tolerating diet, ambulating, urinating. Denies: new symptoms - Review of Systems General: Denies: Fever, Weakness, Fatigue, Malaise, Chills HEENT: Reports: no symptoms Pulmonary: Reports: shortness of breath (baseline) Cardiovascular: Denies: Chest Pain, Palpitations, Dyspnea on Exertion Gastrointestinal: Denies: Abdominal pain, Nausea, Vomiting Genitourinary: Reports: no symptoms Musculoskeletal: Reports: back pain Skin: Denies: cyanosis, rash Neurological: Denies: Confusion, Seizure, Difficulty Walking, Weakness Psychiatric: Denies: depression, anxiety, hallucinations Systems Review Comment:: No overnight or acute issues. She is doing relatively well. Her HR is now controlled mostly 80s-90s at rest. She has no new complaints. - Patient Data Vitals - most recent: Last Vital Signs Temp 36.3 C 07/05/16 07:17 Pulse 103 H 07/05/16 08:04 Resp 19 07/05/16 07:17 BP 119/68 07/05/16 08:04 Pulse Ox 92 L 07/05/16 07:18 Weight - most recent: 100.153 kg I&O - last 24 hours: Intake & Output 07/04/16 07/05/16 07/05/16 22:59 06:59 14:59 Intake Total 660 1000 Output Total 250 950 Balance 410 50 Lab Results last 24 hrs: Laboratory Results - last 24 hr 07/05/16 07/05/16 Range/Units 05:40 05:40 WBC 11.18 H (3.98-10.04) K/mm3 RBC 4.61 (3.98-5.22) M/mm3 Hgb 12.2 (11.2-15.7) gm/L Hct 40.9 (34.1-44.9) % MCV 88.7 (79.4-94.8) fl MCH 26.5 (25.6-32.2) pg MCHC 29.8 L (32.2-35.5) g/dl RDW Std Deviation 49.8 H (36.4-46.3) fL Plt Count 176 L (182-369) K/mm3 MPV 11.3 (9.4-12.3) fl Neut % (Auto) 82.9 H (34.0-71.1) % Lymph % (Auto) 5.8 L (19.3-51.7) % [place] % (Auto) 11.1 (4.7-12.5) % Eos % (Auto) 0 L (0.7-5.8) Baso % (Auto) 0.0 L (0.1-1.2) % Neut # (Auto) 9.27 H (1.56-6.13) K/mm3 Lymph # (Auto) 0.65 L (1.18-3.74) K/mm3 [place] # (Auto) 1.24 H (0.24-0.36) K/mm3 Eos # (Auto) 0.00 L (0.04-0.36) K/mm3 Baso # (Auto) 0.00 L (0.01-0.08) K/mm3 Manual Slide Review Abnormal smear C-Reactive Protein 1.3 H* (<1.0) mg/dL Med Orders - Current: Current Medications Hydrocodone Bitart/Acetaminophen ([place] 325-10 Mg) 1 tab PO Q6H PRN PRN Reason: Pain Last Admin: 07/05/16 08:04 Dose: 1 tab Albuterol (Proventil Hfa) 0 gm INH Q6H PRN PRN Reason: Shortness of Breath Albuterol (Proventil Neb Soln) 2.5 mg NEB Q4H PRN PRN Reason: Dyspnea Last Admin: 07/01/16 13:49 Dose: 2.5 mg Aspirin (Aspirin) 81 mg PO DAILY [facility] Last Admin: 07/05/16 08:03 Dose: 81 mg Citalopram Hydrobromide (Celexa) 30 mg PO DAILY [facility] Last Admin: 07/05/16 08:01 Dose: 30 mg Diazepam (Valium) 2 mg PO BID PRN PRN Reason: backpain Last Admin: 07/05/16 02:40 Dose: 2 mg Diltiazem HCl (Dilacor Xr) 240 mg PO DAILY [facility] Last Admin: 07/05/16 08:02 Dose: 240 mg Furosemide (Lasix) 80 mg PO DAILY [facility] Last Admin: 07/05/16 08:03 Dose: 80 mg Hydralazine HCl (Apresoline) 25 mg IVPUSH Q6H PRN PRN Reason: Hypertension Levofloxacin/Dextrose 750 mg/ (Premix) 150 mls @ 100 mls/hr IV Q48H [facility] Last Admin: 07/03/16 12:55 Dose: 100 mls/hr Lidocaine (Lidoderm 5%) 700 mg TRDERM Q24H [facility] Last Admin: 07/04/16 11:28 Dose: 700 mg Metoclopramide HCl (Reglan) 5 mg IVPUSH Q6H PRN PRN Reason: Nausea/Vomiting Metoprolol Succinate (Toprol Xl) 25 mg PO BID [facility] Last Admin: 07/05/16 08:04 Dose: 25 mg Metoprolol Tartrate (Lopressor) 5 mg IVPUSH Q6H PRN PRN Reason: Tachycardia Last Admin: 07/03/16 09:50 Dose: 5 mg Miscellaneous Information (Remove Patch) 1 ea TRDERM Q24H [facility] Last Admin: 07/05/16 00:30 Dose: 1 ea Nitroglycerin (Nitrostat) 0.4 mg SL Q5M PRN PRN Reason: Chest Pain Ondansetron HCl (Zofran) 4 mg IVPUSH Q8H PRN PRN Reason: Nausea Last Admin: 07/04/16 13:39 Dose: 4 mg [facility]razole [facility] ([facility]) [facility] Last Admin: 07/05/16 06:01 Dose: 40 mg Polyethylene Glycol (Miralax) 17 gm PO TID PRN PRN Reason: Constipation Last Admin: 07/01/16 08:38 Dose: 17 gm Rivaroxaban (Xarelto) 15 mg PO DAILY [facility] Last Admin: 07/05/16 08:03 Dose: 15 mg Saccharomyces Boulardii (Florastor) 250 mg PO BID [facility] Last Admin: 07/05/16 08:01 Dose: 250 mg Senna (Senna) 17.2 mg PO BID PRN PRN Reason: Constipation Last Admin: 07/01/16 08:38 Dose: 17.2 mg Senna/Docusate Sodium (Senna Plus) 1 tab PO BID [facility] Last Admin: 07/05/16 08:02 Dose: 1 tab Simvastatin (Zocor) 20 mg PO DAILY [facility] Last Admin: 07/05/16 08:03 Dose: 20 mg Temazepam (Restoril) 7.5 mg PO BEDTIME PRN PRN Reason: Insomnia Last Admin: 06/30/16 20:31 Dose: 7.5 mg Tramadol HCl (Ultram) 50 mg PO Q4H PRN PRN Reason: Pain Last Admin: 07/03/16 00:20 Dose: 50 mg Trazodone HCl (Trazodone) 150 mg PO BEDTIME [facility] Last Admin: 07/04/16 21:42 Dose: 150 mg Discontinued Medications Hydrocodone Bitart/Acetaminophen ([place] 325-5 Mg) 1 tab PO Q4H PRN PRN Reason: Pain Last Admin: 06/30/16 14:32 Dose: 1 tab Bumetanide (Bumex) 1 mg IVPUSH ONETIME ONE Stop: 07/02/16 06:43 Last Admin: 07/02/16 08:06 Dose: 1 mg Bumetanide (Bumex) 1 mg IVPUSH ONETIME ONE Stop: 07/03/16 05:01 Last Admin: 07/03/16 05:01 Dose: 1 mg Ceftriaxone Sodium (Rocephin) Confirm Administered Dose 2 gm IV .STK-MED ONE Stop: 07/01/16 22:50 Last Admin: 07/01/16 23:00 Dose: Not Given Citalopram Hydrobromide (Celexa) 40 mg PO DAILY [facility] Last Admin: 06/30/16 08:13 Dose: 40 mg Citalopram Hydrobromide (Celexa) 20 mg PO DAILY [facility] Last Admin: 07/01/16 08:37 Dose: 20 mg Diazepam (Valium) 2.5 mg IVPUSH ONETIME ONE Stop: 06/28/16 20:27 Last Admin: 06/28/16 20:34 Dose: 2.5 mg Diazepam (Valium) 2 mg PO BEDTIME PRN PRN Reason: backpain Diltiazem HCl (Diltiazem) 5 mg IVPUSH ONETIME ONE Stop: 06/28/16 19:47 Last Admin: 06/28/16 20:08 Dose: 5 mg Diltiazem HCl (Diltiazem) 5 mg IVPUSH ONETIME ONE Stop: 06/28/16 20:26 Last Admin: 06/28/16 20:26 Dose: 5 mg Diltiazem HCl (Diltiazem) 5 mg IVPUSH ONETIME ONE Stop: 06/28/16 21:18 Last Admin: 06/28/16 21:47 Dose: 5 mg Diltiazem HCl (Diltiazem) 10 mg IVPUSH ONETIME ONE Stop: 06/28/16 22:03 Last Admin: 06/29/16 08:19 Dose: Not Given Diltiazem HCl (Cardizem) 30 mg PO Q6HR [facility] Last Admin: 07/03/16 11:33 Dose: 30 mg Diltiazem HCl (Cardizem Cd) 120 mg PO ONETIME ONE Stop: 07/03/16 18:01 Last Admin: 07/03/16 18:09 Dose: 120 mg Diltiazem HCl (Cardizem Cd) 180 mg PO DAILY [facility] Last Admin: 07/04/16 08:06 Dose: 180 mg Diltiazem HCl (Cardizem) 30 mg PO Q12H [facility] Stop: 07/04/16 21:46 Last Admin: 07/04/16 21:28 Dose: 30 mg Famotidine (Pepcid) 20 mg IVPUSH ONETIME ONE Stop: 07/01/16 09:31 Last Admin: 07/01/16 09:44 Dose: 20 mg Fentanyl (Duragesic) 12 mcg TRDERM Q72H [facility] Last Admin: 06/30/16 13:52 Dose: 12 mcg Flumazenil (Romazicon) 0.2 mg IVPUSH ONETIME ONE Stop: 07/01/16 15:32 Last Admin: 07/01/16 15:47 Dose: 0.2 mg Furosemide (Lasix) 40 mg IVPUSH NOW ONE Stop: 06/28/16 20:33 Last Admin: 06/28/16 20:42 Dose: 40 mg Furosemide (Lasix) 40 mg PO DAILY [facility] Last Admin: 07/01/16 08:48 Dose: Not Given Furosemide (Lasix) 40 mg IVPUSH NOW ONE Stop: 07/01/16 07:21 Last Admin: 07/01/16 08:39 Dose: 40 mg Furosemide (Lasix) 40 mg PO DAILY [facility] Haloperidol Lactate (Haldol) 0.5 mg IVPUSH ONETIME ONE Stop: 07/01/16 14:46 Last Admin: 07/01/16 14:50 Dose: 0.5 mg Haloperidol Lactate (Haldol) 1 mg IVPUSH ONETIME ONE Stop: 07/01/16 15:01 Last Admin: 07/01/16 15:10 Dose: 1 mg Hydromorphone HCl (Dilaudid) 0.5 mg IVPUSH ONETIME ONE Stop: 06/28/16 19:12 Last Admin: 06/28/16 19:47 Dose: 0.5 mg Hydromorphone HCl (Dilaudid) 0.5 mg IVPUSH Q2H PRN PRN Reason: Pain Last Admin: 07/01/16 14:15 Dose: 0.5 mg Ceftriaxone Sodium 1 gm/ (Sodium Chloride) 100 mls @ 200 mls/hr IV ONETIME ONE Stop: 06/28/16 22:36 Last Admin: 06/28/16 22:17 Dose: 200 mls/hr Diltiazem HCl 100 mg/ Sodium (Chloride) 100 mls @ 10 mls/hr IV TITRATE [facility]ON[facility]; 10 MG/HR PRN Reason: Protocol Last Titration: 07/01/16 12:29 Dose: 5 mg/hr, 5 mls/hr Ceftriaxone Sodium 1 gm/ (Sodium Chloride) 100 mls @ 200 mls/hr IV Q24H [facility] Last Admin: 06/29/16 21:23 Dose: 200 mls/hr Sodium Chloride (Normal Saline) 1,000 mls @ 75 mls/hr IV ASDIRECTED [facility] Stop: 06/29/16 22:01 Last Admin: 06/29/16 18:43 Dose: 75 mls/hr Ceftriaxone Sodium 2 gm/ (Sodium Chloride) 100 mls @ 200 mls/hr IV Q24H [facility] Last Admin: 07/01/16 23:52 Dose: Not Given Piperacillin Sod/Tazobactam (Sod 4.5 gm/ Sodium Chloride) 100 mls @ 200 mls/hr IV ONETIME ONE Stop: 07/01/16 09:29 Last Admin: 07/01/16 09:47 Dose: 200 mls/hr Piperacillin Sod/Tazobactam (Sod 4.5 gm/ Sodium Chloride) 100 mls @ 25 mls/hr IV Q12H [facility] Last Admin: 07/01/16 20:38 Dose: 25 mls/hr Ceftriaxone Sodium 2 gm/ (Sodium Chloride) 100 mls @ 200 mls/hr IV Q24H [facility] Last Admin: 07/02/16 22:33 Dose: 200 mls/hr Piperacillin Sod/Tazobactam (Sod 4.5 gm/ Sodium Chloride) 100 mls @ 25 mls/hr IV Q8H [facility] Last Admin: 07/03/16 08:54 Dose: 25 mls/hr Albumin Human (Flexbumin 25%) 25 gm in 100 mls @ 100 mls/hr IV ONETIME ONE Stop: 07/02/16 11:30 Last Admin: 07/02/16 11:19 Dose: 100 mls/hr Lorazepam (Ativan) 1 mg PO Q4H PRN PRN Reason: Anxiety Last Admin: 06/30/16 05:12 Dose: 1 mg Lorazepam (Ativan) 0.5 mg PO ONETIME ONE Stop: 07/01/16 09:31 Last Admin: 07/01/16 10:03 Dose: 0.5 mg Losartan Potassium (Cozaar) 50 mg PO BID [facility] Losartan Potassium (Cozaar) 50 mg PO BID [facility] Last Admin: 06/30/16 20:32 Dose: Not Given Methylprednisolone Sodium Succinate (Solu-Medrol) 80 mg IVPUSH ONETIME ONE Stop: 06/28/16 22:27 Last Admin: 06/28/16 23:17 Dose: 80 mg Methylprednisolone Sodium Succinate (Solu-Medrol) 125 mg IVPUSH Q6H [facility] Last Admin: 07/03/16 08:49 Dose: 125 mg Metoclopramide HCl (Reglan) 5 mg IVPUSH Q6H [facility] Last Admin: 07/03/16 08:45 Dose: 5 mg Metoprolol Succinate (Toprol Xl) 25 mg PO DAILY [facility] Last Admin: 06/30/16 08:14 Dose: 25 mg Miscellaneous Information (Remove Patch) 0 ea TRDERM Q72H [facility] Naloxone HCl (Narcan) Confirm Administered Dose 0.8 mg .ROUTE .STK-MED ONE Stop: 07/01/16 07:16 Last Admin: 07/01/16 08:48 Dose: Not Given Naloxone HCl (Narcan) 0.6 mg IVPUSH ONETIME ONE Stop: 07/01/16 07:31 Last Admin: 07/01/16 07:18 Dose: 0.6 mg Nitroglycerin (Nitrostat) 0.4 mg SL TID PRN PRN Reason: Chest Pain Ondansetron HCl (Zofran) 4 mg IVPUSH ONETIME ONE Stop: 07/01/16 14:49 Last Admin: 07/01/16 15:42 Dose: 4 mg Pneumococcal Polyvalent Vaccine (Pneumovax 23) 0.5 ml IM .ONCE ONE Stop: 06/29/16 11:15 Polyethylene Glycol (Miralax) 17 gm PO BID [facility] Last Admin: 07/04/16 08:27 Dose: Not Given Rivaroxaban (Xarelto) 15 mg PO DAILY [facility] Last Admin: 07/02/16 08:06 Dose: 15 mg Rivaroxaban (Xarelto) 15 mg PO DAILY [facility] - Exam Quality Assessment: supplemental oxygen (at baseline 2L NC) General: alert, oriented, cooperative, no acute distress, other (Obese) HEENT: Pupils equal, Pupils reactive, EOMI, Mucous membr. moist/pink Neck: supple, trachea midline, lymphadenopathy Lungs: Normal respiratory effort, Decreased breath sounds Cardiovascular: Irregular Rhythm, Other (irregular rate) Abdomen: bowel sounds present, soft, no tenderness, no distension, other (Obese) (Female) Exam: Deferred Back Exam: normal inspection, decreased range of motion Extremities: no edema, normal pulses, no tenderness/swelling, no clubbing, no cyanosis, no calf tenderness Skin: warm, dry, intact Neurological: no new focal deficit Psy/Mental Status: alert, normal affect, normal mood - Problem List Review Problem List Initiated/Reviewed/Updated: Yes - My Orders Last 24 Hours: My Active Orders 07/04/16 09:45 Furosemide [Lasix] 80 mg PO DAILY 07/04/16 11:59 Consult to Speech Language Pathology [TV TECHNICIAN Evaluation and Treatment] [CONS] Routine 07/05/16 09:00 Diltiazem [Dilacor XR] 240 mg PO DAILY - Plan Plan:: Assessment/Plan: Acute: LLPNA - Continues to improve, CRP 1.3 - Continue Levaquin 750 mg IV Q48hrs - IS q2 awake Atrial Fibrillation - HR now controlled - Xarelto for stroke/dvt prophylaxis - Continue cardizem 240 mg po daily COPD - Stable - Supplemental O2 - Has not had to uses on BIPAP - She is now at baseline 2L NC Small Pleural Effusion - Left Sided - Thoracentesis is not indicated at this time - Continue home lasix dose for diuretics 9 mm Non-calcified Nodule within Left Mid Lung - No Pulmonology or Oncology outpatient evaluation - She is is not amenable to further evaluation - Asked what she wants to do if she has cancer, she states, "I'm 80 years old " T7 Lytic Lesion (Possible Metastatic Disease) - CT scan Findings - Unknown primary site - Informed patient on this abnormal finding in the presence of her daughter - Will hold off on the referral to Oncology, at this point she is not willing to pursue it given her advanced age Resolved: S/P Elevated Troponin - 2/2 Demand Ischemia S/p UTI 2/2 E. Coli - Received IV Zosyn/Levaquin - E. coli sensitive to both - Had 5 day course of antibiotic S/p Delirium/Confusion - Has Mild-Moderate Cognitive Dysfunction per Cognitive Eval by TV TECHNICIAN - Given this new findings, we will discuss with her daughter if again patient is agreeable to go for SNF/NH as I felt she would not be safe to be alone on her own - Per nurse, she was off at the time of admission - Patient is on Ultram, Trazodone and Valium, cautioned nurse in giving it to her - Mini-MS Exam score is 27/30 suggestive of no cognitive impairment Chronic: CAD HF with Preserved EF at 55% with Grade 2 Diastolic Dysfunction 04/02/2015 MVR HLD CKD Stage 3 Anxiety/Depression Back Pain, responding well to valium Plan: Patient continues to clinically improve Continue current treatment Routine Am Labs Patient is now wanting to go to SNF/NH LOS > 96hrs due to SNF/NH placement
[2016-07-05] MEDS: Levofloxacin/Dextrose 5%-Water 750 MG in Premix Bag 1 BAG IV SCH (12:12)
[2016-07-05] MEDS: Lidocaine 5% 700 MG Patch TRDERM SCH (12:12)
[2016-07-05] MEDS: traZODone 50 MG Tab PO SCH (20:44)
[2016-07-05] MEDS: Ondansetron 4 MG/2 ML SDV IVPUSH PRN (21:12)
[2016-07-05] MEDS: traMADol 50 MG Tab PO PRN (23:13)
[2016-07-06] MEDS ORDERED: Diazepam 2 MG Tab PO ONE (00:01)
[2016-07-06] MEDS: Pantoprazole 40 MG Tab.CR PO SCH ×2 (05:10→15:54)
[2016-07-06] MEDS: Acetaminophen/HYDROcodone 325-10 MG Tab PO PRN ×3 (05:14→16:48)
--- NOTE | 2016-07-06 08:08 | PCM.PN ---
- General Info Date of Service: 07/06/16 Admission Dx/Problem (Free Text): Admission Diagnosis/Problem Admission Diagnosis/Problem Atrial fibrillation Subjective Update: Follow Up Functional Status: Reports: pain controlled, tolerating diet, ambulating, urinating. Denies: new symptoms - Review of Systems General: Denies: Weakness, Chills HEENT: Reports: no symptoms Pulmonary: Reports: shortness of breath (baseline) Cardiovascular: Denies: Chest Pain, Palpitations, Dyspnea on Exertion Gastrointestinal: Denies: Abdominal pain, Nausea, Vomiting Genitourinary: Reports: no symptoms Musculoskeletal: Reports: back pain Skin: Denies: cyanosis, pruritis, rash, other Neurological: Denies: Confusion, Difficulty Walking, Weakness Psychiatric: Denies: depression, anxiety, agitation, hallucinations Systems Review Comment:: She had trouble sleeping last night due to back pain. her back pain is localized to to lumbar region. Her pain is controlled with norco this am. She is otherwise relatively stable. She has no new complaints. - Patient Data Vitals - most recent: Last Vital Signs Temp 36.7 C 07/06/16 07:50 Pulse 82 07/06/16 07:50 Resp 14 07/06/16 07:50 BP 105/89 07/06/16 07:50 Pulse Ox 98 07/06/16 07:50 Weight - most recent: 100.335 kg I&O - last 24 hours: Intake & Output 07/05/16 07/06/16 07/06/16 22:59 06:59 14:59 Intake Total 1730 800 Output Total 1175 700 Balance 555 100 Lab Results last 24 hrs: Laboratory Results - last 24 hr 07/06/16 07/06/16 Range/Units 04:47 04:47 WBC 8.75 (3.98-10.04) K/mm3 RBC 5.24 H (3.98-5.22) M/mm3 Hgb 13.7 (11.2-15.7) gm/L Hct 47.1 H (34.1-44.9) % MCV 89.9 (79.4-94.8) fl MCH 26.1 (25.6-32.2) pg MCHC 29.1 L (32.2-35.5) g/dl RDW Std Deviation 51.0 H (36.4-46.3) fL Plt Count 184 (182-369) K/mm3 MPV 11.4 (9.4-12.3) fl Neut % (Auto) 70.7 (34.0-71.1) % Lymph % (Auto) 14.6 L (19.3-51.7) % [place] % (Auto) 13.0 H (4.7-12.5) % Eos % (Auto) 1.5 (0.7-5.8) Baso % (Auto) 0.0 L (0.1-1.2) % Neut # (Auto) 6.18 H (1.56-6.13) K/mm3 Lymph # (Auto) 1.28 (1.18-3.74) K/mm3 [place] # (Auto) 1.14 H (0.24-0.36) K/mm3 Eos # (Auto) 0.13 (0.04-0.36) K/mm3 Baso # (Auto) 0.00 L (0.01-0.08) K/mm3 Manual Slide Review Abnormal smear C-Reactive Protein 1.1 H* (<1.0) mg/dL Med Orders - Current: Current Medications Hydrocodone Bitart/Acetaminophen ([place] 325-10 Mg) 1 tab PO Q6H PRN PRN Reason: Pain Last Admin: 07/06/16 05:14 Dose: 1 tab Albuterol (Proventil Hfa) 0 gm INH Q6H PRN PRN Reason: Shortness of Breath Albuterol (Proventil Neb Soln) 2.5 mg NEB Q4H PRN PRN Reason: Dyspnea Last Admin: 07/01/16 13:49 Dose: 2.5 mg Aspirin (Aspirin) 81 mg PO DAILY [facility] Last Admin: 07/05/16 08:03 Dose: 81 mg Citalopram Hydrobromide (Celexa) 30 mg PO DAILY [facility] Last Admin: 07/05/16 08:01 Dose: 30 mg Diazepam (Valium) 2 mg PO BID PRN PRN Reason: backpain Last Admin: 07/05/16 15:02 Dose: 2 mg Diltiazem HCl (Dilacor Xr) 240 mg PO DAILY [facility] Last Admin: 07/05/16 08:02 Dose: 240 mg Furosemide (Lasix) 80 mg PO DAILY [facility] Last Admin: 07/05/16 08:03 Dose: 80 mg Hydralazine HCl (Apresoline) 25 mg IVPUSH Q6H PRN PRN Reason: Hypertension Levofloxacin/Dextrose 750 mg/ (Premix) 150 mls @ 100 mls/hr IV Q48H [facility] Last Admin: 07/05/16 12:12 Dose: 100 mls/hr Lidocaine (Lidoderm 5%) 700 mg TRDERM Q24H [facility] Last Admin: 07/05/16 12:12 Dose: 700 mg Metoclopramide HCl (Reglan) 5 mg IVPUSH Q6H PRN PRN Reason: Nausea/Vomiting Last Admin: 07/05/16 14:58 Dose: 5 mg Metoprolol Succinate (Toprol Xl) 25 mg PO BID [facility] Last Admin: 07/05/16 20:44 Dose: 25 mg Metoprolol Tartrate (Lopressor) 5 mg IVPUSH Q6H PRN PRN Reason: Tachycardia Last Admin: 07/03/16 09:50 Dose: 5 mg Miscellaneous Information (Remove Patch) 1 ea TRDERM Q24H [facility] Last Admin: 07/05/16 23:08 Dose: 1 ea Nitroglycerin (Nitrostat) 0.4 mg SL Q5M PRN PRN Reason: Chest Pain Ondansetron HCl (Zofran) 4 mg IVPUSH Q8H PRN PRN Reason: Nausea Last Admin: 07/05/16 21:12 Dose: 4 mg [facility]oprazole [facility] Last Admin: 07/06/16 05:10 Dose: 40 mg Polyethylene Glycol (Miralax) 17 gm PO TID PRN PRN Reason: Constipation Last Admin: 07/01/16 08:38 Dose: 17 gm Rivaroxaban (Xarelto) 15 mg PO DAILY [facility] Last Admin: 07/05/16 08:03 Dose: 15 mg Saccharomyces Boulardii (Florastor) 250 mg PO BID [facility] Last Admin: 07/05/16 20:44 Dose: 250 mg Senna (Senna) 17.2 mg PO BID PRN PRN Reason: Constipation Last Admin: 07/01/16 08:38 Dose: 17.2 mg Senna/Docusate Sodium (Senna Plus) 1 tab PO BID [facility] Last Admin: 07/05/16 20:46 Dose: 1 tab Simvastatin (Zocor) 20 mg PO DAILY [facility] Last Admin: 07/05/16 08:03 Dose: 20 mg Temazepam (Restoril) 7.5 mg PO BEDTIME PRN PRN Reason: Insomnia Last Admin: 06/30/16 20:31 Dose: 7.5 mg Tramadol HCl (Ultram) 50 mg PO Q4H PRN PRN Reason: Pain Last Admin: 07/05/16 23:13 Dose: 50 mg Trazodone HCl (Trazodone) 150 mg PO BEDTIME [facility] Last Admin: 07/05/16 20:44 Dose: 150 mg Discontinued Medications Hydrocodone Bitart/Acetaminophen ([place] 325-5 Mg) 1 tab PO Q4H PRN PRN Reason: Pain Last Admin: 06/30/16 14:32 Dose: 1 tab Bumetanide (Bumex) 1 mg IVPUSH ONETIME ONE Stop: 07/02/16 06:43 Last Admin: 07/02/16 08:06 Dose: 1 mg Bumetanide (Bumex) 1 mg IVPUSH ONETIME ONE Stop: 07/03/16 05:01 Last Admin: 07/03/16 05:01 Dose: 1 mg Ceftriaxone Sodium (Rocephin) Confirm Administered Dose 2 gm IV .STK-MED ONE Stop: 07/01/16 22:50 Last Admin: 07/01/16 23:00 Dose: Not Given Citalopram Hydrobromide (Celexa) 40 mg PO DAILY [facility] Last Admin: 06/30/16 08:13 Dose: 40 mg Citalopram Hydrobromide (Celexa) 20 mg PO DAILY [facility] Last Admin: 07/01/16 08:37 Dose: 20 mg Diazepam (Valium) 2.5 mg IVPUSH ONETIME ONE Stop: 06/28/16 20:27 Last Admin: 06/28/16 20:34 Dose: 2.5 mg Diazepam (Valium) 2 mg PO BEDTIME PRN PRN Reason: backpain Diazepam (Valium) 2 mg PO ONETIME ONE Stop: 07/06/16 00:02 Last Admin: 07/06/16 00:09 Dose: 2 mg Diltiazem HCl (Diltiazem) 5 mg IVPUSH ONETIME ONE Stop: 06/28/16 19:47 Last Admin: 06/28/16 20:08 Dose: 5 mg Diltiazem HCl (Diltiazem) 5 mg IVPUSH ONETIME ONE Stop: 06/28/16 20:26 Last Admin: 06/28/16 20:26 Dose: 5 mg Diltiazem HCl (Diltiazem) 5 mg IVPUSH ONETIME ONE Stop: 06/28/16 21:18 Last Admin: 06/28/16 21:47 Dose: 5 mg Diltiazem HCl (Diltiazem) 10 mg IVPUSH ONETIME ONE Stop: 06/28/16 22:03 Last Admin: 06/29/16 08:19 Dose: Not Given Diltiazem HCl (Cardizem) 30 mg PO Q6HR [facility] Last Admin: 07/03/16 11:33 Dose: 30 mg Diltiazem HCl (Cardizem Cd) 120 mg PO ONETIME ONE Stop: 07/03/16 18:01 Last Admin: 07/03/16 18:09 Dose: 120 mg Diltiazem HCl (Cardizem Cd) 180 mg PO DAILY [facility] Last Admin: 07/04/16 08:06 Dose: 180 mg Diltiazem HCl (Cardizem) 30 mg PO Q12H [facility] Stop: 07/04/16 21:46 Last Admin: 07/04/16 21:28 Dose: 30 mg Famotidine (Pepcid) 20 mg IVPUSH ONETIME ONE Stop: 07/01/16 09:31 Last Admin: 07/01/16 09:44 Dose: 20 mg Fentanyl (Duragesic) 12 mcg TRDERM Q72H [facility] Last Admin: 06/30/16 13:52 Dose: 12 mcg Flumazenil (Romazicon) 0.2 mg IVPUSH ONETIME ONE Stop: 07/01/16 15:32 Last Admin: 07/01/16 15:47 Dose: 0.2 mg Furosemide (Lasix) 40 mg IVPUSH NOW ONE Stop: 06/28/16 20:33 Last Admin: 06/28/16 20:42 Dose: 40 mg Furosemide (Lasix) 40 mg PO DAILY [facility] Last Admin: 07/01/16 08:48 Dose: Not Given Furosemide (Lasix) 40 mg IVPUSH NOW ONE Stop: 07/01/16 07:21 Last Admin: 07/01/16 08:39 Dose: 40 mg Furosemide (Lasix) 40 mg PO DAILY [facility] Haloperidol Lactate (Haldol) 0.5 mg IVPUSH ONETIME ONE Stop: 07/01/16 14:46 Last Admin: 07/01/16 14:50 Dose: 0.5 mg Haloperidol Lactate (Haldol) 1 mg IVPUSH ONETIME ONE Stop: 07/01/16 15:01 Last Admin: 07/01/16 15:10 Dose: 1 mg Hydromorphone HCl (Dilaudid) 0.5 mg IVPUSH ONETIME ONE Stop: 06/28/16 19:12 Last Admin: 06/28/16 19:47 Dose: 0.5 mg Hydromorphone HCl (Dilaudid) 0.5 mg IVPUSH Q2H PRN PRN Reason: Pain Last Admin: 07/01/16 14:15 Dose: 0.5 mg Ceftriaxone Sodium 1 gm/ (Sodium Chloride) 100 mls @ 200 mls/hr IV ONETIME ONE Stop: 06/28/16 22:36 Last Admin: 06/28/16 22:17 Dose: 200 mls/hr Diltiazem HCl 100 mg/ Sodium (Chloride) 100 mls @ 10 mls/hr IV TITRATE [facility]; 10 MG/HR PRN Reason: Protocol Last Titration: 07/01/16 12:29 Dose: 5 mg/hr, 5 mls/hr Ceftriaxone Sodium 1 gm/ (Sodium Chloride) 100 mls @ 200 mls/hr IV Q24H [facility] Last Admin: 06/29/16 21:23 Dose: 200 mls/hr Sodium Chloride (Normal Saline) 1,000 mls @ 75 mls/hr IV ASDIRECTED [facility] Stop: 06/29/16 22:01 Last Admin: 06/29/16 18:43 Dose: 75 mls/hr Ceftriaxone Sodium 2 gm/ (Sodium Chloride) 100 mls @ 200 mls/hr IV Q24H [facility] Last Admin: 07/01/16 23:52 Dose: Not Given Piperacillin Sod/Tazobactam (Sod 4.5 gm/ Sodium Chloride) 100 mls @ 200 mls/hr IV ONETIME ONE Stop: 07/01/16 09:29 Last Admin: 07/01/16 09:47 Dose: 200 mls/hr Piperacillin Sod/Tazobactam (Sod 4.5 gm/ Sodium Chloride) 100 mls @ 25 mls/hr IV Q12H [facility] Last Admin: 07/01/16 20:38 Dose: 25 mls/hr Ceftriaxone Sodium 2 gm/ (Sodium Chloride) 100 mls @ 200 mls/hr IV Q24H [facility] Last Admin: 07/02/16 22:33 Dose: 200 mls/hr Piperacillin Sod/Tazobactam (Sod 4.5 gm/ Sodium Chloride) 100 mls @ 25 mls/hr IV Q8H [facility] Last Admin: 07/03/16 08:54 Dose: 25 mls/hr Albumin Human (Flexbumin 25%) 25 gm in 100 mls @ 100 mls/hr IV ONETIME ONE Stop: 07/02/16 11:30 Last Admin: 07/02/16 11:19 Dose: 100 mls/hr Lorazepam (Ativan) 1 mg PO Q4H PRN PRN Reason: Anxiety Last Admin: 06/30/16 05:12 Dose: 1 mg Lorazepam (Ativan) 0.5 mg PO ONETIME ONE Stop: 07/01/16 09:31 Last Admin: 07/01/16 10:03 Dose: 0.5 mg Losartan Potassium (Cozaar) 50 mg PO BID [facility] Losartan Potassium (Cozaar) 50 mg PO BID [facility] Last Admin: 06/30/16 20:32 Dose: Not Given Methylprednisolone Sodium Succinate (Solu-Medrol) 80 mg IVPUSH ONETIME ONE Stop: 06/28/16 22:27 Last Admin: 06/28/16 23:17 Dose: 80 mg Methylprednisolone Sodium Succinate (Solu-Medrol) 125 mg IVPUSH Q6H [facility] Last Admin: 07/03/16 08:49 Dose: 125 mg Metoclopramide HCl (Reglan) 5 mg IVPUSH Q6H [facility] Last Admin: 07/03/16 08:45 Dose: 5 mg Metoprolol Succinate (Toprol Xl) 25 mg PO DAILY [facility] Last Admin: 06/30/16 08:14 Dose: 25 mg Miscellaneous Information (Remove Patch) 0 ea TRDERM Q72H [facility] Naloxone HCl (Narcan) Confirm Administered Dose 0.8 mg .ROUTE .STK-MED ONE Stop: 07/01/16 07:16 Last Admin: 07/01/16 08:48 Dose: Not Given Naloxone HCl (Narcan) 0.6 mg IVPUSH ONETIME ONE Stop: 07/01/16 07:31 Last Admin: 07/01/16 07:18 Dose: 0.6 mg Nitroglycerin (Nitrostat) 0.4 mg SL TID PRN PRN Reason: Chest Pain Ondansetron HCl (Zofran) 4 mg IVPUSH ONETIME ONE Stop: 07/01/16 14:49 Last Admin: 07/01/16 15:42 Dose: 4 mg Pneumococcal Polyvalent Vaccine (Pneumovax 23) 0.5 ml IM .ONCE ONE Stop: 06/29/16 11:15 Polyethylene Glycol (Miralax) 17 gm PO BID [facility] Last Admin: 07/04/16 08:27 Dose: Not Given Rivaroxaban (Xarelto) 15 mg PO DAILY [facility] Last Admin: 07/02/16 08:06 Dose: 15 mg Rivaroxaban (Xarelto) 15 mg PO DAILY [facility] - Exam Quality Assessment: supplemental oxygen General: alert, oriented, cooperative, no acute distress HEENT: Pupils equal, Pupils reactive, EOMI, Mucous membr. moist/pink Neck: supple, trachea midline, no JVD, no thyromegaly Lungs: Normal respiratory effort, Decreased breath sounds Cardiovascular: Irregular Rhythm, Other (Irregular rate) Abdomen: bowel sounds present, soft, no tenderness, no distension (Female) Exam: Deferred Back Exam: normal inspection, decreased range of motion Extremities: normal pulses, no tenderness/swelling, no clubbing, no cyanosis, no calf tenderness, calf tenderness, edema (mild) Peripheral Pulses: 2+: dorsalis pedis (L), dorsalis pedis (R) Skin: warm, dry, intact Neurological: no new focal deficit Psy/Mental Status: alert, normal affect, normal mood - Problem List Review Problem List Initiated/Reviewed/Updated: Yes - My Orders Last 24 Hours: My Active Orders 07/05/16 09:00 Diltiazem [Dilacor XR] 240 mg PO DAILY 07/08/16 05:11 BMP [BASIC METABOLIC PANEL,BMP] [CHEM] AM - Plan Plan:: Assessment/Plan: Acute: LLPNA - Continues to improve, CRP 1.1 - Continue Levaquin 750 mg IV Q48hrs - Discontinue after next dose in am - IS q2 awake Atrial Fibrillation - HR now controlled - Xarelto for stroke/dvt prophylaxis - Continue cardizem 240 mg po daily COPD - Stable - Supplemental O2 - Has not had to uses on BIPAP - She is now at baseline 2L NC Small Pleural Effusion - Left Sided - Thoracentesis is not indicated at this time - Continue home lasix dose for diuretics 9 mm Non-calcified Nodule within Left Mid Lung - No Pulmonology or Oncology outpatient evaluation - She is is not amenable to further evaluation - Asked what she wants to do if she has cancer, she states, "I'm 80 years old " T7 Lytic Lesion (Possible Metastatic Disease) - CT scan Findings - Unknown primary site - Informed patient on this abnormal finding in the presence of her daughter - Will hold off on the referral to Oncology, at this point she is not willing to pursue it given her advanced age Back Pain - Since she has lytic lesion on thoracic level, will check LS region as this could be causing her mod-severe pain - LS Spine CT scan - Continue [place] Resolved: S/P Elevated Troponin - 2/2 Demand Ischemia S/p UTI 2/2 E. Coli - Received IV Zosyn/Levaquin - E. coli sensitive to both - Had 5 day course of antibiotic S/p Delirium/Confusion - Has Mild-Moderate Cognitive Dysfunction per Cognitive Eval by [employer] - Given this new findings, we will discuss with her daughter if again patient is agreeable to go for SNF/NH as I felt she would not be safe to be alone on her own - Per nurse, she was off at the time of admission - Patient is on Ultram, Trazodone and Valium, cautioned nurse in giving it to her - Mini-MS Exam score is 27/30 suggestive of no cognitive impairment Chronic: CAD HF with Preserved EF at 55% with Grade 2 Diastolic Dysfunction 04/02/2015 MVR HLD CKD Stage 3 Anxiety/Depression Back Pain, responding well to valium Plan: Patient continues to clinically improve Continue current treatment Routine Am Labs CT scan on LS to r/o Lytic lesion Patient is now wanting to go to SNF/NH Additional orders as above LOS > 96hrs due to SNF/NH placement
[2016-07-06] MEDS ORDERED: Temazepam 7.5 MG Cap PO PRN (10:09)
[2016-07-06] MEDS: Simvastatin 20 MG Tab PO SCH (10:10)
[2016-07-06] MEDS: Aspirin 81 MG Tab.Chew PO SCH (10:10)
[2016-07-06] MEDS: Rivaroxaban 10 MG Tab PO SCH (10:12)
[2016-07-06] MEDS: Metoprolol Succinate 25 MG Tab.ER PO SCH ×2 (10:13→20:54)
[2016-07-06] MEDS: Diltiazem 240 MG Cap.ER PO SCH (10:13)
[2016-07-06] MEDS: Citalopram 20 MG Tab PO SCH (10:13)
[2016-07-06] MEDS: Furosemide 80 MG Tab PO SCH (10:15)
[2016-07-06] MEDS: Saccharomyces Boulardii (Probiotic) 250 MG Cap PO SCH ×2 (10:15→20:54)
[2016-07-06] MEDS: Lidocaine 5% 700 MG Patch TRDERM SCH (11:06)
--- NOTE | 2016-07-06 11:58 | CT ---
CT pelvis Technique: Multiple axial sections through the pelvis were obtained. Degenerative change as previously described is seen within the lumbar spine. Slight vacuum phenomena is seen within the sacroiliac joints. No lytic lesions are seen. Mild degenerative spurring is noted within the right hip. Mild joint space narrowing is seen within both hips. Nothing acute is seen. Impression: 1. Degenerative change within the lower lumbar spine as previously described. Mild degenerative change is noted within both hips. 2. No osteolytic lesions or fracture is seen within the pelvis. Diagnostic code #2
--- NOTE | 2016-07-06 11:58 | CT ---
CT lumbar spine Technique: Multiple axial sections were obtained from above the T10-T11 disc inferiorly through the L5-S1 disc. Reconstructed sagittal and coronal images were reviewed. Comparison: No previous study. T10-T11: Mild disc space narrowing is noted with mild anterior and lateral endplate osteophytes. Posterior disc is preserved. No central canal stenosis or neural foraminal stenosis is seen. T11-T12: Moderate disc space narrowing is noted. Endplate osteophytes are noted anterior and laterally. Mild degenerative apophyseal change is noted. Posterior disc is preserved. No central canal stenosis or neural foraminal stenosis is seen. T12-L1: Mild disc space narrowing is noted. Very slight posterior spurring is seen. Posterior disc is preserved. Degenerative apophyseal change is noted. No central canal stenosis or neural foraminal stenosis is seen. L1-L2: Disc height is preserved. Posterior disc is maintained. Mild degenerative apophyseal change is noted. No central canal stenosis or neural foraminal stenosis is seen. L2-3: Moderate disc space narrowing is noted. Moderate circumferential disc bulge is seen. Posterior disc maintains a slightly concave margin. Vacuum disc phenomena is seen. Severe degenerative apophyseal change is noted. No central canal stenosis is seen. Neural foramina are felt to be patent where the nerve roots exit. L3-L4: Mild circumferential disc bulge is seen. Posterior disc maintains a concave margin. Severe degenerative apophyseal change is noted. Neural foramina are patent where the nerve roots exit. L4-L5: Mild diffuse circumferential disc bulge is seen. Severe degenerative apophyseal change is noted. Spurring noted into the central canal. Findings cause moderate to severe central canal stenosis. Disc bulging is seen into the inferior neural foramina but nerve roots appear to exit without compromise. Minimal spondylolisthesis is seen due to the degenerative apophyseal change. L5-S1: Severe disc space narrowing is noted. Posterior and anterior osteophytes are seen. Minimal posterior bulge is seen off the disc. No central canal stenosis is noted. Moderate degenerative apophyseal change is seen. Neural foramina are patent where the nerve roots exit. No acute fracture is seen. Impression: 1. Degenerative change as noted above most severe at L4-L5 with moderate to severe central canal stenosis noted at L4-L5. Diagnostic code #3
[2016-07-06] MEDS: Gabapentin 100 MG Cap PO SCH (20:55)
[2016-07-06] MEDS ORDERED: traZODone 50 MG Tab PO PRN (21:00)
[2016-07-07] MEDS: Acetaminophen/HYDROcodone 325-10 MG Tab PO PRN ×2 (01:59→08:50)
[2016-07-07] MEDS: Pantoprazole 40 MG Tab.CR PO SCH (05:18)
[2016-07-07 08:21] VITALS: BP 104/60
[2016-07-07] MEDS: Simvastatin 20 MG Tab PO SCH (08:46)
[2016-07-07] MEDS: Saccharomyces Boulardii (Probiotic) 250 MG Cap PO SCH (08:46)
[2016-07-07] MEDS: Furosemide 80 MG Tab PO SCH (08:47)
[2016-07-07] MEDS: Citalopram 20 MG Tab PO SCH (08:47)
[2016-07-07] MEDS: Rivaroxaban 10 MG Tab PO SCH (08:48)
[2016-07-07] MEDS: Metoprolol Succinate 25 MG Tab.ER PO SCH (08:49)
[2016-07-07] MEDS: Diltiazem 240 MG Cap.ER PO SCH (08:49)
[2016-07-07] MEDS: Gabapentin 100 MG Cap PO SCH (08:50)
[2016-07-07] MEDS: Aspirin 81 MG Tab.Chew PO SCH (08:50)
[2016-07-07] MEDS ORDERED: Rivaroxaban 10 MG Tab PO SCH (09:00)
--- NOTE | 2016-07-07 09:53 | PCM.DCSUM1 ---
Discharge Summary - Hospital Course Free Text/Narrative:: 80 year old female admitted to Hospitalist service initially for Afib with RVR and AUTI. At time of transfer to ICU, patient was in A fib with controlled ventricular rate at 80; Cardizem gtt was given in the ED. She had presented with a complaint of back pain, no recent injury or trauma. Initially had relief by prescription provided during scheduled cardiology office visit. However has had a return of the discomfort with minimal relief. No previous radiographic studies reportedly have been performed prior to the current ED visit per the patient. A UTI has been documented and Rocephin has been started. Further investigation showed patient to be in acute CHF exacerbation. IV diuresis was started. She became hypercapnic, not able to be corrected with supplemental oxygen via NC or mask. She was on and off of BIPAP x 3 days in ICU. HR was controlled with the IV cardizem, switched over to oral, with dose increased to control heartrate. CXR revealed cardiomegaly consistent with CHF exacerbation and ? LLL PNA. Chest CT without contrast was obtained with LLL PNA present as well as 9mm pulmonary nodule. She was started on IV Levaquin for the PNA. She had slow response to treatment for both diuresis and to abx therapy. Hypercapnia resolved, she was able to go from Bipap to NC and maintain sats, weaned O2 to 2L at time of discharge. 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 CT of abdomen and pelvis without contrast was obtained looking for primary site but was unremarkable. Patient and daughter elect no further workup for this suspected malignancy as patient would not pursue treatment should it definitively be a cancer. Pain is now controlled with PO hydrocodone, low dose gabapentin and lidocaine patches. She was stepped down to med/surg with telemetry, working with PT/OT on strengthening. She completed courses of Rocephin for AUTI and Levaquin IV for LLL Pneumonia, no abx needed at time of discharge. She will be discharged to [facility] today for Rehab stay with hopes of returning home. Dr. Muniz will assume her care while at [place]. Dr. Nolen has been her PCP up until this time. Dr. Muniz will be updated on [place] admission today. - Discharge Data Discharge Date: 07/07/16 (admit date 06/28/16) Discharge Disposition: DC/Tfer to SNF 03 Condition: Good - Discharge Diagnosis/Problem(s) (1) Chronic congestive heart failure SNOMED Code(s): 90711732 ICD Code: I50.9 - HEART FAILURE, UNSPECIFIED Status: Acute Priority: High Problem Details: acute on chronic Qualifiers: Congestive heart failure type: unspecified congestive heart failure type Qualified Code(s): I50.9 - Heart failure, unspecified (2) COPD (chronic obstructive pulmonary disease) SNOMED Code(s): 98830878 ICD Code: J44.9 - CHRONIC OBSTRUCTIVE PULMONARY DISEASE, UNSPECIFIED Status : Resolved Priority: High Qualifiers: COPD type: COPD with acute exacerbation Qualified Code(s): J44.1 - Chronic obstructive pulmonary disease with (acute) exacerbation (3) Hypercapnia SNOMED Code(s): 88396961 ICD Code: R06.89 - OTHER ABNORMALITIES OF BREATHING Status: Resolved Priority: High (4) Back pain SNOMED Code(s): 215814488 ICD Code: M54.9 - DORSALGIA, UNSPECIFIED Status: Acute Priority: High Qualifiers: Back pain location: thoracic back pain Chronicity: acute Back pain laterality: bilateral Qualified Code(s): M54.6 - Pain in thoracic spine (5) Atrial fibrillation with RVR SNOMED Code(s): 126014855596960 ICD Code: I48.91 - UNSPECIFIED ATRIAL FIBRILLATION Status: Resolved Priority: High (6) UTI (urinary tract infection) SNOMED Code(s): 95095778 ICD Code: N39.0 - URINARY TRACT INFECTION, SITE NOT SPECIFIED Status: Resolved Priority: High Qualifiers: Urinary tract infection type: acute cystitis Hematuria presence: with hematuria Qualified Code(s): N30.01 - Acute cystitis with hematuria (7) Thoracic spine tumor SNOMED Code(s): 21039125 ICD Code: D49.2 - NEOPLASM OF UNSP BEHAVIOR OF BONE, SOFT TISSUE, AND SKIN Status: Acute Priority: High Problem Details: lytic lesion of T7, 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 by Radiology report (8) Morbid obesity with BMI of 40.0-44.9, adult SNOMED Code(s): 758680476 ICD Code: E66.01 - MORBID (SEVERE) OBESITY DUE TO EXCESS CALORIES; Z68.41 - BODY MASS INDEX (BMI) 40.0-44.9, ADULT Status: Chronic Priority: Medium (9) LLL pneumonia SNOMED Code(s): 045979946 ICD Code: J18.1 - LOBAR PNEUMONIA, UNSPECIFIED ORGANISM Status: Resolved Priority: High Qualifiers: Pneumonia type: due to unspecified organism Qualified Code(s): J18.1 - Lobar pneumonia, unspecified organism - Patient Summary/Data Operative Procedure(s) Performed: None Complications: None Consults: Consultations 06/29/16 09:00 Consult to [facility] [CONS] Routine 06/30/16 10:00 Consult to Occupational Therapy [OT Evaluation and Treatment] [CONS] Routine Consult to Physical Therapy [PT Evaluation and Treatment] [CONS] Routine 07/01/16 09:29 PT Evaluation and Treatment [CONS] Routine 07/01/16 09:30 Consult to Cribber [CONS] Routine 07/04/16 11:59 Consult to Speech Language Pathology [[employer] Evaluation and Treatment] [CONS] Routine Labs Pending at D/C: None Recommended Follow-up Testing/Procedures: Nursing please give PPV23 prior to discharge or document refusal. Physical and occupational therapy to evaluate and treat. Daily morning weights and record Continue home oxygen per your prior orders, 2 LPM via NC to keep > 90%. Follow up with Dr. Muniz who will assume care at [facility], within 5-7 days of discharge, labs prior; CBC and BMP Planned Operative Procedure(s) after DC: None Hospital Course: As above - Patient Instructions Diet: Heart Healthy Diet Activity: As Tolerated (PT/OT to continue for Rehab) Driving: Do Not Drive Showering/Bathing: May Shower Notify Provider of: Fever, Increased Pain, Swelling and Redness, Nausea and/or Vomiting - Discharge Plan Prescriptions/Med Rec: Acetaminophen/HYDROcodone [Delano 325-10 MG] 1 tab PO Q6H PRN #40 tablet PRN Reason: Pain Diltiazem [Dilacor XR] 240 mg PO DAILY #30 cap.er Gabapentin [Neurontin] 100 mg PO BID #60 cap Lidocaine 5% [Lidoderm 5%] 700 mg TRDERM Q24H #10 patch traZODone 150 mg PO BEDTIME PRN #30 tablet PRN Reason: Insomnia Home Medications: Home Meds Acetaminophen [Tylenol Arthritis Pain] 650 mg PO DAILY PRN 07/27/14 [History] Albuterol [Proventil Neb Soln] 2.5 mg NEB Q4HRRT PRN #60 neb 07/27/14 [Rx] Aspirin [Ernestine Chewable Aspirin] 81 mg PO DAILY 07/27/14 [History] Citalopram Hydrobromide [Celexa] 40 mg PO DAILY 07/27/14 [History] Furosemide [Lasix] 80 mg PO DAILY 07/27/14 [History] Metoprolol Succinate 25 mg PO DAILY 07/27/14 [History] Nitroglycerin [Nitrostat] 0.4 mg PO TID PRN 07/27/14 [History] Ranitidine [Zantac] 75 mg PO DAILY 07/27/14 [History] Rivaroxaban [Xarelto] 15 mg PO DAILY 07/27/14 [History] Simvastatin [Zocor] 20 mg PO DAILY 07/27/14 [History] LORazepam 0.5 mg PO Q4H PRN 07/27/15 [History] Acetaminophen/HYDROcodone [Delano 325-10 MG] 1 tab PO Q6H PRN #40 tablet [Rx] Diltiazem [Dilacor XR] 240 mg PO DAILY #30 cap.er 07/07/16 [Rx] Docusate Sodium/Sennosides [Senna Plus] 1 tab PO BID tablet 07/07/16 [Rx] Gabapentin [Neurontin] 100 mg PO BID #60 cap 07/07/16 [Rx] Lidocaine 5% [Lidoderm 5%] 700 mg TRDERM Q24H #10 patch 07/07/16 [Rx] Polyethylene Glycol 3350 [MiraLAX] 17 gm PO TID PRN #30 packet 07/07/16 [Rx] Sennosides [Senna] 17.2 mg PO BID PRN #0 tablet 07/07/16 [Rx] traZODone 150 mg PO BEDTIME PRN #30 tablet 07/07/16 [Rx] Patient Handouts: Back Pain, Adult, Chronic Obstructive Pulmonary Disease, Easy -to-Read, Urinary Tract Infection, Adult, [id number], Heart Failure, Easy-to- Read, Atrial Fibrillation, [id number] Forms: ED Department Discharge Referrals: Rodney Marin MD [Primary Care Provider] - - Discharge Summary/Plan Comment DC Time >30 min.: Yes (40 min) - General Info Date of Service: 07/07/16 Admission Dx/Problem (Free Text: Admission Diagnosis/Problem Admission Diagnosis/Problem Atrial fibrillation Functional Status: Reports: pain controlled, tolerating diet, ambulating, urinating. Denies: new symptoms - Review of Systems General: Reports: Weakness, Fatigue HEENT: Reports: no symptoms Pulmonary: Reports: shortness of breath (chronic; much improved). Denies: cough Cardiovascular: Reports: Edema (chronic). Denies: Chest Pain, Palpitations, Dyspnea on Exertion, Orthopnea Gastrointestinal: Reports: No symptoms Genitourinary: Reports: no symptoms Musculoskeletal: Reports: back pain Neurological: Reports: No Symptoms Psychiatric: Reports: no symptoms - Patient Data Vitals - Most Recent: Last Vital Signs Temp 97.7 F 07/07/16 07:23 Pulse 86 07/07/16 08:49 Resp 18 07/07/16 07:23 BP 104/60 07/07/16 08:49 Pulse Ox 93 L 07/07/16 07:23 Weight - Most Recent: 221 lb 3.2 oz I&O - Last 24 hours: Intake & Output 07/06/16 07/07/16 07/07/16 22:59 06:59 14:59 Intake Total 940 700 Output Total 1500 800 Balance -560 -100 Lab Results - Last 24 hrs: Laboratory Results - last 24 hr 07/07/16 07/07/16 Range/Units 06:00 06:00 WBC 8.36 (3.98-10.04) K/mm3 RBC 5.04 (3.98-5.22) M/mm3 Hgb 13.1 (11.2-15.7) gm/L Hct 45.8 H (34.1-44.9) % MCV 90.9 (79.4-94.8) fl MCH 26.0 (25.6-32.2) pg MCHC 28.6 L (32.2-35.5) g/dl RDW Std Deviation 49.5 H (36.4-46.3) fL Plt Count 166 L (182-369) K/mm3 MPV 11.5 (9.4-12.3) fl Neut % (Auto) 73.6 H (34.0-71.1) % Lymph % (Auto) 11.5 L (19.3-51.7) % Owen % (Auto) 12.2 (4.7-12.5) % Eos % (Auto) 2.6 (0.7-5.8) Baso % (Auto) 0.0 L (0.1-1.2) % Neut # (Auto) 6.15 H (1.56-6.13) K/mm3 Lymph # (Auto) 0.96 L (1.18-3.74) K/mm3 Owen # (Auto) 1.02 H (0.24-0.36) K/mm3 Eos # (Auto) 0.22 (0.04-0.36) K/mm3 Baso # (Auto) 0.00 L (0.01-0.08) K/mm3 Manual Slide Review Abnormal smear C-Reactive Protein 1.4 H* (<1.0) mg/dL Med Orders - Current: Current Medications Hydrocodone Bitart/Acetaminophen (Delano 325-10 Mg) 1 tab PO Q6H PRN PRN Reason: Pain Last Admin: 07/07/16 08:50 Dose: 1 tab Albuterol (Proventil Hfa) 0 gm INH Q6H PRN PRN Reason: Shortness of Breath Albuterol (Proventil Neb Soln) 2.5 mg NEB Q4H PRN PRN Reason: Dyspnea Last Admin: 07/01/16 13:49 Dose: 2.5 mg Aspirin (Aspirin) 81 mg PO DAILY [facility] Last Admin: 07/07/16 08:50 Dose: 81 mg Citalopram Hydrobromide (Celexa) 30 mg PO DAILY [facility] Last Admin: 07/07/16 08:47 Dose: 30 mg Diltiazem HCl (Dilacor Xr) 240 mg PO DAILY [facility] Last Admin: 07/07/16 08:49 Dose: 240 mg Furosemide (Lasix) 80 mg PO DAILY [facility] Last Admin: 07/07/16 08:47 Dose: 80 mg Gabapentin (Neurontin) 100 mg PO BID [facility] Last Admin: 07/07/16 08:50 Dose: 100 mg Hydralazine HCl (Apresoline) 25 mg IVPUSH Q6H PRN PRN Reason: Hypertension Levofloxacin/Dextrose 750 mg/ (Premix) 150 mls @ 100 mls/hr IV Q48H [facility] Stop: 07/07/16 15:00 Last Admin: 07/05/16 12:12 Dose: 100 mls/hr Lidocaine (Lidoderm 5%) 700 mg TRDERM Q24H [facility] Last Admin: 07/06/16 11:06 Dose: 700 mg Metoclopramide HCl (Reglan) 5 mg IVPUSH Q6H PRN PRN Reason: Nausea/Vomiting Last Admin: 07/05/16 14:58 Dose: 5 mg Metoprolol Succinate (Toprol Xl) 25 mg PO BID [facility] Last Admin: 07/07/16 08:49 Dose: 25 mg Metoprolol Tartrate (Lopressor) 5 mg IVPUSH Q6H PRN PRN Reason: Tachycardia Last Admin: 07/03/16 09:50 Dose: 5 mg Miscellaneous Information (Remove Patch) 1 ea TRDERM Q24H [facility] Last Admin: 07/07/16 00:21 Dose: 1 ea Nitroglycerin (Nitrostat) 0.4 mg SL Q5M PRN PRN Reason: Chest Pain Ondansetron HCl (Zofran) 4 mg IVPUSH Q8H PRN PRN Reason: Nausea Last Admin: 07/05/16 21:12 Dose: 4 mg [facility]razole [facility]) [facility] Last Admin: 07/07/16 05:18 Dose: 40 mg Polyethylene Glycol (Miralax) 17 gm PO TID PRN PRN Reason: Constipation Last Admin: 07/01/16 08:38 Dose: 17 gm Rivaroxaban (Xarelto) 15 mg PO DAILY [facility] Last Admin: 07/07/16 08:48 Dose: 15 mg Saccharomyces Boulardii (Florastor) 250 mg PO BID [facility] Last Admin: 07/07/16 08:46 Dose: 250 mg Senna (Senna) 17.2 mg PO BID PRN PRN Reason: Constipation Last Admin: 07/01/16 08:38 Dose: 17.2 mg Senna/Docusate Sodium (Senna Plus) 1 tab PO BID [facility] Last Admin: 07/07/16 08:48 Dose: 1 tab Simvastatin (Zocor) 20 mg PO DAILY [facility] Last Admin: 07/07/16 08:46 Dose: 20 mg Trazodone HCl (Trazodone) 150 mg PO BEDTIME PRN PRN Reason: Insomnia Discontinued Medications Hydrocodone Bitart/Acetaminophen (Delano 325-5 Mg) 1 tab PO Q4H PRN PRN Reason: Pain Last Admin: 06/30/16 14:32 Dose: 1 tab Bumetanide (Bumex) 1 mg IVPUSH ONETIME ONE Stop: 07/02/16 06:43 Last Admin: 07/02/16 08:06 Dose: 1 mg Bumetanide (Bumex) 1 mg IVPUSH ONETIME ONE Stop: 07/03/16 05:01 Last Admin: 07/03/16 05:01 Dose: 1 mg Ceftriaxone Sodium (Rocephin) Confirm Administered Dose 2 gm IV .STK-MED ONE Stop: 07/01/16 22:50 Last Admin: 07/01/16 23:00 Dose: Not Given Citalopram Hydrobromide (Celexa) 40 mg PO DAILY [facility] Last Admin: 06/30/16 08:13 Dose: 40 mg Citalopram Hydrobromide (Celexa) 20 mg PO DAILY [facility] Last Admin: 07/01/16 08:37 Dose: 20 mg Diazepam (Valium) 2.5 mg IVPUSH ONETIME ONE Stop: 06/28/16 20:27 Last Admin: 06/28/16 20:34 Dose: 2.5 mg Diazepam (Valium) 2 mg PO BEDTIME PRN PRN Reason: backpain Diazepam (Valium) 2 mg PO BID PRN PRN Reason: backpain Last Admin: 07/05/16 15:02 Dose: 2 mg Diazepam (Valium) 2 mg PO ONETIME ONE Stop: 07/06/16 00:02 Last Admin: 07/06/16 00:09 Dose: 2 mg Diltiazem HCl (Diltiazem) 5 mg IVPUSH ONETIME ONE Stop: 06/28/16 19:47 Last Admin: 06/28/16 20:08 Dose: 5 mg Diltiazem HCl (Diltiazem) 5 mg IVPUSH ONETIME ONE Stop: 06/28/16 20:26 Last Admin: 06/28/16 20:26 Dose: 5 mg Diltiazem HCl (Diltiazem) 5 mg IVPUSH ONETIME ONE Stop: 06/28/16 21:18 Last Admin: 06/28/16 21:47 Dose: 5 mg Diltiazem HCl (Diltiazem) 10 mg IVPUSH ONETIME ONE Stop: 06/28/16 22:03 Last Admin: 06/29/16 08:19 Dose: Not Given Diltiazem HCl (Cardizem) 30 mg PO Q6HR [facility] Last Admin: 07/03/16 11:33 Dose: 30 mg Diltiazem HCl (Cardizem Cd) 120 mg PO ONETIME ONE Stop: 07/03/16 18:01 Last Admin: 07/03/16 18:09 Dose: 120 mg Diltiazem HCl (Cardizem Cd) 180 mg PO DAILY [facility] Last Admin: 07/04/16 08:06 Dose: 180 mg Diltiazem HCl (Cardizem) 30 mg PO Q12H [facility] Stop: 07/04/16 21:46 Last Admin: 07/04/16 21:28 Dose: 30 mg Famotidine (Pepcid) 20 mg IVPUSH ONETIME ONE Stop: 07/01/16 09:31 Last Admin: 07/01/16 09:44 Dose: 20 mg Fentanyl (Duragesic) 12 mcg TRDERM Q72H [facility] Last Admin: 06/30/16 13:52 Dose: 12 mcg Flumazenil (Romazicon) 0.2 mg IVPUSH ONETIME ONE Stop: 07/01/16 15:32 Last Admin: 07/01/16 15:47 Dose: 0.2 mg Furosemide (Lasix) 40 mg IVPUSH NOW ONE Stop: 06/28/16 20:33 Last Admin: 06/28/16 20:42 Dose: 40 mg Furosemide (Lasix) 40 mg PO DAILY [facility] Last Admin: 07/01/16 08:48 Dose: Not Given Furosemide (Lasix) 40 mg IVPUSH NOW ONE Stop: 07/01/16 07:21 Last Admin: 07/01/16 08:39 Dose: 40 mg Furosemide (Lasix) 40 mg PO DAILY [facility] Haloperidol Lactate (Haldol) 0.5 mg IVPUSH ONETIME ONE Stop: 07/01/16 14:46 Last Admin: 07/01/16 14:50 Dose: 0.5 mg Haloperidol Lactate (Haldol) 1 mg IVPUSH ONETIME ONE Stop: 07/01/16 15:01 Last Admin: 07/01/16 15:10 Dose: 1 mg Hydromorphone HCl (Dilaudid) 0.5 mg IVPUSH ONETIME ONE Stop: 06/28/16 19:12 Last Admin: 06/28/16 19:47 Dose: 0.5 mg Hydromorphone HCl (Dilaudid) 0.5 mg IVPUSH Q2H PRN PRN Reason: Pain Last Admin: 07/01/16 14:15 Dose: 0.5 mg Ceftriaxone Sodium 1 gm/ (Sodium Chloride) 100 mls @ 200 mls/hr IV ONETIME ONE Stop: 06/28/16 22:36 Last Admin: 06/28/16 22:17 Dose: 200 mls/hr Diltiazem HCl 100 mg/ Sodium (Chloride) 100 mls @ 10 mls/hr IV TITRATE [facility]; 10 MG/HR PRN Reason: Protocol Last Titration: 07/01/16 12:29 Dose: 5 mg/hr, 5 mls/hr Ceftriaxone Sodium 1 gm/ (Sodium Chloride) 100 mls @ 200 mls/hr IV Q24H [facility] Last Admin: 06/29/16 21:23 Dose: 200 mls/hr Sodium Chloride (Normal Saline) 1,000 mls @ 75 mls/hr IV ASDIRECTED [facility] Stop: 06/29/16 22:01 Last Admin: 06/29/16 18:43 Dose: 75 mls/hr Ceftriaxone Sodium 2 gm/ (Sodium Chloride) 100 mls @ 200 mls/hr IV Q24H [facility] Last Admin: 07/01/16 23:52 Dose: Not Given Piperacillin Sod/Tazobactam (Sod 4.5 gm/ Sodium Chloride) 100 mls @ 200 mls/hr IV ONETIME ONE Stop: 07/01/16 09:29 Last Admin: 07/01/16 09:47 Dose: 200 mls/hr Piperacillin Sod/Tazobactam (Sod 4.5 gm/ Sodium Chloride) 100 mls @ 25 mls/hr IV Q12H [facility] Last Admin: 07/01/16 20:38 Dose: 25 mls/hr Ceftriaxone Sodium 2 gm/ (Sodium Chloride) 100 mls @ 200 mls/hr IV Q24H [facility] Last Admin: 07/02/16 22:33 Dose: 200 mls/hr Piperacillin Sod/Tazobactam (Sod 4.5 gm/ Sodium Chloride) 100 mls @ 25 mls/hr IV Q8H [facility] Last Admin: 07/03/16 08:54 Dose: 25 mls/hr Albumin Human (Flexbumin 25%) 25 gm in 100 mls @ 100 mls/hr IV ONETIME ONE Stop: 07/02/16 11:30 Last Admin: 07/02/16 11:19 Dose: 100 mls/hr Lorazepam (Ativan) 1 mg PO Q4H PRN PRN Reason: Anxiety Last Admin: 06/30/16 05:12 Dose: 1 mg Lorazepam (Ativan) 0.5 mg PO ONETIME ONE Stop: 07/01/16 09:31 Last Admin: 07/01/16 10:03 Dose: 0.5 mg Losartan Potassium (Cozaar) 50 mg PO BID [facility] Losartan Potassium (Cozaar) 50 mg PO BID [facility] Last Admin: 06/30/16 20:32 Dose: Not Given Methylprednisolone Sodium Succinate (Solu-Medrol) 80 mg IVPUSH ONETIME ONE Stop: 06/28/16 22:27 Last Admin: 06/28/16 23:17 Dose: 80 mg Methylprednisolone Sodium Succinate (Solu-Medrol) 125 mg IVPUSH Q6H [facility] Last Admin: 07/03/16 08:49 Dose: 125 mg Metoclopramide HCl (Reglan) 5 mg IVPUSH Q6H [facility] Last Admin: 07/03/16 08:45 Dose: 5 mg Metoprolol Succinate (Toprol Xl) 25 mg PO DAILY [facility] Last Admin: 06/30/16 08:14 Dose: 25 mg Miscellaneous Information (Remove Patch) 0 ea TRDERM Q72H [facility] Naloxone HCl (Narcan) Confirm Administered Dose 0.8 mg .ROUTE .STK-MED ONE Stop: 07/01/16 07:16 Last Admin: 07/01/16 08:48 Dose: Not Given Naloxone HCl (Narcan) 0.6 mg IVPUSH ONETIME ONE Stop: 07/01/16 07:31 Last Admin: 07/01/16 07:18 Dose: 0.6 mg Nitroglycerin (Nitrostat) 0.4 mg SL TID PRN PRN Reason: Chest Pain Ondansetron HCl (Zofran) 4 mg IVPUSH ONETIME ONE Stop: 07/01/16 14:49 Last Admin: 07/01/16 15:42 Dose: 4 mg Pneumococcal Polyvalent Vaccine (Pneumovax 23) 0.5 ml IM .ONCE ONE Stop: 06/29/16 11:15 Polyethylene Glycol (Miralax) 17 gm PO BID [facility] Last Admin: 07/04/16 08:27 Dose: Not Given Rivaroxaban (Xarelto) 15 mg PO DAILY [facility] Last Admin: 07/02/16 08:06 Dose: 15 mg Rivaroxaban (Xarelto) 15 mg PO DAILY [facility] Temazepam (Restoril) 7.5 mg PO BEDTIME PRN PRN Reason: Insomnia Last Admin: 06/30/16 20:31 Dose: 7.5 mg Temazepam (Restoril) 15 mg PO BEDTIME PRN PRN Reason: Insomnia Tramadol HCl (Ultram) 50 mg PO Q4H PRN PRN Reason: Pain Last Admin: 07/05/16 23:13 Dose: 50 mg Trazodone HCl (Trazodone) 150 mg PO BEDTIME [facility] Last Admin: 07/05/16 20:44 Dose: 150 mg - Exam Quality Assessment: Reports: supplemental oxygen, DVT prophylaxis General: Reports: alert, oriented, cooperative, no acute distress HEENT: Reports: Pupils equal, Pupils reactive, EOMI, Mucous membr. moist/pink Neck: Reports: supple Lungs: Reports: Clear to auscultation, Normal respiratory effort, Decreased breath sounds (bases bilat) Cardiovascular: Reports: Irregular Rhythm Abdomen: Reports: bowel sounds present, soft, no tenderness, no distension (Female) Exam: Deferred Rectal (Female) Exam: Deferred Back Exam: Reports: normal inspection Extremities: Reports: edema (venous insufficency changes; 1+ edema bilat ankles and pedal) Skin: Reports: warm, dry, intact Neurological: Reports: no new focal deficit Psy/Mental Status: Reports: alert, normal affect, normal mood *Q Meaningful Use (DIS) - VTE *Q VTE Criteria *Q: - Stroke *Q Stroke Criteria *Q: - AMI *Q AMI Criteria *Q:
[2016-07-07] MEDS ORDERED: Levofloxacin 750 MG Tab PO ONE (10:43)
[2016-07-07] MEDS ORDERED: Pneumococcal Polyvalent-23 Vaccine 0.5 ML SDV IM ONE (10:46)
[2016-07-07] MEDS: Lidocaine 5% 700 MG Patch TRDERM SCH ×2 (10:55→11:51)
== END 2016-07-07 13:07 | DRG 308 ==
LOC: JD.ED 17:39 → JD.ICU 22:06 → JD.MS 07-04 16:25
PROVIDERS: ADMIT Emergency Medicine; ATTEND Internal Medicine Cardiovascular Disease
PROC: 5A09457 Assistance with Respiratory Ventilation, 24-96 Consecutive Hours, Continuous Positive Airway Pressure (ICD-10-PCS; principal; 2016-07-01)
DX: I48.91 Unspecified atrial fibrillation (principal); I48.2 Chronic atrial fibrillation; J18.9 Pneumonia, unspecified organism; I11.0 Hypertensive heart disease with heart failure; I50.9 Heart failure, unspecified; N39.0 Urinary tract infection, site not specified; J44.9 Chronic obstructive pulmonary disease, unspecified; I13.0 Hypertensive heart and chronic kidney disease with heart failure and stage 1 through stage 4 chronic kidney disease, or unspecified chronic kidney disease; I50.30 Unspecified diastolic (congestive) heart failure; J44.0 Chronic obstructive pulmonary disease with (acute) lower respiratory infection; J44.1 Chronic obstructive pulmonary disease with (acute) exacerbation; M19.90 Unspecified osteoarthritis, unspecified site; Z68.41 Body mass index [BMI] 40.0-44.9, adult; B96.20 Unspecified Escherichia coli [E. coli] as the cause of diseases classified elsewhere; M54.9 Dorsalgia, unspecified; I25.10 Atherosclerotic heart disease of native coronary artery without angina pectoris; N18.3 Chronic kidney disease, stage 3 (moderate); R74.8 Abnormal levels of other serum enzymes; R31.9 Hematuria, unspecified; R06.89 Other abnormalities of breathing; I25.2 Old myocardial infarction; Z95.5 Presence of coronary angioplasty implant and graft; E78.5 Hyperlipidemia, unspecified; F32.9 Major depressive disorder, single episode, unspecified; F41.9 Anxiety disorder, unspecified; E66.01 Morbid (severe) obesity due to excess calories; D49.2 Neoplasm of unspecified behavior of bone, soft tissue, and skin; Z66 Do not resuscitate; R91.1 Solitary pulmonary nodule; G31.84 Mild cognitive impairment of uncertain or unknown etiology; I34.0 Nonrheumatic mitral (valve) insufficiency; M48.07 Spinal stenosis, lumbosacral region; Z87.891 Personal history of nicotine dependence; Z79.01 Long term (current) use of anticoagulants; Z79.82 Long term (current) use of aspirin; Z99.81 Dependence on supplemental oxygen; Z79.899 Other long term (current) drug therapy; Z23 Encounter for immunization
CPT/HCPCS: 36415; 71020; 80053; 81001; 83880; 84484 ×2; 85025; 85652; 86140; 87086; 87186; 93005 ×2; 96375; 96376; 99285; J1170; J1940; J3360; 36600; 71010; 71010-26; 71250; 71250-26; 72128; 72128-26; 72131; 72131-26; 72192; 72192-26; 74176; 74176-26; 78582; 78582-26; 80048; 82378; 82803; 83605; 83735; 85027; 87088; 90732; 93306; 94640-76; 94660; 94664; 96125-GN; 96365; 96366; 96374; 97110-GO; 97110-GP; 97116-GP; 97162-GP; 97166-GO; 97530-GO; 97530-GP; 97535-GO; 99232; 99239; 99284; A9270-GY; A9540; G0009; J0696; J1630; J1956; J2310; J2405; J2543; J2765; J2920; J2930; J3490; J7030; J7040; P9047

== ENCOUNTER 2016-07-16 08:03 | Inpatient (IN) | payer MEDICARE, BC ==
[2016-07-16] MEDS ORDERED: Furosemide 40 MG/4 ML VIAL IVPUSH ONE (08:24)
[2016-07-16] MEDS ORDERED: HYDROmorphone 0.5 MG/0.5 ML Syringe IVPUSH ONE (08:29)
--- NOTE | 2016-07-16 08:30 | EDM.PDOC ---
ED HISTORY OF PRESENT ILLNESS - General Chief Complaint: Respiratory Problem Stated Complaint: [facility] Time Seen by Provider: 07/16/16 08:14 Source of Information: Reports: Patient, EMS, [facility] records History Limitations: Reports: No limitations - History of Present Illness INITIAL COMMENTS - FREE TEXT/NARRATIVE: The patient presents with low oxygen saturations and right lateral chest and right lateral abdominal pain. The patient says the pain started about 1 week ago. This morning her oxygen saturations were down to 79% on 2L. EMS had to put her on 6L by simple mask. She denies fever, chills and cough. She has no nausea or vomiting. She does not have dysuria. This morning she had generalized weakness. She usually needs only 1 person assist but today she needed more help. She has moderate to severe edema to both legs. She has COPD and on last admission a few weeks ago she had a lytic lesion in her back that was causing the pain. They did scans to find the primary but could not find the primary. Timing/Duration: Reports: Day(s): Severity: moderate Location, General: Reports: chest, abdomen Quality: Reports: Sharp Improves with: Reports: None Worsens with: Reports: None Associated Symptoms (General): Reports: chest pain, shortness of breath, weakness. Denies: cough, fever/chills, nausea/vomiting - Related Data Allergies/ADRs: Allergies Allergy/AdvReac Type Severity Reaction Status Date / Time No Known Allergies Allergy Verified 07/16/16 08:25 Home Meds: Home Meds Acetaminophen [Tylenol Arthritis Pain] 650 mg PO DAILY PRN 07/27/14 [History] Albuterol [Proventil Neb Soln] 2.5 mg NEB Q4HRRT PRN #60 neb 07/27/14 [Rx] Aspirin [Ernestine Chewable Aspirin] 81 mg PO DAILY 07/27/14 [History] Citalopram Hydrobromide [Celexa] 40 mg PO DAILY 07/27/14 [History] Furosemide [Lasix] 80 mg PO DAILY 07/27/14 [History] Metoprolol Succinate 25 mg PO DAILY 07/27/14 [History] Nitroglycerin [Nitrostat] 0.4 mg PO TID PRN 07/27/14 [History] Ranitidine [Zantac] 75 mg PO DAILY 07/27/14 [History] Rivaroxaban [Xarelto] 15 mg PO QPM 07/27/14 [History] Simvastatin [Zocor] 20 mg PO QPM 07/27/14 [History] LORazepam 0.5 mg PO Q4H PRN 07/27/15 [History] Acetaminophen/HYDROcodone [[place] 325-10 MG] 1 tab PO Q6H PRN #40 tablet [Rx] Diltiazem [Dilacor XR] 240 mg PO DAILY #30 cap.er 07/07/16 [Rx] Gabapentin [Neurontin] 100 mg PO BID #60 cap 07/07/16 [Rx] Lidocaine 5% [Lidoderm 5%] 700 mg TRDERM Q24H #10 patch 07/07/16 [Rx] Polyethylene Glycol 3350 [MiraLAX] 17 gm PO TID PRN #30 packet 07/07/16 [Rx] Docusate Sodium/Sennosides [Senna Plus] 1 tab PO BID PRN 07/16/16 [History] Sennosides [Senna] 17.2 mg PO BID 07/16/16 [History] traZODone 150 mg PO BEDTIME 07/16/16 [History] Past Medical History HEENT History: Reports: Cataract Cardiovascular History: Reports: Heart Failure, Hypertension, [place], Stents Other Cardiovascular History: CHF Respiratory History: Reports: COPD, Pneumonia, recurrent, SOB Gastrointestinal History: Reports: None Genitourinary History: Reports: None Other OB/BYN History: Hysterectomy 1994 Musculoskeletal History: Reports: Arthritis Neurological History: Reports: None Other Neuro History: bilateral carotoid Psychiatric History: Reports: None, Anxiety, Depression Endocrine/Metabolic History: Reports: None Hematologic History: Reports: None Immunologic History: Reports: None Oncologic (Cancer) History: Reports: None - Infectious Disease History Infectious Disease History: Reports: None, Shingles - Past Surgical History Cardiovascular Surgical History: Reports: Carotid endarterectomy Other Cardiovascular Surgeries/Procedures: 4 stents Respiratory Surgical History: Reports: None GI Surgical History: Reports: Appendectomy Female Surgical History: Reports: Hysterectomy Social & Family History - Family History Family Medical History: Noncontributory Neurological: Reports: CVA - Tobacco Use Smoking Status *Q: Never Smoker Years of Tobacco use: 30 Packs/Tins Daily: 1 Used Tobacco, but Quit: No Month Tobacco Last Used: mar Second Hand Smoke Exposure: No - Caffeine Use Caffeine Use: Reports: None - Recreational Drug Use Recreational Drug Use: No ED ROS GENERAL - Review of Systems Review Of Systems: See Below Constitutional: Reports: no symptoms HEENT: Reports: No symptoms Respiratory: Reports: Shortness of Breath. Denies: Cough Cardiovascular: Reports: Chest pain, Edema Endocrine: Reports: no symptoms GI/Abdominal: Reports: Abdominal pain. Denies: Nausea, Vomiting : Reports: no symptoms Musculoskeletal: Reports: no symptoms Skin: Reports: no symptoms ED EXAM, GENERAL - Physical Exam Exam: See Below Exam Limited By: No limitations General Appearance: no apparent distress, other (sleepy) Ears: normal external exam Nose: normal inspection Head: atraumatic, normocephalic Neck: normal inspection Respiratory/Chest: no respiratory distress, decreased breath sounds, rales Cardiovascular: no murmur, irregularly irregular, other (Moderate to severe edema to both legs) GI/Abdominal: soft, no organomegaly, tender (To the right lateral abdomen) Back Exam: normal inspection Extremities: pedal edema (Moderate to severe edema to both legs) Neurological: no motor/sensory deficits, other (Sleepy) Skin Exam: Warm, Dry Course - Vital Signs Last Recorded V/S: Last Vital Signs Temp 97.1 F 07/16/16 08:21 Pulse 107 H 07/16/16 08:21 Resp 20 07/16/16 08:21 BP 116/60 07/16/16 08:21 Pulse Ox 93 L 07/16/16 09:14 - Orders/Labs/Meds Orders: Active Orders 24 hr Category Date Time Status BIPAP Adult [RT BiPAP/CPAP] [RC] ASDIRECTED Care 07/16/16 08:57 Active Cardiac Monitoring [RC] . DIRECTED Care 07/16/16 08:23 Active EKG Documentation Completion [RC] STAT Care 07/16/16 08:23 Active Tejeda Catheter Insertion [Insert Urinary Catheter] [OM. Care 07/16/16 10:00 Ordered PC] Q24H Oxygen Therapy [RC] PRN Care 07/16/16 08:23 Active Peripheral IV Care [RC] . DIRECTED Care 07/16/16 08:23 Active RT Aerosol Therapy [RC] ASDIRECTED Care 07/16/16 08:54 Active Urinary Catheter Assessment [RC] ASDIRECTED Care 07/16/16 09:46 Active Sodium Chloride 0.9% [Saline Flush] Med 07/16/16 08:22 Active 10 ml FLUSH ASDIRECTED PRN Peripheral IV Insertion Adult [OM.PC] Stat Oth 07/16/16 08:22 Ordered Medication Orders Sodium Chloride (Saline Flush) 10 ml FLUSH ASDIRECTED PRN PRN Reason: Keep Vein Open Last Admin: 07/16/16 08:32 Dose: 10 ml Labs: Laboratory Tests 07/16/16 07/16/16 07/16/16 Range/Units 08:48 09:00 09:00 WBC 13.81 H (3.98-10.04) K/mm3 RBC 4.54 (3.98-5.22) M/mm3 Hgb 11.9 (11.2-15.7) gm/L Hct 40.4 (34.1-44.9) % MCV 89.0 (79.4-94.8) fl MCH 26.2 (25.6-32.2) pg MCHC 29.5 L (32.2-35.5) g/dl RDW Std Deviation 51.9 H (36.4-46.3) fL Plt Count 220 (182-369) K/mm3 MPV 10.6 (9.4-12.3) fl Neut % (Auto) 80.7 H (34.0-71.1) % Lymph % (Auto) 7.3 L (19.3-51.7) % [place] % (Auto) 10.7 (4.7-12.5) % Eos % (Auto) 0.7 (0.7-5.8) Baso % (Auto) 0.2 (0.1-1.2) % Neut # (Auto) 11.13 H (1.56-6.13) K/mm3 Lymph # (Auto) 1.01 L (1.18-3.74) K/mm3 [place] # (Auto) 1.48 H (0.24-0.36) K/mm3 Eos # (Auto) 0.10 (0.04-0.36) K/mm3 Baso # (Auto) 0.03 (0.01-0.08) K/mm3 Manual Slide Review Abnormal smear Puncture Site Lt radial ABG pH 7.37 (7.35-7.45) ABG pCO2 71.8 H* (35.0-45.0) mmHg ABG pO2 65.0 L (80.0-100.0) mmHg ABG HCO3 40.2 H (22.0-26.0) meq/L ABG O2 Saturation 92.0 L (96.0-97.0) % ABG Base Excess 11.8 H (-2-2.0) A-a Gradient 51 mmHg O2 Delivery Device Nasal cannula Oxygen Flow Rate 3.0 FiO2 32.00 (21.00-100.00) % Sodium 138 (136-145) mEq/L Potassium 4.7 (3.5-5.1) mEq/L Chloride 97 L (98-107) mEq/L Carbon Dioxide 36 H (21-32) mEq/L Anion Gap 9.7 (5-15) BUN 27 H (7-18) mg/dL Creatinine 1.4 H (0.55-1.02) mg/dL Est Cr Clr Drug Dosing 24.18 mL/min Estimated GFR (MDRD) 36 (>60) mL/min BUN/Creatinine Ratio 19.3 H (14-18) Glucose 102 (83-115) mg/dL Calcium 9.5 (8.5-10.1) mg/dL Total Bilirubin 0.5 (0.2-1.0) mg/dL AST 28 (15-37) U/L ALT 24 (14-59) U/L Alkaline Phosphatase 93 (46-116) U/L Troponin I < 0.017 (0.00-0.056) ng/mL B-Natriuretic Peptide (0-100) pg/mL Total Protein 6.8 (6.4-8.2) g/dl Albumin 3.0 L (3.4-5.0) g/dl Globulin 3.8 gm/dL Albumin/Globulin Ratio 0.8 L (1-2) Urine Color (Yellow) Urine Appearance (Clear) Urine pH (5.0-8.0) Ur Specific [place] (1.005-1.030) Urine Protein (Negative) Urine Glucose (UA) (Negative) Urine Ketones (Negative) Urine Occult Blood (Negative) Urine Nitrite (Negative) Urine Bilirubin (Negative) Urine Urobilinogen (0.2-1.0) Ur Leukocyte Esterase (Negative) Urine RBC (0-5) /hpf Urine WBC (0-5) /hpf Ur Epithelial Cells (0-5) /hpf Urine Bacteria (FEW) /hpf Urine Mucus (FEW) /hpf 07/16/16 07/16/16 Range/Units 09:00 09:30 WBC (3.98-10.04) K/mm3 RBC (3.98-5.22) M/mm3 Hgb (11.2-15.7) gm/L Hct (34.1-44.9) % MCV (79.4-94.8) fl MCH (25.6-32.2) pg MCHC (32.2-35.5) g/dl RDW Std Deviation (36.4-46.3) fL Plt Count (182-369) K/mm3 MPV (9.4-12.3) fl Neut % (Auto) (34.0-71.1) % Lymph % (Auto) (19.3-51.7) % [place] % (Auto) (4.7-12.5) % Eos % (Auto) (0.7-5.8) Baso % (Auto) (0.1-1.2) % Neut # (Auto) (1.56-6.13) K/mm3 Lymph # (Auto) (1.18-3.74) K/mm3 [place] # (Auto) (0.24-0.36) K/mm3 Eos # (Auto) (0.04-0.36) K/mm3 Baso # (Auto) (0.01-0.08) K/mm3 Manual Slide Review Puncture Site ABG pH (7.35-7.45) ABG pCO2 (35.0-45.0) mmHg ABG pO2 (80.0-100.0) mmHg ABG HCO3 (22.0-26.0) meq/L ABG O2 Saturation (96.0-97.0) % ABG Base Excess (-2-2.0) A-a Gradient mmHg O2 Delivery Device Oxygen Flow Rate FiO2 (21.00-100.00) % Sodium (136-145) mEq/L Potassium (3.5-5.1) mEq/L Chloride (98-107) mEq/L Carbon Dioxide (21-32) mEq/L Anion Gap (5-15) BUN (7-18) mg/dL Creatinine (0.55-1.02) mg/dL Est Cr Clr Drug Dosing mL/min Estimated GFR (MDRD) (>60) mL/min BUN/Creatinine Ratio (14-18) Glucose (83-115) mg/dL Calcium (8.5-10.1) mg/dL Total Bilirubin (0.2-1.0) mg/dL AST (15-37) U/L ALT (14-59) U/L Alkaline Phosphatase (46-116) U/L Troponin I (0.00-0.056) ng/mL B-Natriuretic Peptide 948 H (0-100) pg/mL Total Protein (6.4-8.2) g/dl Albumin (3.4-5.0) g/dl Globulin gm/dL Albumin/Globulin Ratio (1-2) Urine Color Yellow (Yellow) Urine Appearance Clear (Clear) Urine pH 6.0 (5.0-8.0) Ur Specific [place] 1.015 (1.005-1.030) Urine Protein Negative (Negative) Urine Glucose (UA) Negative (Negative) Urine Ketones Negative (Negative) Urine Occult Blood Negative (Negative) Urine Nitrite Negative (Negative) Urine Bilirubin Negative (Negative) Urine Urobilinogen 0.2 (0.2-1.0) Ur Leukocyte Esterase Negative (Negative) Urine RBC Not seen (0-5) /hpf Urine WBC 0-5 (0-5) /hpf Ur Epithelial Cells 0-5 (0-5) /hpf Urine Bacteria Few (FEW) /hpf Urine Mucus Not seen (FEW) /hpf Meds: Medications Generic Name Dose Route Start Last Admin Trade Name Freq PRN Reason Stop Dose Admin Sodium Chloride 10 ml 07/16/16 08:22 07/16/16 08:32 Saline Flush FLUSH 10 ml ASDIRECTED PRN Administration Keep Vein Open Discontinued Medications Generic Name Dose Route Start Last Admin Trade Name Freq PRN Reason Stop Dose Admin Albuterol/Ipratropium 3 ml 07/16/16 08:54 07/16/16 09:14 Duoneb 3.0-0.5 Mg/3 Ml NEB 07/16/16 08:55 3 ml ONETIME ONE Administration Furosemide 80 mg 07/16/16 08:24 07/16/16 08:32 Lasix IVPUSH 07/16/16 08:25 80 mg NOW ONE Administration Hydromorphone HCl 0.5 mg 07/16/16 08:29 07/16/16 09:48 Dilaudid IVPUSH 07/16/16 08:30 Not Given ONETIME ONE Methylprednisolone Sodium Succinate 125 mg 07/16/16 10:14 Solu-Medrol IVPUSH 07/16/16 10:15 ONETIME ONE - Re-Assessments/Exams Free Text/Narrative Re-Assessment/Exam: 07/16/16 08:33 I have ordered an IV saline lock, oxygen, EKG, CXR and labs. 07/16/16 10:18 I ordered lasix 80mg IV, duoneb and bipap. The patient's pCO2 was 71.8. PO2 was 65. Her CO2 was elevated at 36. Her creatinine was elevated at 1.4. Her troponin was negative. Her BNP was 948. Her EKG shows A-fib with right axis deviation and prolonged QT and no acute changes. Her CXR looks better then when she was here last week. It appears she is having a COPD and CHF exacerbation. I have ordered some solu-medrol. I talked to Dr Goss and he agreed to the admission. Departure - Departure Time of Disposition: 10:25 Disposition: Admitted As Inpatient 66 Condition: serious Clinical Impression: COPD exacerbation, Hypercapnia CHF (congestive heart failure) Qualifiers: Congestive heart failure type: unspecified congestive heart failure type Congestive heart failure chronicity: acute on chronic Qualified Code(s): I50.9 - Heart failure, unspecified CHF exacerbation Qualifiers: Congestive heart failure type: combined Qualified Code(s): I50.43 - Acute on chronic combined systolic (congestive) and diastolic (congestive) heart failure Forms: ED Department Discharge - My Orders Last 24 Hours: My Active Orders 07/16/16 08:22 Sodium Chloride 0.9% [Saline Flush] 10 ml FLUSH ASDIRECTED PRN Peripheral IV Insertion Adult [OM.PC] Stat 07/16/16 08:23 Cardiac Monitoring [RC] . DIRECTED EKG Documentation Completion [RC] STAT Oxygen Therapy [RC] PRN Peripheral IV Care [RC] . DIRECTED 07/16/16 08:54 RT Aerosol Therapy [RC] ASDIRECTED 07/16/16 08:57 BIPAP Adult [RT BiPAP/CPAP] [RC] ASDIRECTED 07/16/16 09:46 Urinary Catheter Assessment [RC] ASDIRECTED 07/16/16 10:00 Tejeda Catheter Insertion [Insert Urinary Catheter] [OM.PC] Q24H - Assessment/Plan Last 24 Hours: My Active Orders 07/16/16 08:22 Sodium Chloride 0.9% [Saline Flush] 10 ml FLUSH ASDIRECTED PRN Peripheral IV Insertion Adult [OM.PC] Stat 07/16/16 08:23 Cardiac Monitoring [RC] . DIRECTED EKG Documentation Completion [RC] STAT Oxygen Therapy [RC] PRN Peripheral IV Care [RC] . DIRECTED 07/16/16 08:54 RT Aerosol Therapy [RC] ASDIRECTED 07/16/16 08:57 BIPAP Adult [RT BiPAP/CPAP] [RC] ASDIRECTED 07/16/16 09:46 Urinary Catheter Assessment [RC] ASDIRECTED 07/16/16 10:00 Tejeda Catheter Insertion [Insert Urinary Catheter] [OM.PC] Q24H
[2016-07-16] MEDS: Sodium Chloride 0.9% 10 ML Syringe FLUSH PRN (08:32)
[2016-07-16] MEDS ORDERED: Albuterol/Ipratropium 3.0-0.5 MG/3 ML Neb Soln NEB ONE (08:54)
--- NOTE | 2016-07-16 10:05 | CR ---
Chest: Portable view of the chest was obtained. Comparison: Previous chest x-ray of 07/03/16. Heart is enlarged. Pulmonary vessels are increased which appear stable. Slight parenchymal density within the left retrocardiac region is seen which is improved from prior exam. Bony structures are osteopenic. Impression: 1. Decreased density within the left retrocardiac region from prior exam. 2. Cardiomegaly and stable pulmonary vascular congestion is seen. Diagnostic code #3
[2016-07-16] MEDS ORDERED: methylPREDNISolone Sodium Succinate 125 MG/2 ML SDV IVPUSH ONE (10:14)
[2016-07-16] MEDS ORDERED: Enoxaparin 30 MG/0.3 ML Syringe SUBCUT SCH (12:15)
[2016-07-16] MEDS ORDERED: Morphine 2 MG/ML Syringe IVPUSH PRN (12:15)
[2016-07-16] MEDS ORDERED: Acetaminophen 325 MG Tab PO PRN (12:15)
[2016-07-16] MEDS ORDERED: Docusate Sodium 100 MG Cap PO PRN (12:15)
[2016-07-16] MEDS ORDERED: Ondansetron 4 MG/2 ML SDV IV PRN (12:15)
[2016-07-16] MEDS ORDERED: Magnesium Hydroxide 400 MG/5 ML Susp 30 ML Cup PO PRN (12:15)
[2016-07-16] MEDS ORDERED: Albuterol 0.083% 2.5 MG/3 ML Neb Soln NEB PRN (12:15)
[2016-07-16] MEDS ORDERED: Polyethylene Glycol 3350 Powder 17 GM Packet PO PRN (12:15)
--- NOTE | 2016-07-16 12:44 | PCM.HP ---
H&P History of Present Illness - General Date of Service: 07/16/16 Admit Problem/Dx: Admission Diagnosis/Problem Admission Diagnosis/Problem CHF, Congestive heart failure Source of Information: Family, Old records History Limitations: Reports: No limitations - History of Present Illness Initial Comments - Free Text/Narative: Marva is an 80yo female patient seen in ER this morning, from [facility] brought in by EMS for mental status change and hypoxia, weakness. She was recently discharged from hospital one week ago for CHF exacerbation/COPD exacerbation, newly dx lytic spinal lesion, likely metastatic. She was discharged to [place] for rehab stay with hopes of returning home. History today is obtained from daughter as patient is obtunded upon arriving to unit. Daughter reports she noted her mother to be more weak the last few days, seemed more SOB the past 1-2 days and with increasing swelling to her lower extremities since the weekend (3+ days). This morning staff required more assistance to get her up and out of bed, usually 1 assist and required 2 this morning, she was very weak and SOB, seemed very confused. Oxygen was "low", ER notes state in the 70- 80% range. Patient had also been complaining of right sided chest and upper abdominal pain the past day or so. 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 ED eval and labs show WBC of 13.81, H&H of 11.9 and 40.4, plt 220. ABG with PH of 7.37, PCo2 71.8, PO2 65.0, HCO3 40.2, O2 sat 92%, BE 11.8, A-a grad 51, O2 at 3L/NC. CMP with Co2 36, Cl- 97, BUN 27, creat 1.4 other indicies WNL. Trop negative. BNP 948. UA unremarkable, SG 1.015. She rec'd 80mg IVP lasix, 0.5 IVP dilaudid and 125mg IVP solumedrol in ER and one duoneb tx via SNV. EKG is with a -fib. CXR appears to be improved from last xray prior to discharge last week. Hospitalist service is consulted for admission for CHF and COPD exacerbations. Onset of Symptoms: Reports: gradual (1-2 weeks) Location: Reports: chest (rt), abdomen (rt) Quality: Reports: Pressure Severity: moderate Improves with: Reports: Medication Associated Symptoms: Reports: chest pain, loss of appetite, shortness of breath Right Abdomen Pain Score (Numeric/FACES): 7 - Related Data Allergies/Adverse Reactions: Allergies Allergy/AdvReac Type Severity Reaction Status Date / Time No Known Allergies Allergy Verified 07/16/16 08:25 Home Medications: Home Meds Acetaminophen [Tylenol Arthritis Pain] 650 mg PO DAILY PRN 07/27/14 [History] Albuterol [Proventil Neb Soln] 2.5 mg NEB Q4HRRT PRN #60 neb 07/27/14 [Rx] Aspirin [Ernestine Chewable Aspirin] 81 mg PO DAILY 07/27/14 [History] Citalopram Hydrobromide [Celexa] 40 mg PO DAILY 07/27/14 [History] Furosemide [Lasix] 80 mg PO DAILY 07/27/14 [History] Metoprolol Succinate 25 mg PO DAILY 07/27/14 [History] Nitroglycerin [Nitrostat] 0.4 mg PO TID PRN 07/27/14 [History] Ranitidine [Zantac] 75 mg PO DAILY 07/27/14 [History] Rivaroxaban [Xarelto] 15 mg PO QPM 07/27/14 [History] Simvastatin [Zocor] 20 mg PO QPM 07/27/14 [History] LORazepam 0.5 mg PO Q4H PRN 07/27/15 [History] Acetaminophen/HYDROcodone [Parkton 325-10 MG] 1 tab PO Q6H PRN #40 tablet [Rx] Diltiazem [Dilacor XR] 240 mg PO DAILY #30 cap.er 07/07/16 [Rx] Gabapentin [Neurontin] 100 mg PO BID #60 cap 07/07/16 [Rx] Lidocaine 5% [Lidoderm 5%] 700 mg TRDERM Q24H #10 patch 07/07/16 [Rx] Polyethylene Glycol 3350 [MiraLAX] 17 gm PO TID PRN #30 packet 07/07/16 [Rx] Docusate Sodium/Sennosides [Senna Plus] 1 tab PO BID PRN 07/16/16 [History] Sennosides [Senna] 17.2 mg PO BID 07/16/16 [History] traZODone 150 mg PO BEDTIME 07/16/16 [History] Past Medical History HEENT History: Reports: Cataract Cardiovascular History: Reports: Heart Failure, Hypertension, [place], Stents Other Cardiovascular History: CHF Respiratory History: Reports: COPD, Pneumonia, recurrent, SOB Gastrointestinal History: Reports: None Genitourinary History: Reports: None Other OB/BYN History: Hysterectomy 1994 Musculoskeletal History: Reports: Arthritis Neurological History: Reports: None Other Neuro History: bilateral carotoid Psychiatric History: Reports: None, Anxiety, Depression Endocrine/Metabolic History: Reports: None Hematologic History: Reports: None Immunologic History: Reports: None Oncologic (Cancer) History: Reports: None - Infectious Disease History Infectious Disease History: Reports: None, Shingles - Past Surgical History Cardiovascular Surgical History: Reports: Carotid endarterectomy Other Cardiovascular Surgeries/Procedures: 4 stents Respiratory Surgical History: Reports: None GI Surgical History: Reports: Appendectomy Female Surgical History: Reports: Hysterectomy Social & Family History - Family History Family Medical History: Noncontributory Neurological: Reports: CVA - Tobacco Use Smoking Status *Q: Never Smoker Years of Tobacco use: 30 Packs/Tins Daily: 1 Used Tobacco, but Quit: No Month Tobacco Last Used: mar Second Hand Smoke Exposure: No - Caffeine Use Caffeine Use: Reports: None - Recreational Drug Use Recreational Drug Use: No H&P Review of Systems - Review of Systems: Review Of Systems: See Below General: Reports: malaise, weakness, fatigue, decreased appetite HEENT: Reports: no symptoms Pulmonary: Reports: Shortness of Breath, Pleuritic Chest Pain Cardiovascular: Reports: chest pain, dyspnea on exertion Gastrointestinal: Reports: Abdominal pain, Decreased appetite. Denies: Black stool, Constipation, Diarrhea, Hematemesis, Hematochezia, Nausea, Vomiting Genitourinary: Reports: no symptoms Musculoskeletal: Reports: back pain Skin: Reports: no symptoms Psychiatric: Reports: no symptoms Neurological: Reports: No Symptoms Hematologic/Lymphatic: Reports: anemia Exam - Exam Exam: See Below - Vital Signs Vital Signs: Last Vital Signs Temp 97.1 F 07/16/16 08:21 Pulse 107 H 07/16/16 08:21 Resp 20 07/16/16 08:21 BP 116/60 07/16/16 08:21 Pulse Ox 93 L 07/16/16 09:14 Weight: 240 lb 6.4 oz - Exam Quality Assessment: supplemental oxygen (BIPAP) General: alert, cooperative HEENT: Conjunctiva clear, Hearing intact, Mucosa moist & pink, Pupils equal, Pupils reactive Neck: supple, trachea midline Lungs: Decreased breath sounds, Rhonchi, Wheezing Cardiovascular: irregular rhythm Abdomen: normal bowel sounds, soft, tenderness (mild RUQ). No: guarding, rigidity, rebound (Female) Exam: Deferred Rectal (Female) Exam: Deferred Extremities: edema (2-3+ pitting to lower extremities) Skin: warm, dry Neurological: cranial nerves intact Neuro Extensive - Mental Status: alert, oriented x3, normal mood/affect, other Psychiatric: alert, anxious - Patient Data Result Diagrams: 07/16/16 09:00 07/16/16 09:00 EKG INTERPRETATION EKG Date: 07/16/16 (obtained in ER) Rhythm: a-fib Tunas: RAD-right axis deviation QT: prolonged *Q Meaningful Use (ADM) - VTE *Q VTE Criteria *Q: - Stroke *Q Stroke Criteria *Q: - AMI *Q AMI Criteria *Q: - Problem List (1) CHF exacerbation SNOMED Code(s): 22655931 ICD Code: I50.9 - HEART FAILURE, UNSPECIFIED Status: Acute Priority: High Current Visit: Yes Qualifiers: Congestive heart failure type: combined Qualified Code(s): I50.43 - Acute on chronic combined systolic (congestive) and diastolic (congestive) heart failure (2) COPD exacerbation SNOMED Code(s): 825682932, 716042939 ICD Code: J44.1 - CHRONIC OBSTRUCTIVE PULMONARY DISEASE W (ACUTE) EXACERBATION Status: Acute Priority: High Current Visit: Yes (3) Hypercapnia SNOMED Code(s): 50136931 ICD Code: R06.89 - OTHER ABNORMALITIES OF BREATHING Status: Acute Priority: High Current Visit: Yes Problem List Initiated/Reviewed/Updated: Yes Orders Last 24hrs: Active Orders 24 hr Category Date Time Status Patient Status [ADT] Routine ADT 07/16/16 12:15 Ordered Antiembolic Devices [RC] PER UNIT ROUTINE Care 07/16/16 12:24 Ordered Daily Weight [Height and Weight] [RC] DAILY Care 07/16/16 12:31 Ordered Intake and Output Strict [RC] ASDIRECTED Care 07/16/16 12:31 Ordered Oxygen Therapy [RC] PRN Care 07/16/16 12:15 Ordered Up With Assistance [RC] ASDIRECTED Care 07/16/16 12:15 Ordered Up to Chair [RC] ASDIRECTED Care 07/16/16 12:15 Ordered VTE/DVT Education [RC] PER UNIT ROUTINE Care 07/16/16 12:15 Ordered Vital Signs [RC] Q4H Care 07/16/16 12:15 Ordered Consult to Case Management [CONS] Routine Cons 07/16/16 12:15 Ordered Consult to Retail Product Advisor [CONS] Routine Cons 07/16/16 12:15 Ordered OT Evaluation and Treatment [CONS] Routine Cons 07/17/16 08:00 Ordered PT Evaluation and Treatment [CONS] Routine Cons 07/17/16 08:00 Ordered Respiratory Care Assess and Treatment [CONS] Routine Cons 07/16/16 12:15 Ordered 2 Gram Sodium Diet [DIET] Diet 07/16/16 Dinner Ordered Chest 2V [CR] Routine Exams 07/17/16 08:00 Ordered BASIC METABOLIC PANEL,BMP [CHEM] DAILY Lab 07/17/16 05:00 Ordered BASIC METABOLIC PANEL,BMP [CHEM] DAILY Lab 07/18/16 05:00 Ordered BASIC METABOLIC PANEL,BMP [CHEM] DAILY Lab 07/19/16 05:00 Ordered BASIC METABOLIC PANEL,BMP [CHEM] DAILY Lab 07/20/16 05:00 Ordered BASIC METABOLIC PANEL,BMP [CHEM] DAILY Lab 07/21/16 05:00 Ordered BLOOD GAS ARTERIAL [BG] Routine Lab 07/16/16 15:00 Ordered C-REACTIVE PROTEIN [CHEM] AM Lab 07/17/16 05:11 Ordered C-REACTIVE PROTEIN [CHEM] AM Lab 07/18/16 05:11 Ordered C-REACTIVE PROTEIN [CHEM] AM Lab 07/19/16 05:11 Ordered C-REACTIVE PROTEIN [CHEM] AM Lab 07/20/16 05:11 Ordered C-REACTIVE PROTEIN [CHEM] AM Lab 07/21/16 05:11 Ordered CBC WITH AUTO DIFF [HEME] DAILY Lab 07/17/16 05:00 Ordered CBC WITH AUTO DIFF [HEME] DAILY Lab 07/18/16 05:00 Ordered CBC WITH AUTO DIFF [HEME] DAILY Lab 07/19/16 05:00 Ordered CBC WITH AUTO DIFF [HEME] DAILY Lab 07/20/16 05:00 Ordered CBC WITH AUTO DIFF [HEME] DAILY Lab 07/21/16 05:00 Ordered MAGNESIUM [CHEM] AM Lab 07/17/16 05:11 Ordered MAGNESIUM [CHEM] AM Lab 07/18/16 05:11 Ordered MAGNESIUM [CHEM] AM Lab 07/19/16 05:11 Ordered MAGNESIUM [CHEM] AM Lab 07/20/16 05:11 Ordered MAGNESIUM [CHEM] AM Lab 07/21/16 05:11 Ordered TROPONIN I [CHEM] Timed Lab 07/16/16 15:00 Ordered Acetaminophen [Tylenol] Med 07/16/16 12:15 Ordered 650 mg PO Q4H PRN Acetaminophen/HYDROcodone [[place] 325-5 MG] Med 07/16/16 12:15 Ordered 1 tab PO Q4H PRN Albuterol [Proventil Neb Soln] Med 07/16/16 12:15 Ordered 2.5 mg NEB Q2H PRN Albuterol/Ipratropium [DuoNeb 3.0-0.5 MG/3 ML] Med 07/16/16 15:00 Ordered 3 ml NEB Q6HRRT Aspirin Med 07/17/16 09:00 Ordered 81 mg PO DAILY Citalopram Hydrobromide [Celexa] Med 07/17/16 09:00 Ordered 40 mg PO DAILY Diltiazem [Dilacor XR] Med 07/17/16 09:00 Ordered 240 mg PO DAILY Docusate Sodium [Colace] Med 07/16/16 12:15 Ordered 100 mg PO BID PRN Famotidine [Pepcid] Med 07/16/16 21:00 Ordered 20 mg PO BID Gabapentin [Neurontin] Med 07/16/16 21:00 Ordered 100 mg PO BID LORazepam [Ativan] Med 07/16/16 12:32 Ordered 0.5 mg PO Q4H PRN Levofloxacin/Dextrose 5%-Water [Levaquin in D5W 750 MG/ Med 07/16/16 12:45 Ordered 150 ML] 750 mg Premix Bag 1 bag IV Q24H Lidocaine 5% [Lidoderm 5%] Med 07/16/16 12:45 Ordered 700 mg TRDERM Q24H Magnesium Hydroxide [Milk of Magnesia] Med 07/16/16 12:15 Ordered 30 ml PO Q12H PRN Metoprolol Succinate [Toprol XL] Med 07/17/16 09:00 Ordered 25 mg PO DAILY Morphine Med 07/16/16 12:15 Ordered 2 mg IVPUSH Q2H PRN Ondansetron [Zofran] Med 07/16/16 12:15 Ordered 4 mg IV Q4H PRN Polyethylene Glycol 3350 [MiraLAX] Med 07/16/16 12:15 Ordered 17 gm PO DAILY PRN Rivaroxaban Med 07/16/16 18:00 Ordered 15 mg PO QPM Sennosides [Senna] Med 07/16/16 21:00 Ordered 17.2 mg PO BID Simvastatin [Zocor] Med 07/16/16 18:00 Ordered 20 mg PO QPM methylPREDNISolone Sod Succ [Solu-MEDROL] Med 07/16/16 21:00 Ordered 125 mg IVPUSH Q12H traZODone Med 07/16/16 21:00 Ordered 150 mg PO BEDTIME Antiembolic Hose [OM.PC] Per Unit Routine Oth 07/16/16 12:19 Ordered Resuscitation Status Routine Resus Stat 07/16/16 12:15 Ordered Medication Orders Acetaminophen (Tylenol) 650 mg PO Q4H PRN PRN Reason: Pain (Mild 1-3)/fever Hydrocodone Bitart/Acetaminophen (Park[place] 325-5 Mg) 1 tab PO Q4H PRN PRN Reason: Pain (moderate 4-6) Albuterol (Proventil Neb Soln) 2.5 mg NEB Q2H PRN PRN Reason: Shortness Of Breath/wheezing Albuterol/Ipratropium (Duoneb 3.0-0.5 Mg/3 Ml) 3 ml NEB Q6HRRT [facility] Aspirin (Aspirin) 81 mg PO DAILY [facility] Diltiazem HCl (Dilacor Xr) 240 mg PO DAILY [facility] Docusate Sodium (Colace) 100 mg PO BID PRN PRN Reason: Constipation Famotidine (Pepcid) 20 mg PO DAILY [facility] Gabapentin (Neurontin) 100 mg PO BID [facility] Levofloxacin/Dextrose 750 mg/ (Premix) 150 mls @ 100 mls/hr IV Q24H [facility] Lidocaine (Lidoderm 5%) 700 mg TRDERM Q24H [facility] Lorazepam (Ativan) 0.5 mg PO Q4H PRN PRN Reason: Anxiety Magnesium Hydroxide (Milk Of Magnesia) 30 ml PO Q12H PRN PRN Reason: Constipation Methylprednisolone Sodium Succinate (Solu-Medrol) 125 mg IVPUSH Q12H [facility] Metoprolol Succinate (Toprol Xl) 25 mg PO DAILY [facility] Morphine Sulfate (Morphine) 2 mg IVPUSH Q2H PRN PRN Reason: Pain (severe 7-10) Stop: 07/17/16 12:24 Non-Formulary Medication (Citalopram Hydrobromide [Celexa]) 40 mg PO DAILY [facility] Non-Formulary Medication (Rivaroxaban) 15 mg PO QPM [facility] Ondansetron HCl (Zofran) 4 mg IV Q4H PRN PRN Reason: Nausea/Vomiting Polyethylene Glycol (Miralax) 17 gm PO DAILY PRN PRN Reason: Constipation Senna (Senna) 17.2 mg PO BID [facility]ON[facility] Simvastatin (Zocor) 20 mg PO QPM [facility] Sodium Chloride (Saline Flush) 10 ml FLUSH ASDIRECTED PRN PRN Reason: Keep Vein Open Last Admin: 07/16/16 08:32 Dose: 10 ml Trazodone HCl (Trazodone) 150 mg PO BEDTIME [facility] Assessment/Plan Comment:: I/P: Altered mental status: likely d/t hypercapnia -This is similar situation to last admission and hospital course; pCO2 on abg is 71.8 in ED; she will be maintained on bipap with repeat ABG in 2 hours. 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 -patient does not want further evaluation or treatment if this is cancer based on prior discussions- will readdress when she is more awake and alert -Pain medications PRN -Lidocain patch- continue Chronic conditions: A-fib on xarelto- continue home meds for rate control and anticoag CAD- cont home meds Depression/anxiety- ativan PRN in addition to usual SSRI/home med OA with chronic pain Other: GI prophylax DVT prophylax- xarelto, ASA CM/SW for dc planning assistance PT/OT eval and tx for weakness/deconditioning Admit to ICU status POC as above See orders for other details Patient is DNR/DNI code status I reviewed POC with daughter in room upon admission and transfer from ER to ICU room this afternooon.
[2016-07-16] MEDS ORDERED: LORazepam 2 MG/ML MDV IVPUSH ONE (12:55)
[2016-07-16] MEDS: Levofloxacin/Dextrose 5%-Water 750 MG in Premix Bag 1 BAG IV SCH (14:14)
[2016-07-16] MEDS: Albuterol/Ipratropium 3.0-0.5 MG/3 ML Neb Soln NEB SCH ×2 (14:30→21:28)
[2016-07-16] MEDS: Rivaroxaban 10 MG Tab PO SCH (17:45)
[2016-07-16] MEDS: Simvastatin 20 MG Tab PO SCH (17:46)
[2016-07-16] MEDS: traZODone 50 MG Tab PO SCH (20:09)
[2016-07-16] MEDS: LORazepam 1 MG Tab PO PRN (20:09)
[2016-07-16] MEDS: Sennosides 8.6 MG Tab PO SCH (20:10)
[2016-07-16] MEDS: methylPREDNISolone Sodium Succinate 125 MG/2 ML SDV IVPUSH SCH (20:10)
[2016-07-16] MEDS: Gabapentin 100 MG Cap PO SCH (20:10)
[2016-07-16] MEDS: Acetaminophen/HYDROcodone 325-5 MG Tab PO PRN (20:15)
[2016-07-17] MEDS: Acetaminophen/HYDROcodone 325-5 MG Tab PO PRN ×3 (00:15→20:15)
[2016-07-17] MEDS: LORazepam 1 MG Tab PO PRN (03:04)
[2016-07-17] MEDS: Albuterol/Ipratropium 3.0-0.5 MG/3 ML Neb Soln NEB SCH ×4 (03:55→22:25)
[2016-07-17] MEDS: Citalopram 20 MG Tab PO SCH (09:15)
[2016-07-17] MEDS: Diltiazem 240 MG Cap.ER PO SCH (09:15)
[2016-07-17] MEDS: Aspirin 81 MG Tab.Chew PO SCH (09:15)
[2016-07-17] MEDS: methylPREDNISolone Sodium Succinate 125 MG/2 ML SDV IVPUSH SCH ×2 (09:15→20:16)
[2016-07-17] MEDS: Metoprolol Succinate 25 MG Tab.ER PO SCH (09:15)
[2016-07-17] MEDS: Sennosides 8.6 MG Tab PO SCH ×2 (09:15→20:15)
[2016-07-17] MEDS: Famotidine 20 MG Tab PO SCH (09:15)
[2016-07-17] MEDS: Gabapentin 100 MG Cap PO SCH ×2 (09:15→20:15)
[2016-07-17] MEDS: Lidocaine 5% 700 MG Patch TRDERM SCH (09:24)
--- NOTE | 2016-07-17 13:47 | CR ---
Chest: Two views of the chest were obtained. Comparison: Previous chest x-ray of 07/03/16. Heart remains enlarged. Pulmonary vessels remain congested. Small pleural effusions are seen. Bony structures show mild degenerative change within the spine. Compression deformity noted within the midthoracic spine which has slightly progressed in severity from prior exam. Impression: 1. Increasing compression deformity within the midthoracic spine. 2. Other findings as described above remains stable. Diagnostic code #3
[2016-07-17] MEDS: Cefepime 2 GM in Premix Bag 1 BAG IV SCH (14:06)
--- NOTE | 2016-07-17 14:29 | PCM.PN ---
- General Info Date of Service: 07/17/16 Functional Status: Reports: tolerating diet - Review of Systems General: Reports: No Symptoms HEENT: Reports: no symptoms Pulmonary: Reports: no symptoms Cardiovascular: Reports: No Symptoms Gastrointestinal: Reports: No symptoms Genitourinary: Reports: no symptoms Musculoskeletal: Reports: no symptoms Skin: Reports: no symptoms Neurological: Reports: No Symptoms Psychiatric: Reports: no symptoms - Patient Data Vitals - most recent: Last Vital Signs Temp 36.2 C 07/17/16 12:00 Pulse 105 H 07/17/16 09:15 Resp 13 07/17/16 12:00 BP 134/64 07/17/16 12:00 Pulse Ox 97 07/17/16 12:00 Weight - most recent: 103.328 kg I&O - last 24 hours: Intake & Output 07/16/16 07/17/16 07/17/16 22:59 06:59 14:59 Intake Total 1390 240 500 Output Total 800 350 700 Balance 590 -110 -200 Lab Results last 24 hrs: Laboratory Results - last 24 hr 07/16/16 07/16/16 07/17/16 Range/Units 15:05 15:05 05:48 WBC 8.40 (3.98-10.04) K/mm3 RBC 4.58 (3.98-5.22) M/mm3 Hgb 12.2 (11.2-15.7) gm/L Hct 40.7 (34.1-44.9) % MCV 88.9 (79.4-94.8) fl MCH 26.6 (25.6-32.2) pg MCHC 30.0 L (32.2-35.5) g/dl RDW Std Deviation 51.6 H (36.4-46.3) fL Plt Count 230 (182-369) K/mm3 MPV 10.6 (9.4-12.3) fl Neut % (Auto) 91.9 H (34.0-71.1) % Lymph % (Auto) 5.6 L (19.3-51.7) % [place] % (Auto) 2.3 L (4.7-12.5) % Eos % (Auto) 0 L (0.7-5.8) Baso % (Auto) 0.0 L (0.1-1.2) % Neut # (Auto) 7.72 H (1.56-6.13) K/mm3 Lymph # (Auto) 0.47 L (1.18-3.74) K/mm3 [place] # (Auto) 0.19 L (0.24-0.36) K/mm3 Eos # (Auto) 0.00 L (0.04-0.36) K/mm3 Baso # (Auto) 0.00 L (0.01-0.08) K/mm3 Manual Slide Review Abnormal smear Puncture Site Lt radial ABG pH 7.41 (7.35-7.45) ABG pCO2 65.2 H (35.0-45.0) mmHg ABG pO2 56.0 L (80.0-100.0) mmHg ABG HCO3 40.5 H (22.0-26.0) meq/L ABG O2 Saturation 88.6 L (96.0-97.0) % ABG Base Excess 13.5 H (-2-2.0) A-a Gradient 80 mmHg O2 Delivery Device Bipap Oxygen Flow Rate 3.5 FiO2 34.00 (21.00-100.00) % Sodium (136-145) mEq/L Potassium (3.5-5.1) mEq/L Chloride (98-107) mEq/L Carbon Dioxide (21-32) mEq/L Anion Gap (5-15) BUN (7-18) mg/dL Creatinine (0.55-1.02) mg/dL Est Cr Clr Drug Dosing Estimated GFR (MDRD) (>60) mL/min BUN/Creatinine Ratio (14-18) Glucose (83-115) mg/dL Calcium (8.5-10.1) mg/dL Magnesium (1.8-2.4) mg/dl Troponin I 0.038 (0.00-0.056) ng/mL C-Reactive Protein (<1.0) mg/dL 07/17/16 07/17/16 Range/Units 05:48 05:48 WBC (3.98-10.04) K/mm3 RBC (3.98-5.22) M/mm3 Hgb (11.2-15.7) gm/L Hct (34.1-44.9) % MCV (79.4-94.8) fl MCH (25.6-32.2) pg MCHC (32.2-35.5) g/dl RDW Std Deviation (36.4-46.3) fL Plt Count (182-369) K/mm3 MPV (9.4-12.3) fl Neut % (Auto) (34.0-71.1) % Lymph % (Auto) (19.3-51.7) % [place] % (Auto) (4.7-12.5) % Eos % (Auto) (0.7-5.8) Baso % (Auto) (0.1-1.2) % Neut # (Auto) (1.56-6.13) K/mm3 Lymph # (Auto) (1.18-3.74) K/mm3 [place] # (Auto) (0.24-0.36) K/mm3 Eos # (Auto) (0.04-0.36) K/mm3 Baso # (Auto) (0.01-0.08) K/mm3 Manual Slide Review Puncture Site ABG pH (7.35-7.45) ABG pCO2 (35.0-45.0) mmHg ABG pO2 (80.0-100.0) mmHg ABG HCO3 (22.0-26.0) meq/L ABG O2 Saturation (96.0-97.0) % ABG Base Excess (-2-2.0) A-a Gradient mmHg O2 Delivery Device Oxygen Flow Rate FiO2 (21.00-100.00) % Sodium 139 (136-145) mEq/L Potassium 3.5 (3.5-5.1) mEq/L Chloride 96 L (98-107) mEq/L Carbon Dioxide 39 H (21-32) mEq/L Anion Gap 7.5 (5-15) BUN 23 H (7-18) mg/dL Creatinine 1.2 H (0.55-1.02) mg/dL Est Cr Clr Drug Dosing TNP Estimated GFR (MDRD) 43 (>60) mL/min BUN/Creatinine Ratio 19.2 H (14-18) Glucose 149 H (83-115) mg/dL Calcium 9.5 (8.5-10.1) mg/dL Magnesium 2.1 (1.8-2.4) mg/dl Troponin I (0.00-0.056) ng/mL C-Reactive Protein 12.2 H* (<1.0) mg/dL Med Orders - Current: Current Medications Acetaminophen (Tylenol) 650 mg PO Q4H PRN PRN Reason: Pain (Mild 1-3)/fever Hydrocodone Bitart/Acetaminophen ([place] 325-5 Mg) 1 tab PO Q4H PRN PRN Reason: Pain (moderate 4-6) Last Admin: 07/17/16 07:15 Dose: 1 tab Albuterol (Proventil Neb Soln) 2.5 mg NEB Q2H PRN PRN Reason: Shortness Of Breath/wheezing Albuterol/Ipratropium (Duoneb 3.0-0.5 Mg/3 Ml) 3 ml NEB Q6HRRT [facility] Last Admin: 07/17/16 09:26 Dose: 3 ml Aspirin (Aspirin) 81 mg PO DAILY [facility] Last Admin: 07/17/16 09:15 Dose: 81 mg Citalopram Hydrobromide (Celexa) 40 mg PO DAILY [facility] Last Admin: 07/17/16 09:15 Dose: 40 mg Diltiazem HCl (Dilacor Xr) 240 mg PO DAILY [facility] Last Admin: 07/17/16 09:15 Dose: 240 mg Docusate Sodium (Colace) 100 mg PO BID PRN PRN Reason: Constipation Famotidine (Pepcid) 20 mg PO DAILY [facility] Last Admin: 07/17/16 09:15 Dose: 20 mg Gabapentin (Neurontin) 100 mg PO BID [facility] Last Admin: 07/17/16 09:15 Dose: 100 mg Levofloxacin/Dextrose 750 mg/ (Premix) 150 mls @ 100 mls/hr IV Q48H [facility] Last Admin: 07/16/16 14:14 Dose: 100 mls/hr Cefepime HCl 2 gm/ Premix 50 mls @ 100 mls/hr IV Q24H [facility] Last Admin: 07/17/16 14:06 Dose: 100 mls/hr Lidocaine (Lidoderm 5%) 700 mg TRDERM Q24H [facility] Last Admin: 07/17/16 09:24 Dose: 700 mg Lorazepam (Ativan) 0.5 mg PO Q4H PRN PRN Reason: Anxiety Magnesium Hydroxide (Milk Of Magnesia) 30 ml PO Q12H PRN PRN Reason: Constipation Methylprednisolone Sodium Succinate (Solu-Medrol) 125 mg IVPUSH Q12H [facility] Last Admin: 07/17/16 09:15 Dose: 125 mg Metoprolol Succinate (Toprol Xl) 25 mg PO DAILY [facility] Last Admin: 07/17/16 09:15 Dose: 25 mg Miscellaneous Information (Remove Patch) 0 ea TRDERM DAILY@2100 [facility] Last Admin: 07/16/16 23:25 Dose: Not Given Ondansetron HCl (Zofran) 4 mg IV Q4H PRN PRN Reason: Nausea/Vomiting Polyethylene Glycol (Miralax) 17 gm PO DAILY PRN PRN Reason: Constipation Rivaroxaban (Xarelto) 15 mg PO QPM [facility] Last Admin: 07/16/16 17:45 Dose: 15 mg Senna (Senna) 17.2 mg PO BID [facility] Last Admin: 07/17/16 09:15 Dose: 17.2 mg Simvastatin (Zocor) 20 mg PO QPM [facility] Last Admin: 07/16/16 17:46 Dose: 20 mg Sodium Chloride (Saline Flush) 10 ml FLUSH ASDIRECTED PRN PRN Reason: Keep Vein Open Last Admin: 07/16/16 08:32 Dose: 10 ml Trazodone HCl (Trazodone) 150 mg PO BEDTIME [facility] Last Admin: 07/16/16 20:09 Dose: 150 mg Discontinued Medications Albuterol/Ipratropium (Duoneb 3.0-0.5 Mg/3 Ml) 3 ml NEB ONETIME ONE Stop: 07/16/16 08:55 Last Admin: 07/16/16 09:14 Dose: 3 ml Enoxaparin Sodium (Lovenox) 30 mg SUBCUT DAILY [facility] Last Admin: 07/17/16 00:03 Dose: Not Given Furosemide (Lasix) 80 mg IVPUSH NOW ONE Stop: 07/16/16 08:25 Last Admin: 07/16/16 08:32 Dose: 80 mg Hydromorphone HCl (Dilaudid) 0.5 mg IVPUSH ONETIME ONE Stop: 07/16/16 08:30 Last Admin: 07/16/16 09:48 Dose: Not Given Lorazepam (Ativan) 0.5 mg PO Q4H PRN PRN Reason: Anxiety Last Admin: 07/17/16 03:04 Dose: 0.5 mg Lorazepam (Ativan) 0.25 mg IVPUSH ONETIME ONE Stop: 07/16/16 12:56 Last Admin: 07/16/16 13:23 Dose: 0.25 mg Methylprednisolone Sodium Succinate (Solu-Medrol) 125 mg IVPUSH ONETIME ONE Stop: 07/16/16 10:15 Last Admin: 07/16/16 10:27 Dose: 125 mg Morphine Sulfate (Morphine) 2 mg IVPUSH Q2H PRN PRN Reason: Pain (severe 7-10) Stop: 07/17/16 12:24 Last Admin: 07/17/16 03:03 Dose: 2 mg - Exam Quality Assessment: supplemental oxygen, DVT prophylaxis General: alert, oriented, cooperative HEENT: Pupils equal, Pupils reactive, EOMI Neck: supple, trachea midline, no JVD Lungs: Normal respiratory effort Cardiovascular: Regular Rate, Irregular Rhythm Abdomen: bowel sounds present, soft, no tenderness, no distension (Female) Exam: Deferred Back Exam: normal inspection Extremities: normal pulses, edema Skin: warm Neurological: normal speech Psy/Mental Status: alert - Problem List & Annotations (1) CHF (congestive heart failure) SNOMED Code(s): 99122750 Code(s): I50.9 - HEART FAILURE, UNSPECIFIED Status: Acute Current Visit: Yes Qualifiers: Congestive heart failure type: unspecified congestive heart failure type Congestive heart failure chronicity: acute on chronic Qualified Code(s): I50.9 - Heart failure, unspecified (2) CHF exacerbation SNOMED Code(s): 58858486 Code(s): I50.9 - HEART FAILURE, UNSPECIFIED Status: Acute Priority: High Current Visit: Yes Qualifiers: Congestive heart failure type: combined Qualified Code(s): I50.43 - Acute on chronic combined systolic (congestive) and diastolic (congestive) heart failure (3) COPD exacerbation SNOMED Code(s): 601391728, 575802542 Code(s): J44.1 - CHRONIC OBSTRUCTIVE PULMONARY DISEASE W (ACUTE) EXACERBATION Status: Acute Priority: High Current Visit: Yes (4) Hypercapnia SNOMED Code(s): 93523795 Code(s): R06.89 - OTHER ABNORMALITIES OF BREATHING Status: Acute Priority : High Current Visit: Yes (5) Elevated troponin SNOMED Code(s): 378167900, 995759283 Code(s): R74.8 - ABNORMAL LEVELS OF OTHER SERUM ENZYMES Status: Acute Current Visit: No (6) Leg edema SNOMED Code(s): 419642215 Code(s): R60.0 - LOCALIZED EDEMA Status: Acute Current Visit: No Qualifiers: Laterality: bilateral Qualified Code(s): R60.0 - Localized edema - Problem List Review Problem List Initiated/Reviewed/Updated: Yes - My Orders Last 24 Hours: My Active Orders 07/17/16 12:07 Blood Culture x2 Reflex Set [OM.PC] Stat 07/17/16 12:25 CULTURE BLOOD [BC] Stat 07/17/16 12:35 CULTURE BLOOD [BC] Stat 07/17/16 13:00 Cefepime [Maxipime in D5W 2 GM/50 ML] 2 gm Premix Bag 1 bag IV Q24H - Plan Plan:: I/P: Altered mental status: likely d/t hypercapnia; resolved -This is similar situation to last admission and hospital course; pCO2 on abg is 71.8 in ED; she will be maintained on bipap with repeat ABG in 2 hours. CHF exacerbation with acute hypoxic respiratory failure and hypercapnia -BNP 900 range -80mg lasix IVP given in ED, lopez placed, good UO thus far, repeat lasix dose this afternoon -strict I&O, daily wts -monitor renal function with daily am labs -Bipap as above Replace electrolytes as needed. 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 -patient does not want further evaluation or treatment if this is cancer based on prior discussions- will readdress when she is more awake and alert -Pain medications PRN -Lidocain patch- continue Chronic conditions: A-fib on xarelto- continue home meds for rate control and anticoag CAD- cont home meds Depression/anxiety- ativan PRN in addition to usual SSRI/home med OA with chronic pain Other: GI prophylax DVT prophylax- xarelto, ASA CM/SW for dc planning assistance PT/OT eval and tx for weakness/deconditioning Admit to ICU status POC as above See orders for other details Patient is DNR/DNI code status I reviewed POC with daughter in room upon admission and transfer from ER to ICU room this afternooon. Determine objective of treatment ie comfort care cf hospice, etc.
[2016-07-17] MEDS: Rivaroxaban 10 MG Tab PO SCH (17:54)
[2016-07-17] MEDS: Simvastatin 20 MG Tab PO SCH (17:54)
[2016-07-17] MEDS: traZODone 50 MG Tab PO SCH (20:15)
[2016-07-17] MEDS: LORazepam 0.5 MG Tab PO PRN (20:15)
[2016-07-17] MEDS: Potassium Chloride 10% 20 MEQ/15 ML Soln 30 ML UD Cup PO SCH (20:16)
[2016-07-18] MEDS: LORazepam 0.5 MG Tab PO PRN ×2 (01:55→21:31)
[2016-07-18] MEDS: Acetaminophen/HYDROcodone 325-5 MG Tab PO PRN ×3 (01:55→20:25)
[2016-07-18] MEDS: Albuterol/Ipratropium 3.0-0.5 MG/3 ML Neb Soln NEB SCH ×4 (02:30→21:35)
[2016-07-18] MEDS: Diltiazem 240 MG Cap.ER PO SCH ×2 (09:32→11:51)
[2016-07-18] MEDS: Citalopram 20 MG Tab PO SCH ×2 (09:32→11:50)
[2016-07-18] MEDS: Aspirin 81 MG Tab.Chew PO SCH ×2 (09:32→11:52)
[2016-07-18] MEDS: Metoprolol Succinate 25 MG Tab.ER PO SCH ×2 (09:33→11:50)
[2016-07-18] MEDS: Potassium Chloride 10% 20 MEQ/15 ML Soln 30 ML UD Cup PO SCH ×2 (09:33→12:27)
[2016-07-18] MEDS: Famotidine 20 MG Tab PO SCH ×2 (09:33→11:51)
[2016-07-18] MEDS: Sennosides 8.6 MG Tab PO SCH ×2 (09:33→21:29)
[2016-07-18] MEDS: Gabapentin 100 MG Cap PO SCH ×3 (09:33→21:29)
[2016-07-18] MEDS: Lidocaine 5% 700 MG Patch TRDERM SCH (09:37)
[2016-07-18] MEDS: methylPREDNISolone Sodium Succinate 125 MG/2 ML SDV IVPUSH SCH ×2 (09:38→17:36)
--- NOTE | 2016-07-18 09:41 | PCM.PN ---
- General Info Date of Service: 07/18/16 Functional Status: Reports: tolerating diet, urinating - Review of Systems General: Reports: No Symptoms HEENT: Reports: no symptoms Pulmonary: Reports: shortness of breath Cardiovascular: Reports: No Symptoms Gastrointestinal: Reports: No symptoms Genitourinary: Reports: no symptoms Musculoskeletal: Reports: no symptoms Skin: Reports: no symptoms Neurological: Reports: No Symptoms Psychiatric: Reports: no symptoms - Patient Data Vitals - most recent: Last Vital Signs Temp 36.7 C 07/18/16 07:57 Pulse 99 07/17/16 16:00 Resp 13 07/18/16 07:57 BP 112/68 07/18/16 07:57 Pulse Ox 82 L 07/18/16 08:44 Weight - most recent: 104.7 kg I&O - last 24 hours: Intake & Output 07/17/16 07/18/16 07/18/16 22:59 06:59 14:59 Intake Total 295 Output Total 380 200 Balance -85 -200 Lab Results last 24 hrs: Laboratory Results - last 24 hr 07/17/16 07/18/16 07/18/16 Range/Units Unknown 05:45 05:45 WBC 14.65 H (3.98-10.04) K/mm3 RBC 4.17 (3.98-5.22) M/mm3 Hgb 11.0 L (11.2-15.7) gm/L Hct 36.9 (34.1-44.9) % MCV 88.5 (79.4-94.8) fl MCH 26.4 (25.6-32.2) pg MCHC 29.8 L (32.2-35.5) g/dl RDW Std Deviation 52.4 H (36.4-46.3) fL Plt Count 230 (182-369) K/mm3 MPV 10.7 (9.4-12.3) fl Neut % (Auto) 94.5 H (34.0-71.1) % Lymph % (Auto) 2.3 L (19.3-51.7) % [place] % (Auto) 3.1 L (4.7-12.5) % Eos % (Auto) 0 L (0.7-5.8) Baso % (Auto) 0.0 L (0.1-1.2) % Neut # (Auto) 13.84 H (1.56-6.13) K/mm3 Lymph # (Auto) 0.34 L (1.18-3.74) K/mm3 [place] # (Auto) 0.45 H (0.24-0.36) K/mm3 Eos # (Auto) 0.00 L (0.04-0.36) K/mm3 Baso # (Auto) 0.00 L (0.01-0.08) K/mm3 Manual Slide Review Abnormal smear Sodium 140 (136-145) mEq/L Potassium 4.1 (3.5-5.1) mEq/L Chloride 100 (98-107) mEq/L Carbon Dioxide 39 H (21-32) mEq/L Anion Gap 5.1 (5-15) BUN 33 H (7-18) mg/dL Creatinine 1.1 H (0.55-1.02) mg/dL Est Cr Clr Drug Dosing TNP Estimated GFR (MDRD) 48 (>60) mL/min BUN/Creatinine Ratio 30.0 H (14-18) Glucose 158 H (83-115) mg/dL Calcium 9.7 (8.5-10.1) mg/dL Magnesium (1.8-2.4) mg/dl C-Reactive Protein (<1.0) mg/dL MRSA (PCR) Negative 07/18/16 Range/Units 05:45 WBC (3.98-10.04) K/mm3 RBC (3.98-5.22) M/mm3 Hgb (11.2-15.7) gm/L Hct (34.1-44.9) % MCV (79.4-94.8) fl MCH (25.6-32.2) pg MCHC (32.2-35.5) g/dl RDW Std Deviation (36.4-46.3) fL Plt Count (182-369) K/mm3 MPV (9.4-12.3) fl Neut % (Auto) (34.0-71.1) % Lymph % (Auto) (19.3-51.7) % [place] % (Auto) (4.7-12.5) % Eos % (Auto) (0.7-5.8) Baso % (Auto) (0.1-1.2) % Neut # (Auto) (1.56-6.13) K/mm3 Lymph # (Auto) (1.18-3.74) K/mm3 [place] # (Auto) (0.24-0.36) K/mm3 Eos # (Auto) (0.04-0.36) K/mm3 Baso # (Auto) (0.01-0.08) K/mm3 Manual Slide Review Sodium (136-145) mEq/L Potassium (3.5-5.1) mEq/L Chloride (98-107) mEq/L Carbon Dioxide (21-32) mEq/L Anion Gap (5-15) BUN (7-18) mg/dL Creatinine (0.55-1.02) mg/dL Est Cr Clr Drug Dosing Estimated GFR (MDRD) (>60) mL/min BUN/Creatinine Ratio (14-18) Glucose (83-115) mg/dL Calcium (8.5-10.1) mg/dL Magnesium 2.3 (1.8-2.4) mg/dl C-Reactive Protein 5.3 H* (<1.0) mg/dL MRSA (PCR) Med Orders - Current: Current Medications Acetaminophen (Tylenol) 650 mg PO Q4H PRN PRN Reason: Pain (Mild 1-3)/fever Hydrocodone Bitart/Acetaminophen ([place] 325-5 Mg) 1 tab PO Q4H PRN PRN Reason: Pain (moderate 4-6) Last Admin: 07/18/16 01:55 Dose: 1 tab Albuterol (Proventil Neb Soln) 2.5 mg NEB Q2H PRN PRN Reason: Shortness Of Breath/wheezing Albuterol/Ipratropium (Duoneb 3.0-0.5 Mg/3 Ml) 3 ml NEB Q6HRRT [facility] Last Admin: 07/18/16 08:44 Dose: 3 ml Aspirin (Aspirin) 81 mg PO DAILY [facility] Last Admin: 07/18/16 09:32 Dose: Not Given Citalopram Hydrobromide (Celexa) 40 mg PO DAILY [facility] Last Admin: 07/18/16 09:32 Dose: Not Given Diltiazem HCl (Dilacor Xr) 240 mg PO DAILY [facility] Last Admin: 07/18/16 09:32 Dose: Not Given Docusate Sodium (Colace) 100 mg PO BID PRN PRN Reason: Constipation Famotidine (Pepcid) 20 mg PO DAILY [facility] Last Admin: 07/18/16 09:33 Dose: Not Given Gabapentin (Neurontin) 100 mg PO BID [facility] Last Admin: 07/18/16 09:33 Dose: Not Given Levofloxacin/Dextrose 750 mg/ (Premix) 150 mls @ 100 mls/hr IV Q48H [facility] Last Admin: 07/16/16 14:14 Dose: 100 mls/hr Cefepime HCl 2 gm/ Premix 50 mls @ 100 mls/hr IV Q24H [facility] Last Admin: 07/17/16 14:06 Dose: 100 mls/hr Lidocaine (Lidoderm 5%) 700 mg TRDERM Q24H [facility] Last Admin: 07/18/16 09:37 Dose: 700 mg Lorazepam (Ativan) 0.5 mg PO Q4H PRN PRN Reason: Anxiety Last Admin: 07/18/16 01:55 Dose: 0.5 mg Magnesium Hydroxide (Milk Of Magnesia) 30 ml PO Q12H PRN PRN Reason: Constipation Methylprednisolone Sodium Succinate (Solu-Medrol) 125 mg IVPUSH Q12H [facility] Last Admin: 07/18/16 09:38 Dose: 125 mg Metoprolol Succinate (Toprol Xl) 25 mg PO DAILY [facility] Last Admin: 07/18/16 09:33 Dose: Not Given Miscellaneous Information (Remove Patch) 0 ea TRDERM DAILY@2100 [facility] Last Admin: 07/17/16 20:16 Dose: Not Given Ondansetron HCl (Zofran) 4 mg IV Q4H PRN PRN Reason: Nausea/Vomiting Polyethylene Glycol (Miralax) 17 gm PO DAILY PRN PRN Reason: Constipation Potassium Chloride (Potassium Chloride) 40 meq PO BID [facility] Last Admin: 07/18/16 09:33 Dose: Not Given Rivaroxaban (Xarelto) 15 mg PO QPM [facility] Last Admin: 07/17/16 17:54 Dose: 15 mg Senna (Senna) 17.2 mg PO BID [facility] Last Admin: 07/18/16 09:33 Dose: Not Given Simvastatin (Zocor) 20 mg PO QPM [facility] Last Admin: 07/17/16 17:54 Dose: 20 mg Sodium Chloride (Saline Flush) 10 ml FLUSH ASDIRECTED PRN PRN Reason: Keep Vein Open Last Admin: 07/16/16 08:32 Dose: 10 ml Trazodone HCl (Trazodone) 150 mg PO BEDTIME [facility] Last Admin: 07/17/16 20:15 Dose: 150 mg Discontinued Medications Albuterol/Ipratropium (Duoneb 3.0-0.5 Mg/3 Ml) 3 ml NEB ONETIME ONE Stop: 07/16/16 08:55 Last Admin: 07/16/16 09:14 Dose: 3 ml Enoxaparin Sodium (Lovenox) 30 mg SUBCUT DAILY [facility] Last Admin: 07/17/16 00:03 Dose: Not Given Furosemide (Lasix) 80 mg IVPUSH NOW ONE Stop: 07/16/16 08:25 Last Admin: 07/16/16 08:32 Dose: 80 mg Hydromorphone HCl (Dilaudid) 0.5 mg IVPUSH ONETIME ONE Stop: 07/16/16 08:30 Last Admin: 07/16/16 09:48 Dose: Not Given Lorazepam (Ativan) 0.5 mg PO Q4H PRN PRN Reason: Anxiety Last Admin: 07/17/16 03:04 Dose: 0.5 mg Lorazepam (Ativan) 0.25 mg IVPUSH ONETIME ONE Stop: 07/16/16 12:56 Last Admin: 07/16/16 13:23 Dose: 0.25 mg Methylprednisolone Sodium Succinate (Solu-Medrol) 125 mg IVPUSH ONETIME ONE Stop: 07/16/16 10:15 Last Admin: 07/16/16 10:27 Dose: 125 mg Morphine Sulfate (Morphine) 2 mg IVPUSH Q2H PRN PRN Reason: Pain (severe 7-10) Stop: 07/17/16 12:24 Last Admin: 07/17/16 03:03 Dose: 2 mg - Exam Quality Assessment: supplemental oxygen, DVT prophylaxis General: alert, oriented, cooperative, no acute distress HEENT: Pupils equal, Pupils reactive, EOMI Neck: supple, trachea midline Lungs: Decreased breath sounds, Rhonchi, Wheezing Cardiovascular: Regular Rate, Irregular Rhythm Abdomen: bowel sounds present, soft, no tenderness, no distension (Female) Exam: Deferred Back Exam: normal inspection Extremities: normal pulses Skin: warm Neurological: no new focal deficit, normal speech Psy/Mental Status: alert, normal affect, normal mood - Problem List & Annotations (1) CHF (congestive heart failure) SNOMED Code(s): 96855122 Code(s): I50.9 - HEART FAILURE, UNSPECIFIED Status: Acute Current Visit: Yes Qualifiers: Congestive heart failure type: unspecified congestive heart failure type Congestive heart failure chronicity: acute on chronic Qualified Code(s): I50.9 - Heart failure, unspecified (2) CHF exacerbation SNOMED Code(s): 58955713 Code(s): I50.9 - HEART FAILURE, UNSPECIFIED Status: Acute Priority: High Current Visit: Yes Qualifiers: Congestive heart failure type: combined Qualified Code(s): I50.43 - Acute on chronic combined systolic (congestive) and diastolic (congestive) heart failure (3) COPD exacerbation SNOMED Code(s): 147135893, 011533704 Code(s): J44.1 - CHRONIC OBSTRUCTIVE PULMONARY DISEASE W (ACUTE) EXACERBATION Status: Acute Priority: High Current Visit: Yes (4) Hypercapnia SNOMED Code(s): 31347913 Code(s): R06.89 - OTHER ABNORMALITIES OF BREATHING Status: Acute Priority : High Current Visit: Yes (5) Elevated troponin SNOMED Code(s): 132386072, 981415335 Code(s): R74.8 - ABNORMAL LEVELS OF OTHER SERUM ENZYMES Status: Acute Current Visit: No (6) Leg edema SNOMED Code(s): 647489098 Code(s): R60.0 - LOCALIZED EDEMA Status: Acute Current Visit: No - Problem List Review Problem List Initiated/Reviewed/Updated: Yes - My Orders Last 24 Hours: My Active Orders 07/17/16 12:07 Blood Culture x2 Reflex Set [OM.PC] Stat 07/17/16 12:25 CULTURE BLOOD [BC] Stat 07/17/16 12:35 CULTURE BLOOD [BC] Stat 07/17/16 13:00 Cefepime [Maxipime in D5W 2 GM/50 ML] 2 gm Premix Bag 1 bag IV Q24H 07/17/16 21:00 Potassium Chloride 40 meq PO BID - Plan Plan:: I/P: Altered mental status: likely d/t hypercapnia; resolved -This is similar situation to last admission and hospital course; pCO2 on abg is 71.8 in ED; she will be maintained on bipap with repeat ABG in 2 hours. CHF exacerbation with acute hypoxic respiratory failure and hypercapnia -BNP 900 range -80mg lasix IVP given in ED, lopez placed, good UO thus far, repeat lasix dose this afternoon -strict I&O, daily wts -monitor renal function with daily am labs -Bipap as above Replace electrolytes as needed. 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 -patient does not want further evaluation or treatment if this is cancer based on prior discussions- will readdress when she is more awake and alert -Pain medications PRN -Lidocain patch- continue Chronic conditions: A-fib on xarelto- continue home meds for rate control and anticoag CAD- cont home meds Depression/anxiety- ativan PRN in addition to usual SSRI/home med OA with chronic pain Other: GI prophylax DVT prophylax- xarelto, ASA CM/SW for dc planning assistance PT/OT eval and tx for weakness/deconditioning Admit to ICU status POC as above See orders for other details Patient is DNR/DNI code status Family meeting today at 1205 hour, total 50 minutes with patient care and family meeting. Discussed current medicals status including the probablity of cancer as the source of the lytic leisons noted on the previous admission. Also covered need for additional work up of lytic leisons, final decision is to be determined. Objective determination of treatment ie comfort care cf hospice, etc. should be considered. Present at the meeting grandson, 2 daughters, SW and PA as well as author of progress note. LOS>96 hours for treatment
[2016-07-18] MEDS: Furosemide 40 MG/4 ML VIAL IVPUSH ONE ×2 (11:53→12:14)
[2016-07-18] MEDS: Levofloxacin/Dextrose 5%-Water 750 MG in Premix Bag 1 BAG IV SCH (12:28)
[2016-07-18] MEDS: Cefepime 2 GM in Premix Bag 1 BAG IV SCH (12:28)
[2016-07-18] MEDS ORDERED: SODIUM CHLORIDE 0.9% IV ONE ×2 (14:00→16:00)
[2016-07-18] MEDS ORDERED: AMINOPHYLLINE IV ONE ×2 (14:00→16:00)
[2016-07-18] MEDS: Rivaroxaban 10 MG Tab PO SCH (17:36)
[2016-07-18] MEDS: Simvastatin 20 MG Tab PO SCH (17:37)
[2016-07-18] MEDS: traZODone 50 MG Tab PO SCH (21:29)
[2016-07-18] MEDS: Metoprolol Tartrate 5 MG/5 ML SDV IVPUSH PRN (21:38)
[2016-07-18] MEDS ORDERED: Simethicone 80 MG Tab.Chew PO ONE (22:27)
[2016-07-19] MEDS: methylPREDNISolone Sodium Succinate 125 MG/2 ML SDV IVPUSH SCH ×4 (00:26→22:42)
[2016-07-19] MEDS: Metoprolol Tartrate 5 MG/5 ML SDV IVPUSH PRN (01:34)
[2016-07-19] MEDS: LORazepam 0.5 MG Tab PO PRN ×2 (01:35→23:18)
[2016-07-19] MEDS: Acetaminophen/HYDROcodone 325-5 MG Tab PO PRN ×3 (01:35→23:18)
[2016-07-19] MEDS ORDERED: Pantoprazole 40 MG Vial IVPUSH ONE (02:06)
[2016-07-19] MEDS ORDERED: Metoclopramide 10 MG/2 ML SDV IVPUSH ONE (02:06)
[2016-07-19] MEDS ORDERED: LORazepam 2 MG/ML MDV IVPUSH ONE (02:06)
[2016-07-19] MEDS ORDERED: Diltiazem 100 MG in Sodium Chloride 0.9% 100 ML IV SCH ×2 (02:15→18:45)
[2016-07-19] MEDS ORDERED: Sodium Chloride 0.9% 1,000 ML IV SCH (03:00)
[2016-07-19] MEDS: Albuterol/Ipratropium 3.0-0.5 MG/3 ML Neb Soln NEB SCH ×4 (03:46→20:35)
[2016-07-19] MEDS ORDERED: Iopamidol 755 Mg/ML 100 ML Bottle IVPUSH ONE (03:53)
[2016-07-19] MEDS: Sodium Chloride 0.9% 10 ML Syringe FLUSH PRN (04:23)
[2016-07-19] MEDS ORDERED: Furosemide 100 MG/10 ML SDV IVPUSH ONE (08:00)
[2016-07-19] MEDS ORDERED: Diltiazem 125 MG in Sodium Chloride 0.9% 100 ML IV SCH (09:00)
[2016-07-19] MEDS: Lidocaine 5% 700 MG Patch TRDERM SCH (10:09)
[2016-07-19] MEDS: Metoprolol Succinate 25 MG Tab.ER PO SCH (10:10)
[2016-07-19] MEDS: Diltiazem 240 MG Cap.ER PO SCH (10:10)
[2016-07-19] MEDS: Gabapentin 100 MG Cap PO SCH ×2 (10:10→21:07)
[2016-07-19] MEDS: Famotidine 20 MG Tab PO SCH (10:10)
[2016-07-19] MEDS: Sennosides 8.6 MG Tab PO SCH ×2 (10:10→21:07)
[2016-07-19] MEDS: Citalopram 20 MG Tab PO SCH (10:11)
[2016-07-19] MEDS: Aspirin 81 MG Tab.Chew PO SCH (10:11)
[2016-07-19] MEDS: Pantoprazole 40 MG Vial IVPUSH SCH ×2 (10:36→21:07)
[2016-07-19] MEDS: Benzocaine/Cetylpyridinium/Menthol Lozenge MUCMEM PRN (11:21)
[2016-07-19] MEDS: Cefepime 2 GM in Premix Bag 1 BAG IV SCH (12:37)
--- NOTE | 2016-07-19 15:01 | PCM.CONSN ---
- General Info Date of Service: 07/19/16 - Patient Data Vitals - most recent: Last Vital Signs Temp 98.1 F 07/19/16 13:00 Pulse 110 H 07/19/16 10:10 Resp 19 07/19/16 14:00 BP 114/56 L 07/19/16 14:00 Pulse Ox 92 L 07/19/16 14:56 Weight - most recent: 107.229 kg I&O - last 24 hours: Intake & Output 07/18/16 07/19/16 07/19/16 23:59 07:59 15:59 Intake Total 472 1011 Output Total 2759 425 1335 Balance -3388 586 -1335 Lab Results last 24 hrs: Laboratory Results - last 24 hr 07/18/16 07/19/16 07/19/16 Range/Units 16:00 04:40 04:40 WBC 15.06 H (3.98-10.04) K/mm3 RBC 4.13 (3.98-5.22) M/mm3 Hgb 11.0 L (11.2-15.7) gm/L Hct 37.0 (34.1-44.9) % MCV 89.6 (79.4-94.8) fl MCH 26.6 (25.6-32.2) pg MCHC 29.7 L (32.2-35.5) g/dl RDW Std Deviation 52.6 H (36.4-46.3) fL Plt Count 229 (182-369) K/mm3 MPV 10.7 (9.4-12.3) fl Neut % (Auto) 93.4 H (34.0-71.1) % Lymph % (Auto) 1.7 L (19.3-51.7) % Knott % (Auto) 4.7 (4.7-12.5) % Eos % (Auto) 0 L (0.7-5.8) Baso % (Auto) 0.0 L (0.1-1.2) % Neut # (Auto) 14.06 H (1.56-6.13) K/mm3 Lymph # (Auto) 0.26 L (1.18-3.74) K/mm3 Knott # (Auto) 0.71 H (0.24-0.36) K/mm3 Eos # (Auto) 0.00 L (0.04-0.36) K/mm3 Baso # (Auto) 0.00 L (0.01-0.08) K/mm3 Manual Slide Review Abnormal smear Puncture Site Rt radial ABG pH 7.47 H (7.35-7.45) ABG pCO2 56.3 H (35.0-45.0) mmHg ABG pO2 61.0 L (80.0-100.0) mmHg ABG HCO3 40.2 H (22.0-26.0) meq/L ABG O2 Saturation 91.3 L (96.0-97.0) % ABG Base Excess 14.3 H (-2-2.0) A-a Gradient 99 mmHg O2 Delivery Device Nasal cannula Oxygen Flow Rate 4.0 FiO2 36.00 (21.00-100.00) % PEEP 5.0 cmH20 Pressure Support 12.0 cmH2O Sodium 141 (136-145) mEq/L Potassium 4.1 (3.5-5.1) mEq/L Chloride 99 (98-107) mEq/L Carbon Dioxide 40 H (21-32) mEq/L Anion Gap 6.1 (5-15) BUN 37 H (7-18) mg/dL Creatinine 1.4 H (0.55-1.02) mg/dL Est Cr Clr Drug Dosing TNP Estimated GFR (MDRD) 36 (>60) mL/min BUN/Creatinine Ratio 26.4 H (14-18) Glucose 183 H (83-115) mg/dL Calcium 9.3 (8.5-10.1) mg/dL Magnesium (1.8-2.4) mg/dl C-Reactive Protein (<1.0) mg/dL 07/19/16 Range/Units 04:40 WBC (3.98-10.04) K/mm3 RBC (3.98-5.22) M/mm3 Hgb (11.2-15.7) gm/L Hct (34.1-44.9) % MCV (79.4-94.8) fl MCH (25.6-32.2) pg MCHC (32.2-35.5) g/dl RDW Std Deviation (36.4-46.3) fL Plt Count (182-369) K/mm3 MPV (9.4-12.3) fl Neut % (Auto) (34.0-71.1) % Lymph % (Auto) (19.3-51.7) % Knott % (Auto) (4.7-12.5) % Eos % (Auto) (0.7-5.8) Baso % (Auto) (0.1-1.2) % Neut # (Auto) (1.56-6.13) K/mm3 Lymph # (Auto) (1.18-3.74) K/mm3 Knott # (Auto) (0.24-0.36) K/mm3 Eos # (Auto) (0.04-0.36) K/mm3 Baso # (Auto) (0.01-0.08) K/mm3 Manual Slide Review Puncture Site ABG pH (7.35-7.45) ABG pCO2 (35.0-45.0) mmHg ABG pO2 (80.0-100.0) mmHg ABG HCO3 (22.0-26.0) meq/L ABG O2 Saturation (96.0-97.0) % ABG Base Excess (-2-2.0) A-a Gradient mmHg O2 Delivery Device Oxygen Flow Rate FiO2 (21.00-100.00) % PEEP cmH20 Pressure Support cmH2O Sodium (136-145) mEq/L Potassium (3.5-5.1) mEq/L Chloride (98-107) mEq/L Carbon Dioxide (21-32) mEq/L Anion Gap (5-15) BUN (7-18) mg/dL Creatinine (0.55-1.02) mg/dL Est Cr Clr Drug Dosing Estimated GFR (MDRD) (>60) mL/min BUN/Creatinine Ratio (14-18) Glucose (83-115) mg/dL Calcium (8.5-10.1) mg/dL Magnesium 2.2 (1.8-2.4) mg/dl C-Reactive Protein 2.7 H* (<1.0) mg/dL [place] Results last 24 hrs: Microbiology 07/17/16 12:25 Aerobic Blood Culture - Preliminary Blood - Venous NO GROWTH AFTER 2 DAYS Anaerobic Blood Culture - Preliminary NO GROWTH AFTER 2 DAYS 07/17/16 12:35 Aerobic Blood Culture - Preliminary Blood - Venous - Lab Draw NO GROWTH AFTER 2 DAYS Anaerobic Blood Culture - Preliminary NO GROWTH AFTER 2 DAYS Med Orders - Current: Current Medications Acetaminophen (Tylenol) 650 mg PO Q4H PRN PRN Reason: Pain (Mild 1-3)/fever Hydrocodone Bitart/Acetaminophen ([place] 325-5 Mg) 1 tab PO Q4H PRN PRN Reason: Pain (moderate 4-6) Last Admin: 07/19/16 13:27 Dose: 1 tab Albuterol (Proventil Neb Soln) 2.5 mg NEB Q2H PRN PRN Reason: Shortness Of Breath/wheezing Albuterol/Ipratropium (Duoneb 3.0-0.5 Mg/3 Ml) 3 ml NEB Q6HRRT [facility] Last Admin: 07/19/16 14:56 Dose: 3 ml Benzocaine/Menthol (Cepacol Sore Throat) 1 lozenge MUCMEM Q2H PRN PRN Reason: Sore Throat Last Admin: 07/19/16 11:21 Dose: 1 lozenge Citalopram Hydrobromide (Celexa) 40 mg PO DAILY [facility] Last Admin: 07/19/16 10:11 Dose: 40 mg Diltiazem HCl (Dilacor Xr) 240 mg PO DAILY [facility] Last Admin: 07/19/16 10:10 Dose: 240 mg Docusate Sodium (Colace) 100 mg PO BID PRN PRN Reason: Constipation Famotidine (Pepcid) 20 mg PO DAILY [facility] Last Admin: 07/19/16 10:10 Dose: 20 mg Gabapentin (Neurontin) 100 mg PO BID [facility] Last Admin: 07/19/16 10:10 Dose: 100 mg Levofloxacin/Dextrose 750 mg/ (Premix) 150 mls @ 100 mls/hr IV Q48H [facility] Last Admin: 07/18/16 12:28 Dose: 100 mls/hr Cefepime HCl 2 gm/ Premix 50 mls @ 100 mls/hr IV Q24H [facility] Last Admin: 07/19/16 12:37 Dose: 100 mls/hr Aminophylline 285 mg/ Sodium (Chloride) 511.4 mls @ 21.3 mls/hr IV Q24H ONE Stop: 07/19/16 16:00 Last Admin: 07/18/16 16:04 Dose: 21.3 mls/hr Diltiazem HCl 125 mg/ Sodium (Chloride) 125 mls @ 5 mls/hr IV TITRATE TONJA; 5 MG /HR PRN Reason: Protocol Last Titration: 07/19/16 14:26 Dose: 10 mg/hr, 10 mls/hr Lidocaine (Lidoderm 5%) 700 mg TRDERM Q24H [facility] Last Admin: 07/19/16 10:09 Dose: 700 mg Lorazepam (Ativan) 0.5 mg PO Q4H PRN PRN Reason: Anxiety Last Admin: 07/19/16 01:35 Dose: 0.5 mg Magnesium Hydroxide (Milk Of Magnesia) 30 ml PO Q12H PRN PRN Reason: Constipation Methylprednisolone Sodium Succinate (Solu-Medrol) 125 mg IVPUSH Q8H [facility] Last Admin: 07/19/16 08:49 Dose: 125 mg Metoprolol Succinate (Toprol Xl) 25 mg PO DAILY [facility] Last Admin: 07/19/16 10:10 Dose: 25 mg Metoprolol Tartrate (Lopressor) 5 mg IVPUSH Q4H PRN PRN Reason: heart rate>120 Last Admin: 07/19/16 01:34 Dose: 5 mg Miscellaneous Information (Remove Patch) 0 ea TRDERM DAILY@2100 [facility] Last Admin: 07/18/16 21:44 Dose: 2 ea Ondansetron HCl (Zofran) 4 mg IV Q4H PRN PRN Reason: Nausea/Vomiting Last Admin: 07/19/16 00:26 Dose: 4 mg Pantoprazole Sodium (Protonix Iv) 40 mg IVPUSH Q12H [facility] Last Admin: 07/19/16 10:36 Dose: 40 mg Polyethylene Glycol (Miralax) 17 gm PO DAILY PRN PRN Reason: Constipation Rivaroxaban (Xarelto) 15 mg PO QPM [facility] Last Admin: 07/18/16 17:36 Dose: 15 mg Senna (Senna) 17.2 mg PO BID [facility] Last Admin: 07/19/16 10:10 Dose: 17.2 mg Simvastatin (Zocor) 20 mg PO QPM [facility] Last Admin: 07/18/16 17:37 Dose: 20 mg Sodium Chloride (Saline Flush) 10 ml FLUSH ASDIRECTED PRN PRN Reason: Keep Vein Open Last Admin: 07/19/16 04:23 Dose: 10 ml Trazodone HCl (Trazodone) 150 mg PO BEDTIME TONJA Last Admin: 07/18/16 21:29 Dose: 150 mg Discontinued Medications Albuterol/Ipratropium (Duoneb 3.0-0.5 Mg/3 Ml) 3 ml NEB ONETIME ONE Stop: 07/16/16 08:55 Last Admin: 07/16/16 09:14 Dose: 3 ml Aspirin (Aspirin) 81 mg PO DAILY TONJA Last Admin: 07/19/16 10:11 Dose: Not Given Enoxaparin Sodium (Lovenox) 30 mg SUBCUT DAILY [facility] Last Admin: 07/17/16 00:03 Dose: Not Given Furosemide (Lasix) 80 mg IVPUSH NOW ONE Stop: 07/16/16 08:25 Last Admin: 07/16/16 08:32 Dose: 80 mg Furosemide (Lasix) 80 mg IVPUSH NOW ONE Stop: 07/18/16 12:01 Last Admin: 07/18/16 12:14 Dose: Not Given Furosemide (Lasix) 80 mg IVPUSH NOW ONE Stop: 07/19/16 08:01 Last Admin: 07/19/16 08:36 Dose: 80 mg Hydromorphone HCl (Dilaudid) 0.5 mg IVPUSH ONETIME ONE Stop: 07/16/16 08:30 Last Admin: 07/16/16 09:48 Dose: Not Given Aminophylline 275 mg/ Sodium (Chloride) 111 mls @ 222 mls/hr IV ONETIME ONE Stop: 07/18/16 15:59 Last Admin: 07/18/16 15:23 Dose: 222 mls/hr Aminophylline 285 mg/ Sodium (Chloride) 511.4 mls @ 21.3 mls/hr IV Q24H ONE Stop: 07/19/16 14:00 Last Admin: 07/18/16 16:06 Dose: Not Given Diltiazem HCl 100 mg/ Sodium (Chloride) 100 mls @ 5 mls/hr IV TITRATE TONJA; 5 MG /HR PRN Reason: Protocol Last Titration: 07/19/16 05:30 Dose: 15 mg/hr, 15 mls/hr Sodium Chloride (Normal Saline) 1,000 mls @ 315 mls/hr IV ASDIRECTED TONJA Last Admin: 07/19/16 03:07 Dose: 315 mls/hr Iopamidol (Isovue-370 (76%)) 100 ml IVPUSH ONETIME ONE Stop: 07/19/16 03:54 Last Admin: 07/19/16 04:23 Dose: 100 ml Lorazepam (Ativan) 0.5 mg PO Q4H PRN PRN Reason: Anxiety Last Admin: 07/17/16 03:04 Dose: 0.5 mg Lorazepam (Ativan) 0.25 mg IVPUSH ONETIME ONE Stop: 07/16/16 12:56 Last Admin: 07/16/16 13:23 Dose: 0.25 mg Lorazepam (Ativan) 1 mg IVPUSH ONETIME ONE Stop: 07/19/16 02:07 Last Admin: 07/19/16 02:32 Dose: 1 mg Methylprednisolone Sodium Succinate (Solu-Medrol) 125 mg IVPUSH ONETIME ONE Stop: 07/16/16 10:15 Last Admin: 07/16/16 10:27 Dose: 125 mg Methylprednisolone Sodium Succinate (Solu-Medrol) 125 mg IVPUSH Q12H [facility] Last Admin: 07/18/16 09:38 Dose: 125 mg Metoclopramide HCl (Reglan) 10 mg IVPUSH ONETIME ONE Stop: 07/19/16 02:07 Last Admin: 07/19/16 02:32 Dose: 10 mg Morphine Sulfate (Morphine) 2 mg IVPUSH Q2H PRN PRN Reason: Pain (severe 7-10) Stop: 07/17/16 12:24 Last Admin: 07/17/16 03:03 Dose: 2 mg Pantoprazole Sodium (Protonix Iv) 40 mg IVPUSH ONETIME ONE Stop: 07/19/16 02:07 Last Admin: 07/19/16 02:32 Dose: 40 mg Potassium Chloride (Potassium Chloride) 40 meq PO BID TONJA Last Admin: 07/18/16 12:27 Dose: 40 meq Simethicone (Simethicone) 320 mg PO ONETIME ONE Stop: 07/18/16 22:28 Last Admin: 07/18/16 22:41 Dose: 320 mg Consult PN Assessment/Plan Procedures: Procedures AIRWAY INHALATION TREATMENT (06/28/16) ASSAY OF LACTIC ACID (06/28/16) ASSAY OF MAGNESIUM (06/28/16) ASSAY OF NATRIURETIC PEPTIDE (06/28/16) ASSAY OF TROPONIN QUANT (06/28/16) BLOOD GASES ANY COMBINATION (06/28/16) C-REACTIVE PROTEIN (06/28/16) CARCINOEMBRYONIC ANTIGEN (06/28/16) CHEST X-RAY 1 VIEW FRONTAL (06/28/16) CHEST X-RAY 2VW FRONTAL&LATL (06/28/16) COGNITIVE TEST BY HC PRO (06/28/16) COMPLETE CBC AUTOMATED (06/28/16) COMPLETE CBC W/AUTO DIFF WBC (06/28/16) COMPREHEN METABOLIC PANEL (06/28/16) CT ABD & PELVIS W/O CONTRAST (06/28/16) CT CHEST SPINE W/O DYE (06/28/16) CT LUMBAR SPINE W/O DYE (06/28/16) CT PELVIS W/O DYE (06/28/16) CT THORAX W/O DYE (06/28/16) ELECTROCARDIOGRAM TRACING (06/28/16) EMERGENCY DEPT VISIT (06/28/16) EMERGENCY DEPT VISIT (07/27/15) EMERGENCY DEPT VISIT (03/30/15) EVALUATE PT USE OF INHALER (06/28/16) FIBRIN DEGRADATION QUANT (07/27/15) GAIT TRAINING THERAPY (06/28/16) LUNG VENTILAT&PERFUS IMAGING (06/28/16) METABOLIC PANEL TOTAL CA (06/28/16) MICROBE SUSCEPTIBLE [place] (06/28/16) OT EVAL MOD COMPLEX 45 MIN (06/28/16) OT EVALUATION (03/30/15) POS AIRWAY PRESSURE CPAP (06/28/16) PT EVAL MOD COMPLEX 30 MIN (06/28/16) PT EVALUATION (03/30/15) RBC SED RATE AUTOMATED (06/28/16) ROUTINE VENIPUNCTURE (06/28/16) SELF CARE MNGMENT TRAINING (06/28/16) THER/PROPH/DIAG INJ IV PUSH (07/27/15) THER/PROPH/DIAG IV INF ADDON (06/28/16) THER/PROPH/DIAG IV INF INIT (06/28/16) THERAPEUTIC ACTIVITIES (06/28/16) THERAPEUTIC EXERCISES (06/28/16) TTE W/DOPPLER COMPLETE (06/28/16) TX/PRO/DX INJ NEW DRUG ADDON (06/28/16) TX/PRO/DX INJ SAME DRUG [employer] (06/28/16) URINALYSIS AUTO W/SCOPE (06/28/16) URINE BACTERIA CULTURE (06/28/16) URINE CULTURE/COLONY COUNT (06/28/16) WITHDRAWAL OF ARTERIAL BLOOD (06/28/16) Problem List Initiated/Reviewed/Updated: Yes My Orders last 24 hours: My Active Orders 07/19/16 14:59 Enema [RC] ASDIRECTED 07/20/16 08:00 Abdomen 2V AP Flat Upright [CR] Routine Plan: surgical consultation dictated LISA
--- NOTE | 2016-07-19 15:47 | PCM.PN ---
- General Info Date of Service: 07/19/16 Subjective Update: Patient had an episode of bloating and abdominal distension last night. An NGT was placed which has eliminated the discomfort. Ct of abdomen and pelvis supports SBO. A gen surg consult will be requested. Medication will be given via NGT and IV. An adjustment of meds occurred last night for A Fib with RVR. Functional Status: Reports: pain controlled - Review of Systems General: Reports: Weakness HEENT: Reports: no symptoms Pulmonary: Reports: shortness of breath Cardiovascular: Reports: No Symptoms Gastrointestinal: Reports: No symptoms Genitourinary: Reports: no symptoms Musculoskeletal: Reports: no symptoms Skin: Reports: no symptoms Neurological: Reports: No Symptoms Psychiatric: Reports: no symptoms - Patient Data Vitals - most recent: Last Vital Signs Temp 36.2 C 07/19/16 15:00 Pulse 110 H 07/19/16 10:10 Resp 18 07/19/16 15:00 BP 112/56 L 07/19/16 15:00 Pulse Ox 92 L 07/19/16 15:00 Weight - most recent: 104.7 kg I&O - last 24 hours: Intake & Output 07/19/16 07/19/16 07/19/16 06:59 14:59 22:59 Intake Total 1011 Output Total 1425 1335 Balance -414 -1335 Lab Results last 24 hrs: Laboratory Results - last 24 hr 07/18/16 07/19/16 07/19/16 Range/Units 16:00 04:40 04:40 WBC 15.06 H (3.98-10.04) K/mm3 RBC 4.13 (3.98-5.22) M/mm3 Hgb 11.0 L (11.2-15.7) gm/L Hct 37.0 (34.1-44.9) % MCV 89.6 (79.4-94.8) fl MCH 26.6 (25.6-32.2) pg MCHC 29.7 L (32.2-35.5) g/dl RDW Std Deviation 52.6 H (36.4-46.3) fL Plt Count 229 (182-369) K/mm3 MPV 10.7 (9.4-12.3) fl Neut % (Auto) 93.4 H (34.0-71.1) % Lymph % (Auto) 1.7 L (19.3-51.7) % [place] % (Auto) 4.7 (4.7-12.5) % Eos % (Auto) 0 L (0.7-5.8) Baso % (Auto) 0.0 L (0.1-1.2) % Neut # (Auto) 14.06 H (1.56-6.13) K/mm3 Lymph # (Auto) 0.26 L (1.18-3.74) K/mm3 [place] # (Auto) 0.71 H (0.24-0.36) K/mm3 Eos # (Auto) 0.00 L (0.04-0.36) K/mm3 Baso # (Auto) 0.00 L (0.01-0.08) K/mm3 Manual Slide Review Abnormal smear Puncture Site Rt radial ABG pH 7.47 H (7.35-7.45) ABG pCO2 56.3 H (35.0-45.0) mmHg ABG pO2 61.0 L (80.0-100.0) mmHg ABG HCO3 40.2 H (22.0-26.0) meq/L ABG O2 Saturation 91.3 L (96.0-97.0) % ABG Base Excess 14.3 H (-2-2.0) A-a Gradient 99 mmHg O2 Delivery Device Nasal cannula Oxygen Flow Rate 4.0 FiO2 36.00 (21.00-100.00) % PEEP 5.0 cmH20 Pressure Support 12.0 cmH2O Sodium 141 (136-145) mEq/L Potassium 4.1 (3.5-5.1) mEq/L Chloride 99 (98-107) mEq/L Carbon Dioxide 40 H (21-32) mEq/L Anion Gap 6.1 (5-15) BUN 37 H (7-18) mg/dL Creatinine 1.4 H (0.55-1.02) mg/dL Est Cr Clr Drug Dosing TNP Estimated GFR (MDRD) 36 (>60) mL/min BUN/Creatinine Ratio 26.4 H (14-18) Glucose 183 H (83-115) mg/dL Calcium 9.3 (8.5-10.1) mg/dL Magnesium (1.8-2.4) mg/dl C-Reactive Protein (<1.0) mg/dL 07/19/16 Range/Units 04:40 WBC (3.98-10.04) K/mm3 RBC (3.98-5.22) M/mm3 Hgb (11.2-15.7) gm/L Hct (34.1-44.9) % MCV (79.4-94.8) fl MCH (25.6-32.2) pg MCHC (32.2-35.5) g/dl RDW Std Deviation (36.4-46.3) fL Plt Count (182-369) K/mm3 MPV (9.4-12.3) fl Neut % (Auto) (34.0-71.1) % Lymph % (Auto) (19.3-51.7) % [place] % (Auto) (4.7-12.5) % Eos % (Auto) (0.7-5.8) Baso % (Auto) (0.1-1.2) % Neut # (Auto) (1.56-6.13) K/mm3 Lymph # (Auto) (1.18-3.74) K/mm3 [place] # (Auto) (0.24-0.36) K/mm3 Eos # (Auto) (0.04-0.36) K/mm3 Baso # (Auto) (0.01-0.08) K/mm3 Manual Slide Review Puncture Site ABG pH (7.35-7.45) ABG pCO2 (35.0-45.0) mmHg ABG pO2 (80.0-100.0) mmHg ABG HCO3 (22.0-26.0) meq/L ABG O2 Saturation (96.0-97.0) % ABG Base Excess (-2-2.0) A-a Gradient mmHg O2 Delivery Device Oxygen Flow Rate FiO2 (21.00-100.00) % PEEP cmH20 Pressure Support cmH2O Sodium (136-145) mEq/L Potassium (3.5-5.1) mEq/L Chloride (98-107) mEq/L Carbon Dioxide (21-32) mEq/L Anion Gap (5-15) BUN (7-18) mg/dL Creatinine (0.55-1.02) mg/dL Est Cr Clr Drug Dosing Estimated GFR (MDRD) (>60) mL/min BUN/Creatinine Ratio (14-18) Glucose (83-115) mg/dL Calcium (8.5-10.1) mg/dL Magnesium 2.2 (1.8-2.4) mg/dl C-Reactive Protein 2.7 H* (<1.0) mg/dL [place] Results last 24 hrs: Microbiology 07/17/16 12:25 Aerobic Blood Culture - Preliminary Blood - Venous NO GROWTH AFTER 2 DAYS Anaerobic Blood Culture - Preliminary NO GROWTH AFTER 2 DAYS 07/17/16 12:35 Aerobic Blood Culture - Preliminary Blood - Venous - Lab Draw NO GROWTH AFTER 2 DAYS Anaerobic Blood Culture - Preliminary NO GROWTH AFTER 2 DAYS Med Orders - Current: Current Medications Acetaminophen (Tylenol) 650 mg PO Q4H PRN PRN Reason: Pain (Mild 1-3)/fever Hydrocodone Bitart/Acetaminophen ([place] 325-5 Mg) 1 tab PO Q4H PRN PRN Reason: Pain (moderate 4-6) Last Admin: 07/19/16 13:27 Dose: 1 tab Albuterol (Proventil Neb Soln) 2.5 mg NEB Q2H PRN PRN Reason: Shortness Of Breath/wheezing Albuterol/Ipratropium (Duoneb 3.0-0.5 Mg/3 Ml) 3 ml NEB Q6HRRT [facility] Last Admin: 07/19/16 14:56 Dose: 3 ml Benzocaine/Menthol (Cepacol Sore Throat) 1 lozenge MUCMEM Q2H PRN PRN Reason: Sore Throat Last Admin: 07/19/16 11:21 Dose: 1 lozenge Citalopram Hydrobromide (Celexa) 40 mg PO DAILY [facility] Last Admin: 07/19/16 10:11 Dose: 40 mg Diltiazem HCl (Dilacor Xr) 240 mg PO DAILY [facility] Last Admin: 07/19/16 10:10 Dose: 240 mg Docusate Sodium (Colace) 100 mg PO BID PRN PRN Reason: Constipation Famotidine (Pepcid) 20 mg PO DAILY [facility] Last Admin: 07/19/16 10:10 Dose: 20 mg Gabapentin (Neurontin) 100 mg PO BID [facility] Last Admin: 07/19/16 10:10 Dose: 100 mg Levofloxacin/Dextrose 750 mg/ (Premix) 150 mls @ 100 mls/hr IV Q48H [facility] Last Admin: 07/18/16 12:28 Dose: 100 mls/hr Cefepime HCl 2 gm/ Premix 50 mls @ 100 mls/hr IV Q24H [facility] Last Admin: 07/19/16 12:37 Dose: 100 mls/hr Aminophylline 285 mg/ Sodium (Chloride) 511.4 mls @ 21.3 mls/hr IV Q24H ONE Stop: 07/19/16 16:00 Last Admin: 07/18/16 16:04 Dose: 21.3 mls/hr Diltiazem HCl 125 mg/ Sodium (Chloride) 125 mls @ 5 mls/hr IV TITRATE TONJA; 5 MG /HR PRN Reason: Protocol Last Titration: 07/19/16 15:06 Dose: 5 mg/hr, 5 mls/hr Lidocaine (Lidoderm 5%) 700 mg TRDERM Q24H [facility] Last Admin: 07/19/16 10:09 Dose: 700 mg Lorazepam (Ativan) 0.5 mg PO Q4H PRN PRN Reason: Anxiety Last Admin: 07/19/16 01:35 Dose: 0.5 mg Magnesium Hydroxide (Milk Of Magnesia) 30 ml PO Q12H PRN PRN Reason: Constipation Methylprednisolone Sodium Succinate (Solu-Medrol) 125 mg IVPUSH Q8H [facility] Last Admin: 07/19/16 08:49 Dose: 125 mg Metoprolol Succinate (Toprol Xl) 25 mg PO DAILY [facility] Last Admin: 07/19/16 10:10 Dose: 25 mg Metoprolol Tartrate (Lopressor) 5 mg IVPUSH Q4H PRN PRN Reason: heart rate>120 Last Admin: 07/19/16 01:34 Dose: 5 mg Miscellaneous Information (Remove Patch) 0 ea TRDERM DAILY@2100 [facility] Last Admin: 07/18/16 21:44 Dose: 2 ea Ondansetron HCl (Zofran) 4 mg IV Q4H PRN PRN Reason: Nausea/Vomiting Last Admin: 07/19/16 00:26 Dose: 4 mg Pantoprazole Sodium (Protonix Iv) 40 mg IVPUSH Q12H [facility] Last Admin: 07/19/16 10:36 Dose: 40 mg Polyethylene Glycol (Miralax) 17 gm PO DAILY PRN PRN Reason: Constipation Rivaroxaban (Xarelto) 15 mg PO QPM [facility] Last Admin: 07/18/16 17:36 Dose: 15 mg Senna (Senna) 17.2 mg PO BID [facility] Last Admin: 07/19/16 10:10 Dose: 17.2 mg Simvastatin (Zocor) 20 mg PO QPM [facility] Last Admin: 07/18/16 17:37 Dose: 20 mg Sodium Chloride (Saline Flush) 10 ml FLUSH ASDIRECTED PRN PRN Reason: Keep Vein Open Last Admin: 07/19/16 04:23 Dose: 10 ml Trazodone HCl (Trazodone) 150 mg PO BEDTIME [facility] Last Admin: 07/18/16 21:29 Dose: 150 mg Discontinued Medications Albuterol/Ipratropium (Duoneb 3.0-0.5 Mg/3 Ml) 3 ml NEB ONETIME ONE Stop: 07/16/16 08:55 Last Admin: 07/16/16 09:14 Dose: 3 ml Aspirin (Aspirin) 81 mg PO DAILY [facility] Last Admin: 07/19/16 10:11 Dose: Not Given Enoxaparin Sodium (Lovenox) 30 mg SUBCUT DAILY [facility] Last Admin: 07/17/16 00:03 Dose: Not Given Furosemide (Lasix) 80 mg IVPUSH NOW ONE Stop: 07/16/16 08:25 Last Admin: 07/16/16 08:32 Dose: 80 mg Furosemide (Lasix) 80 mg IVPUSH NOW ONE Stop: 07/18/16 12:01 Last Admin: 07/18/16 12:14 Dose: Not Given Furosemide (Lasix) 80 mg IVPUSH NOW ONE Stop: 07/19/16 08:01 Last Admin: 07/19/16 08:36 Dose: 80 mg Hydromorphone HCl (Dilaudid) 0.5 mg IVPUSH ONETIME ONE Stop: 07/16/16 08:30 Last Admin: 07/16/16 09:48 Dose: Not Given Aminophylline 275 mg/ Sodium (Chloride) 111 mls @ 222 mls/hr IV ONETIME ONE Stop: 07/18/16 15:59 Last Admin: 07/18/16 15:23 Dose: 222 mls/hr Aminophylline 285 mg/ Sodium (Chloride) 511.4 mls @ 21.3 mls/hr IV Q24H ONE Stop: 07/19/16 14:00 Last Admin: 07/18/16 16:06 Dose: Not Given Diltiazem HCl 100 mg/ Sodium (Chloride) 100 mls @ 5 mls/hr IV TITRATE TONJA; 5 MG /HR PRN Reason: Protocol Last Titration: 07/19/16 05:30 Dose: 15 mg/hr, 15 mls/hr Sodium Chloride (Normal Saline) 1,000 mls @ 315 mls/hr IV ASDIRECTED [facility] Last Admin: 07/19/16 03:07 Dose: 315 mls/hr Iopamidol (Isovue-370 (76%)) 100 ml IVPUSH ONETIME ONE Stop: 07/19/16 03:54 Last Admin: 07/19/16 04:23 Dose: 100 ml Lorazepam (Ativan) 0.5 mg PO Q4H PRN PRN Reason: Anxiety Last Admin: 07/17/16 03:04 Dose: 0.5 mg Lorazepam (Ativan) 0.25 mg IVPUSH ONETIME ONE Stop: 07/16/16 12:56 Last Admin: 07/16/16 13:23 Dose: 0.25 mg Lorazepam (Ativan) 1 mg IVPUSH ONETIME ONE Stop: 07/19/16 02:07 Last Admin: 07/19/16 02:32 Dose: 1 mg Methylprednisolone Sodium Succinate (Solu-Medrol) 125 mg IVPUSH ONETIME ONE Stop: 07/16/16 10:15 Last Admin: 07/16/16 10:27 Dose: 125 mg Methylprednisolone Sodium Succinate (Solu-Medrol) 125 mg IVPUSH Q12H [facility] Last Admin: 07/18/16 09:38 Dose: 125 mg Metoclopramide HCl (Reglan) 10 mg IVPUSH ONETIME ONE Stop: 07/19/16 02:07 Last Admin: 07/19/16 02:32 Dose: 10 mg Morphine Sulfate (Morphine) 2 mg IVPUSH Q2H PRN PRN Reason: Pain (severe 7-10) Stop: 07/17/16 12:24 Last Admin: 07/17/16 03:03 Dose: 2 mg Pantoprazole Sodium (Protonix Iv) 40 mg IVPUSH ONETIME ONE Stop: 07/19/16 02:07 Last Admin: 07/19/16 02:32 Dose: 40 mg Potassium Chloride (Potassium Chloride) 40 meq PO BID [facility] Last Admin: 07/18/16 12:27 Dose: 40 meq Simethicone (Simethicone) 320 mg PO ONETIME ONE Stop: 07/18/16 22:28 Last Admin: 07/18/16 22:41 Dose: 320 mg - Exam Quality Assessment: supplemental oxygen, DVT prophylaxis General: alert, oriented, cooperative, no acute distress HEENT: Pupils equal, Pupils reactive, EOMI Neck: supple, trachea midline Lungs: Normal respiratory effort, Decreased breath sounds Cardiovascular: Regular Rate, Irregular Rhythm Abdomen: bowel sounds present, soft, no tenderness, no distension (Female) Exam: Deferred Back Exam: normal inspection Extremities: normal pulses Skin: warm Neurological: no new focal deficit, normal speech Psy/Mental Status: alert, normal affect, normal mood - Problem List & Annotations (1) CHF (congestive heart failure) SNOMED Code(s): 38109398 Code(s): I50.9 - HEART FAILURE, UNSPECIFIED Status: Acute Current Visit: Yes Qualifiers: Congestive heart failure type: unspecified congestive heart failure type Congestive heart failure chronicity: acute on chronic Qualified Code(s): I50.9 - Heart failure, unspecified (2) CHF exacerbation SNOMED Code(s): 09211959 Code(s): I50.9 - HEART FAILURE, UNSPECIFIED Status: Acute Priority: High Current Visit: Yes Qualifiers: Congestive heart failure type: combined Qualified Code(s): I50.43 - Acute on chronic combined systolic (congestive) and diastolic (congestive) heart failure (3) COPD exacerbation SNOMED Code(s): 001079308, 028812612 Code(s): J44.1 - CHRONIC OBSTRUCTIVE PULMONARY DISEASE W (ACUTE) EXACERBATION Status: Acute Priority: High Current Visit: Yes (4) Hypercapnia SNOMED Code(s): 05838510 Code(s): R06.89 - OTHER ABNORMALITIES OF BREATHING Status: Acute Priority : High Current Visit: Yes (5) Elevated troponin SNOMED Code(s): 911263451, 965023999 Code(s): R74.8 - ABNORMAL LEVELS OF OTHER SERUM ENZYMES Status: Acute Current Visit: No (6) Leg edema SNOMED Code(s): 887308958 Code(s): R60.0 - LOCALIZED EDEMA Status: Acute Current Visit: No (7) SBO (small bowel obstruction) SNOMED Code(s): 392197294 Code(s): K56.69 - OTHER INTESTINAL OBSTRUCTION Status: Acute Current Visit: Yes - Problem List Review Problem List Initiated/Reviewed/Updated: Yes - My Orders Last 24 Hours: My Active Orders 07/18/16 16:00 Aminophylline 285 mg Sodium Chloride 0.9% [Normal Saline] 500 ml IV Q24H 07/18/16 20:12 Metoprolol Tartrate [Lopressor] 5 mg IVPUSH Q4H PRN 07/19/16 02:08 NG [Nasogastric Orogastric Tube Insertion] [OM.PC] Routine 07/19/16 02:23 Abdomen Pelvis w Cont [CT] Stat 07/19/16 09:00 Diltiazem 125 mg Sodium Chloride 0.9% [Normal Saline] 100 ml IV TITRATE 07/19/16 10:00 Pantoprazole [ProTONIX IV] 40 mg IVPUSH Q12H 07/19/16 10:50 Benzocaine/Cetylpyrd/Menthol [Cepacol Sore Throat] 1 lozenge MUCMEM Q2H PRN 07/19/16 16:30 THEOPHYLLINE [CHEM] Stat 07/20/16 07:00 CXR [Chest 2V] [CR] Routine - Plan Plan:: I/P: Altered mental status: likely d/t hypercapnia; resolved -This is similar situation to last admission and hospital course; pCO2 on abg is 71.8 in ED; she will be maintained on bipap with repeat ABG in 2 hours. CHF exacerbation with acute hypoxic respiratory failure and hypercapnia -BNP 900 range -80mg lasix IVP given in ED, lopez placed, good UO thus far, repeat lasix dose this afternoon -strict I&O, daily wts -monitor renal function with daily am labs -Bipap as above Replace electrolytes as needed. 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 -patient does not want further evaluation or treatment if this is cancer based on prior discussions- will readdress when she is more awake and alert -Pain medications PRN -Lidocain patch- continue Abdominal pain and distension, new SBO; had emesis>500 cc coffee grounds NGT placed Chronic conditions: A-fib on xarelto- continue home meds for rate control and anticoag CAD- cont home meds Depression/anxiety- ativan PRN in addition to usual SSRI/home med OA with chronic pain Other: GI prophylax DVT prophylax- xarelto, ASA CM/SW for dc planning assistance PT/OT eval and tx for weakness/deconditioning Meds via IV or NGT; continue Xarelto, Cardizem drip. General Surg consult re: SBO Continue Theophylline Follow H/H CXR 2 view, 07/20/16. Patient is DNR/DNI code status Family meeting today at 1205 hour, total 50 minutes with patient care and family meeting. Discussed current medicals status including the probablity of cancer as the source of the lytic leisons noted on the previous admission. Also covered need for additional work up of lytic leisons, final decision is to be determined. Objective determination of treatment ie comfort care cf hospice, etc. should be considered. Present at the meeting grandson, 2 daughters, JOELLEN and PA as well as author of progress note. LOS>96 hours for treatment
--- NOTE | 2016-07-19 16:04 | PCM.CONSN ---
- General Info Date of Service: 07/19/16 - Patient Data Vitals - most recent: Last Vital Signs Temp 97.1 F 07/19/16 15:00 Pulse 110 H 07/19/16 10:10 Resp 18 07/19/16 15:00 BP 112/56 L 07/19/16 15:00 Pulse Ox 92 L 07/19/16 15:00 Weight - most recent: 104.7 kg I&O - last 24 hours: Intake & Output 07/19/16 07/19/16 07/19/16 07:59 15:59 23:59 Intake Total 1011 Output Total 425 1335 Balance 586 -1335 Lab Results last 24 hrs: Laboratory Results - last 24 hr 07/18/16 07/19/16 07/19/16 Range/Units 16:00 04:40 04:40 WBC 15.06 H (3.98-10.04) K/mm3 RBC 4.13 (3.98-5.22) M/mm3 Hgb 11.0 L (11.2-15.7) gm/L Hct 37.0 (34.1-44.9) % MCV 89.6 (79.4-94.8) fl MCH 26.6 (25.6-32.2) pg MCHC 29.7 L (32.2-35.5) g/dl RDW Std Deviation 52.6 H (36.4-46.3) fL Plt Count 229 (182-369) K/mm3 MPV 10.7 (9.4-12.3) fl Neut % (Auto) 93.4 H (34.0-71.1) % Lymph % (Auto) 1.7 L (19.3-51.7) % [place] % (Auto) 4.7 (4.7-12.5) % Eos % (Auto) 0 L (0.7-5.8) Baso % (Auto) 0.0 L (0.1-1.2) % Neut # (Auto) 14.06 H (1.56-6.13) K/mm3 Lymph # (Auto) 0.26 L (1.18-3.74) K/mm3 [place] # (Auto) 0.71 H (0.24-0.36) K/mm3 Eos # (Auto) 0.00 L (0.04-0.36) K/mm3 Baso # (Auto) 0.00 L (0.01-0.08) K/mm3 Manual Slide Review Abnormal smear Puncture Site Rt radial ABG pH 7.47 H (7.35-7.45) ABG pCO2 56.3 H (35.0-45.0) mmHg ABG pO2 61.0 L (80.0-100.0) mmHg ABG HCO3 40.2 H (22.0-26.0) meq/L ABG O2 Saturation 91.3 L (96.0-97.0) % ABG Base Excess 14.3 H (-2-2.0) A-a Gradient 99 mmHg O2 Delivery Device Nasal cannula Oxygen Flow Rate 4.0 FiO2 36.00 (21.00-100.00) % PEEP 5.0 cmH20 Pressure Support 12.0 cmH2O Sodium 141 (136-145) mEq/L Potassium 4.1 (3.5-5.1) mEq/L Chloride 99 (98-107) mEq/L Carbon Dioxide 40 H (21-32) mEq/L Anion Gap 6.1 (5-15) BUN 37 H (7-18) mg/dL Creatinine 1.4 H (0.55-1.02) mg/dL Est Cr Clr Drug Dosing TNP Estimated GFR (MDRD) 36 (>60) mL/min BUN/Creatinine Ratio 26.4 H (14-18) Glucose 183 H (83-115) mg/dL Calcium 9.3 (8.5-10.1) mg/dL Magnesium (1.8-2.4) mg/dl C-Reactive Protein (<1.0) mg/dL 07/19/16 Range/Units 04:40 WBC (3.98-10.04) K/mm3 RBC (3.98-5.22) M/mm3 Hgb (11.2-15.7) gm/L Hct (34.1-44.9) % MCV (79.4-94.8) fl MCH (25.6-32.2) pg MCHC (32.2-35.5) g/dl RDW Std Deviation (36.4-46.3) fL Plt Count (182-369) K/mm3 MPV (9.4-12.3) fl Neut % (Auto) (34.0-71.1) % Lymph % (Auto) (19.3-51.7) % [place] % (Auto) (4.7-12.5) % Eos % (Auto) (0.7-5.8) Baso % (Auto) (0.1-1.2) % Neut # (Auto) (1.56-6.13) K/mm3 Lymph # (Auto) (1.18-3.74) K/mm3 [place] # (Auto) (0.24-0.36) K/mm3 Eos # (Auto) (0.04-0.36) K/mm3 Baso # (Auto) (0.01-0.08) K/mm3 Manual Slide Review Puncture Site ABG pH (7.35-7.45) ABG pCO2 (35.0-45.0) mmHg ABG pO2 (80.0-100.0) mmHg ABG HCO3 (22.0-26.0) meq/L ABG O2 Saturation (96.0-97.0) % ABG Base Excess (-2-2.0) A-a Gradient mmHg O2 Delivery Device Oxygen Flow Rate FiO2 (21.00-100.00) % PEEP cmH20 Pressure Support cmH2O Sodium (136-145) mEq/L Potassium (3.5-5.1) mEq/L Chloride (98-107) mEq/L Carbon Dioxide (21-32) mEq/L Anion Gap (5-15) BUN (7-18) mg/dL Creatinine (0.55-1.02) mg/dL Est Cr Clr Drug Dosing Estimated GFR (MDRD) (>60) mL/min BUN/Creatinine Ratio (14-18) Glucose (83-115) mg/dL Calcium (8.5-10.1) mg/dL Magnesium 2.2 (1.8-2.4) mg/dl C-Reactive Protein 2.7 H* (<1.0) mg/dL [place] Results last 24 hrs: Microbiology 07/17/16 12:25 Aerobic Blood Culture - Preliminary Blood - Venous NO GROWTH AFTER 2 DAYS Anaerobic Blood Culture - Preliminary NO GROWTH AFTER 2 DAYS 07/17/16 12:35 Aerobic Blood Culture - Preliminary Blood - Venous - Lab Draw NO GROWTH AFTER 2 DAYS Anaerobic Blood Culture - Preliminary NO GROWTH AFTER 2 DAYS Med Orders - Current: Current Medications Acetaminophen (Tylenol) 650 mg PO Q4H PRN PRN Reason: Pain (Mild 1-3)/fever Hydrocodone Bitart/Acetaminophen ([place] 325-5 Mg) 1 tab PO Q4H PRN PRN Reason: Pain (moderate 4-6) Last Admin: 07/19/16 13:27 Dose: 1 tab Albuterol (Proventil Neb Soln) 2.5 mg NEB Q2H PRN PRN Reason: Shortness Of Breath/wheezing Albuterol/Ipratropium (Duoneb 3.0-0.5 Mg/3 Ml) 3 ml NEB Q6HRRT [facility] Last Admin: 07/19/16 14:56 Dose: 3 ml Benzocaine/Menthol (Cepacol Sore Throat) 1 lozenge MUCMEM Q2H PRN PRN Reason: Sore Throat Last Admin: 07/19/16 11:21 Dose: 1 lozenge Citalopram Hydrobromide (Celexa) 40 mg PO DAILY [facility] Last Admin: 07/19/16 10:11 Dose: 40 mg Diltiazem HCl (Dilacor Xr) 240 mg PO DAILY [facility] Last Admin: 07/19/16 10:10 Dose: 240 mg Docusate Sodium (Colace) 100 mg PO BID PRN PRN Reason: Constipation Famotidine (Pepcid) 20 mg PO DAILY [facility] Last Admin: 07/19/16 10:10 Dose: 20 mg Gabapentin (Neurontin) 100 mg PO BID [facility] Last Admin: 07/19/16 10:10 Dose: 100 mg Levofloxacin/Dextrose 750 mg/ (Premix) 150 mls @ 100 mls/hr IV Q48H [facility] Last Admin: 07/18/16 12:28 Dose: 100 mls/hr Cefepime HCl 2 gm/ Premix 50 mls @ 100 mls/hr IV Q24H [facility] Last Admin: 07/19/16 12:37 Dose: 100 mls/hr Diltiazem HCl 125 mg/ Sodium (Chloride) 125 mls @ 5 mls/hr IV TITRATE TONJA; 5 MG /HR PRN Reason: Protocol Last Titration: 07/19/16 15:06 Dose: 5 mg/hr, 5 mls/hr Lidocaine (Lidoderm 5%) 700 mg TRDERM Q24H [facility] Last Admin: 07/19/16 10:09 Dose: 700 mg Lorazepam (Ativan) 0.5 mg PO Q4H PRN PRN Reason: Anxiety Last Admin: 07/19/16 01:35 Dose: 0.5 mg Magnesium Hydroxide (Milk Of Magnesia) 30 ml PO Q12H PRN PRN Reason: Constipation Methylprednisolone Sodium Succinate (Solu-Medrol) 125 mg IVPUSH Q8H [facility] Last Admin: 07/19/16 08:49 Dose: 125 mg Metoprolol Succinate (Toprol Xl) 25 mg PO DAILY [facility] Last Admin: 07/19/16 10:10 Dose: 25 mg Metoprolol Tartrate (Lopressor) 5 mg IVPUSH Q4H PRN PRN Reason: heart rate>120 Last Admin: 07/19/16 01:34 Dose: 5 mg Miscellaneous Information (Remove Patch) 0 ea TRDERM DAILY@2100 [facility] Last Admin: 07/18/16 21:44 Dose: 2 ea Ondansetron HCl (Zofran) 4 mg IV Q4H PRN PRN Reason: Nausea/Vomiting Last Admin: 07/19/16 00:26 Dose: 4 mg Pantoprazole Sodium (Protonix Iv) 40 mg IVPUSH Q12H [facility] Last Admin: 07/19/16 10:36 Dose: 40 mg Polyethylene Glycol (Miralax) 17 gm PO DAILY PRN PRN Reason: Constipation Rivaroxaban (Xarelto) 15 mg PO QPM [facility] Last Admin: 07/18/16 17:36 Dose: 15 mg Senna (Senna) 17.2 mg PO BID [facility] Last Admin: 07/19/16 10:10 Dose: 17.2 mg Simvastatin (Zocor) 20 mg PO QPM [facility] Last Admin: 07/18/16 17:37 Dose: 20 mg Sodium Chloride (Saline Flush) 10 ml FLUSH ASDIRECTED PRN PRN Reason: Keep Vein Open Last Admin: 07/19/16 04:23 Dose: 10 ml Trazodone HCl (Trazodone) 150 mg PO BEDTIME [facility] Last Admin: 07/18/16 21:29 Dose: 150 mg Discontinued Medications Albuterol/Ipratropium (Duoneb 3.0-0.5 Mg/3 Ml) 3 ml NEB ONETIME ONE Stop: 07/16/16 08:55 Last Admin: 07/16/16 09:14 Dose: 3 ml Aspirin (Aspirin) 81 mg PO DAILY [facility] Last Admin: 07/19/16 10:11 Dose: Not Given Enoxaparin Sodium (Lovenox) 30 mg SUBCUT DAILY [facility] Last Admin: 07/17/16 00:03 Dose: Not Given Furosemide (Lasix) 80 mg IVPUSH NOW ONE Stop: 07/16/16 08:25 Last Admin: 07/16/16 08:32 Dose: 80 mg Furosemide (Lasix) 80 mg IVPUSH NOW ONE Stop: 07/18/16 12:01 Last Admin: 07/18/16 12:14 Dose: Not Given Furosemide (Lasix) 80 mg IVPUSH NOW ONE Stop: 07/19/16 08:01 Last Admin: 07/19/16 08:36 Dose: 80 mg Hydromorphone HCl (Dilaudid) 0.5 mg IVPUSH ONETIME ONE Stop: 07/16/16 08:30 Last Admin: 07/16/16 09:48 Dose: Not Given Aminophylline 275 mg/ Sodium (Chloride) 111 mls @ 222 mls/hr IV ONETIME ONE Stop: 07/18/16 15:59 Last Admin: 07/18/16 15:23 Dose: 222 mls/hr Aminophylline 285 mg/ Sodium (Chloride) 511.4 mls @ 21.3 mls/hr IV Q24H ONE Stop: 07/19/16 14:00 Last Admin: 07/18/16 16:06 Dose: Not Given Aminophylline 285 mg/ Sodium (Chloride) 511.4 mls @ 21.3 mls/hr IV Q24H ONE Stop: 07/19/16 16:00 Last Admin: 07/18/16 16:04 Dose: 21.3 mls/hr Diltiazem HCl 100 mg/ Sodium (Chloride) 100 mls @ 5 mls/hr IV TITRATE TONJA; 5 MG /HR PRN Reason: Protocol Last Titration: 07/19/16 05:30 Dose: 15 mg/hr, 15 mls/hr Sodium Chloride (Normal Saline) 1,000 mls @ 315 mls/hr IV ASDIRECTED [facility] Last Admin: 07/19/16 03:07 Dose: 315 mls/hr Iopamidol (Isovue-370 (76%)) 100 ml IVPUSH ONETIME ONE Stop: 07/19/16 03:54 Last Admin: 07/19/16 04:23 Dose: 100 ml Lorazepam (Ativan) 0.5 mg PO Q4H PRN PRN Reason: Anxiety Last Admin: 07/17/16 03:04 Dose: 0.5 mg Lorazepam (Ativan) 0.25 mg IVPUSH ONETIME ONE Stop: 07/16/16 12:56 Last Admin: 07/16/16 13:23 Dose: 0.25 mg Lorazepam (Ativan) 1 mg IVPUSH ONETIME ONE Stop: 07/19/16 02:07 Last Admin: 07/19/16 02:32 Dose: 1 mg Methylprednisolone Sodium Succinate (Solu-Medrol) 125 mg IVPUSH ONETIME ONE Stop: 07/16/16 10:15 Last Admin: 07/16/16 10:27 Dose: 125 mg Methylprednisolone Sodium Succinate (Solu-Medrol) 125 mg IVPUSH Q12H [facility] Last Admin: 07/18/16 09:38 Dose: 125 mg Metoclopramide HCl (Reglan) 10 mg IVPUSH ONETIME ONE Stop: 07/19/16 02:07 Last Admin: 07/19/16 02:32 Dose: 10 mg Morphine Sulfate (Morphine) 2 mg IVPUSH Q2H PRN PRN Reason: Pain (severe 7-10) Stop: 07/17/16 12:24 Last Admin: 07/17/16 03:03 Dose: 2 mg Pantoprazole Sodium (Protonix Iv) 40 mg IVPUSH ONETIME ONE Stop: 07/19/16 02:07 Last Admin: 07/19/16 02:32 Dose: 40 mg Potassium Chloride (Potassium Chloride) 40 meq PO BID [facility] Last Admin: 07/18/16 12:27 Dose: 40 meq Simethicone (Simethicone) 320 mg PO ONETIME ONE Stop: 07/18/16 22:28 Last Admin: 07/18/16 22:41 Dose: 320 mg Consult PN Assessment/Plan Procedures: Procedures AIRWAY INHALATION TREATMENT (06/28/16) ASSAY OF LACTIC ACID (06/28/16) ASSAY OF MAGNESIUM (06/28/16) ASSAY OF NATRIURETIC PEPTIDE (06/28/16) ASSAY OF TROPONIN QUANT (06/28/16) BLOOD GASES ANY COMBINATION (06/28/16) C-REACTIVE PROTEIN (06/28/16) CARCINOEMBRYONIC ANTIGEN (06/28/16) CHEST X-RAY 1 VIEW FRONTAL (06/28/16) CHEST X-RAY 2VW FRONTAL&LATL (06/28/16) COGNITIVE TEST BY HC PRO (06/28/16) COMPLETE CBC AUTOMATED (06/28/16) COMPLETE CBC W/AUTO DIFF WBC (06/28/16) COMPREHEN METABOLIC PANEL (06/28/16) CT ABD & PELVIS W/O CONTRAST (06/28/16) CT CHEST SPINE W/O DYE (06/28/16) CT LUMBAR SPINE W/O DYE (06/28/16) CT PELVIS W/O DYE (06/28/16) CT THORAX W/O DYE (06/28/16) ELECTROCARDIOGRAM TRACING (06/28/16) EMERGENCY DEPT VISIT (06/28/16) EMERGENCY DEPT VISIT (07/27/15) EMERGENCY DEPT VISIT (03/30/15) EVALUATE PT USE OF INHALER (06/28/16) FIBRIN DEGRADATION QUANT (07/27/15) GAIT TRAINING THERAPY (06/28/16) LUNG VENTILAT&PERFUS IMAGING (06/28/16) METABOLIC PANEL TOTAL CA (06/28/16) MICROBE SUSCEPTIBLE [place] (06/28/16) OT EVAL MOD COMPLEX 45 MIN (06/28/16) OT EVALUATION (03/30/15) POS AIRWAY PRESSURE CPAP (06/28/16) PT EVAL MOD COMPLEX 30 MIN (06/28/16) PT EVALUATION (03/30/15) RBC SED RATE AUTOMATED (06/28/16) ROUTINE VENIPUNCTURE (06/28/16) SELF CARE MNGMENT TRAINING (06/28/16) THER/PROPH/DIAG INJ IV PUSH (07/27/15) THER/PROPH/DIAG IV INF ADDON (06/28/16) THER/PROPH/DIAG IV INF INIT (06/28/16) THERAPEUTIC ACTIVITIES (06/28/16) THERAPEUTIC EXERCISES (06/28/16) TTE W/DOPPLER COMPLETE (06/28/16) TX/PRO/DX INJ NEW DRUG ADDON (06/28/16) TX/PRO/DX INJ SAME DRUG SALES PROJECT COORDINATOR (06/28/16) URINALYSIS AUTO W/SCOPE (06/28/16) URINE BACTERIA CULTURE (06/28/16) URINE CULTURE/COLONY COUNT (06/28/16) WITHDRAWAL OF ARTERIAL BLOOD (06/28/16) Problem List Initiated/Reviewed/Updated: Yes My Orders last 24 hours: My Active Orders 07/19/16 14:59 Enema [RC] ASDIRECTED 07/20/16 08:00 Abdomen 2V AP Flat Upright [CR] Routine Plan: surgical consult dictated LISA
[2016-07-19] MEDS: Rivaroxaban 10 MG Tab PO SCH (18:14)
[2016-07-19] MEDS: Simvastatin 20 MG Tab PO SCH (18:15)
[2016-07-19] MEDS: Diltiazem 100 MG in Sodium Chloride 0.9% 100 ML IV SCH (19:13)
[2016-07-19] MEDS: traZODone 50 MG Tab PO SCH (21:07)
[2016-07-20] MEDS: Diltiazem 100 MG in Sodium Chloride 0.9% 100 ML IV SCH (02:04)
[2016-07-20] MEDS: Albuterol/Ipratropium 3.0-0.5 MG/3 ML Neb Soln NEB SCH ×4 (02:27→20:35)
[2016-07-20] MEDS: methylPREDNISolone Sodium Succinate 125 MG/2 ML SDV IVPUSH SCH ×4 (05:59→22:00)
[2016-07-20] MEDS: Acetaminophen/HYDROcodone 325-5 MG Tab PO PRN ×3 (08:01→21:57)
[2016-07-20] MEDS: Metoprolol Succinate 25 MG Tab.ER PO SCH (08:47)
[2016-07-20] MEDS: Citalopram 20 MG Tab PO SCH (08:48)
[2016-07-20] MEDS: Sennosides 8.6 MG Tab PO SCH ×2 (08:48→21:56)
[2016-07-20] MEDS: Gabapentin 100 MG Cap PO SCH ×2 (08:48→21:56)
[2016-07-20] MEDS: Famotidine 20 MG Tab PO SCH (08:48)
[2016-07-20] MEDS: Diltiazem 240 MG Cap.ER PO SCH (08:49)
[2016-07-20] MEDS: Lidocaine 5% 700 MG Patch TRDERM SCH (08:57)
[2016-07-20] MEDS: Pantoprazole 40 MG Vial IVPUSH SCH ×2 (09:05→21:56)
--- NOTE | 2016-07-20 10:26 | PCM.PN ---
- General Info Date of Service: 07/20/16 Functional Status: Reports: pain controlled, urinating (lopez) - Review of Systems General: Reports: No Symptoms HEENT: Reports: no symptoms Pulmonary: Reports: no symptoms Cardiovascular: Reports: No Symptoms Gastrointestinal: Reports: No symptoms Genitourinary: Reports: no symptoms Musculoskeletal: Reports: no symptoms Skin: Reports: no symptoms Neurological: Reports: No Symptoms Psychiatric: Reports: no symptoms - Patient Data Vitals - most recent: Last Vital Signs Temp 35.9 C 07/20/16 10:00 Pulse 102 H 07/20/16 08:47 Resp 15 07/20/16 10:00 BP 122/76 07/20/16 10:00 Pulse Ox 90 L 07/20/16 10:00 Weight - most recent: 106.231 kg I&O - last 24 hours: Intake & Output 07/19/16 07/20/16 07/20/16 22:59 06:59 14:59 Intake Total 1052 150 Output Total 200 375 180 Balance 852 -225 -180 Lab Results last 24 hrs: Laboratory Results - last 24 hr 07/19/16 07/19/16 07/20/16 Range/Units 16:35 18:00 04:55 WBC 9.51 (3.98-10.04) K/mm3 RBC 4.18 (3.98-5.22) M/mm3 Hgb 10.9 L (11.2-15.7) gm/L Hct 37.6 (34.1-44.9) % MCV 90.0 (79.4-94.8) fl MCH 26.1 (25.6-32.2) pg MCHC 29.0 L (32.2-35.5) g/dl RDW Std Deviation 53.5 H (36.4-46.3) fL Plt Count 183 (182-369) K/mm3 MPV 10.7 (9.4-12.3) fl Neut % (Auto) 93.1 H (34.0-71.1) % Lymph % (Auto) 2.6 L (19.3-51.7) % Harper % (Auto) 4.2 L (4.7-12.5) % Eos % (Auto) 0 L (0.7-5.8) Baso % (Auto) 0.0 L (0.1-1.2) % Neut # (Auto) 8.85 H (1.56-6.13) K/mm3 Lymph # (Auto) 0.25 L (1.18-3.74) K/mm3 Harper # (Auto) 0.40 H (0.24-0.36) K/mm3 Eos # (Auto) 0.00 L (0.04-0.36) K/mm3 Baso # (Auto) 0.00 L (0.01-0.08) K/mm3 Manual Slide Review Abnormal smear Puncture Site Rt radial ABG pH 7.49 H (7.35-7.45) ABG pCO2 61.6 H (35.0-45.0) mmHg ABG pO2 67.0 L (80.0-100.0) mmHg ABG HCO3 46.1 H (22.0-26.0) meq/L ABG O2 Saturation 93.1 L (96.0-97.0) % ABG Base Excess 19.5 H (-2-2.0) Asael Test Positive A-a Gradient 87 mmHg O2 Delivery Device Nasal cannula Oxygen Flow Rate 4.0 FiO2 0.00 L (21.00-100.00) % Sodium (136-145) mEq/L Potassium (3.5-5.1) mEq/L Chloride (98-107) mEq/L Carbon Dioxide (21-32) mEq/L Anion Gap (5-15) BUN (7-18) mg/dL Creatinine (0.55-1.02) mg/dL Est Cr Clr Drug Dosing Estimated GFR (MDRD) (>60) mL/min BUN/Creatinine Ratio (14-18) Glucose (83-115) mg/dL Calcium (8.5-10.1) mg/dL Magnesium (1.8-2.4) mg/dl C-Reactive Protein (<1.0) mg/dL Theophylline 6.5 L (10.0-20.0) ug/mL Mycoplasma pneumon IgM (NEGATIVE) 07/20/16 07/20/16 07/20/16 Range/Units 04:55 04:55 06:30 WBC (3.98-10.04) K/mm3 RBC (3.98-5.22) M/mm3 Hgb (11.2-15.7) gm/L Hct (34.1-44.9) % MCV (79.4-94.8) fl MCH (25.6-32.2) pg MCHC (32.2-35.5) g/dl RDW Std Deviation (36.4-46.3) fL Plt Count (182-369) K/mm3 MPV (9.4-12.3) fl Neut % (Auto) (34.0-71.1) % Lymph % (Auto) (19.3-51.7) % Harper % (Auto) (4.7-12.5) % Eos % (Auto) (0.7-5.8) Baso % (Auto) (0.1-1.2) % Neut # (Auto) (1.56-6.13) K/mm3 Lymph # (Auto) (1.18-3.74) K/mm3 Harper # (Auto) (0.24-0.36) K/mm3 Eos # (Auto) (0.04-0.36) K/mm3 Baso # (Auto) (0.01-0.08) K/mm3 Manual Slide Review Puncture Site Rt radial ABG pH 7.46 H (7.35-7.45) ABG pCO2 65.8 H (35.0-45.0) mmHg ABG pO2 58.0 L (80.0-100.0) mmHg ABG HCO3 45.9 H (22.0-26.0) meq/L ABG O2 Saturation 88.9 L (96.0-97.0) % ABG Base Excess 18.8 H (-2-2.0) Asael Test Positive A-a Gradient 65 mmHg O2 Delivery Device Cannula Oxygen Flow Rate 3.0 FiO2 32.00 (21.00-100.00) % Sodium 145 (136-145) mEq/L Potassium 3.6 (3.5-5.1) mEq/L Chloride 99 (98-107) mEq/L Carbon Dioxide 43 H* (21-32) mEq/L Anion Gap 6.6 (5-15) BUN 37 H (7-18) mg/dL Creatinine 1.2 H (0.55-1.02) mg/dL Est Cr Clr Drug Dosing TNP Estimated GFR (MDRD) 43 (>60) mL/min BUN/Creatinine Ratio 30.8 H (14-18) Glucose 129 H (83-115) mg/dL Calcium 9.5 (8.5-10.1) mg/dL Magnesium 2.7 H (1.8-2.4) mg/dl C-Reactive Protein 1.7 H* (<1.0) mg/dL Theophylline (10.0-20.0) ug/mL Mycoplasma pneumon IgM Negative (NEGATIVE) Mendoza Results last 24 hrs: Microbiology 07/17/16 12:25 Aerobic Blood Culture - Preliminary Blood - Venous NO GROWTH AFTER 2 DAYS Anaerobic Blood Culture - Preliminary NO GROWTH AFTER 2 DAYS 07/17/16 12:35 Aerobic Blood Culture - Preliminary Blood - Venous - Lab Draw NO GROWTH AFTER 2 DAYS Anaerobic Blood Culture - Preliminary NO GROWTH AFTER 2 DAYS Med Orders - Current: Current Medications Acetaminophen (Tylenol) 650 mg PO Q4H PRN PRN Reason: Pain (Mild 1-3)/fever Hydrocodone Bitart/Acetaminophen (Kincaid 325-5 Mg) 1 tab PO Q4H PRN PRN Reason: Pain (moderate 4-6) Last Admin: 07/20/16 08:01 Dose: 1 tab Albuterol (Proventil Neb Soln) 2.5 mg NEB Q2H PRN PRN Reason: Shortness Of Breath/wheezing Albuterol/Ipratropium (Duoneb 3.0-0.5 Mg/3 Ml) 3 ml NEB Q6HRRT [facility] Last Admin: 07/20/16 08:39 Dose: 3 ml Benzocaine/Menthol (Cepacol Sore Throat) 1 lozenge MUCMEM Q2H PRN PRN Reason: Sore Throat Last Admin: 07/19/16 11:21 Dose: 1 lozenge Citalopram Hydrobromide (Celexa) 40 mg PO DAILY [facility] Last Admin: 07/20/16 08:48 Dose: 40 mg Diltiazem HCl (Dilacor Xr) 240 mg PO DAILY [facility] Docusate Sodium (Colace) 100 mg PO BID PRN PRN Reason: Constipation Famotidine (Pepcid) 20 mg PO DAILY [facility] Last Admin: 07/20/16 08:48 Dose: 20 mg Gabapentin (Neurontin) 100 mg PO BID [facility] Last Admin: 07/20/16 08:48 Dose: 100 mg Levofloxacin/Dextrose 750 mg/ (Premix) 150 mls @ 100 mls/hr IV Q48H [facility] Last Admin: 07/18/16 12:28 Dose: 100 mls/hr Cefepime HCl 2 gm/ Premix 50 mls @ 100 mls/hr IV Q24H [facility] Last Admin: 07/19/16 12:37 Dose: 100 mls/hr Lidocaine (Lidoderm 5%) 700 mg TRDERM Q24H [facility] Last Admin: 07/20/16 08:57 Dose: 700 mg Lorazepam (Ativan) 0.5 mg PO Q4H PRN PRN Reason: Anxiety Last Admin: 07/19/16 23:18 Dose: 0.5 mg Magnesium Hydroxide (Milk Of Magnesia) 30 ml PO Q12H PRN PRN Reason: Constipation Methylprednisolone Sodium Succinate (Solu-Medrol) 125 mg IVPUSH Q6H [facility] Last Admin: 07/20/16 05:59 Dose: 125 mg Metoprolol Succinate (Toprol Xl) 25 mg PO DAILY [facility] Last Admin: 07/20/16 08:47 Dose: 25 mg Metoprolol Tartrate (Lopressor) 5 mg IVPUSH Q4H PRN PRN Reason: heart rate>120 Last Admin: 07/19/16 01:34 Dose: 5 mg Miscellaneous Information (Remove Patch) 0 ea TRDERM DAILY@2100 [facility] Last Admin: 07/19/16 21:07 Dose: 1 ea Ondansetron HCl (Zofran) 4 mg IV Q4H PRN PRN Reason: Nausea/Vomiting Last Admin: 07/19/16 00:26 Dose: 4 mg Pantoprazole Sodium (Protonix Iv) 40 mg IVPUSH Q12H [facility] Last Admin: 07/20/16 09:05 Dose: 40 mg Polyethylene Glycol (Miralax) 17 gm PO DAILY PRN PRN Reason: Constipation Rivaroxaban (Xarelto) 15 mg PO QPM [facility] Last Admin: 07/19/16 18:14 Dose: 15 mg Senna (Senna) 17.2 mg PO BID [facility] Last Admin: 07/20/16 08:48 Dose: 17.2 mg Simvastatin (Zocor) 20 mg PO QPM [facility] Last Admin: 07/19/16 18:15 Dose: 20 mg Sodium Chloride (Saline Flush) 10 ml FLUSH ASDIRECTED PRN PRN Reason: Keep Vein Open Last Admin: 07/19/16 04:23 Dose: 10 ml Theophylline (Theophylline Anhydrous) 300 mg PO DAILY [facility] Trazodone HCl (Trazodone) 150 mg PO BEDTIME [facility] Last Admin: 07/19/16 21:07 Dose: 150 mg Discontinued Medications Albuterol/Ipratropium (Duoneb 3.0-0.5 Mg/3 Ml) 3 ml NEB ONETIME ONE Stop: 07/16/16 08:55 Last Admin: 07/16/16 09:14 Dose: 3 ml Aspirin (Aspirin) 81 mg PO DAILY [facility] Last Admin: 07/19/16 10:11 Dose: Not Given Diltiazem HCl (Dilacor Xr) 240 mg PO DAILY [facility] Last Admin: 07/20/16 08:49 Dose: 240 mg Enoxaparin Sodium (Lovenox) 30 mg SUBCUT DAILY [facility] Last Admin: 07/17/16 00:03 Dose: Not Given Furosemide (Lasix) 80 mg IVPUSH NOW ONE Stop: 07/16/16 08:25 Last Admin: 07/16/16 08:32 Dose: 80 mg Furosemide (Lasix) 80 mg IVPUSH NOW ONE Stop: 07/18/16 12:01 Last Admin: 07/18/16 12:14 Dose: Not Given Furosemide (Lasix) 80 mg IVPUSH NOW ONE Stop: 07/19/16 08:01 Last Admin: 07/19/16 08:36 Dose: 80 mg Hydromorphone HCl (Dilaudid) 0.5 mg IVPUSH ONETIME ONE Stop: 07/16/16 08:30 Last Admin: 07/16/16 09:48 Dose: Not Given Aminophylline 275 mg/ Sodium (Chloride) 111 mls @ 222 mls/hr IV ONETIME ONE Stop: 07/18/16 15:59 Last Admin: 07/18/16 15:23 Dose: 222 mls/hr Aminophylline 285 mg/ Sodium (Chloride) 511.4 mls @ 21.3 mls/hr IV Q24H ONE Stop: 07/19/16 14:00 Last Admin: 07/18/16 16:06 Dose: Not Given Aminophylline 285 mg/ Sodium (Chloride) 511.4 mls @ 21.3 mls/hr IV Q24H ONE Stop: 07/19/16 16:00 Last Admin: 07/18/16 16:04 Dose: 21.3 mls/hr Diltiazem HCl 100 mg/ Sodium (Chloride) 100 mls @ 5 mls/hr IV TITRATE TONJA; 5 MG /HR PRN Reason: Protocol Last Titration: 07/19/16 05:30 Dose: 15 mg/hr, 15 mls/hr Sodium Chloride (Normal Saline) 1,000 mls @ 315 mls/hr IV ASDIRECTED TONJA Last Admin: 07/19/16 03:07 Dose: 315 mls/hr Diltiazem HCl 125 mg/ Sodium (Chloride) 125 mls @ 5 mls/hr IV TITRATE TONJA; 5 MG /HR PRN Reason: Protocol Last Titration: 07/19/16 18:15 Dose: 15 mg/hr, 15 mls/hr Diltiazem HCl 100 mg/ Sodium (Chloride) 100 mls @ 5 mls/hr IV TITRATE TONJA; 5 MG /HR PRN Reason: Protocol Last Admin: 07/19/16 19:12 Dose: 5 mg/hr, 5 mls/hr Diltiazem HCl 100 mg/ Sodium (Chloride) 100 mls @ 5 mls/hr IV TITRATE TONJA; 5 MG /HR PRN Reason: Protocol Last Titration: 07/20/16 09:20 Dose: Infused Iopamidol (Isovue-370 (76%)) 100 ml IVPUSH ONETIME ONE Stop: 07/19/16 03:54 Last Admin: 07/19/16 04:23 Dose: 100 ml Lorazepam (Ativan) 0.5 mg PO Q4H PRN PRN Reason: Anxiety Last Admin: 07/17/16 03:04 Dose: 0.5 mg Lorazepam (Ativan) 0.25 mg IVPUSH ONETIME ONE Stop: 07/16/16 12:56 Last Admin: 07/16/16 13:23 Dose: 0.25 mg Lorazepam (Ativan) 1 mg IVPUSH ONETIME ONE Stop: 07/19/16 02:07 Last Admin: 07/19/16 02:32 Dose: 1 mg Methylprednisolone Sodium Succinate (Solu-Medrol) 125 mg IVPUSH ONETIME ONE Stop: 07/16/16 10:15 Last Admin: 07/16/16 10:27 Dose: 125 mg Methylprednisolone Sodium Succinate (Solu-Medrol) 125 mg IVPUSH Q12H [facility] Last Admin: 07/18/16 09:38 Dose: 125 mg Methylprednisolone Sodium Succinate (Solu-Medrol) 125 mg IVPUSH Q8H [facility] Last Admin: 07/19/16 16:35 Dose: 125 mg Metoclopramide HCl (Reglan) 10 mg IVPUSH ONETIME ONE Stop: 07/19/16 02:07 Last Admin: 07/19/16 02:32 Dose: 10 mg Morphine Sulfate (Morphine) 2 mg IVPUSH Q2H PRN PRN Reason: Pain (severe 7-10) Stop: 07/17/16 12:24 Last Admin: 07/17/16 03:03 Dose: 2 mg Pantoprazole Sodium (Protonix Iv) 40 mg IVPUSH ONETIME ONE Stop: 07/19/16 02:07 Last Admin: 07/19/16 02:32 Dose: 40 mg Potassium Chloride (Potassium Chloride) 40 meq PO BID [facility] Last Admin: 07/18/16 12:27 Dose: 40 meq Simethicone (Simethicone) 320 mg PO ONETIME ONE Stop: 07/18/16 22:28 Last Admin: 07/18/16 22:41 Dose: 320 mg - Exam Quality Assessment: supplemental oxygen, DVT prophylaxis General: alert, oriented, no acute distress HEENT: Pupils equal, Pupils reactive, EOMI Neck: supple, trachea midline Lungs: Normal respiratory effort, Decreased breath sounds (L>R) Cardiovascular: Regular Rate, Irregular Rhythm Abdomen: bowel sounds present, soft, no tenderness, no distension (Female) Exam: Deferred Back Exam: normal inspection Extremities: normal pulses Skin: warm Neurological: no new focal deficit Psy/Mental Status: alert, normal affect, normal mood - Problem List & Annotations (1) CHF (congestive heart failure) SNOMED Code(s): 13990499 Code(s): I50.9 - HEART FAILURE, UNSPECIFIED Status: Acute Current Visit: Yes Qualifiers: Congestive heart failure type: unspecified congestive heart failure type Congestive heart failure chronicity: acute on chronic Qualified Code(s): I50.9 - Heart failure, unspecified (2) CHF exacerbation SNOMED Code(s): 74468458 Code(s): I50.9 - HEART FAILURE, UNSPECIFIED Status: Acute Priority: High Current Visit: Yes Qualifiers: Congestive heart failure type: combined Qualified Code(s): I50.43 - Acute on chronic combined systolic (congestive) and diastolic (congestive) heart failure (3) COPD exacerbation SNOMED Code(s): 107304490, 766455361 Code(s): J44.1 - CHRONIC OBSTRUCTIVE PULMONARY DISEASE W (ACUTE) EXACERBATION Status: Acute Priority: High Current Visit: Yes (4) Hypercapnia SNOMED Code(s): 40447357 Code(s): R06.89 - OTHER ABNORMALITIES OF BREATHING Status: Acute Priority : High Current Visit: Yes (5) Elevated troponin SNOMED Code(s): 945498985, 736851907 Code(s): R74.8 - ABNORMAL LEVELS OF OTHER SERUM ENZYMES Status: Acute Current Visit: No (6) Leg edema SNOMED Code(s): 017719752 Code(s): R60.0 - LOCALIZED EDEMA Status: Acute Current Visit: No (7) SBO (small bowel obstruction) SNOMED Code(s): 678569036 Code(s): K56.69 - OTHER INTESTINAL OBSTRUCTION Status: Acute Current Visit: Yes - Problem List Review Problem List Initiated/Reviewed/Updated: Yes - My Orders Last 24 Hours: My Active Orders 07/19/16 10:00 Pantoprazole [ProTONIX IV] 40 mg IVPUSH Q12H 07/19/16 10:50 Benzocaine/Cetylpyrd/Menthol [Cepacol Sore Throat] 1 lozenge MUCMEM Q2H PRN 07/19/16 18:00 STREP PNEUMONIAE ANTIGEN [MREF] Routine 07/19/16 23:00 methylPREDNISolone Sod Succ [Solu-MEDROL] 125 mg IVPUSH Q6H 07/20/16 07:00 CXR [Chest 2V] [CR] Routine 07/20/16 09:30 Theophylline [Theophylline Anhydrous] 300 mg PO DAILY 07/21/16 09:00 Diltiazem [Dilacor XR] 240 mg PO DAILY - Plan Plan:: I/P: HCAP-LLL with pleural effusion; will hold Xarelto, plan thoracentesis on 07/23/16. CHF exacerbation with acute hypoxic respiratory failure and hypercapnia -Hold diuretic 24 hours, Lasix -strict I&O, daily wts -monitor renal function with daily am labs -Bipap as above Replace electrolytes as needed. 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 Gen surge provide great support Chronic conditions: A-fib on xarelto- continue home meds for rate control and anticoag; see above, will start SCDs. CAD- cont home meds Depression/anxiety- ativan PRN in addition to usual SSRI/home med OA with chronic pain Other: GI prophylax DVT prophylax- xarelto, ASA CM/SW for dc planning assistance PT/OT eval and tx for weakness/deconditioning Meds via IV or NGT; continue Xarelto, Cardizem drip. General Surg consult re: SBO Continue Theophylline Follow H/H CXR 2 view, 07/20/16. Patient is DNR/DNI code status Family meeting today at 1205 hour, total 50 minutes with patient care and family meeting. Discussed current medicals status including the probablity of cancer as the source of the lytic leisons noted on the previous admission. Also covered need for additional work up of lytic leisons, final decision is to be determined. Objective determination of treatment ie comfort care cf hospice, etc. should be considered. Present at the meeting grandson, 2 daughters, SW and PA as well as author of progress note. LOS>96 hours for treatment
[2016-07-20] MEDS: Theophylline 300 MG Tab.ER PO SCH (10:28)
[2016-07-20] MEDS ORDERED: Potassium Chloride 10% 20 MEQ/15 ML Soln 30 ML UD Cup PO ONE (11:04)
[2016-07-20] MEDS ORDERED: acetaZOLAMIDE 250 MG Tab PO ONE (11:04)
--- NOTE | 2016-07-20 12:09 | PCM.CONSN ---
- General Info Date of Service: 07/20/16 Admission Dx/Problem (Free Text): Admission Diagnosis/Problem Admission Diagnosis/Problem CHF, Congestive heart failure pt with sbo on CT scan about the same please refer to consultation kan Functional Status: Reports: pain controlled (pt having back pain and is receiving narco n) - Review of Systems General: Reports: Fatigue, Malaise, Appetite (poor apitite) Pulmonary: Reports: shortness of breath Cardiovascular: Reports: Edema, Other (a fib but is off the cardizem dripp with rate in 80's) Gastrointestinal: Reports: No symptoms - Patient Data Vitals - most recent: Last Vital Signs Temp 96.7 F 07/20/16 10:00 Pulse 102 H 07/20/16 08:47 Resp 15 07/20/16 10:00 BP 122/76 07/20/16 10:00 Pulse Ox 90 L 07/20/16 10:00 Weight - most recent: 106.231 kg I&O - last 24 hours: Intake & Output 07/19/16 07/20/16 07/20/16 23:59 07:59 15:59 Intake Total 1052 150 Output Total 200 375 180 Balance 852 -225 -180 Lab Results last 24 hrs: Laboratory Results - last 24 hr 07/19/16 07/19/16 07/20/16 Range/Units 16:35 18:00 04:55 WBC 9.51 (3.98-10.04) K/mm3 RBC 4.18 (3.98-5.22) M/mm3 Hgb 10.9 L (11.2-15.7) gm/L Hct 37.6 (34.1-44.9) % MCV 90.0 (79.4-94.8) fl MCH 26.1 (25.6-32.2) pg MCHC 29.0 L (32.2-35.5) g/dl RDW Std Deviation 53.5 H (36.4-46.3) fL Plt Count 183 (182-369) K/mm3 MPV 10.7 (9.4-12.3) fl Neut % (Auto) 93.1 H (34.0-71.1) % Lymph % (Auto) 2.6 L (19.3-51.7) % Frio % (Auto) 4.2 L (4.7-12.5) % Eos % (Auto) 0 L (0.7-5.8) Baso % (Auto) 0.0 L (0.1-1.2) % Neut # (Auto) 8.85 H (1.56-6.13) K/mm3 Lymph # (Auto) 0.25 L (1.18-3.74) K/mm3 Frio # (Auto) 0.40 H (0.24-0.36) K/mm3 Eos # (Auto) 0.00 L (0.04-0.36) K/mm3 Baso # (Auto) 0.00 L (0.01-0.08) K/mm3 Manual Slide Review Abnormal smear Puncture Site Rt radial ABG pH 7.49 H (7.35-7.45) ABG pCO2 61.6 H (35.0-45.0) mmHg ABG pO2 67.0 L (80.0-100.0) mmHg ABG HCO3 46.1 H (22.0-26.0) meq/L ABG O2 Saturation 93.1 L (96.0-97.0) % ABG Base Excess 19.5 H (-2-2.0) Asael Test Positive A-a Gradient 87 mmHg O2 Delivery Device Nasal cannula Oxygen Flow Rate 4.0 FiO2 0.00 L (21.00-100.00) % Sodium (136-145) mEq/L Potassium (3.5-5.1) mEq/L Chloride (98-107) mEq/L Carbon Dioxide (21-32) mEq/L Anion Gap (5-15) BUN (7-18) mg/dL Creatinine (0.55-1.02) mg/dL Est Cr Clr Drug Dosing Estimated GFR (MDRD) (>60) mL/min BUN/Creatinine Ratio (14-18) Glucose (83-115) mg/dL Calcium (8.5-10.1) mg/dL Magnesium (1.8-2.4) mg/dl C-Reactive Protein (<1.0) mg/dL Theophylline 6.5 L (10.0-20.0) ug/mL Mycoplasma pneumon IgM (NEGATIVE) 07/20/16 07/20/16 07/20/16 Range/Units 04:55 04:55 06:30 WBC (3.98-10.04) K/mm3 RBC (3.98-5.22) M/mm3 Hgb (11.2-15.7) gm/L Hct (34.1-44.9) % MCV (79.4-94.8) fl MCH (25.6-32.2) pg MCHC (32.2-35.5) g/dl RDW Std Deviation (36.4-46.3) fL Plt Count (182-369) K/mm3 MPV (9.4-12.3) fl Neut % (Auto) (34.0-71.1) % Lymph % (Auto) (19.3-51.7) % Frio % (Auto) (4.7-12.5) % Eos % (Auto) (0.7-5.8) Baso % (Auto) (0.1-1.2) % Neut # (Auto) (1.56-6.13) K/mm3 Lymph # (Auto) (1.18-3.74) K/mm3 Frio # (Auto) (0.24-0.36) K/mm3 Eos # (Auto) (0.04-0.36) K/mm3 Baso # (Auto) (0.01-0.08) K/mm3 Manual Slide Review Puncture Site Rt radial ABG pH 7.46 H (7.35-7.45) ABG pCO2 65.8 H (35.0-45.0) mmHg ABG pO2 58.0 L (80.0-100.0) mmHg ABG HCO3 45.9 H (22.0-26.0) meq/L ABG O2 Saturation 88.9 L (96.0-97.0) % ABG Base Excess 18.8 H (-2-2.0) Asael Test Positive A-a Gradient 65 mmHg O2 Delivery Device Cannula Oxygen Flow Rate 3.0 FiO2 32.00 (21.00-100.00) % Sodium 145 (136-145) mEq/L Potassium 3.6 (3.5-5.1) mEq/L Chloride 99 (98-107) mEq/L Carbon Dioxide 43 H* (21-32) mEq/L Anion Gap 6.6 (5-15) BUN 37 H (7-18) mg/dL Creatinine 1.2 H (0.55-1.02) mg/dL Est Cr Clr Drug Dosing TNP Estimated GFR (MDRD) 43 (>60) mL/min BUN/Creatinine Ratio 30.8 H (14-18) Glucose 129 H (83-115) mg/dL Calcium 9.5 (8.5-10.1) mg/dL Magnesium 2.7 H (1.8-2.4) mg/dl C-Reactive Protein 1.7 H* (<1.0) mg/dL Theophylline (10.0-20.0) ug/mL Mycoplasma pneumon IgM Negative (NEGATIVE) Mendoza Results last 24 hrs: Microbiology 07/17/16 12:25 Aerobic Blood Culture - Preliminary Blood - Venous NO GROWTH AFTER 2 DAYS Anaerobic Blood Culture - Preliminary NO GROWTH AFTER 2 DAYS 07/17/16 12:35 Aerobic Blood Culture - Preliminary Blood - Venous - Lab Draw NO GROWTH AFTER 2 DAYS Anaerobic Blood Culture - Preliminary NO GROWTH AFTER 2 DAYS Med Orders - Current: Current Medications Acetaminophen (Tylenol) 650 mg PO Q4H PRN PRN Reason: Pain (Mild 1-3)/fever Hydrocodone Bitart/Acetaminophen ([place] 325-5 Mg) 1 tab PO Q4H PRN PRN Reason: Pain (moderate 4-6) Last Admin: 07/20/16 08:01 Dose: 1 tab Albuterol (Proventil Neb Soln) 2.5 mg NEB Q2H PRN PRN Reason: Shortness Of Breath/wheezing Albuterol/Ipratropium (Duoneb 3.0-0.5 Mg/3 Ml) 3 ml NEB Q6HRRT [facility] Last Admin: 07/20/16 08:39 Dose: 3 ml Benzocaine/Menthol (Cepacol Sore Throat) 1 lozenge MUCMEM Q2H PRN PRN Reason: Sore Throat Last Admin: 07/19/16 11:21 Dose: 1 lozenge Citalopram Hydrobromide (Celexa) 40 mg PO DAILY [facility] Last Admin: 07/20/16 08:48 Dose: 40 mg Diltiazem HCl (Dilacor Xr) 240 mg PO DAILY [facility] Docusate Sodium (Colace) 100 mg PO BID PRN PRN Reason: Constipation Famotidine (Pepcid) 20 mg PO DAILY [facility] Last Admin: 07/20/16 08:48 Dose: 20 mg Gabapentin (Neurontin) 100 mg PO BID [facility] Last Admin: 07/20/16 08:48 Dose: 100 mg Levofloxacin/Dextrose 750 mg/ (Premix) 150 mls @ 100 mls/hr IV Q48H [facility] Last Admin: 07/18/16 12:28 Dose: 100 mls/hr Cefepime HCl 2 gm/ Premix 50 mls @ 100 mls/hr IV Q24H [facility] Last Admin: 07/19/16 12:37 Dose: 100 mls/hr Lidocaine (Lidoderm 5%) 700 mg TRDERM Q24H [facility] Last Admin: 07/20/16 08:57 Dose: 700 mg Lorazepam (Ativan) 0.5 mg PO Q4H PRN PRN Reason: Anxiety Last Admin: 07/19/16 23:18 Dose: 0.5 mg Magnesium Hydroxide (Milk Of Magnesia) 30 ml PO Q12H PRN PRN Reason: Constipation Methylprednisolone Sodium Succinate (Solu-Medrol) 125 mg IVPUSH Q6H [facility] Last Admin: 07/20/16 10:26 Dose: 125 mg Metoprolol Succinate (Toprol Xl) 25 mg PO DAILY [facility] Last Admin: 07/20/16 08:47 Dose: 25 mg Metoprolol Tartrate (Lopressor) 5 mg IVPUSH Q4H PRN PRN Reason: heart rate>120 Last Admin: 07/19/16 01:34 Dose: 5 mg Miscellaneous Information (Remove Patch) 0 ea TRDERM DAILY@2100 [facility] Last Admin: 07/19/16 21:07 Dose: 1 ea Ondansetron HCl (Zofran) 4 mg IV Q4H PRN PRN Reason: Nausea/Vomiting Last Admin: 07/19/16 00:26 Dose: 4 mg Pantoprazole Sodium (Protonix Iv) 40 mg IVPUSH Q12H [facility] Last Admin: 07/20/16 09:05 Dose: 40 mg Polyethylene Glycol (Miralax) 17 gm PO DAILY PRN PRN Reason: Constipation Rivaroxaban (Xarelto) 15 mg PO QPM [facility] Last Admin: 07/19/16 18:14 Dose: 15 mg Senna (Senna) 17.2 mg PO BID [facility] Last Admin: 07/20/16 08:48 Dose: 17.2 mg Simvastatin (Zocor) 20 mg PO QPM [facility] Last Admin: 07/19/16 18:15 Dose: 20 mg Sodium Chloride (Saline Flush) 10 ml FLUSH ASDIRECTED PRN PRN Reason: Keep Vein Open Last Admin: 07/19/16 04:23 Dose: 10 ml Theophylline (Theophylline Anhydrous) 300 mg PO DAILY [facility] Last Admin: 07/20/16 10:28 Dose: 300 mg Trazodone HCl (Trazodone) 150 mg PO BEDTIME [facility] Last Admin: 07/19/16 21:07 Dose: 150 mg Discontinued Medications Acetazolamide (Diamox) 500 mg PO ONETIME ONE Stop: 07/20/16 11:05 Last Admin: 07/20/16 11:58 Dose: 500 mg Albuterol/Ipratropium (Duoneb 3.0-0.5 Mg/3 Ml) 3 ml NEB ONETIME ONE Stop: 07/16/16 08:55 Last Admin: 07/16/16 09:14 Dose: 3 ml Aspirin (Aspirin) 81 mg PO DAILY [facility] Last Admin: 07/19/16 10:11 Dose: Not Given Diltiazem HCl (Dilacor Xr) 240 mg PO DAILY [facility] Last Admin: 07/20/16 08:49 Dose: 240 mg Enoxaparin Sodium (Lovenox) 30 mg SUBCUT DAILY [facility] Last Admin: 07/17/16 00:03 Dose: Not Given Furosemide (Lasix) 80 mg IVPUSH NOW ONE Stop: 07/16/16 08:25 Last Admin: 07/16/16 08:32 Dose: 80 mg Furosemide (Lasix) 80 mg IVPUSH NOW ONE Stop: 07/18/16 12:01 Last Admin: 07/18/16 12:14 Dose: Not Given Furosemide (Lasix) 80 mg IVPUSH NOW ONE Stop: 07/19/16 08:01 Last Admin: 07/19/16 08:36 Dose: 80 mg Hydromorphone HCl (Dilaudid) 0.5 mg IVPUSH ONETIME ONE Stop: 07/16/16 08:30 Last Admin: 07/16/16 09:48 Dose: Not Given Aminophylline 275 mg/ Sodium (Chloride) 111 mls @ 222 mls/hr IV ONETIME ONE Stop: 07/18/16 15:59 Last Admin: 07/18/16 15:23 Dose: 222 mls/hr Aminophylline 285 mg/ Sodium (Chloride) 511.4 mls @ 21.3 mls/hr IV Q24H ONE Stop: 07/19/16 14:00 Last Admin: 07/18/16 16:06 Dose: Not Given Aminophylline 285 mg/ Sodium (Chloride) 511.4 mls @ 21.3 mls/hr IV Q24H ONE Stop: 07/19/16 16:00 Last Admin: 07/18/16 16:04 Dose: 21.3 mls/hr Diltiazem HCl 100 mg/ Sodium (Chloride) 100 mls @ 5 mls/hr IV TITRATE TONJA; 5 MG /HR PRN Reason: Protocol Last Titration: 07/19/16 05:30 Dose: 15 mg/hr, 15 mls/hr Sodium Chloride (Normal Saline) 1,000 mls @ 315 mls/hr IV ASDIRECTED TONJA Last Admin: 07/19/16 03:07 Dose: 315 mls/hr Diltiazem HCl 125 mg/ Sodium (Chloride) 125 mls @ 5 mls/hr IV TITRATE TONJA; 5 MG /HR PRN Reason: Protocol Last Titration: 07/19/16 18:15 Dose: 15 mg/hr, 15 mls/hr Diltiazem HCl 100 mg/ Sodium (Chloride) 100 mls @ 5 mls/hr IV TITRATE TONJA; 5 MG /HR PRN Reason: Protocol Last Admin: 07/19/16 19:12 Dose: 5 mg/hr, 5 mls/hr Diltiazem HCl 100 mg/ Sodium (Chloride) 100 mls @ 5 mls/hr IV TITRATE TONJA; 5 MG /HR PRN Reason: Protocol Last Titration: 07/20/16 09:20 Dose: Infused Iopamidol (Isovue-370 (76%)) 100 ml IVPUSH ONETIME ONE Stop: 07/19/16 03:54 Last Admin: 07/19/16 04:23 Dose: 100 ml Lorazepam (Ativan) 0.5 mg PO Q4H PRN PRN Reason: Anxiety Last Admin: 07/17/16 03:04 Dose: 0.5 mg Lorazepam (Ativan) 0.25 mg IVPUSH ONETIME ONE Stop: 07/16/16 12:56 Last Admin: 07/16/16 13:23 Dose: 0.25 mg Lorazepam (Ativan) 1 mg IVPUSH ONETIME ONE Stop: 07/19/16 02:07 Last Admin: 07/19/16 02:32 Dose: 1 mg Methylprednisolone Sodium Succinate (Solu-Medrol) 125 mg IVPUSH ONETIME ONE Stop: 07/16/16 10:15 Last Admin: 07/16/16 10:27 Dose: 125 mg Methylprednisolone Sodium Succinate (Solu-Medrol) 125 mg IVPUSH Q12H [facility] Last Admin: 07/18/16 09:38 Dose: 125 mg Methylprednisolone Sodium Succinate (Solu-Medrol) 125 mg IVPUSH Q8H [facility] Last Admin: 07/19/16 16:35 Dose: 125 mg Metoclopramide HCl (Reglan) 10 mg IVPUSH ONETIME ONE Stop: 07/19/16 02:07 Last Admin: 07/19/16 02:32 Dose: 10 mg Morphine Sulfate (Morphine) 2 mg IVPUSH Q2H PRN PRN Reason: Pain (severe 7-10) Stop: 07/17/16 12:24 Last Admin: 07/17/16 03:03 Dose: 2 mg Pantoprazole Sodium (Protonix Iv) 40 mg IVPUSH ONETIME ONE Stop: 07/19/16 02:07 Last Admin: 07/19/16 02:32 Dose: 40 mg Potassium Chloride (Potassium Chloride) 40 meq PO BID [facility] Last Admin: 07/18/16 12:27 Dose: 40 meq Potassium Chloride (Potassium Chloride) 40 meq PO ONETIME ONE Stop: 07/20/16 11:05 Last Admin: 07/20/16 11:59 Dose: 40 meq Simethicone (Simethicone) 320 mg PO ONETIME ONE Stop: 07/18/16 22:28 Last Admin: 07/18/16 22:41 Dose: 320 mg - Exam Quality Assessment: supplemental oxygen General: alert Lungs: Rales Cardiovascular: Irregular Rhythm Abdomen: bowel sounds present, soft, no tenderness, no distension, tenderness Consult PN Assessment/Plan Procedures: Procedures AIRWAY INHALATION TREATMENT (06/28/16) ASSAY OF LACTIC ACID (06/28/16) ASSAY OF MAGNESIUM (06/28/16) ASSAY OF NATRIURETIC PEPTIDE (06/28/16) ASSAY OF TROPONIN QUANT (06/28/16) BLOOD GASES ANY COMBINATION (06/28/16) C-REACTIVE PROTEIN (06/28/16) CARCINOEMBRYONIC ANTIGEN (06/28/16) CHEST X-RAY 1 VIEW FRONTAL (06/28/16) CHEST X-RAY 2VW FRONTAL&LATL (06/28/16) COGNITIVE TEST BY HC PRO (06/28/16) COMPLETE CBC AUTOMATED (06/28/16) COMPLETE CBC W/AUTO DIFF WBC (06/28/16) COMPREHEN METABOLIC PANEL (06/28/16) CT ABD & PELVIS W/O CONTRAST (06/28/16) CT CHEST SPINE W/O DYE (06/28/16) CT LUMBAR SPINE W/O DYE (06/28/16) CT PELVIS W/O DYE (06/28/16) CT THORAX W/O DYE (06/28/16) ELECTROCARDIOGRAM TRACING (06/28/16) EMERGENCY DEPT VISIT (06/28/16) EMERGENCY DEPT VISIT (07/27/15) EMERGENCY DEPT VISIT (03/30/15) EVALUATE PT USE OF INHALER (06/28/16) FIBRIN DEGRADATION QUANT (07/27/15) GAIT TRAINING THERAPY (06/28/16) LUNG VENTILAT&PERFUS IMAGING (06/28/16) METABOLIC PANEL TOTAL CA (06/28/16) MICROBE SUSCEPTIBLE MENDOZA (06/28/16) OT EVAL MOD COMPLEX 45 MIN (06/28/16) OT EVALUATION (03/30/15) POS AIRWAY PRESSURE CPAP (06/28/16) PT EVAL MOD COMPLEX 30 MIN (06/28/16) PT EVALUATION (03/30/15) RBC SED RATE AUTOMATED (06/28/16) ROUTINE VENIPUNCTURE (06/28/16) SELF CARE MNGMENT TRAINING (06/28/16) THER/PROPH/DIAG INJ IV PUSH (07/27/15) THER/PROPH/DIAG IV INF ADDON (06/28/16) THER/PROPH/DIAG IV INF INIT (06/28/16) THERAPEUTIC ACTIVITIES (06/28/16) THERAPEUTIC EXERCISES (06/28/16) TTE W/DOPPLER COMPLETE (06/28/16) TX/PRO/DX INJ NEW DRUG ADDON (06/28/16) TX/PRO/DX INJ SAME DRUG DOT NET DEVELOPER (06/28/16) URINALYSIS AUTO W/SCOPE (06/28/16) URINE BACTERIA CULTURE (06/28/16) URINE CULTURE/COLONY COUNT (06/28/16) WITHDRAWAL OF ARTERIAL BLOOD (06/28/16) Problem List Initiated/Reviewed/Updated: Yes My Orders last 24 hours: My Active Orders 07/19/16 14:59 Enema [RC] ASDIRECTED 07/20/16 08:00 Abdomen 2V AP Flat Upright [CR] Routine Plan: no change in xray of abdomen NG tube is the duodenum and is putting 100 cc last 12 hours. ass likely ilus from disease and lytic lesion in the back plan continue present treatment may need to do a gastrograffin small bowel follow though to sort out the GI problem. KAN
[2016-07-20] MEDS: Levofloxacin/Dextrose 5%-Water 750 MG in Premix Bag 1 BAG IV SCH (12:56)
[2016-07-20] MEDS: Cefepime 2 GM in Premix Bag 1 BAG IV SCH (12:58)
[2016-07-20] MEDS: Benzocaine/Cetylpyridinium/Menthol Lozenge MUCMEM PRN ×2 (15:55→21:56)
[2016-07-20] MEDS: Simvastatin 20 MG Tab PO SCH (17:19)
[2016-07-20] MEDS: traZODone 50 MG Tab PO SCH (21:56)
[2016-07-21] MEDS: Albuterol/Ipratropium 3.0-0.5 MG/3 ML Neb Soln NEB SCH ×4 (02:07→21:06)
[2016-07-21] MEDS: methylPREDNISolone Sodium Succinate 125 MG/2 ML SDV IVPUSH SCH ×2 (05:05→11:33)
--- NOTE | 2016-07-21 07:36 | CONS ---
CONSULTING PHYSICIAN: Mendoza Lizarraga MD DATE OF CONSULTATION: 07/19/2016 HISTORY OF PRESENT ILLNESS: This is an 80-year-old, whom I was asked to see because of small bowel obstruction. She came in through the emergency room on 07/16/2016, as she was confused, had low saturations around 79%, generalized weakness. She was felt to have congestive heart failure and worsening of her chronic obstructive lung disease. This progress began over about a 3-day period of time. 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 The patient Thursday and did better with oxygen and Lasix and control of her rate with Cardizem drip and her troponin were noted to be negative and BNP was 948. The patient's chest x- ray showed enlarged heart and pulmonary vascular congestion and increased compression deformity of mid thoracic spine. The patient was noted to have swelling of the legs. On Thursday evening, she began to have feeling of bloating periumbilical pain and vomiting and NG tube was placed. This followed by a CT scan with IV contrast only and interpreted as small bowel obstruction with a transition point. Surgical consultation was asked for. The only significant abdominal surgical history is that of a hysterectomy, likely done vaginally. Since admission, her alertness was improved. She was able to give a clear history. Admitted that she has never had this problem before. PAST MEDICAL HISTORY: Significant for hypertension, congestive heart failure, coronary artery disease status post placement of 4 stents in the past, COPD, atrial fibrillation on Xarelto, and with a lytic lesion unknown primary. She has had recurrent pneumonias in the past. Her hysterectomy was done in 1994. She has reports of arthritis, bilateral carotid surgery, history of shingles, history of appendectomy in addition to the hysterectomy. SOCIAL HISTORY: She has never smoked and no drinking. FAMILY HISTORY: Negative. REVIEW OF SYSTEMS: She does have some weakness, fatigue, and shortness of breath. Did have nausea and vomiting as described. No rectal bleeding. No vomiting blood. Does have swelling of the legs, dyspnea on exertion. Abdominal pain has improved with the NG tube, which has put out about 300 to 400 mL. MEDICATIONS: Per medication reconciliation form, of which report she is on Xarelto. PHYSICAL EXAMINATION: VITAL SIGNS: Temperature 97, pulse 107, respirations 21, and blood pressure 116/60. She is on supplemental oxygen. GENERAL: She is alert and cooperative. PSYCHIC: Normal. NEUROLOGIC: She is alert and oriented x3. Normal affect and no sensorineural deficit. EXTREMITIES: Moves all 4 extremities. Examination 2+ edema in the lower extremities. SKIN: Warm and dry. LUNGS: Fine rales in both lung bases. HEART: Heart tones irregular regular rate. ABDOMEN: Slightly distended. Bowel sounds quiet. No guarding, but mild tenderness throughout the abdomen. No inguinal or ventral hernias appreciated either on CT scan or examination. LABORATORY DATA: Reviewed. ASSESSMENT: 1. Multiple medical problems as detailed above. 2. Small bowel obstruction. RECOMMENDATIONS: We will give an enema today, flat plate tomorrow and continue the NG suction. If not improved, we will do Gastrografin small bowel follow-through. MMODAL /[id number]
[2016-07-21] MEDS: Gabapentin 100 MG Cap PO SCH ×2 (08:04→20:07)
[2016-07-21] MEDS: Citalopram 20 MG Tab PO SCH (08:04)
[2016-07-21] MEDS: Sennosides 8.6 MG Tab PO SCH ×2 (08:05→20:06)
[2016-07-21] MEDS: Metoprolol Succinate 25 MG Tab.ER PO SCH (08:05)
[2016-07-21] MEDS: Famotidine 20 MG Tab PO SCH (08:05)
[2016-07-21] MEDS: Diltiazem 240 MG Cap.ER PO SCH (08:06)
[2016-07-21] MEDS: Enoxaparin 30 MG/0.3 ML Syringe SUBCUT SCH (08:06)
[2016-07-21] MEDS: Lidocaine 5% 700 MG Patch TRDERM SCH (08:06)
[2016-07-21] MEDS: Acetaminophen/HYDROcodone 325-5 MG Tab PO PRN ×3 (08:12→20:06)
--- NOTE | 2016-07-21 10:33 | CT ---
CT abdomen and pelvis Technique: Multiple axial sections were obtained from above the dome of the diaphragm inferiorly through the pubic symphysis. Intravenous contrast was utilized. No oral contrast has been given. Comparison: Previous CT abdomen and pelvis study performed without contrast dated 07/02/16. Small bilateral pleural effusions are seen. Atelectasis within both lung bases noted. Density slightly more prominent within the left base and difficult to completely exclude superimposed pneumonia. Liver shows no focal parenchymal abnormality. Multiple gallstones are seen within the gallbladder. Adrenal gland on the left side shows a minimal nodule measured 1.1 cm in size. Finding is stable from prior study and is felt to be incidental. Right adrenal gland is unremarkable. Cysts noted off the lower pole of the left kidney as well as smaller cortical cyst off the left kidney. Larger cyst measures approximately 2.1 cm. Pancreas appears atrophied. Aorta and iliac vessels shows atherosclerotic change without aneurysmal dilatation. No retroperitoneal adenopathy is seen. Dilated fluid-filled loops of small bowel are seen. Transitional point is within the right lower abdomen. Distal ileal loops are decompressed. Etiology for the small bowel obstruction is not seen on current study and findings are most likely due to adhesions. Nasogastric tube is noted with tip lying within the stomach. No pelvic mass or adenopathy is seen. Appendix not definitely visualized. Sigmoid and descending colon show numerous diverticuli without inflammatory change of diverticulitis. Tejeda catheter is present within the bladder. Scattered degenerative changes noted throughout the lumbar and lower thoracic spine. Mild increased density noted within portions of the subcutaneous fat most likely due to mild subcutaneous edema. Impression: 1. Small bowel obstruction with transitional point within the right lower abdomen. Etiology for the obstruction is not seen and findings are likely due to adhesions. Nasogastric tube is in place. 2. Small bilateral pleural effusions. Difficult to exclude pneumonia within the left base. 3. Other incidental findings as noted above. Diagnostic code #3 I agree with preliminary report issued by [facility] (report finalized on 07/19/16, 5:55 AM Central Time)
--- NOTE | 2016-07-21 10:33 | CR ---
Chest: Two views of the chest were obtained. Comparison: Previous chest x-ray of 07/17/16. Increasing consolidation and pleural effusion is noted within the left base from prior chest x-ray. Minimal right-sided pleural effusion is seen. Pulmonary vessels are congested. Heart is enlarged. Nasogastric tube courses through the mediastinum into the stomach. Mild degenerative change is seen within the spine. Stable compression deformity is noted within the mid thoracic spine with anterior wedging. Impression: 1. Cardiomegaly and pulmonary vascular congestion. 2. Increasing density within the left lung base as noted above. 3. Other incidental findings. Diagnostic code #3 I agree with preliminary report issued by [facility] [address] (preliminary report dictated on 07/20/16, 9:52 AM Central Time)
--- NOTE | 2016-07-21 10:33 | CR ---
Abdomen: Supine and upright views of the abdomen were obtained. Comparison: Previous CT abdomen and pelvis exam of 07/19/16 is available. Slightly prominent loop of small bowel seen within the left abdomen with air-fluid levels. Differential includes a mild developing partial small bowel obstruction or focal ileus. Nasogastric tube seen within the distal stomach. Slight increased stool noted within the colon. Bony structures are unremarkable for the patient's age. Consolidation and pleural effusion are noted within the left lung base. Impression: 1. Slightly prominent air-filled loops of small bowel within the left upper abdomen possibly due to mild partial small bowel obstruction versus focal ileus. 2. Other incidental findings as noted above. Diagnostic code #3 I agree with preliminary report issued by [facility] (preliminary report dictated on 07/20/16, 9:51 AM Central Time)
[2016-07-21] MEDS: Pantoprazole 40 MG Vial IVPUSH SCH (11:33)
[2016-07-21] MEDS: Theophylline 300 MG Tab.ER PO SCH (11:38)
[2016-07-21] MEDS: Cefepime 2 GM in Premix Bag 1 BAG IV SCH (13:23)
[2016-07-21] MEDS: Potassium Chloride 10% 20 MEQ/15 ML Soln 15 ML UD Cup PO SCH ×3 (13:24→20:06)
[2016-07-21] MEDS: Simvastatin 20 MG Tab PO SCH (17:46)
--- NOTE | 2016-07-21 19:46 | PCM.PN ---
- General Info Date of Service: 07/21/16 Functional Status: Reports: pain controlled, tolerating diet, urinating. Denies : ambulating - Review of Systems General: Reports: No Symptoms HEENT: Reports: no symptoms Pulmonary: Reports: no symptoms Cardiovascular: Reports: No Symptoms Gastrointestinal: Reports: No symptoms Genitourinary: Reports: no symptoms Musculoskeletal: Reports: no symptoms Skin: Reports: no symptoms Neurological: Reports: No Symptoms Psychiatric: Reports: no symptoms - Patient Data Vitals - most recent: Last Vital Signs Temp 36.6 C 07/21/16 16:00 Pulse 108 H 07/21/16 08:05 Resp 15 07/21/16 16:00 BP 131/72 07/21/16 16:00 Pulse Ox 94 L 07/21/16 16:00 Weight - most recent: 106.957 kg I&O - last 24 hours: Intake & Output 07/21/16 07/21/16 07/21/16 06:59 14:59 22:59 Intake Total 10 50 Output Total 525 650 200 Balance -515 -650 -150 Lab Results last 24 hrs: Laboratory Results - last 24 hr 07/21/16 07/21/16 07/21/16 Range/Units 04:39 04:39 04:39 WBC 6.08 (3.98-10.04) K/mm3 RBC 4.33 (3.98-5.22) M/mm3 Hgb 11.4 (11.2-15.7) gm/L Hct 39.0 (34.1-44.9) % MCV 90.1 (79.4-94.8) fl MCH 26.3 (25.6-32.2) pg MCHC 29.2 L (32.2-35.5) g/dl RDW Std Deviation 53.1 H (36.4-46.3) fL Plt Count 156 L (182-369) K/mm3 MPV 10.4 (9.4-12.3) fl Neut % (Auto) 92.6 H (34.0-71.1) % Lymph % (Auto) 2.8 L (19.3-51.7) % [place] % (Auto) 4.3 L (4.7-12.5) % Eos % (Auto) 0 L (0.7-5.8) Baso % (Auto) 0.0 L (0.1-1.2) % Neut # (Auto) 5.63 (1.56-6.13) K/mm3 Lymph # (Auto) 0.17 L (1.18-3.74) K/mm3 [place] # (Auto) 0.26 (0.24-0.36) K/mm3 Eos # (Auto) 0.00 L (0.04-0.36) K/mm3 Baso # (Auto) 0.00 L (0.01-0.08) K/mm3 Manual Slide Review Abnormal smear Sodium 143 (136-145) mEq/L Potassium 2.9 L (3.5-5.1) mEq/L Chloride 99 (98-107) mEq/L Carbon Dioxide 39 H (21-32) mEq/L Anion Gap 7.9 (5-15) BUN 37 H (7-18) mg/dL Creatinine 1.2 H (0.55-1.02) mg/dL Est Cr Clr Drug Dosing TNP Estimated GFR (MDRD) 43 (>60) mL/min BUN/Creatinine Ratio 30.8 H (14-18) Glucose 155 H (83-115) mg/dL Calcium 9.6 (8.5-10.1) mg/dL Magnesium 2.8 H (1.8-2.4) mg/dl C-Reactive Protein < 0.2 (<1.0) mg/dL [place] Results last 24 hrs: Microbiology 07/17/16 12:25 Aerobic Blood Culture - Preliminary Blood - Venous NO GROWTH AFTER 4 DAYS Anaerobic Blood Culture - Preliminary NO GROWTH AFTER 4 DAYS 07/17/16 12:35 Aerobic Blood Culture - Preliminary Blood - Venous - Lab Draw NO GROWTH AFTER 4 DAYS Anaerobic Blood Culture - Preliminary NO GROWTH AFTER 4 DAYS Med Orders - Current: Current Medications Acetaminophen (Tylenol) 650 mg PO Q4H PRN PRN Reason: Pain (Mild 1-3)/fever Hydrocodone Bitart/Acetaminophen ([place] 325-5 Mg) 1 tab PO Q4H PRN PRN Reason: Pain (moderate 4-6) Last Admin: 07/21/16 14:41 Dose: 1 tab Albuterol (Proventil Neb Soln) 2.5 mg NEB Q2H PRN PRN Reason: Shortness Of Breath/wheezing Albuterol/Ipratropium (Duoneb 3.0-0.5 Mg/3 Ml) 3 ml NEB Q6HRRT [facility] Last Admin: 07/21/16 14:33 Dose: 3 ml Benzocaine/Menthol (Cepacol Sore Throat) 1 lozenge MUCMEM Q2H PRN PRN Reason: Sore Throat Last Admin: 07/20/16 21:56 Dose: 1 lozenge Citalopram Hydrobromide (Celexa) 40 mg PO DAILY [facility] Last Admin: 07/21/16 08:04 Dose: 40 mg Diltiazem HCl (Dilacor Xr) 240 mg PO DAILY [facility] Last Admin: 07/21/16 08:06 Dose: 240 mg Docusate Sodium (Colace) 100 mg PO BID PRN PRN Reason: Constipation Enoxaparin Sodium (Lovenox) 30 mg SUBCUT DAILY [facility] Last Admin: 07/21/16 08:06 Dose: 30 mg Famotidine (Pepcid) 20 mg PO DAILY [facility] Last Admin: 07/21/16 08:05 Dose: 20 mg Gabapentin (Neurontin) 100 mg PO BID [facility] Last Admin: 07/21/16 08:04 Dose: 100 mg Levofloxacin/Dextrose 750 mg/ (Premix) 150 mls @ 100 mls/hr IV Q48H [facility] Last Admin: 07/20/16 12:56 Dose: 100 mls/hr Cefepime HCl 2 gm/ Premix 50 mls @ 100 mls/hr IV Q24H [facility] Last Admin: 07/21/16 13:23 Dose: 100 mls/hr Lidocaine (Lidoderm 5%) 700 mg TRDERM Q24H [facility] Last Admin: 07/21/16 08:06 Dose: 700 mg Lorazepam (Ativan) 0.5 mg PO Q4H PRN PRN Reason: Anxiety Last Admin: 07/19/16 23:18 Dose: 0.5 mg Magnesium Hydroxide (Milk Of Magnesia) 30 ml PO Q12H PRN PRN Reason: Constipation Methylprednisolone Sodium Succinate (Solu-Medrol) 125 mg IVPUSH Q12H [facility] Metoprolol Succinate (Toprol Xl) 25 mg PO DAILY [facility] Last Admin: 07/21/16 08:05 Dose: 25 mg Metoprolol Tartrate (Lopressor) 5 mg IVPUSH Q4H PRN PRN Reason: heart rate>120 Last Admin: 07/19/16 01:34 Dose: 5 mg Miscellaneous Information (Remove Patch) 0 ea TRDERM DAILY@2100 [facility] Last Admin: 07/20/16 21:56 Dose: 1 ea Ondansetron HCl (Zofran) 4 mg IV Q4H PRN PRN Reason: Nausea/Vomiting Last Admin: 07/19/16 00:26 Dose: 4 mg Pantoprazole Sodium (Protonix) 40 mg PO DAILY [facility] Polyethylene Glycol (Miralax) 17 gm PO DAILY PRN PRN Reason: Constipation Potassium Chloride (Pharmacy To Dose - Potassium Replacement) 1 dose .XX ASDIRECTED [facility] Potassium Chloride (Potassium Chloride Solution) 20 meq PO Q3H [facility] Stop: 07/21/16 20:01 Last Admin: 07/21/16 17:47 Dose: 20 meq Rivaroxaban (Xarelto) 15 mg PO QPM [facility] Senna (Senna) 17.2 mg PO BID [facility] Last Admin: 07/21/16 08:05 Dose: 17.2 mg Simvastatin (Zocor) 20 mg PO QPM [facility] Last Admin: 07/21/16 17:46 Dose: 20 mg Sodium Chloride (Saline Flush) 10 ml FLUSH ASDIRECTED PRN PRN Reason: Keep Vein Open Last Admin: 07/19/16 04:23 Dose: 10 ml Temazepam (Restoril) 15 mg PO BEDTIME PRN PRN Reason: Insomnia Theophylline (Theophylline Anhydrous) 300 mg PO DAILY [facility] Last Admin: 07/21/16 11:38 Dose: 300 mg Trazodone HCl (Trazodone) 150 mg PO BEDTIME [facility] Last Admin: 07/20/16 21:56 Dose: 150 mg Discontinued Medications Acetazolamide (Diamox) 500 mg PO ONETIME ONE Stop: 07/20/16 11:05 Last Admin: 07/20/16 11:58 Dose: 500 mg Albuterol/Ipratropium (Duoneb 3.0-0.5 Mg/3 Ml) 3 ml NEB ONETIME ONE Stop: 07/16/16 08:55 Last Admin: 07/16/16 09:14 Dose: 3 ml Aspirin (Aspirin) 81 mg PO DAILY [facility] Last Admin: 07/19/16 10:11 Dose: Not Given Diltiazem HCl (Dilacor Xr) 240 mg PO DAILY [facility] Last Admin: 07/20/16 08:49 Dose: 240 mg Enoxaparin Sodium (Lovenox) 30 mg SUBCUT DAILY [facility] Last Admin: 07/17/16 00:03 Dose: Not Given Furosemide (Lasix) 80 mg IVPUSH NOW ONE Stop: 07/16/16 08:25 Last Admin: 07/16/16 08:32 Dose: 80 mg Furosemide (Lasix) 80 mg IVPUSH NOW ONE Stop: 07/18/16 12:01 Last Admin: 07/18/16 12:14 Dose: Not Given Furosemide (Lasix) 80 mg IVPUSH NOW ONE Stop: 07/19/16 08:01 Last Admin: 07/19/16 08:36 Dose: 80 mg Hydromorphone HCl (Dilaudid) 0.5 mg IVPUSH ONETIME ONE Stop: 07/16/16 08:30 Last Admin: 07/16/16 09:48 Dose: Not Given Aminophylline 275 mg/ Sodium (Chloride) 111 mls @ 222 mls/hr IV ONETIME ONE Stop: 07/18/16 15:59 Last Admin: 07/18/16 15:23 Dose: 222 mls/hr Aminophylline 285 mg/ Sodium (Chloride) 511.4 mls @ 21.3 mls/hr IV Q24H ONE Stop: 07/19/16 14:00 Last Admin: 07/18/16 16:06 Dose: Not Given Aminophylline 285 mg/ Sodium (Chloride) 511.4 mls @ 21.3 mls/hr IV Q24H ONE Stop: 07/19/16 16:00 Last Admin: 07/18/16 16:04 Dose: 21.3 mls/hr Diltiazem HCl 100 mg/ Sodium (Chloride) 100 mls @ 5 mls/hr IV TITRATE [facility]; 5 MG /HR PRN Reason: Protocol Last Titration: 07/19/16 05:30 Dose: 15 mg/hr, 15 mls/hr Sodium Chloride (Normal Saline) 1,000 mls @ 315 mls/hr IV ASDIRECTED [facility] Last Admin: 07/19/16 03:07 Dose: 315 mls/hr Diltiazem HCl 125 mg/ Sodium (Chloride) 125 mls @ 5 mls/hr IV TITRATE [facility]; 5 MG /HR PRN Reason: Protocol Last Titration: 07/19/16 18:15 Dose: 15 mg/hr, 15 mls/hr Diltiazem HCl 100 mg/ Sodium (Chloride) 100 mls @ 5 mls/hr IV TITRATE [facility]; 5 MG /HR PRN Reason: Protocol Last Admin: 07/19/16 19:12 Dose: 5 mg/hr, 5 mls/hr Diltiazem HCl 100 mg/ Sodium (Chloride) 100 mls @ 5 mls/hr IV TITRATE [facility]; 5 MG /HR PRN Reason: Protocol Last Titration: 07/20/16 09:20 Dose: Infused Iopamidol (Isovue-370 (76%)) 100 ml IVPUSH ONETIME ONE Stop: 07/19/16 03:54 Last Admin: 07/19/16 04:23 Dose: 100 ml Lorazepam (Ativan) 0.5 mg PO Q4H PRN PRN Reason: Anxiety Last Admin: 07/17/16 03:04 Dose: 0.5 mg Lorazepam (Ativan) 0.25 mg IVPUSH ONETIME ONE Stop: 07/16/16 12:56 Last Admin: 07/16/16 13:23 Dose: 0.25 mg Lorazepam (Ativan) 1 mg IVPUSH ONETIME ONE Stop: 07/19/16 02:07 Last Admin: 07/19/16 02:32 Dose: 1 mg Methylprednisolone Sodium Succinate (Solu-Medrol) 125 mg IVPUSH ONETIME ONE Stop: 07/16/16 10:15 Last Admin: 07/16/16 10:27 Dose: 125 mg Methylprednisolone Sodium Succinate (Solu-Medrol) 125 mg IVPUSH Q12H [facility] Last Admin: 07/18/16 09:38 Dose: 125 mg Methylprednisolone Sodium Succinate (Solu-Medrol) 125 mg IVPUSH Q8H [facility] Last Admin: 07/19/16 16:35 Dose: 125 mg Methylprednisolone Sodium Succinate (Solu-Medrol) 125 mg IVPUSH Q6H [facility] Last Admin: 07/21/16 11:33 Dose: 125 mg Metoclopramide HCl (Reglan) 10 mg IVPUSH ONETIME ONE Stop: 07/19/16 02:07 Last Admin: 07/19/16 02:32 Dose: 10 mg Morphine Sulfate (Morphine) 2 mg IVPUSH Q2H PRN PRN Reason: Pain (severe 7-10) Stop: 07/17/16 12:24 Last Admin: 07/17/16 03:03 Dose: 2 mg Pantoprazole Sodium (Protonix Iv) 40 mg IVPUSH ONETIME ONE Stop: 07/19/16 02:07 Last Admin: 07/19/16 02:32 Dose: 40 mg Pantoprazole Sodium (Protonix Iv) 40 mg IVPUSH Q12H [facility] Last Admin: 07/21/16 11:33 Dose: 40 mg Potassium Chloride (Potassium Chloride) 40 meq PO BID [facility] Last Admin: 07/18/16 12:27 Dose: 40 meq Potassium Chloride (Potassium Chloride) 40 meq PO ONETIME ONE Stop: 07/20/16 11:05 Last Admin: 07/20/16 11:59 Dose: 40 meq Rivaroxaban (Xarelto) 15 mg PO QPM [facility] Last Admin: 07/19/16 18:14 Dose: 15 mg Simethicone (Simethicone) 320 mg PO ONETIME ONE Stop: 07/18/16 22:28 Last Admin: 07/18/16 22:41 Dose: 320 mg - Exam Quality Assessment: supplemental oxygen, urine catheter, DVT prophylaxis General: alert, oriented, cooperative, no acute distress HEENT: Pupils equal, Pupils reactive, EOMI Neck: supple, trachea midline Lungs: Normal respiratory effort, Decreased breath sounds, Rhonchi Cardiovascular: Regular Rate, Irregular Rhythm Abdomen: bowel sounds present, soft, no tenderness, no distension (Female) Exam: Deferred Back Exam: normal inspection Extremities: normal pulses Skin: warm Neurological: no new focal deficit Psy/Mental Status: alert, normal affect, normal mood - Problem List & Annotations (1) CHF (congestive heart failure) SNOMED Code(s): 96668003 Code(s): I50.9 - HEART FAILURE, UNSPECIFIED Status: Acute Current Visit: Yes Qualifiers: Congestive heart failure type: unspecified congestive heart failure type Congestive heart failure chronicity: acute on chronic Qualified Code(s): I50.9 - Heart failure, unspecified (2) CHF exacerbation SNOMED Code(s): 68797698 Code(s): I50.9 - HEART FAILURE, UNSPECIFIED Status: Acute Priority: High Current Visit: Yes Qualifiers: Congestive heart failure type: combined Qualified Code(s): I50.43 - Acute on chronic combined systolic (congestive) and diastolic (congestive) heart failure (3) COPD exacerbation SNOMED Code(s): 468340230, 573965565 Code(s): J44.1 - CHRONIC OBSTRUCTIVE PULMONARY DISEASE W (ACUTE) EXACERBATION Status: Acute Priority: High Current Visit: Yes (4) Hypercapnia SNOMED Code(s): 38614434 Code(s): R06.89 - OTHER ABNORMALITIES OF BREATHING Status: Acute Priority : High Current Visit: Yes (5) Elevated troponin SNOMED Code(s): 870902935, 977932681 Code(s): R74.8 - ABNORMAL LEVELS OF OTHER SERUM ENZYMES Status: Acute Current Visit: No (6) Leg edema SNOMED Code(s): 892788687 Code(s): R60.0 - LOCALIZED EDEMA Status: Acute Current Visit: No (7) SBO (small bowel obstruction) SNOMED Code(s): 278636034 Code(s): K56.69 - OTHER INTESTINAL OBSTRUCTION Status: Acute Current Visit: Yes - Problem List Review Problem List Initiated/Reviewed/Updated: Yes - My Orders Last 24 Hours: My Active Orders 07/21/16 09:00 Diltiazem [Dilacor XR] 240 mg PO DAILY Enoxaparin [Lovenox] 30 mg SUBCUT DAILY 07/21/16 10:00 Potassium Rep Pharmacy to Dose [Pharmacy to Dose - Potassium Replacement] 1 dose .XX ASDIRECTED 07/21/16 14:00 Potassium Chloride [Potassium Chloride Solution] 20 meq PO Q3H 07/21/16 14:59 Temazepam [Restoril] 15 mg PO BEDTIME PRN 07/21/16 23:00 methylPREDNISolone Sod Succ [Solu-MEDROL] 125 mg IVPUSH Q12H 07/22/16 09:00 Pantoprazole [ProTONIX] 40 mg PO DAILY 07/22/16 19:00 THEOPHYLLINE [CHEM] Timed - Plan Plan:: I/P: HCAP-LLL with pleural effusion; will hold Xarelto, plan thoracentesis on 07/23/16. CHF exacerbation with acute hypoxic respiratory failure and hypercapnia -Hold diuretic 24 hours, Lasix -strict I&O, daily wts -monitor renal function with daily am labs -Bipap as above Replace electrolytes as needed. 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 DC NGT 07/21/16 Gen surge providing great support Chronic conditions: A-fib on xarelto- continue home meds for rate control and anticoag; see above, will start SCDs. CAD- cont home meds Depression/anxiety- ativan PRN in addition to usual SSRI/home med OA with chronic pain Other: GI prophylax DVT prophylax- shad ASA CM/SW for dc planning assistance PT/OT eval and tx for weakness/deconditioning Meds via IV or NGT; continue Xarelto Cardizem drip. General Surg consult re: SBO Continue Theophylline Follow H/H CXR 2 view, 07/20/16. Patient is DNR/DNI code status LOS>96 hours for treatment
[2016-07-21] MEDS: traZODone 50 MG Tab PO SCH (20:07)
[2016-07-21] MEDS: LORazepam 0.5 MG Tab PO PRN (20:07)
[2016-07-21] MEDS: Temazepam 15 MG Cap PO PRN (20:07)
[2016-07-22] MEDS: methylPREDNISolone Sodium Succinate 125 MG/2 ML SDV IVPUSH SCH ×2 (00:05→10:27)
[2016-07-22] MEDS: Albuterol/Ipratropium 3.0-0.5 MG/3 ML Neb Soln NEB SCH ×4 (02:05→21:08)
[2016-07-22] MEDS: Acetaminophen/HYDROcodone 325-5 MG Tab PO PRN ×4 (03:06→20:05)
[2016-07-22] MEDS: LORazepam 0.5 MG Tab PO PRN ×2 (03:06→20:04)
--- NOTE | 2016-07-22 09:39 | PCM.PN ---
- General Info Date of Service: 07/22/16 Functional Status: Reports: ambulating, urinating - Review of Systems General: Reports: No Symptoms HEENT: Reports: no symptoms Pulmonary: Reports: no symptoms Cardiovascular: Reports: No Symptoms Gastrointestinal: Reports: No symptoms Genitourinary: Reports: no symptoms Musculoskeletal: Reports: no symptoms Skin: Reports: no symptoms Neurological: Reports: No Symptoms Psychiatric: Reports: no symptoms - Patient Data Vitals - most recent: Last Vital Signs Temp 36.6 C 07/22/16 04:00 Pulse 108 H 07/21/16 08:05 Resp 22 H 07/22/16 04:00 BP 129/73 07/22/16 04:00 Pulse Ox 93 L 07/22/16 08:14 Weight - most recent: 107.1 kg I&O - last 24 hours: Intake & Output 07/21/16 07/22/16 07/22/16 22:59 06:59 14:59 Intake Total 70 Output Total 670 130 Balance -600 -130 Lab Results last 24 hrs: Laboratory Results - last 24 hr 07/22/16 07/22/16 Range/Units 04:10 04:10 WBC 6.22 (3.98-10.04) K/mm3 RBC 4.36 (3.98-5.22) M/mm3 Hgb 11.4 (11.2-15.7) gm/L Hct 39.0 (34.1-44.9) % MCV 89.4 (79.4-94.8) fl MCH 26.1 (25.6-32.2) pg MCHC 29.2 L (32.2-35.5) g/dl RDW Std Deviation 52.4 H (36.4-46.3) fL Plt Count 155 L (182-369) K/mm3 MPV 11.0 (9.4-12.3) fl Neut % (Auto) 90.4 H (34.0-71.1) % Lymph % (Auto) 3.2 L (19.3-51.7) % [place] % (Auto) 6.1 (4.7-12.5) % Eos % (Auto) 0 L (0.7-5.8) Baso % (Auto) 0.0 L (0.1-1.2) % Neut # (Auto) 5.62 (1.56-6.13) K/mm3 Lymph # (Auto) 0.20 L (1.18-3.74) K/mm3 [place] # (Auto) 0.38 H (0.24-0.36) K/mm3 Eos # (Auto) 0.00 L (0.04-0.36) K/mm3 Baso # (Auto) 0.00 L (0.01-0.08) K/mm3 Manual Slide Review Abnormal smear Sodium 143 (136-145) mEq/L Potassium 3.5 (3.5-5.1) mEq/L Chloride 101 (98-107) mEq/L Carbon Dioxide 39 H (21-32) mEq/L Anion Gap 6.5 (5-15) BUN 41 H (7-18) mg/dL Creatinine 1.2 H (0.55-1.02) mg/dL Est Cr Clr Drug Dosing TNP Estimated GFR (MDRD) 43 (>60) mL/min BUN/Creatinine Ratio 34.2 H (14-18) Glucose 130 H (83-115) mg/dL Calcium 9.4 (8.5-10.1) mg/dL Magnesium 2.7 H (1.8-2.4) mg/dl [place] Results last 24 hrs: Microbiology 07/19/16 18:00 Streptococcus pneumoniae Antigen (M - Final Urine 07/17/16 12:25 Aerobic Blood Culture - Preliminary Blood - Venous NO GROWTH AFTER 4 DAYS Anaerobic Blood Culture - Preliminary NO GROWTH AFTER 4 DAYS 07/17/16 12:35 Aerobic Blood Culture - Preliminary Blood - Venous - Lab Draw NO GROWTH AFTER 4 DAYS Anaerobic Blood Culture - Preliminary NO GROWTH AFTER 4 DAYS Med Orders - Current: Current Medications Acetaminophen (Tylenol) 650 mg PO Q4H PRN PRN Reason: Pain (Mild 1-3)/fever Hydrocodone Bitart/Acetaminophen ([place] 325-5 Mg) 1 tab PO Q4H PRN PRN Reason: Pain (moderate 4-6) Last Admin: 07/22/16 03:06 Dose: 1 tab Albuterol (Proventil Neb Soln) 2.5 mg NEB Q2H PRN PRN Reason: Shortness Of Breath/wheezing Albuterol/Ipratropium (Duoneb 3.0-0.5 Mg/3 Ml) 3 ml NEB Q6HRRT TONJA Last Admin: 07/22/16 08:14 Dose: 3 ml Benzocaine/Menthol (Cepacol Sore Throat) 1 lozenge MUCMEM Q2H PRN PRN Reason: Sore Throat Last Admin: 07/20/16 21:56 Dose: 1 lozenge Citalopram Hydrobromide (Celexa) 40 mg PO DAILY [facility] Last Admin: 07/21/16 08:04 Dose: 40 mg Diltiazem HCl (Dilacor Xr) 240 mg PO DAILY [facility] Last Admin: 07/21/16 08:06 Dose: 240 mg Docusate Sodium (Colace) 100 mg PO BID PRN PRN Reason: Constipation Enoxaparin Sodium (Lovenox) 30 mg SUBCUT DAILY [facility] Last Admin: 07/21/16 08:06 Dose: 30 mg Famotidine (Pepcid) 20 mg PO DAILY [facility] Last Admin: 07/21/16 08:05 Dose: 20 mg Gabapentin (Neurontin) 100 mg PO BID [facility] Last Admin: 07/21/16 20:07 Dose: 100 mg Levofloxacin/Dextrose 750 mg/ (Premix) 150 mls @ 100 mls/hr IV Q48H [facility] Last Admin: 07/20/16 12:56 Dose: 100 mls/hr Cefepime HCl 2 gm/ Premix 50 mls @ 100 mls/hr IV Q24H [facility] Last Admin: 07/21/16 13:23 Dose: 100 mls/hr Lidocaine (Lidoderm 5%) 700 mg TRDERM Q24H [facility] Last Admin: 07/21/16 08:06 Dose: 700 mg Lorazepam (Ativan) 0.5 mg PO Q4H PRN PRN Reason: Anxiety Last Admin: 07/22/16 03:06 Dose: 0.5 mg Magnesium Hydroxide (Milk Of Magnesia) 30 ml PO Q12H PRN PRN Reason: Constipation Methylprednisolone Sodium Succinate (Solu-Medrol) 125 mg IVPUSH Q12H [facility] Last Admin: 07/22/16 00:05 Dose: 125 mg Metoprolol Succinate (Toprol Xl) 25 mg PO DAILY [facility] Last Admin: 07/21/16 08:05 Dose: 25 mg Metoprolol Tartrate (Lopressor) 5 mg IVPUSH Q4H PRN PRN Reason: heart rate>120 Last Admin: 07/19/16 01:34 Dose: 5 mg Miscellaneous Information (Remove Patch) 0 ea TRDERM DAILY@2100 [facility] Last Admin: 07/21/16 20:08 Dose: Not Given Ondansetron HCl (Zofran) 4 mg IV Q4H PRN PRN Reason: Nausea/Vomiting Last Admin: 07/19/16 00:26 Dose: 4 mg Pantoprazole Sodium (Protonix) 40 mg PO DAILY [facility] Polyethylene Glycol (Miralax) 17 gm PO DAILY PRN PRN Reason: Constipation Potassium Chloride (Pharmacy To Dose - Potassium Replacement) 1 dose .XX ASDIRECTED [facility] Potassium Chloride (Potassium Chloride Solution) 20 meq PO Q3H [facility] Stop: 07/22/16 12:31 Rivaroxaban (Xarelto) 15 mg PO QPM [facility] Senna (Senna) 17.2 mg PO BID [facility] Last Admin: 07/21/16 20:06 Dose: 17.2 mg Simvastatin (Zocor) 20 mg PO QPM [facility] Last Admin: 07/21/16 17:46 Dose: 20 mg Sodium Chloride (Saline Flush) 10 ml FLUSH ASDIRECTED PRN PRN Reason: Keep Vein Open Last Admin: 07/19/16 04:23 Dose: 10 ml Temazepam (Restoril) 15 mg PO BEDTIME PRN PRN Reason: Insomnia Last Admin: 07/21/16 20:07 Dose: 15 mg Theophylline (Theophylline Anhydrous) 300 mg PO DAILY [facility] Last Admin: 07/21/16 11:38 Dose: 300 mg Trazodone HCl (Trazodone) 150 mg PO BEDTIME [facility] Last Admin: 07/21/16 20:07 Dose: 150 mg Discontinued Medications Acetazolamide (Diamox) 500 mg PO ONETIME ONE Stop: 07/20/16 11:05 Last Admin: 07/20/16 11:58 Dose: 500 mg Albuterol/Ipratropium (Duoneb 3.0-0.5 Mg/3 Ml) 3 ml NEB ONETIME ONE Stop: 07/16/16 08:55 Last Admin: 07/16/16 09:14 Dose: 3 ml Aspirin (Aspirin) 81 mg PO DAILY [facility] Last Admin: 07/19/16 10:11 Dose: Not Given Diltiazem HCl (Dilacor Xr) 240 mg PO DAILY [facility] Last Admin: 07/20/16 08:49 Dose: 240 mg Enoxaparin Sodium (Lovenox) 30 mg SUBCUT DAILY [facility] Last Admin: 07/17/16 00:03 Dose: Not Given Furosemide (Lasix) 80 mg IVPUSH NOW ONE Stop: 07/16/16 08:25 Last Admin: 07/16/16 08:32 Dose: 80 mg Furosemide (Lasix) 80 mg IVPUSH NOW ONE Stop: 07/18/16 12:01 Last Admin: 07/18/16 12:14 Dose: Not Given Furosemide (Lasix) 80 mg IVPUSH NOW ONE Stop: 07/19/16 08:01 Last Admin: 07/19/16 08:36 Dose: 80 mg Hydromorphone HCl (Dilaudid) 0.5 mg IVPUSH ONETIME ONE Stop: 07/16/16 08:30 Last Admin: 07/16/16 09:48 Dose: Not Given Aminophylline 275 mg/ Sodium (Chloride) 111 mls @ 222 mls/hr IV ONETIME ONE Stop: 07/18/16 15:59 Last Admin: 07/18/16 15:23 Dose: 222 mls/hr Aminophylline 285 mg/ Sodium (Chloride) 511.4 mls @ 21.3 mls/hr IV Q24H ONE Stop: 07/19/16 14:00 Last Admin: 07/18/16 16:06 Dose: Not Given Aminophylline 285 mg/ Sodium (Chloride) 511.4 mls @ 21.3 mls/hr IV Q24H ONE Stop: 07/19/16 16:00 Last Admin: 07/18/16 16:04 Dose: 21.3 mls/hr Diltiazem HCl 100 mg/ Sodium (Chloride) 100 mls @ 5 mls/hr IV TITRATE TONJA; 5 MG /HR PRN Reason: Protocol Last Titration: 07/19/16 05:30 Dose: 15 mg/hr, 15 mls/hr Sodium Chloride (Normal Saline) 1,000 mls @ 315 mls/hr IV ASDIRECTED [facility]ONJA Last Admin: 07/19/16 03:07 Dose: 315 mls/hr Diltiazem HCl 125 mg/ Sodium (Chloride) 125 mls @ 5 mls/hr IV TITRATE TONJA; 5 MG /HR PRN Reason: Protocol Last Titration: 07/19/16 18:15 Dose: 15 mg/hr, 15 mls/hr Diltiazem HCl 100 mg/ Sodium (Chloride) 100 mls @ 5 mls/hr IV TITRATE TONJA; 5 MG /HR PRN Reason: Protocol Last Admin: 07/19/16 19:12 Dose: 5 mg/hr, 5 mls/hr Diltiazem HCl 100 mg/ Sodium (Chloride) 100 mls @ 5 mls/hr IV TITRATE TONJA; 5 MG /HR PRN Reason: Protocol Last Titration: 07/20/16 09:20 Dose: Infused Iopamidol (Isovue-370 (76%)) 100 ml IVPUSH ONETIME ONE Stop: 07/19/16 03:54 Last Admin: 07/19/16 04:23 Dose: 100 ml Lorazepam (Ativan) 0.5 mg PO Q4H PRN PRN Reason: Anxiety Last Admin: 07/17/16 03:04 Dose: 0.5 mg Lorazepam (Ativan) 0.25 mg IVPUSH ONETIME ONE Stop: 07/16/16 12:56 Last Admin: 07/16/16 13:23 Dose: 0.25 mg Lorazepam (Ativan) 1 mg IVPUSH ONETIME ONE Stop: 07/19/16 02:07 Last Admin: 07/19/16 02:32 Dose: 1 mg Methylprednisolone Sodium Succinate (Solu-Medrol) 125 mg IVPUSH ONETIME ONE Stop: 07/16/16 10:15 Last Admin: 07/16/16 10:27 Dose: 125 mg Methylprednisolone Sodium Succinate (Solu-Medrol) 125 mg IVPUSH Q12H [facility] Last Admin: 07/18/16 09:38 Dose: 125 mg Methylprednisolone Sodium Succinate (Solu-Medrol) 125 mg IVPUSH Q8H [facility] Last Admin: 07/19/16 16:35 Dose: 125 mg Methylprednisolone Sodium Succinate (Solu-Medrol) 125 mg IVPUSH Q6H [facility] Last Admin: 07/21/16 11:33 Dose: 125 mg Metoclopramide HCl (Reglan) 10 mg IVPUSH ONETIME ONE Stop: 07/19/16 02:07 Last Admin: 07/19/16 02:32 Dose: 10 mg Morphine Sulfate (Morphine) 2 mg IVPUSH Q2H PRN PRN Reason: Pain (severe 7-10) Stop: 07/17/16 12:24 Last Admin: 07/17/16 03:03 Dose: 2 mg Pantoprazole Sodium (Protonix Iv) 40 mg IVPUSH ONETIME ONE Stop: 07/19/16 02:07 Last Admin: 07/19/16 02:32 Dose: 40 mg Pantoprazole Sodium (Protonix Iv) 40 mg IVPUSH Q12H [facility] Last Admin: 07/21/16 11:33 Dose: 40 mg Potassium Chloride (Potassium Chloride) 40 meq PO BID [facility] Last Admin: 07/18/16 12:27 Dose: 40 meq Potassium Chloride (Potassium Chloride) 40 meq PO ONETIME ONE Stop: 07/20/16 11:05 Last Admin: 07/20/16 11:59 Dose: 40 meq Potassium Chloride (Potassium Chloride Solution) 20 meq PO Q3H [facility] Stop: 07/21/16 20:01 Last Admin: 07/21/16 20:06 Dose: 20 meq Rivaroxaban (Xarelto) 15 mg PO QPM [facility] Last Admin: 07/19/16 18:14 Dose: 15 mg Simethicone (Simethicone) 320 mg PO ONETIME ONE Stop: 07/18/16 22:28 Last Admin: 07/18/16 22:41 Dose: 320 mg - Exam Quality Assessment: supplemental oxygen, DVT prophylaxis General: alert, oriented, cooperative, no acute distress HEENT: Pupils equal, Pupils reactive, EOMI Neck: supple, trachea midline Lungs: Normal respiratory effort, Decreased breath sounds Cardiovascular: Regular Rate, Irregular Rhythm Abdomen: bowel sounds present, soft, no tenderness, no distension (Female) Exam: Deferred Back Exam: normal inspection Extremities: normal pulses Skin: warm Neurological: no new focal deficit, normal speech Psy/Mental Status: alert, normal affect, normal mood - Problem List & Annotations (1) CHF (congestive heart failure) SNOMED Code(s): 63143568 Code(s): I50.9 - HEART FAILURE, UNSPECIFIED Status: Acute Current Visit: Yes Qualifiers: Congestive heart failure type: unspecified congestive heart failure type Congestive heart failure chronicity: acute on chronic Qualified Code(s): I50.9 - Heart failure, unspecified (2) CHF exacerbation SNOMED Code(s): 15573578 Code(s): I50.9 - HEART FAILURE, UNSPECIFIED Status: Acute Priority: High Current Visit: Yes Qualifiers: Congestive heart failure type: combined Qualified Code(s): I50.43 - Acute on chronic combined systolic (congestive) and diastolic (congestive) heart failure (3) COPD exacerbation SNOMED Code(s): 779303555, 014907066 Code(s): J44.1 - CHRONIC OBSTRUCTIVE PULMONARY DISEASE W (ACUTE) EXACERBATION Status: Acute Priority: High Current Visit: Yes (4) Hypercapnia SNOMED Code(s): 19841445 Code(s): R06.89 - OTHER ABNORMALITIES OF BREATHING Status: Acute Priority : High Current Visit: Yes (5) Elevated troponin SNOMED Code(s): 023244609, 496251435 Code(s): R74.8 - ABNORMAL LEVELS OF OTHER SERUM ENZYMES Status: Acute Current Visit: No (6) Leg edema SNOMED Code(s): 172231163 Code(s): R60.0 - LOCALIZED EDEMA Status: Acute Current Visit: No (7) SBO (small bowel obstruction) SNOMED Code(s): 652893471 Code(s): K56.69 - OTHER INTESTINAL OBSTRUCTION Status: Acute Current Visit: Yes - Problem List Review Problem List Initiated/Reviewed/Updated: Yes - My Orders Last 24 Hours: My Active Orders 07/21/16 09:00 Diltiazem [Dilacor XR] 240 mg PO DAILY Enoxaparin [Lovenox] 30 mg SUBCUT DAILY 07/21/16 10:00 Potassium Rep Pharmacy to Dose [Pharmacy to Dose - Potassium Replacement] 1 dose .XX ASDIRECTED 07/21/16 14:59 Temazepam [Restoril] 15 mg PO BEDTIME PRN 07/21/16 23:00 methylPREDNISolone Sod Succ [Solu-MEDROL] 125 mg IVPUSH Q12H 07/22/16 09:00 Pantoprazole [ProTONIX] 40 mg PO DAILY 07/22/16 09:30 Potassium Chloride [Potassium Chloride Solution] 20 meq PO Q3H 07/22/16 19:00 THEOPHYLLINE [CHEM] Timed - Plan Plan:: I/P: HCAP-LLL with pleural effusion; will hold Xarelto, plan thoracentesis on 07/23/16. CHF exacerbation with acute hypoxic respiratory failure and hypercapnia -Hold diuretic 24 hours, Lasix -strict I&O, daily wts -monitor renal function with daily am labs -Bipap as above Replace electrolytes as needed. 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 ++++DC NGT 07/23/16 Chronic conditions: A-fib on xarelto- continue home meds for rate control and anticoag; see above, will start SCDs. CAD- cont home meds Depression/anxiety- ativan PRN in addition to usual SSRI/home med OA with chronic pain Other: GI prophylax DVT prophylax- xarelto, ASA CM/SW for dc planning assistance PT/OT eval and tx for weakness/deconditioning Meds via IV or NGT; continue XareltoShobhazem drip. General Surg consult re: SBO Continue Theophylline Follow H/H CXR 2 view, 07/24/16, post thoracentesis. Patient is DNR/DNI code status LOS>96 hours for treatment
[2016-07-22] MEDS: Metoprolol Succinate 25 MG Tab.ER PO SCH (10:24)
[2016-07-22] MEDS: Potassium Chloride 10% 20 MEQ/15 ML Soln 15 ML UD Cup PO SCH ×2 (10:24→13:04)
[2016-07-22] MEDS: Gabapentin 100 MG Cap PO SCH ×2 (10:25→20:04)
[2016-07-22] MEDS: Famotidine 20 MG Tab PO SCH (10:25)
[2016-07-22] MEDS: Pantoprazole 40 MG Tab.CR PO SCH (10:25)
[2016-07-22] MEDS: Sennosides 8.6 MG Tab PO SCH ×2 (10:25→20:05)
[2016-07-22] MEDS: Theophylline 300 MG Tab.ER PO SCH (10:25)
[2016-07-22] MEDS: Enoxaparin 30 MG/0.3 ML Syringe SUBCUT SCH (10:25)
[2016-07-22] MEDS: Lidocaine 5% 700 MG Patch TRDERM SCH (10:26)
[2016-07-22] MEDS: Citalopram 20 MG Tab PO SCH (10:26)
[2016-07-22] MEDS: Diltiazem 240 MG Cap.ER PO SCH (10:26)
[2016-07-22] MEDS: Levofloxacin/Dextrose 5%-Water 750 MG in Premix Bag 1 BAG IV SCH (14:29)
[2016-07-22] MEDS: Cefepime 2 GM in Premix Bag 1 BAG IV SCH (14:29)
[2016-07-22] MEDS: traZODone 50 MG Tab PO SCH (20:04)
[2016-07-22] MEDS: Simvastatin 20 MG Tab PO SCH (20:04)
[2016-07-22] MEDS: Temazepam 15 MG Cap PO PRN (20:05)
[2016-07-22] MEDS: Metoprolol Tartrate 5 MG/5 ML SDV IVPUSH PRN (20:10)
[2016-07-22] MEDS ORDERED: Potassium Chloride 10% 20 MEQ/15 ML Soln 15 ML UD Cup PO SCH (21:00)
[2016-07-22] MEDS ORDERED: Diltiazem IR 60 MG Tab PO SCH (21:00)
[2016-07-23] MEDS: methylPREDNISolone Sodium Succinate 125 MG/2 ML SDV IVPUSH SCH ×2 (01:49→09:59)
[2016-07-23] MEDS: LORazepam 0.5 MG Tab PO PRN ×2 (02:24→20:41)
[2016-07-23] MEDS: Acetaminophen/HYDROcodone 325-5 MG Tab PO PRN ×3 (02:24→20:41)
[2016-07-23] MEDS: Albuterol/Ipratropium 3.0-0.5 MG/3 ML Neb Soln NEB SCH ×5 (02:50→22:17)
[2016-07-23] MEDS: Diltiazem 180 MG Cap.CD PO SCH (09:54)
[2016-07-23] MEDS: Pantoprazole 40 MG Tab.CR PO SCH (09:55)
[2016-07-23] MEDS: Sennosides 8.6 MG Tab PO SCH ×2 (09:55→20:39)
[2016-07-23] MEDS: Gabapentin 100 MG Cap PO SCH ×2 (09:55→20:39)
[2016-07-23] MEDS: Metoprolol Succinate 25 MG Tab.ER PO SCH (09:55)
[2016-07-23] MEDS: Citalopram 20 MG Tab PO SCH (09:58)
[2016-07-23] MEDS: Lidocaine 5% 700 MG Patch TRDERM SCH (09:58)
[2016-07-23] MEDS: Theophylline 300 MG Tab.ER PO SCH (09:58)
[2016-07-23] MEDS: Enoxaparin 30 MG/0.3 ML Syringe SUBCUT SCH (09:59)
--- NOTE | 2016-07-23 10:10 | PCM.OPNOTE ---
- General Post-Op/Procedure Note Date of Surgery/Procedure: 07/23/16 Operative Procedure(s): left thorcenthesis with US guide Findings: 300 cc of blood tinged fluid Pre Op Diagnosis: left pleural effusion Post-Op Diagnosis: Same Anesthesia Technique: Local Primary Surgeon: Mendoza Lizarraga EBL in mLs: 0 Complications: None Condition: Good Free Text/Narrative:: Intake & Output 07/22/16 07/23/16 07/23/16 23:59 07:59 15:59 Intake Total 260 5 Output Total 660 520 Balance -400 -205
--- NOTE | 2016-07-23 11:55 | CR ---
Chest: Frontal view of the chest is obtained utilizing portable technique. Comparison: Previous chest x-ray of 07/20/16. Decreased left-sided pleural effusion from prior exam. Minimal right-sided pleural effusion is seen. Heart is enlarged. Diffuse increased pulmonary vessels are seen which remain stable. Surgical clips are seen at the base of the neck. Impression: 1. Decreased left-sided pleural effusion with no findings of pneumothorax. 2. Other findings as noted above which remains stable from prior chest x-ray. Diagnostic code #2
[2016-07-23] MEDS ORDERED: Furosemide 20 MG/2 ML VIAL IVPUSH ONE (13:00)
[2016-07-23] MEDS: Cefepime 2 GM in Premix Bag 1 BAG IV SCH (13:18)
--- NOTE | 2016-07-23 13:32 | PCM.PN ---
- General Info Date of Service: 07/23/16 Functional Status: Reports: tolerating diet, ambulating, urinating - Review of Systems General: Reports: Weakness HEENT: Reports: no symptoms Pulmonary: Reports: shortness of breath Cardiovascular: Reports: No Symptoms Gastrointestinal: Reports: No symptoms Genitourinary: Reports: no symptoms Musculoskeletal: Reports: no symptoms Skin: Reports: no symptoms Neurological: Reports: No Symptoms Psychiatric: Reports: no symptoms - Patient Data Vitals - most recent: Last Vital Signs Temp 36.6 C 07/23/16 12:00 Pulse 129 H 07/23/16 12:00 Resp 18 07/23/16 12:00 BP 132/92 H 07/23/16 12:00 Pulse Ox 90 L 07/23/16 12:00 Weight - most recent: 6.662 kg I&O - last 24 hours: Intake & Output 07/22/16 07/23/16 07/23/16 22:59 06:59 14:59 Intake Total 260 5 60 Output Total 660 520 445 Balance -400 515 385 Lab Results last 24 hrs: Laboratory Results - last 24 hr 07/22/16 07/23/16 07/23/16 Range/Units 18:50 04:48 04:48 WBC 10.04 (3.98-10.04) K/mm3 RBC 4.37 (3.98-5.22) M/mm3 Hgb 11.6 (11.2-15.7) gm/L Hct 39.5 (34.1-44.9) % MCV 90.4 (79.4-94.8) fl MCH 26.5 (25.6-32.2) pg MCHC 29.4 L (32.2-35.5) g/dl RDW Std Deviation 52.7 H (36.4-46.3) fL Plt Count 148 L (182-369) K/mm3 MPV 11.4 (9.4-12.3) fl Neutrophils % (Manual) 87 H (40-60) % Band Neutrophils % 0 (0-10) % Lymphocytes % (Manual) 11 L (20-40) % Atypical Lymphs % 0 % Monocytes % (Manual) 2 (2-10) % Eosinophils % (Manual) 0 L (0.7-5.8) % Basophils % (Manual) 0 L (0.1-1.2) Toxic Granulation 2+ moderate Platelet Estimate Adequate Plt Morphology Comment Normal Hypochromasia 1+ slight Anisocytosis 1+ slight RBC Morph Comment Not Reportable PT 12.0 (8.0-13.0) SECONDS INR 1.09 Sodium (136-145) mEq/L Potassium (3.5-5.1) mEq/L Chloride (98-107) mEq/L Carbon Dioxide (21-32) mEq/L Anion Gap (5-15) BUN (7-18) mg/dL Creatinine (0.55-1.02) mg/dL Est Cr Clr Drug Dosing Estimated GFR (MDRD) (>60) mL/min BUN/Creatinine Ratio (14-18) Glucose (83-115) mg/dL Calcium (8.5-10.1) mg/dL Magnesium (1.8-2.4) mg/dl Total Bilirubin (0.2-1.0) mg/dL AST (15-37) U/L ALT (14-59) U/L Alkaline Phosphatase (46-116) U/L B-Natriuretic Peptide (0-100) pg/mL Total Protein (6.4-8.2) g/dl Albumin (3.4-5.0) g/dl Globulin gm/dL Albumin/Globulin Ratio (1-2) Body Fluid Site Fluid Type Fluid Volume ML Fluid Color Fluid Appearance Fluid pH (4.5-10.0) Fluid WBC (0.20-0.60) k/mm*3 Fluid RBC (0.00-0.010) 10*6/uL Fluid Seg Neutrophils (0-25) % Fluid Lymphocytes (0-78) % Fl Polymorphonucl Cell Fluid Glucose mg/dL Fluid Albumin Fluid LDH U/L Theophylline 5.6 L (10.0-20.0) ug/mL 07/23/16 07/23/16 07/23/16 Range/Units 04:48 04:48 10:00 WBC (3.98-10.04) K/mm3 RBC (3.98-5.22) M/mm3 Hgb (11.2-15.7) gm/L Hct (34.1-44.9) % MCV (79.4-94.8) fl MCH (25.6-32.2) pg MCHC (32.2-35.5) g/dl RDW Std Deviation (36.4-46.3) fL Plt Count (182-369) K/mm3 MPV (9.4-12.3) fl Neutrophils % (Manual) (40-60) % Band Neutrophils % (0-10) % Lymphocytes % (Manual) (20-40) % Atypical Lymphs % % Monocytes % (Manual) (2-10) % Eosinophils % (Manual) (0.7-5.8) % Basophils % (Manual) (0.1-1.2) Toxic Granulation Platelet Estimate Plt Morphology Comment Hypochromasia Anisocytosis RBC Morph Comment PT (8.0-13.0) SECONDS INR Sodium 142 (136-145) mEq/L Potassium 3.9 (3.5-5.1) mEq/L Chloride 102 (98-107) mEq/L Carbon Dioxide 38 H (21-32) mEq/L Anion Gap 5.9 (5-15) BUN 41 H (7-18) mg/dL Creatinine 1.1 H (0.55-1.02) mg/dL Est Cr Clr Drug Dosing TNP Estimated GFR (MDRD) 48 (>60) mL/min BUN/Creatinine Ratio 37.3 H (14-18) Glucose 84 (83-115) mg/dL Calcium 9.5 (8.5-10.1) mg/dL Magnesium 2.6 H (1.8-2.4) mg/dl Total Bilirubin 0.6 (0.2-1.0) mg/dL AST 25 (15-37) U/L ALT 52 (14-59) U/L Alkaline Phosphatase 63 (46-116) U/L B-Natriuretic Peptide 1226 H (0-100) pg/mL Total Protein 5.7 L (6.4-8.2) g/dl Albumin 2.7 L (3.4-5.0) g/dl Globulin 3.0 gm/dL Albumin/Globulin Ratio 0.9 L (1-2) Body Fluid Site Left lung Fluid Type Thoracentesis fluid Fluid Volume 30 ML Fluid Color Light yellow Fluid Appearance Slightly cloudy Fluid pH 8.5 (4.5-10.0) Fluid WBC 0.31 (0.20-0.60) k/mm*3 Fluid RBC 0.005 (0.00-0.010) 10*6/uL Fluid Seg Neutrophils 20.0 (0-25) % Fluid Lymphocytes 80.0 H (0-78) % Fl Polymorphonucl Cell Not Reportable Fluid Glucose 89 mg/dL Fluid Albumin Cancelled Fluid LDH 85 U/L Theophylline (10.0-20.0) ug/mL [place] Results last 24 hrs: Microbiology 07/23/16 10:00 Gram Stain - Final Thoracentesis Fluid - Left 07/17/16 12:25 Aerobic Blood Culture - Preliminary Blood - Venous NO GROWTH AFTER 6 DAYS Anaerobic Blood Culture - Preliminary NO GROWTH AFTER 6 DAYS 07/17/16 12:35 Aerobic Blood Culture - Preliminary Blood - Venous - Lab Draw NO GROWTH AFTER 6 DAYS Anaerobic Blood Culture - Preliminary NO GROWTH AFTER 6 DAYS 07/19/16 18:00 Streptococcus pneumoniae Antigen (M - Final Urine Med Orders - Current: Current Medications Acetaminophen (Tylenol) 650 mg PO Q4H PRN PRN Reason: Pain (Mild 1-3)/fever Hydrocodone Bitart/Acetaminophen ([place] 325-5 Mg) 1 tab PO Q4H PRN PRN Reason: Pain (moderate 4-6) Last Admin: 07/23/16 02:24 Dose: 1 tab Albuterol (Proventil Neb Soln) 2.5 mg NEB Q2H PRN PRN Reason: Shortness Of Breath/wheezing Albuterol/Ipratropium (Duoneb 3.0-0.5 Mg/3 Ml) 3 ml NEB Q6HRRT [facility] Last Admin: 07/23/16 08:16 Dose: 3 ml Benzocaine/Menthol (Cepacol Sore Throat) 1 lozenge MUCMEM Q2H PRN PRN Reason: Sore Throat Last Admin: 07/20/16 21:56 Dose: 1 lozenge Citalopram Hydrobromide (Celexa) 40 mg PO DAILY [facility] Last Admin: 07/23/16 09:58 Dose: 40 mg Diltiazem HCl (Cardizem Cd) 360 mg PO DAILY [facility] Last Admin: 07/23/16 09:54 Dose: 360 mg Docusate Sodium (Colace) 100 mg PO BID PRN PRN Reason: Constipation Gabapentin (Neurontin) 100 mg PO BID [facility] Last Admin: 07/23/16 09:55 Dose: 100 mg Levofloxacin/Dextrose 750 mg/ (Premix) 150 mls @ 100 mls/hr IV Q48H [facility] Last Admin: 07/22/16 14:29 Dose: 100 mls/hr Cefepime HCl 2 gm/ Premix 50 mls @ 100 mls/hr IV Q24H [facility] Last Admin: 07/23/16 13:18 Dose: 100 mls/hr Aminophylline 500 mg/ Sodium (Chloride) 270 mls @ 7.5 mls/hr IV ASDIRECTED [facility] Stop: 07/24/16 11:00 Last Admin: 07/23/16 11:07 Dose: 7.5 mls/hr Lidocaine (Lidoderm 5%) 700 mg TRDERM Q24H [facility] Last Admin: 07/23/16 09:58 Dose: 700 mg Lorazepam (Ativan) 0.5 mg PO Q4H PRN PRN Reason: Anxiety Last Admin: 07/23/16 02:24 Dose: 0.5 mg Magnesium Hydroxide (Milk Of Magnesia) 30 ml PO Q12H PRN PRN Reason: Constipation Methylprednisolone Sodium Succinate (Solu-Medrol) 125 mg IVPUSH Q12H [facility] Last Admin: 07/23/16 09:59 Dose: 125 mg Metoprolol Succinate (Toprol Xl) 25 mg PO DAILY [facility] Last Admin: 07/23/16 09:55 Dose: 25 mg Metoprolol Tartrate (Lopressor) 5 mg IVPUSH Q4H PRN PRN Reason: heart rate>120 Last Admin: 07/22/16 20:10 Dose: 5 mg Miscellaneous Information (Remove Patch) 0 ea TRDERM DAILY@2100 [facility] Last Admin: 07/22/16 20:05 Dose: Not Given Ondansetron HCl (Zofran) 4 mg IV Q4H PRN PRN Reason: Nausea/Vomiting Last Admin: 07/19/16 00:26 Dose: 4 mg Pantoprazole Sodium (Protonix) 40 mg PO DAILY [facility] Last Admin: 07/23/16 09:55 Dose: 40 mg Polyethylene Glycol (Miralax) 17 gm PO DAILY PRN PRN Reason: Constipation Potassium Chloride (Pharmacy To Dose - Potassium Replacement) 1 dose .XX ASDIRECTED [facility] Rivaroxaban (Xarelto) 15 mg PO QPM [facility] Senna (Senna) 17.2 mg PO BID [facility] Last Admin: 07/23/16 09:55 Dose: 17.2 mg Simvastatin (Zocor) 20 mg PO QPM [facility] Last Admin: 07/22/16 20:04 Dose: 20 mg Sodium Chloride (Saline Flush) 10 ml FLUSH ASDIRECTED PRN PRN Reason: Keep Vein Open Last Admin: 07/19/16 04:23 Dose: 10 ml Temazepam (Restoril) 15 mg PO BEDTIME PRN PRN Reason: Insomnia Last Admin: 07/22/16 20:05 Dose: 15 mg Theophylline (Theophylline Anhydrous) 300 mg PO DAILY [facility] Trazodone HCl (Trazodone) 150 mg PO BEDTIME [facility] Last Admin: 07/22/16 20:04 Dose: 150 mg Discontinued Medications Acetazolamide (Diamox) 500 mg PO ONETIME ONE Stop: 07/20/16 11:05 Last Admin: 07/20/16 11:58 Dose: 500 mg Albuterol/Ipratropium (Duoneb 3.0-0.5 Mg/3 Ml) 3 ml NEB ONETIME ONE Stop: 07/16/16 08:55 Last Admin: 07/16/16 09:14 Dose: 3 ml Aspirin (Aspirin) 81 mg PO DAILY [facility] Last Admin: 07/19/16 10:11 Dose: Not Given Diltiazem HCl (Dilacor Xr) 240 mg PO DAILY [facility] Last Admin: 07/20/16 08:49 Dose: 240 mg Diltiazem HCl (Dilacor Xr) 240 mg PO DAILY [facility] Last Admin: 07/22/16 10:26 Dose: 240 mg Diltiazem HCl (Cardizem) 180 mg PO Q12HR [facility] Enoxaparin Sodium (Lovenox) 30 mg SUBCUT DAILY [facility] Last Admin: 07/17/16 00:03 Dose: Not Given Enoxaparin Sodium (Lovenox) 30 mg SUBCUT DAILY [facility] Last Admin: 07/23/16 09:59 Dose: 30 mg Famotidine (Pepcid) 20 mg PO DAILY [facility] Last Admin: 07/22/16 10:25 Dose: 20 mg Furosemide (Lasix) 80 mg IVPUSH NOW ONE Stop: 07/16/16 08:25 Last Admin: 07/16/16 08:32 Dose: 80 mg Furosemide (Lasix) 80 mg IVPUSH NOW ONE Stop: 07/18/16 12:01 Last Admin: 07/18/16 12:14 Dose: Not Given Furosemide (Lasix) 80 mg IVPUSH NOW ONE Stop: 07/19/16 08:01 Last Admin: 07/19/16 08:36 Dose: 80 mg Furosemide (Lasix) 20 mg IVPUSH ONETIME ONE Stop: 07/23/16 13:01 Last Admin: 07/23/16 13:12 Dose: 20 mg Hydromorphone HCl (Dilaudid) 0.5 mg IVPUSH ONETIME ONE Stop: 07/16/16 08:30 Last Admin: 07/16/16 09:48 Dose: Not Given Aminophylline 275 mg/ Sodium (Chloride) 111 mls @ 222 mls/hr IV ONETIME ONE Stop: 07/18/16 15:59 Last Admin: 07/18/16 15:23 Dose: 222 mls/hr Aminophylline 285 mg/ Sodium (Chloride) 511.4 mls @ 21.3 mls/hr IV Q24H ONE Stop: 07/19/16 14:00 Last Admin: 07/18/16 16:06 Dose: Not Given Aminophylline 285 mg/ Sodium (Chloride) 511.4 mls @ 21.3 mls/hr IV Q24H ONE Stop: 07/19/16 16:00 Last Admin: 07/18/16 16:04 Dose: 21.3 mls/hr Diltiazem HCl 100 mg/ Sodium (Chloride) 100 mls @ 5 mls/hr IV TITRATE [facility]ON[facility]; 5 MG /HR PRN Reason: Protocol Last Titration: 07/19/16 05:30 Dose: 15 mg/hr, 15 mls/hr Sodium Chloride (Normal Saline) 1,000 mls @ 315 mls/hr IV ASDIRECTED [facility] Last Admin: 07/19/16 03:07 Dose: 315 mls/hr Diltiazem HCl 125 mg/ Sodium (Chloride) 125 mls @ 5 mls/hr IV TITRATE TONJA; 5 MG /HR PRN Reason: Protocol Last Titration: 07/19/16 18:15 Dose: 15 mg/hr, 15 mls/hr Diltiazem HCl 100 mg/ Sodium (Chloride) 100 mls @ 5 mls/hr IV TITRATE TONJA; 5 MG /HR PRN Reason: Protocol Last Admin: 07/19/16 19:12 Dose: 5 mg/hr, 5 mls/hr Diltiazem HCl 100 mg/ Sodium (Chloride) 100 mls @ 5 mls/hr IV TITRATE TONJA; 5 MG /HR PRN Reason: Protocol Last Titration: 07/20/16 09:20 Dose: Infused Iopamidol (Isovue-370 (76%)) 100 ml IVPUSH ONETIME ONE Stop: 07/19/16 03:54 Last Admin: 07/19/16 04:23 Dose: 100 ml Lorazepam (Ativan) 0.5 mg PO Q4H PRN PRN Reason: Anxiety Last Admin: 07/17/16 03:04 Dose: 0.5 mg Lorazepam (Ativan) 0.25 mg IVPUSH ONETIME ONE Stop: 07/16/16 12:56 Last Admin: 07/16/16 13:23 Dose: 0.25 mg Lorazepam (Ativan) 1 mg IVPUSH ONETIME ONE Stop: 07/19/16 02:07 Last Admin: 07/19/16 02:32 Dose: 1 mg Methylprednisolone Sodium Succinate (Solu-Medrol) 125 mg IVPUSH ONETIME ONE Stop: 07/16/16 10:15 Last Admin: 07/16/16 10:27 Dose: 125 mg Methylprednisolone Sodium Succinate (Solu-Medrol) 125 mg IVPUSH Q12H [facility] Last Admin: 07/18/16 09:38 Dose: 125 mg Methylprednisolone Sodium Succinate (Solu-Medrol) 125 mg IVPUSH Q8H [facility] Last Admin: 07/19/16 16:35 Dose: 125 mg Methylprednisolone Sodium Succinate (Solu-Medrol) 125 mg IVPUSH Q6H [facility] Last Admin: 07/21/16 11:33 Dose: 125 mg Metoclopramide HCl (Reglan) 10 mg IVPUSH ONETIME ONE Stop: 07/19/16 02:07 Last Admin: 07/19/16 02:32 Dose: 10 mg Morphine Sulfate (Morphine) 2 mg IVPUSH Q2H PRN PRN Reason: Pain (severe 7-10) Stop: 07/17/16 12:24 Last Admin: 07/17/16 03:03 Dose: 2 mg Pantoprazole Sodium (Protonix Iv) 40 mg IVPUSH ONETIME ONE Stop: 07/19/16 02:07 Last Admin: 07/19/16 02:32 Dose: 40 mg Pantoprazole Sodium (Protonix Iv) 40 mg IVPUSH Q12H [facility] Last Admin: 07/21/16 11:33 Dose: 40 mg Potassium Chloride (Potassium Chloride) 40 meq PO BID [facility] Last Admin: 07/18/16 12:27 Dose: 40 meq Potassium Chloride (Potassium Chloride) 40 meq PO ONETIME ONE Stop: 07/20/16 11:05 Last Admin: 07/20/16 11:59 Dose: 40 meq Potassium Chloride (Potassium Chloride Solution) 20 meq PO Q3H [facility] Stop: 07/21/16 20:01 Last Admin: 07/21/16 20:06 Dose: 20 meq Potassium Chloride (Potassium Chloride Solution) 20 meq PO Q3H [facility] Stop: 07/22/16 12:31 Last Admin: 07/22/16 13:04 Dose: 20 meq Rivaroxaban (Xarelto) 15 mg PO QPM [facility] Last Admin: 07/19/16 18:14 Dose: 15 mg Simethicone (Simethicone) 320 mg PO ONETIME ONE Stop: 07/18/16 22:28 Last Admin: 07/18/16 22:41 Dose: 320 mg Theophylline (Theophylline Anhydrous) 300 mg PO DAILY [facility] Last Admin: 07/23/16 09:58 Dose: 300 mg - Exam Quality Assessment: supplemental oxygen, urine catheter, DVT prophylaxis General: alert, oriented, cooperative, no acute distress HEENT: Pupils equal, Pupils reactive, EOMI Neck: supple, trachea midline Lungs: Normal respiratory effort Cardiovascular: Regular Rate, Irregular Rhythm Abdomen: bowel sounds present, soft, no tenderness, no distension (Female) Exam: Deferred Back Exam: normal inspection Extremities: normal pulses Skin: warm Neurological: no new focal deficit, normal speech Psy/Mental Status: alert, normal affect, normal mood - Problem List & Annotations (1) CHF (congestive heart failure) SNOMED Code(s): 82329029 Code(s): I50.9 - HEART FAILURE, UNSPECIFIED Status: Acute Current Visit: Yes Qualifiers: Congestive heart failure type: unspecified congestive heart failure type Congestive heart failure chronicity: acute on chronic Qualified Code(s): I50.9 - Heart failure, unspecified (2) CHF exacerbation SNOMED Code(s): 00748051 Code(s): I50.9 - HEART FAILURE, UNSPECIFIED Status: Acute Priority: High Current Visit: Yes Qualifiers: Congestive heart failure type: combined Qualified Code(s): I50.43 - Acute on chronic combined systolic (congestive) and diastolic (congestive) heart failure (3) COPD exacerbation SNOMED Code(s): 305435279, 348889359 Code(s): J44.1 - CHRONIC OBSTRUCTIVE PULMONARY DISEASE W (ACUTE) EXACERBATION Status: Acute Priority: High Current Visit: Yes (4) Hypercapnia SNOMED Code(s): 10752569 Code(s): R06.89 - OTHER ABNORMALITIES OF BREATHING Status: Acute Priority : High Current Visit: Yes (5) Elevated troponin SNOMED Code(s): 984823281, 039595266 Code(s): R74.8 - ABNORMAL LEVELS OF OTHER SERUM ENZYMES Status: Acute Current Visit: No (6) Leg edema SNOMED Code(s): 177580904 Code(s): R60.0 - LOCALIZED EDEMA Status: Acute Current Visit: No (7) SBO (small bowel obstruction) SNOMED Code(s): 055462534 Code(s): K56.69 - OTHER INTESTINAL OBSTRUCTION Status: Acute Current Visit: Yes - Problem List Review Problem List Initiated/Reviewed/Updated: Yes - My Orders Last 24 Hours: My Active Orders 07/23/16 09:00 Diltiazem [Cardizem CD] 360 mg PO DAILY 07/23/16 11:00 Aminophylline 500 mg Sodium Chloride 0.9% [Normal Saline] 250 ml IV ASDIRECTED 07/23/16 12:10 CPAP Adult [RT BiPAP/CPAP] [RC] ASDIRECTED 07/24/16 23:00 THEOPHYLLINE [CHEM] Timed 07/26/16 09:00 Theophylline [Theophylline Anhydrous] 300 mg PO DAILY - Plan Plan:: I/P: HCAP-LLL with pleural effusion; s/p thoracentesis, 300 cc blood tinged CHF exacerbation with acute hypoxic respiratory failure and hypercapnia -Lasix 20 mg IV -strict I&O, daily wts -monitor renal function with daily am labs Replace electrolytes as needed. 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 NGT placed; Ileus cf SBO, will continue NGT, may need gastrograffin small bowel with follow through. ++++DC NGT 07/24/16 Chronic conditions: A-fib on xarelto- continue home meds for rate control and anticoag; see above, will start SCDs. CAD- cont home meds Depression/anxiety- ativan PRN in addition to usual SSRI/home med OA with chronic pain Other: GI prophylax DVT prophylax- xarelto, ASA CM/SW for dc planning assistance PT/OT eval and tx for weakness/deconditioning Meds via IV or NGT; Resume Xarelto, Cardizem drip. General Surg consult re: SBO Continue Theophylline Follow H/H CXR 2 view, 07/24/16, post thoracentesis. Patient is DNR/DNI code status LOS>96 hours for treatment
[2016-07-23] MEDS ORDERED: Metoprolol Succinate 25 MG Tab.ER PO ONE (16:00)
[2016-07-23] MEDS: Simvastatin 20 MG Tab PO SCH (17:00)
[2016-07-23] MEDS: traZODone 50 MG Tab PO SCH (20:40)
[2016-07-23] MEDS: Temazepam 15 MG Cap PO PRN (20:41)
[2016-07-23] MEDS ORDERED: methylPREDNISolone Sodium Succinate 40 MG/1 ML SDV IVPUSH SCH (22:00)
[2016-07-24] MEDS: LORazepam 0.5 MG Tab PO PRN (02:27)
[2016-07-24] MEDS: Metoprolol Tartrate 5 MG/5 ML SDV IVPUSH PRN (02:27)
[2016-07-24] MEDS: Acetaminophen/HYDROcodone 325-5 MG Tab PO PRN ×3 (02:27→13:24)
[2016-07-24] MEDS: Metoprolol Succinate 50 MG Tab.ER PO SCH (08:46)
[2016-07-24] MEDS: Citalopram 20 MG Tab PO SCH (08:47)
[2016-07-24] MEDS: Pantoprazole 40 MG Tab.CR PO SCH (08:47)
[2016-07-24] MEDS: Sennosides 8.6 MG Tab PO SCH (08:47)
[2016-07-24] MEDS: Gabapentin 100 MG Cap PO SCH ×2 (08:48→20:09)
[2016-07-24] MEDS: Diltiazem 180 MG Cap.CD PO SCH (08:48)
[2016-07-24] MEDS: Lidocaine 5% 700 MG Patch TRDERM SCH (08:48)
[2016-07-24] MEDS ORDERED: predniSONE 10 MG Tab PO SCH (10:00)
--- NOTE | 2016-07-24 10:17 | PCM.PN ---
- General Info Date of Service: 07/24/16 Functional Status: Reports: urinating, other (will not bear weight) - Review of Systems General: Reports: Weakness HEENT: Reports: no symptoms Pulmonary: Reports: no symptoms Cardiovascular: Reports: No Symptoms Gastrointestinal: Reports: No symptoms Genitourinary: Reports: no symptoms Musculoskeletal: Reports: no symptoms Skin: Reports: no symptoms Neurological: Reports: No Symptoms Psychiatric: Reports: depression - Patient Data Vitals - most recent: Last Vital Signs Temp 36.9 C 07/24/16 08:00 Pulse 96 07/24/16 08:46 Resp 16 07/24/16 08:00 BP 123/68 07/24/16 08:46 Pulse Ox 92 L 07/24/16 08:00 Weight - most recent: 106.1 kg I&O - last 24 hours: Intake & Output 07/23/16 07/24/16 07/24/16 22:59 06:59 14:59 Intake Total 280 200 Output Total 1175 500 500 Balance -895 -500 -300 Lab Results last 24 hrs: Laboratory Results - last 24 hr 07/23/16 07/24/16 07/24/16 Range/Units 10:00 07:19 07:19 WBC 8.90 (3.98-10.04) K/mm3 RBC 4.63 (3.98-5.22) M/mm3 Hgb 12.2 (11.2-15.7) gm/L Hct 40.9 (34.1-44.9) % MCV 88.3 (79.4-94.8) fl MCH 26.3 (25.6-32.2) pg MCHC 29.8 L (32.2-35.5) g/dl RDW Std Deviation 51.8 H (36.4-46.3) fL Plt Count 135 L (182-369) K/mm3 MPV 10.7 (9.4-12.3) fl Neut % (Auto) 86.4 H (34.0-71.1) % Lymph % (Auto) 6.7 L (19.3-51.7) % Laporte % (Auto) 5.6 (4.7-12.5) % Eos % (Auto) 0 L (0.7-5.8) Baso % (Auto) 0.1 (0.1-1.2) % Neut # (Auto) 7.68 H (1.56-6.13) K/mm3 Lymph # (Auto) 0.60 L (1.18-3.74) K/mm3 [place] # (Auto) 0.50 H (0.24-0.36) K/mm3 Eos # (Auto) 0.00 L (0.04-0.36) K/mm3 Baso # (Auto) 0.01 (0.01-0.08) K/mm3 Manual Slide Review Normal smear Sodium 140 (136-145) mEq/L Potassium 3.6 (3.5-5.1) mEq/L Chloride 102 (98-107) mEq/L Carbon Dioxide 38 H (21-32) mEq/L Anion Gap 3.6 L (5-15) BUN 38 H (7-18) mg/dL Creatinine 1.0 (0.55-1.02) mg/dL Est Cr Clr Drug Dosing 33.86 mL/min Estimated GFR (MDRD) 53 (>60) mL/min BUN/Creatinine Ratio 38.0 H (14-18) Glucose 104 (83-115) mg/dL Calcium 9.4 (8.5-10.1) mg/dL B-Natriuretic Peptide (0-100) pg/mL Body Fluid Site Left lung Fluid Type Thoracentesis fluid Fluid Volume 30 ML Fluid Color Light yellow Fluid Appearance Slightly cloudy Fluid pH 8.5 (4.5-10.0) Fluid WBC 0.31 (0.20-0.60) k/mm*3 Fluid RBC 0.005 (0.00-0.010) 10*6/uL Fluid Diff Comment Not Reportable Fluid Seg Neutrophils 20.0 (0-25) % Fluid Lymphocytes 80.0 H (0-78) % Fl Polymorphonucl Cell Not Reportable Fluid Glucose 89 mg/dL Fluid Albumin Cancelled Fluid LDH 85 U/L 07/24/16 Range/Units 07:19 WBC (3.98-10.04) K/mm3 RBC (3.98-5.22) M/mm3 Hgb (11.2-15.7) gm/L Hct (34.1-44.9) % MCV (79.4-94.8) fl MCH (25.6-32.2) pg MCHC (32.2-35.5) g/dl RDW Std Deviation (36.4-46.3) fL Plt Count (182-369) K/mm3 MPV (9.4-12.3) fl Neut % (Auto) (34.0-71.1) % Lymph % (Auto) (19.3-51.7) % Laporte % (Auto) (4.7-12.5) % Eos % (Auto) (0.7-5.8) Baso % (Auto) (0.1-1.2) % Neut # (Auto) (1.56-6.13) K/mm3 Lymph # (Auto) (1.18-3.74) K/mm3 [place] # (Auto) (0.24-0.36) K/mm3 Eos # (Auto) (0.04-0.36) K/mm3 Baso # (Auto) (0.01-0.08) K/mm3 Manual Slide Review Sodium (136-145) mEq/L Potassium (3.5-5.1) mEq/L Chloride (98-107) mEq/L Carbon Dioxide (21-32) mEq/L Anion Gap (5-15) BUN (7-18) mg/dL Creatinine (0.55-1.02) mg/dL Est Cr Clr Drug Dosing mL/min Estimated GFR (MDRD) (>60) mL/min BUN/Creatinine Ratio (14-18) Glucose (83-115) mg/dL Calcium (8.5-10.1) mg/dL B-Natriuretic Peptide 1195 H (0-100) pg/mL Body Fluid Site Fluid Type Fluid Volume ML Fluid Color Fluid Appearance Fluid pH (4.5-10.0) Fluid WBC (0.20-0.60) k/mm*3 Fluid RBC (0.00-0.010) 10*6/uL Fluid Diff Comment Fluid Seg Neutrophils (0-25) % Fluid Lymphocytes (0-78) % Fl Polymorphonucl Cell Fluid Glucose mg/dL Fluid Albumin Fluid LDH U/L Mendoza Results last 24 hrs: Microbiology 07/23/16 10:00 Gram Stain - Final Thoracentesis Fluid - Left 07/17/16 12:25 Aerobic Blood Culture - Preliminary Blood - Venous NO GROWTH AFTER 6 DAYS Anaerobic Blood Culture - Preliminary NO GROWTH AFTER 6 DAYS 07/17/16 12:35 Aerobic Blood Culture - Preliminary Blood - Venous - Lab Draw NO GROWTH AFTER 6 DAYS Anaerobic Blood Culture - Preliminary NO GROWTH AFTER 6 DAYS Med Orders - Current: Current Medications Acetaminophen (Tylenol) 650 mg PO Q4H PRN PRN Reason: Pain (Mild 1-3)/fever Hydrocodone Bitart/Acetaminophen ([place] 325-5 Mg) 1 tab PO Q4H PRN PRN Reason: Pain (moderate 4-6) Last Admin: 07/24/16 08:46 Dose: 1 tab Albuterol (Proventil Neb Soln) 2.5 mg NEB Q2H PRN PRN Reason: Shortness Of Breath/wheezing Benzocaine/Menthol (Cepacol Sore Throat) 1 lozenge MUCMEM Q2H PRN PRN Reason: Sore Throat Last Admin: 07/20/16 21:56 Dose: 1 lozenge Citalopram Hydrobromide (Celexa) 40 mg PO DAILY [facility] Last Admin: 07/24/16 08:47 Dose: 40 mg Diltiazem HCl (Cardizem Cd) 360 mg PO DAILY [facility] Last Admin: 07/24/16 08:48 Dose: 360 mg Docusate Sodium (Colace) 100 mg PO BID PRN PRN Reason: Constipation Gabapentin (Neurontin) 100 mg PO BID [facility] Last Admin: 07/24/16 08:48 Dose: 100 mg Levofloxacin/Dextrose 750 mg/ (Premix) 150 mls @ 100 mls/hr IV Q48H [facility] Last Admin: 07/22/16 14:29 Dose: 100 mls/hr Cefepime HCl 2 gm/ Premix 50 mls @ 100 mls/hr IV Q24H [facility] Last Admin: 07/23/16 13:18 Dose: 100 mls/hr Aminophylline 500 mg/ Sodium (Chloride) 270 mls @ 7.5 mls/hr IV ASDIRECTED [facility] Stop: 07/24/16 11:00 Last Admin: 07/23/16 11:07 Dose: 7.5 mls/hr Lidocaine (Lidoderm 5%) 700 mg TRDERM Q24H [facility] Last Admin: 07/24/16 08:48 Dose: 700 mg Lorazepam (Ativan) 0.5 mg PO Q4H PRN PRN Reason: Anxiety Last Admin: 07/24/16 02:27 Dose: 0.5 mg Magnesium Hydroxide (Milk Of Magnesia) 30 ml PO Q12H PRN PRN Reason: Constipation Metoprolol Succinate (Toprol Xl) 50 mg PO DAILY [facility] Last Admin: 07/24/16 08:46 Dose: 50 mg Metoprolol Tartrate (Lopressor) 5 mg IVPUSH Q4H PRN PRN Reason: heart rate>120 Last Admin: 07/24/16 02:27 Dose: 5 mg Miscellaneous Information (Remove Patch) 0 ea TRDERM DAILY@2100 [facility] Last Admin: 07/23/16 20:40 Dose: Not Given Ondansetron HCl (Zofran) 4 mg IV Q4H PRN PRN Reason: Nausea/Vomiting Last Admin: 07/19/16 00:26 Dose: 4 mg Pantoprazole Sodium (Protonix) 40 mg PO DAILY [facility] Last Admin: 07/24/16 08:47 Dose: 40 mg Polyethylene Glycol (Miralax) 17 gm PO DAILY PRN PRN Reason: Constipation Potassium Chloride (Pharmacy To Dose - Potassium Replacement) 1 dose .XX ASDIRECTED [facility] Prednisone (Prednisone) 40 mg PO DAILY [facility] Stop: 07/26/16 09:01 Prednisone (Prednisone) 30 mg PO DAILY [facility] Stop: 07/29/16 09:01 Prednisone (Prednisone) 20 mg PO DAILY [facility] Stop: 08/01/16 09:01 Prednisone (Prednisone) 10 mg PO DAILY [facility] Stop: 08/04/16 09:01 Rivaroxaban (Xarelto) 15 mg PO QPM [facility] Senna (Senna) 17.2 mg PO BID [facility] Last Admin: 07/24/16 08:47 Dose: 17.2 mg Simvastatin (Zocor) 20 mg PO QPM [facility] Last Admin: 07/23/16 17:00 Dose: 20 mg Sodium Chloride (Saline Flush) 10 ml FLUSH ASDIRECTED PRN PRN Reason: Keep Vein Open Last Admin: 07/19/16 04:23 Dose: 10 ml Temazepam (Restoril) 15 mg PO BEDTIME PRN PRN Reason: Insomnia Last Admin: 07/23/16 20:41 Dose: 15 mg Theophylline (Theophylline Anhydrous) 300 mg PO DAILY [facility] Trazodone HCl (Trazodone) 150 mg PO BEDTIME [facility] Last Admin: 07/23/16 20:40 Dose: 150 mg Discontinued Medications Acetazolamide (Diamox) 500 mg PO ONETIME ONE Stop: 07/20/16 11:05 Last Admin: 07/20/16 11:58 Dose: 500 mg Albuterol/Ipratropium (Duoneb 3.0-0.5 Mg/3 Ml) 3 ml NEB ONETIME ONE Stop: 07/16/16 08:55 Last Admin: 07/16/16 09:14 Dose: 3 ml Albuterol/Ipratropium (Duoneb 3.0-0.5 Mg/3 Ml) 3 ml NEB Q6HRRT [facility] Last Admin: 07/23/16 22:17 Dose: Not Given Aspirin (Aspirin) 81 mg PO DAILY [facility] Last Admin: 07/19/16 10:11 Dose: Not Given Diltiazem HCl (Dilacor Xr) 240 mg PO DAILY [facility] Last Admin: 07/20/16 08:49 Dose: 240 mg Diltiazem HCl (Dilacor Xr) 240 mg PO DAILY [facility] Last Admin: 07/22/16 10:26 Dose: 240 mg Diltiazem HCl (Cardizem) 180 mg PO Q12HR [facility] Enoxaparin Sodium (Lovenox) 30 mg SUBCUT DAILY [facility] Last Admin: 07/17/16 00:03 Dose: Not Given Enoxaparin Sodium (Lovenox) 30 mg SUBCUT DAILY [facility] Last Admin: 07/23/16 09:59 Dose: 30 mg Famotidine (Pepcid) 20 mg PO DAILY [facility] Last Admin: 07/22/16 10:25 Dose: 20 mg Furosemide (Lasix) 80 mg IVPUSH NOW ONE Stop: 07/16/16 08:25 Last Admin: 07/16/16 08:32 Dose: 80 mg Furosemide (Lasix) 80 mg IVPUSH NOW ONE Stop: 07/18/16 12:01 Last Admin: 07/18/16 12:14 Dose: Not Given Furosemide (Lasix) 80 mg IVPUSH NOW ONE Stop: 07/19/16 08:01 Last Admin: 07/19/16 08:36 Dose: 80 mg Furosemide (Lasix) 20 mg IVPUSH ONETIME ONE Stop: 07/23/16 13:01 Last Admin: 07/23/16 13:12 Dose: 20 mg Hydromorphone HCl (Dilaudid) 0.5 mg IVPUSH ONETIME ONE Stop: 07/16/16 08:30 Last Admin: 07/16/16 09:48 Dose: Not Given Aminophylline 275 mg/ Sodium (Chloride) 111 mls @ 222 mls/hr IV ONETIME ONE Stop: 07/18/16 15:59 Last Admin: 07/18/16 15:23 Dose: 222 mls/hr Aminophylline 285 mg/ Sodium (Chloride) 511.4 mls @ 21.3 mls/hr IV Q24H ONE Stop: 07/19/16 14:00 Last Admin: 07/18/16 16:06 Dose: Not Given Aminophylline 285 mg/ Sodium (Chloride) 511.4 mls @ 21.3 mls/hr IV Q24H ONE Stop: 07/19/16 16:00 Last Admin: 07/18/16 16:04 Dose: 21.3 mls/hr Diltiazem HCl 100 mg/ Sodium (Chloride) 100 mls @ 5 mls/hr IV TITRATE TONJA; 5 MG /HR PRN Reason: Protocol Last Titration: 07/19/16 05:30 Dose: 15 mg/hr, 15 mls/hr Sodium Chloride (Normal Saline) 1,000 mls @ 315 mls/hr IV ASDIRECTED TONJA Last Admin: 07/19/16 03:07 Dose: 315 mls/hr Diltiazem HCl 125 mg/ Sodium (Chloride) 125 mls @ 5 mls/hr IV TITRATE TONJA; 5 MG /HR PRN Reason: Protocol Last Titration: 07/19/16 18:15 Dose: 15 mg/hr, 15 mls/hr Diltiazem HCl 100 mg/ Sodium (Chloride) 100 mls @ 5 mls/hr IV TITRATE TONJA; 5 MG /HR PRN Reason: Protocol Last Admin: 07/19/16 19:12 Dose: 5 mg/hr, 5 mls/hr Diltiazem HCl 100 mg/ Sodium (Chloride) 100 mls @ 5 mls/hr IV TITRATE TONJA; 5 MG /HR PRN Reason: Protocol Last Titration: 07/20/16 09:20 Dose: Infused Iopamidol (Isovue-370 (76%)) 100 ml IVPUSH ONETIME ONE Stop: 07/19/16 03:54 Last Admin: 07/19/16 04:23 Dose: 100 ml Lorazepam (Ativan) 0.5 mg PO Q4H PRN PRN Reason: Anxiety Last Admin: 07/17/16 03:04 Dose: 0.5 mg Lorazepam (Ativan) 0.25 mg IVPUSH ONETIME ONE Stop: 07/16/16 12:56 Last Admin: 07/16/16 13:23 Dose: 0.25 mg Lorazepam (Ativan) 1 mg IVPUSH ONETIME ONE Stop: 07/19/16 02:07 Last Admin: 07/19/16 02:32 Dose: 1 mg Methylprednisolone Sodium Succinate (Solu-Medrol) 125 mg IVPUSH ONETIME ONE Stop: 07/16/16 10:15 Last Admin: 07/16/16 10:27 Dose: 125 mg Methylprednisolone Sodium Succinate (Solu-Medrol) 125 mg IVPUSH Q12H [facility] Last Admin: 07/18/16 09:38 Dose: 125 mg Methylprednisolone Sodium Succinate (Solu-Medrol) 125 mg IVPUSH Q8H [facility] Last Admin: 07/19/16 16:35 Dose: 125 mg Methylprednisolone Sodium Succinate (Solu-Medrol) 125 mg IVPUSH Q6H [facility] Last Admin: 07/21/16 11:33 Dose: 125 mg Methylprednisolone Sodium Succinate (Solu-Medrol) 125 mg IVPUSH Q12H [facility] Last Admin: 07/23/16 09:59 Dose: 125 mg Methylprednisolone Sodium Succinate (Solu-Medrol) 40 mg IVPUSH Q12H [facility] Last Admin: 07/23/16 21:40 Dose: Not Given Metoclopramide HCl (Reglan) 10 mg IVPUSH ONETIME ONE Stop: 07/19/16 02:07 Last Admin: 07/19/16 02:32 Dose: 10 mg Metoprolol Succinate (Toprol Xl) 25 mg PO DAILY [facility] Last Admin: 07/23/16 09:55 Dose: 25 mg Metoprolol Succinate (Toprol Xl) 25 mg PO ONETIME ONE Stop: 07/23/16 16:01 Last Admin: 07/23/16 17:00 Dose: 25 mg Morphine Sulfate (Morphine) 2 mg IVPUSH Q2H PRN PRN Reason: Pain (severe 7-10) Stop: 07/17/16 12:24 Last Admin: 07/17/16 03:03 Dose: 2 mg Pantoprazole Sodium (Protonix Iv) 40 mg IVPUSH ONETIME ONE Stop: 07/19/16 02:07 Last Admin: 07/19/16 02:32 Dose: 40 mg Pantoprazole Sodium (Protonix Iv) 40 mg IVPUSH Q12H [facility] Last Admin: 07/21/16 11:33 Dose: 40 mg Potassium Chloride (Potassium Chloride) 40 meq PO BID [facility] Last Admin: 07/18/16 12:27 Dose: 40 meq Potassium Chloride (Potassium Chloride) 40 meq PO ONETIME ONE Stop: 07/20/16 11:05 Last Admin: 07/20/16 11:59 Dose: 40 meq Potassium Chloride (Potassium Chloride Solution) 20 meq PO Q3H [facility] Stop: 07/21/16 20:01 Last Admin: 07/21/16 20:06 Dose: 20 meq Potassium Chloride (Potassium Chloride Solution) 20 meq PO Q3H [facility] Stop: 07/22/16 12:31 Last Admin: 07/22/16 13:04 Dose: 20 meq Prednisone (Prednisone) 10 mg PO DAILY [facility] PRN Reason: Taper Stop: 08/05/16 09:59 Rivaroxaban (Xarelto) 15 mg PO QPM [facility] Last Admin: 07/19/16 18:14 Dose: 15 mg Simethicone (Simethicone) 320 mg PO ONETIME ONE Stop: 07/18/16 22:28 Last Admin: 07/18/16 22:41 Dose: 320 mg Theophylline (Theophylline Anhydrous) 300 mg PO DAILY [facility] Last Admin: 07/23/16 09:58 Dose: 300 mg - Exam Quality Assessment: supplemental oxygen, urine catheter, DVT prophylaxis General: alert, oriented, no acute distress HEENT: Pupils equal, Pupils reactive, EOMI Neck: supple, trachea midline, no JVD Lungs: Normal respiratory effort Cardiovascular: Regular Rate, Irregular Rhythm Abdomen: bowel sounds present, soft, no tenderness, no distension (Female) Exam: Deferred Back Exam: Normal Inspection Extremities: normal pulses Neurological: no new focal deficit Psy/Mental Status: alert, depressed - Problem List & Annotations (1) CHF (congestive heart failure) SNOMED Code(s): 03756478 Code(s): I50.9 - HEART FAILURE, UNSPECIFIED Status: Acute Current Visit: Yes Qualifiers: Congestive heart failure type: unspecified congestive heart failure type Congestive heart failure chronicity: acute on chronic Qualified Code(s): I50.9 - Heart failure, unspecified (2) CHF exacerbation SNOMED Code(s): 59607976 Code(s): I50.9 - HEART FAILURE, UNSPECIFIED Status: Acute Priority: High Current Visit: Yes Qualifiers: Congestive heart failure type: combined Qualified Code(s): I50.43 - Acute on chronic combined systolic (congestive) and diastolic (congestive) heart failure (3) COPD exacerbation SNOMED Code(s): 718996208, 638859540 Code(s): J44.1 - CHRONIC OBSTRUCTIVE PULMONARY DISEASE W (ACUTE) EXACERBATION Status: Acute Priority: High Current Visit: Yes (4) Hypercapnia SNOMED Code(s): 21716406 Code(s): R06.89 - OTHER ABNORMALITIES OF BREATHING Status: Acute Priority : High Current Visit: Yes (5) Elevated troponin SNOMED Code(s): 702608421, 173440378 Code(s): R74.8 - ABNORMAL LEVELS OF OTHER SERUM ENZYMES Status: Acute Current Visit: No (6) Leg edema SNOMED Code(s): 753949895 Code(s): R60.0 - LOCALIZED EDEMA Status: Acute Current Visit: No (7) SBO (small bowel obstruction) SNOMED Code(s): 680205867 Code(s): K56.69 - OTHER INTESTINAL OBSTRUCTION Status: Acute Current Visit: Yes - Problem List Review Problem List Initiated/Reviewed/Updated: Yes - My Orders Last 24 Hours: My Active Orders 07/23/16 11:00 Aminophylline 500 mg Sodium Chloride 0.9% [Normal Saline] 250 ml IV ASDIRECTED 07/23/16 12:10 CPAP Adult [RT BiPAP/CPAP] [RC] ASDIRECTED 07/24/16 09:00 Metoprolol Succinate [Toprol XL] 50 mg PO DAILY 07/24/16 10:08 DC Tejeda Catheter [Urinary Catheter Removal] [RC] Per Unit Routine 07/24/16 10:09 Nasogastric Orogastric Tube Removal [OM.PC] Routine 07/24/16 23:00 THEOPHYLLINE [CHEM] Timed 07/25/16 08:00 CXR [Chest 2V] [CR] Routine 07/26/16 09:00 Theophylline [Theophylline Anhydrous] 300 mg PO DAILY - Plan Plan:: I/P: HCAP-LLL with pleural effusion; s/p thoracentesis, 300 cc blood tinged CHF exacerbation with acute hypoxic respiratory failure and hypercapnia -Lasix 20 mg IV -strict I&O, daily wts -monitor renal function with daily am labs Replace electrolytes as needed. 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 NGT placed; Ileus cf SBO, will continue NGT, may need gastrograffin small bowel with follow through. ++++DC NGT 07/24/16 GENERALIZED WEAKNESS DEPRESSION-BRIEF DISCUSSION ABOUT HER WISHES, SHE IS CONSIDERING COMFORT CARE ONLY. Chronic conditions: A-fib on xarelto- continue home meds for rate control and anticoag; see above, will start SCDs. CAD- cont home meds Depression/anxiety- ativan PRN in addition to usual SSRI/home med OA with chronic pain Other: GI prophylax DVT prophylax- xarelto, ASA CM/SW for dc planning assistance PT/OT eval and tx for weakness/deconditioning Meds via IV or NGT; Resume Xarelto, Cardizem drip. General Surg consult re: SBO Continue Theophylline Follow H/H CXR 2 view, 07/24/16, post thoracentesis. Patient is DNR/DNI code status LOS>96 hours for treatment
--- NOTE | 2016-07-24 11:47 | PROC ---
DATE OF OPERATION: 07/23/2016 SURGEON: Mendoza Lizarraga MD PREOPERATIVE DIAGNOSIS: Left pleural effusion. POSTOPERATIVE DIAGNOSIS: Left pleural effusion. OPERATION PERFORMED: Ultrasound-guided left thoracentesis. ANESTHESIA: Done under local anesthetic 1% Xylocaine. FINDINGS: 300 mL blood-tinged fluid removed. DESCRIPTION OF PROCEDURE: The patient was seen at the bedside. After informed consent was obtained and after reviewing the x-ray, ultrasound was done showing pleural effusion and some atelectasis in the left base. Ultrasound marked the spot most efficacious for entrance of the needle. This area was then prepped with Betadine and chlorhexidine, and then draped off in a sterile fashion. Skin was anesthetized with 1% Xylocaine. A small incision was made and thoracentesis needle was then inserted and connected to suction bottles, 300 mL was removed. The catheter was removed. Band-Aids placed and followup chest x-ray obtained. Specimens were obtained for analysis. The patient tolerated the procedure. ESTIMATED BLOOD LOSS: MMODAL /[id number]
[2016-07-24] MEDS: Levofloxacin/Dextrose 5%-Water 750 MG in Premix Bag 1 BAG IV SCH (13:25)
[2016-07-24] MEDS: predniSONE 20 MG Tab PO SCH (13:25)
[2016-07-24] MEDS: Cefepime 2 GM in Premix Bag 1 BAG IV SCH (13:25)
[2016-07-24] MEDS ORDERED: Furosemide 20 MG/2 ML VIAL IVPUSH ONE (16:32)
[2016-07-24] MEDS ORDERED: Rivaroxaban 10 MG Tab PO SCH (18:00)
[2016-07-24] MEDS ORDERED: LORazepam 2 MG/ML MDV IVPUSH PRN (19:56)
[2016-07-24] MEDS: Simvastatin 20 MG Tab PO SCH (19:57)
[2016-07-24] MEDS ORDERED: Furosemide 40 MG/4 ML VIAL ONE (20:03)
[2016-07-24] MEDS: Morphine 2 MG/ML Syringe IVPUSH PRN (20:08)
[2016-07-24] MEDS: traZODone 50 MG Tab PO SCH (20:09)
[2016-07-24] MEDS: Acetaminophen/HYDROcodone 325-5 MG Tab PO SCH ×2 (20:10→20:40)
[2016-07-24] MEDS: Temazepam 15 MG Cap PO PRN (23:00)
[2016-07-25] MEDS: Acetaminophen/HYDROcodone 325-5 MG Tab PO SCH ×5 (00:55→12:19)
[2016-07-25] MEDS: Gabapentin 100 MG Cap PO SCH (08:12)
[2016-07-25] MEDS: Metoprolol Succinate 50 MG Tab.ER PO SCH (08:12)
[2016-07-25] MEDS: predniSONE 20 MG Tab PO SCH (08:18)
[2016-07-25] MEDS: Lidocaine 5% 700 MG Patch TRDERM SCH (08:19)
[2016-07-25 08:20] VITALS: BP 90/52
[2016-07-25] MEDS ORDERED: Docusate Sodium 100 MG Cap PO SCH (09:00)
--- NOTE | 2016-07-25 12:29 | PCM.DCSUM1 ---
<Yudith Machado - Last Filed: 07/25/16 13:03> Discharge Summary - Hospital Course Free Text/Narrative:: Marva is an 80yo female patient seen in ER this morning, from [facility] brought in by EMS for mental status change and hypoxia, weakness. She was recently discharged from hospital one week ago for CHF exacerbation/COPD exacerbation, newly dx lytic spinal lesion, likely metastatic. She was discharged to [place] for rehab stay with hopes of returning home. History today is obtained from daughter as patient is obtunded upon arriving to unit. Daughter reports she noted her mother to be more weak the last few days, seemed more SOB the past 1-2 days and with increasing swelling to her lower extremities since the weekend (3+ days). This morning staff required more assistance to get her up and out of bed, usually 1 assist and required 2 this morning, she was very weak and SOB, seemed very confused. Oxygen was "low", ER notes state in the 70- 80% range. Patient had also been complaining of right sided chest and upper abdominal pain the past day or so. 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 ED eval and labs show WBC of 13.81, H&H of 11.9 and 40.4, plt 220. ABG with PH of 7.37, PCo2 71.8, PO2 65.0, HCO3 40.2, O2 sat 92%, BE 11.8, A-a grad 51, O2 at 3L/NC. CMP with Co2 36, Cl- 97, BUN 27, creat 1.4 other indicies WNL. Trop negative. BNP 948. UA unremarkable, SG 1.015. She rec'd 80mg IVP lasix, 0.5 IVP dilaudid and 125mg IVP solumedrol in ER and one duoneb tx via SNV. EKG is with a -fib. CXR appears to be improved from last xray prior to discharge last week. Hospitalist service is consulted for admission for CHF and COPD exacerbations. Patient was admitted to ICU status, diuresed, treated with IV abx, aggressive pulmonary toilet. She needed bipap at night but did not tolerate wearing it longer than 6 hours. She developed vomiting and was found to have partial SBO. NG tube was placed, antiemetics and prokinetics given. This was treated medically and slowly resolved. Diet was slowly advanced and tolerated well. Repeat CXR's continued to show pleural effusions despite aggressive IV diuresis. General Sugery was consulted, Dr. Lizarraga who performed thoracentesis with 350cc of fluid returned. Analysis of pleural fluid was negative and unremarkable for malignant cells. PT/OT were working with patient, initially she was doing well but by the end of her stay she was refusing to participate in therapy sessions. Patient and family were unsure of status of lytic lesion to thoracic spine and had multiple questions. Multiple family meetings were held to review prior admission, dx of this suspected lytic, likely metastatic lesion at T7, that patient and family agreed no further treatment/evaluation during her prior admission. Reviewed all options with them again during this admission including referral to oncology for further eval/recommendations for possible treatment options and/or biopsy. Patient and family thought about this for several days and decided on comfort measures only at present time. She will be discharged back to [facility] today on comfort cares. Recommend follow up with her PCP within 1-2 weeks of discharge for recheck. - Discharge Data Discharge Date: 07/25/16 (admit date 07/16/16) Discharge Disposition: DC/Tfer to [facility] Condition: Good - Discharge Diagnosis/Problem(s) (1) CHF exacerbation SNOMED Code(s): 74102999 ICD Code: I50.9 - HEART FAILURE, UNSPECIFIED Status: Acute Priority: High Qualifiers: Congestive heart failure type: combined Qualified Code(s): I50.43 - Acute on chronic combined systolic (congestive) and diastolic (congestive) heart failure (2) COPD exacerbation SNOMED Code(s): 363548683, 454910404 ICD Code: J44.1 - CHRONIC OBSTRUCTIVE PULMONARY DISEASE W (ACUTE) EXACERBATION Status: Acute Priority: High (3) Hypercapnia SNOMED Code(s): 09048280 ICD Code: R06.89 - OTHER ABNORMALITIES OF BREATHING Status: Acute Priority: High (4) Thoracic spine tumor SNOMED Code(s): 00176361 ICD Code: D49.2 - NEOPLASM OF UNSP BEHAVIOR OF BONE, SOFT TISSUE, AND SKIN Status: Chronic Priority: High Problem Details: lytic lesion of T7, 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 Lizarraga with 350cc of fluid returned; cultures and analysis WNL, no evidence of malignant cells. Complications: None Consults: General Surgery- Dr. Lizarraga Labs Pending at D/C: None Recommended Follow-up Testing/Procedures: Patient has elected comfort care only at this time. Patient may refuse following orders for comfort care: -Daily weight. Keep a record for your doctor. -Physical and occupational therapy to evaluate and treat. -Supplemental oxygen by nasal cannula to maintain oxygen sats >90%. -CPAP 12 cm H2O, at noc x 6 hrs. Titrate as tolerated. 5-6 LPM bled in. Titrate to keep >90%. Recommend follow up with PCP within 1-2 weeks of discharge for recheck Planned Operative Procedure(s) after DC: None Hospital Course: As above - Patient Instructions Diet: Heart Healthy Diet Activity: As Tolerated Driving: Do Not Drive Showering/Bathing: May Shower Notify Provider of: Fever, Increased Pain, Swelling and Redness, Nausea and/or Vomiting (SOB, chest pain, worsening of back pain) - Discharge Plan Prescriptions/Med Rec: Acetaminophen/HYDROcodone [[place] 325-5 MG] 1 tab PO Q4H #30 tablet Docusate Sodium [Colace] 100 mg PO BID #60 cap Metoprolol Succinate [Toprol XL] 50 mg PO DAILY #30 tab Home Medications: Home Meds Acetaminophen [Tylenol Arthritis Pain] 650 mg PO DAILY PRN 07/27/14 [History] Albuterol [Proventil Neb Soln] 2.5 mg NEB Q4HRRT PRN #60 neb 07/27/14 [Rx] Nitroglycerin [Nitrostat] 0.4 mg PO TID PRN 07/27/14 [History] LORazepam 0.5 mg PO Q4H PRN 07/27/15 [History] Gabapentin [Neurontin] 100 mg PO BID #60 cap 07/07/16 [Rx] Lidocaine 5% [Lidoderm 5%] 700 mg TRDERM Q24H #10 patch 07/07/16 [Rx] Polyethylene Glycol 3350 [MiraLAX] 17 gm PO TID PRN #30 packet 07/07/16 [Rx] Docusate Sodium/Sennosides [Senna Plus] 1 tab PO BID PRN 07/16/16 [History] Sennosides [Senna] 17.2 mg PO BID 07/16/16 [History] traZODone 150 mg PO BEDTIME 07/16/16 [History] Acetaminophen/HYDROcodone [[place] 325-5 MG] 1 tab PO Q4H #30 tablet 07/25/16 [Rx] Benzocaine/Cetylpyrd/Menthol [Cepacol Sore Throat] 1 lozenge MUCMEM Q2H PRN #0 ben 07/25/16 [Rx] Docusate Sodium [Colace] 100 mg PO BID #60 cap 07/25/16 [Rx] Metoprolol Succinate [Toprol XL] 50 mg PO DAILY #30 tab 07/25/16 [Rx] Patient Handouts: Chronic Obstructive Pulmonary Disease Exacerbation, Easy-to- Read, Small Bowel Obstruction, [id number], Heart Failure, [id number] Forms: ED Department Discharge Referrals: Meagan Frank MD [Ordering Only Provider] - (Dr Frank's office will call your daughter to schedule this follow-up appointment. Follow-up appointment with oncologist to have further evaluation of type of lesions/nodules. ) Rodney Marin MD [Primary Care Provider] - Galen Muniz MD [Physician] - - Discharge Summary/Plan Comment DC Time >30 min.: Yes (40 min) - General Info Date of Service: 07/25/16 Admission Dx/Problem (Free Text: Admission Diagnosis/Problem Admission Diagnosis/Problem CHF, Congestive heart failure Patient has elected comfort care/measures at this time. She is medically stable for discharge back to [place] at this time. Functional Status: Reports: pain controlled, tolerating diet, urinating, other ( patient is moderate to full assist for most activities/ she is refusing therapies today and is relying on nursing for majority of cares, including to pull blankets up for her.) - Review of Systems General: Reports: Weakness, Fatigue HEENT: Reports: no symptoms Pulmonary: Reports: shortness of breath (chronic but much improved- at baseline) . Denies: cough Cardiovascular: Reports: Dyspnea on Exertion (chronic). Denies: Chest Pain, Palpitations Gastrointestinal: Reports: No symptoms. Denies: Abdominal pain, Diarrhea, Nausea, Vomiting Genitourinary: Reports: no symptoms Musculoskeletal: Reports: back pain Neurological: Reports: No Symptoms Psychiatric: Reports: no symptoms - Patient Data Vitals - Most Recent: Last Vital Signs Temp 97.2 F 07/25/16 05:52 Pulse 98 07/25/16 08:12 Resp 16 07/25/16 05:52 BP 90/52 L 07/25/16 08:12 Pulse Ox 95 07/25/16 05:52 Weight - Most Recent: 106.1 kg I&O - Last 24 hours: Intake & Output 07/24/16 07/25/16 07/25/16 22:59 06:59 14:59 Intake Total 483 200 120 Output Total 325 850 Balance 158 -650 120 ITZ Results - Last 24 hrs: Microbiology 07/23/16 10:00 Gram Stain - Final Thoracentesis Fluid - Left Body Fluid Culture - Preliminary NO GROWTH AFTER 2 DAYS 07/17/16 12:25 Aerobic Blood Culture - Final Blood - Venous NO GROWTH AFTER 7 DAYS Anaerobic Blood Culture - Final NO GROWTH AFTER 7 DAYS 07/17/16 12:35 Aerobic Blood Culture - Final Blood - Venous - Lab Draw NO GROWTH AFTER 7 DAYS Anaerobic Blood Culture - Final NO GROWTH AFTER 7 DAYS Med Orders - Current: Current Medications Hydrocodone Bitart/Acetaminophen ([place] 325-5 Mg) 1 tab PO Q4H [facility] Last Admin: 07/25/16 12:19 Dose: 1 tab Benzocaine/Menthol (Cepacol Sore Throat) 1 lozenge MUCMEM Q2H PRN PRN Reason: Sore Throat Last Admin: 07/20/16 21:56 Dose: 1 lozenge Docusate Sodium (Colace) 100 mg PO BID [facility] Last Admin: 07/25/16 08:12 Dose: 100 mg Gabapentin (Neurontin) 100 mg PO BID [facility] Last Admin: 07/25/16 08:12 Dose: 100 mg Lidocaine (Lidoderm 5%) 700 mg TRDERM Q24H [facility] Last Admin: 07/25/16 08:19 Dose: 700 mg Lorazepam (Ativan) 0.5 mg PO Q4H PRN PRN Reason: Anxiety Last Admin: 07/24/16 02:27 Dose: 0.5 mg Lorazepam (Ativan) 1 mg IVPUSH Q4H PRN PRN Reason: anxiety/restlessness/sob Metoprolol Succinate (Toprol Xl) 50 mg PO DAILY [facility] Last Admin: 07/25/16 08:12 Dose: 50 mg Miscellaneous Information (Remove Patch) 0 ea TRDERM DAILY@2100 [facility] Last Admin: 07/24/16 20:10 Dose: Not Given Morphine Sulfate (Morphine) 2 mg IVPUSH Q2H PRN PRN Reason: Breakthrough Pain Last Admin: 07/24/16 20:08 Dose: 2 mg Prednisone (Prednisone) 40 mg PO DAILY [facility] Stop: 07/26/16 09:01 Last Admin: 07/25/16 08:18 Dose: 40 mg Prednisone (Prednisone) 30 mg PO DAILY [facility] Stop: 07/29/16 09:01 Prednisone (Prednisone) 20 mg PO DAILY [facility] Stop: 08/01/16 09:01 Prednisone (Prednisone) 10 mg PO DAILY [facility] Stop: 08/04/16 09:01 Sodium Chloride (Saline Flush) 10 ml FLUSH ASDIRECTED PRN PRN Reason: Keep Vein Open Last Admin: 07/19/16 04:23 Dose: 10 ml Temazepam (Restoril) 15 mg PO BEDTIME PRN PRN Reason: Insomnia Last Admin: 07/24/16 23:00 Dose: 15 mg Trazodone HCl (Trazodone) 150 mg PO BEDTIME [facility] Last Admin: 07/24/16 20:09 Dose: 150 mg Discontinued Medications Acetaminophen (Tylenol) 650 mg PO Q4H PRN PRN Reason: Pain (Mild 1-3)/fever Hydrocodone Bitart/Acetaminophen ([place] 325-5 Mg) 1 tab PO Q4H PRN PRN Reason: Pain (moderate 4-6) Last Admin: 07/24/16 13:24 Dose: 1 tab Acetazolamide (Diamox) 500 mg PO ONETIME ONE Stop: 07/20/16 11:05 Last Admin: 07/20/16 11:58 Dose: 500 mg Albuterol (Proventil Neb Soln) 2.5 mg NEB Q2H PRN PRN Reason: Shortness Of Breath/wheezing Albuterol/Ipratropium (Duoneb 3.0-0.5 Mg/3 Ml) 3 ml NEB ONETIME ONE Stop: 07/16/16 08:55 Last Admin: 07/16/16 09:14 Dose: 3 ml Albuterol/Ipratropium (Duoneb 3.0-0.5 Mg/3 Ml) 3 ml NEB Q6HRRT [facility] Last Admin: 07/23/16 22:17 Dose: Not Given Aspirin (Aspirin) 81 mg PO DAILY [facility] Last Admin: 07/19/16 10:11 Dose: Not Given Citalopram Hydrobromide (Celexa) 40 mg PO DAILY [facility] Last Admin: 07/24/16 08:47 Dose: 40 mg Diltiazem HCl (Dilacor Xr) 240 mg PO DAILY [facility] Last Admin: 07/20/16 08:49 Dose: 240 mg Diltiazem HCl (Dilacor Xr) 240 mg PO DAILY [facility] Last Admin: 07/22/16 10:26 Dose: 240 mg Diltiazem HCl (Cardizem) 180 mg PO Q12HR [facility] Diltiazem HCl (Cardizem Cd) 360 mg PO DAILY [facility] Last Admin: 07/24/16 08:48 Dose: 360 mg Docusate Sodium (Colace) 100 mg PO BID PRN PRN Reason: Constipation Enoxaparin Sodium (Lovenox) 30 mg SUBCUT DAILY [facility] Last Admin: 07/17/16 00:03 Dose: Not Given Enoxaparin Sodium (Lovenox) 30 mg SUBCUT DAILY [facility] Last Admin: 07/23/16 09:59 Dose: 30 mg Famotidine (Pepcid) 20 mg PO DAILY [facility] Last Admin: 07/22/16 10:25 Dose: 20 mg Furosemide (Lasix) 80 mg IVPUSH NOW ONE Stop: 07/16/16 08:25 Last Admin: 07/16/16 08:32 Dose: 80 mg Furosemide (Lasix) 80 mg IVPUSH NOW ONE Stop: 07/18/16 12:01 Last Admin: 07/18/16 12:14 Dose: Not Given Furosemide (Lasix) 80 mg IVPUSH NOW ONE Stop: 07/19/16 08:01 Last Admin: 07/19/16 08:36 Dose: 80 mg Furosemide (Lasix) 20 mg IVPUSH ONETIME ONE Stop: 07/23/16 13:01 Last Admin: 07/23/16 13:12 Dose: 20 mg Furosemide (Lasix) 20 mg IVPUSH NOW ONE Stop: 07/24/16 16:33 Last Admin: 07/24/16 20:08 Dose: 20 mg Furosemide (Lasix) Confirm Administered Dose 40 mg .ROUTE .STK-MED ONE Stop: 07/24/16 20:04 Last Admin: 07/24/16 20:40 Dose: Not Given Hydromorphone HCl (Dilaudid) 0.5 mg IVPUSH ONETIME ONE Stop: 07/16/16 08:30 Last Admin: 07/16/16 09:48 Dose: Not Given Levofloxacin/Dextrose 750 mg/ (Premix) 150 mls @ 100 mls/hr IV Q48H [facility] Last Admin: 07/24/16 13:25 Dose: 100 mls/hr Cefepime HCl 2 gm/ Premix 50 mls @ 100 mls/hr IV Q24H [facility] Last Admin: 07/24/16 13:25 Dose: 100 mls/hr Aminophylline 275 mg/ Sodium (Chloride) 111 mls @ 222 mls/hr IV ONETIME ONE Stop: 07/18/16 15:59 Last Admin: 07/18/16 15:23 Dose: 222 mls/hr Aminophylline 285 mg/ Sodium (Chloride) 511.4 mls @ 21.3 mls/hr IV Q24H ONE Stop: 07/19/16 14:00 Last Admin: 07/18/16 16:06 Dose: Not Given Aminophylline 285 mg/ Sodium (Chloride) 511.4 mls @ 21.3 mls/hr IV Q24H ONE Stop: 07/19/16 16:00 Last Admin: 07/18/16 16:04 Dose: 21.3 mls/hr Diltiazem HCl 100 mg/ Sodium (Chloride) 100 mls @ 5 mls/hr IV TITRATE TONJA; 5 MG /HR PRN Reason: Protocol Last Titration: 07/19/16 05:30 Dose: 15 mg/hr, 15 mls/hr Sodium Chloride (Normal Saline) 1,000 mls @ 315 mls/hr IV ASDIRECTED [facility] Last Admin: 07/19/16 03:07 Dose: 315 mls/hr Diltiazem HCl 125 mg/ Sodium (Chloride) 125 mls @ 5 mls/hr IV TITRATE TONJA; 5 MG /HR PRN Reason: Protocol Last Titration: 07/19/16 18:15 Dose: 15 mg/hr, 15 mls/hr Diltiazem HCl 100 mg/ Sodium (Chloride) 100 mls @ 5 mls/hr IV TITRATE TONJA; 5 MG /HR PRN Reason: Protocol Last Admin: 07/19/16 19:12 Dose: 5 mg/hr, 5 mls/hr Diltiazem HCl 100 mg/ Sodium (Chloride) 100 mls @ 5 mls/hr IV TITRATE TONJA; 5 MG /HR PRN Reason: Protocol Last Titration: 07/20/16 09:20 Dose: Infused Aminophylline 500 mg/ Sodium (Chloride) 270 mls @ 7.5 mls/hr IV ASDIRECTED [facility]ON[facility] Stop: 07/24/16 11:00 Last Admin: 07/23/16 11:07 Dose: 7.5 mls/hr Iopamidol (Isovue-370 (76%)) 100 ml IVPUSH ONETIME ONE Stop: 07/19/16 03:54 Last Admin: 07/19/16 04:23 Dose: 100 ml Lorazepam (Ativan) 0.5 mg PO Q4H PRN PRN Reason: Anxiety Last Admin: 07/17/16 03:04 Dose: 0.5 mg Lorazepam (Ativan) 0.25 mg IVPUSH ONETIME ONE Stop: 07/16/16 12:56 Last Admin: 07/16/16 13:23 Dose: 0.25 mg Lorazepam (Ativan) 1 mg IVPUSH ONETIME ONE Stop: 07/19/16 02:07 Last Admin: 07/19/16 02:32 Dose: 1 mg Magnesium Hydroxide (Milk Of Magnesia) 30 ml PO Q12H PRN PRN Reason: Constipation Methylprednisolone Sodium Succinate (Solu-Medrol) 125 mg IVPUSH ONETIME ONE Stop: 07/16/16 10:15 Last Admin: 07/16/16 10:27 Dose: 125 mg Methylprednisolone Sodium Succinate (Solu-Medrol) 125 mg IVPUSH Q12H [facility] Last Admin: 07/18/16 09:38 Dose: 125 mg Methylprednisolone Sodium Succinate (Solu-Medrol) 125 mg IVPUSH Q8H [facility] Last Admin: 07/19/16 16:35 Dose: 125 mg Methylprednisolone Sodium Succinate (Solu-Medrol) 125 mg IVPUSH Q6H [facility] Last Admin: 07/21/16 11:33 Dose: 125 mg Methylprednisolone Sodium Succinate (Solu-Medrol) 125 mg IVPUSH Q12H [facility] Last Admin: 07/23/16 09:59 Dose: 125 mg Methylprednisolone Sodium Succinate (Solu-Medrol) 40 mg IVPUSH Q12H [facility] Last Admin: 07/23/16 21:40 Dose: Not Given Metoclopramide HCl (Reglan) 10 mg IVPUSH ONETIME ONE Stop: 07/19/16 02:07 Last Admin: 07/19/16 02:32 Dose: 10 mg Metoprolol Succinate (Toprol Xl) 25 mg PO DAILY [facility] Last Admin: 07/23/16 09:55 Dose: 25 mg Metoprolol Succinate (Toprol Xl) 25 mg PO ONETIME ONE Stop: 07/23/16 16:01 Last Admin: 07/23/16 17:00 Dose: 25 mg Metoprolol Tartrate (Lopressor) 5 mg IVPUSH Q4H PRN PRN Reason: heart rate>120 Last Admin: 07/24/16 02:27 Dose: 5 mg Morphine Sulfate (Morphine) 2 mg IVPUSH Q2H PRN PRN Reason: Pain (severe 7-10) Stop: 07/17/16 12:24 Last Admin: 07/17/16 03:03 Dose: 2 mg Ondansetron HCl (Zofran) 4 mg IV Q4H PRN PRN Reason: Nausea/Vomiting Last Admin: 07/19/16 00:26 Dose: 4 mg Pantoprazole Sodium (Protonix Iv) 40 mg IVPUSH ONETIME ONE Stop: 07/19/16 02:07 Last Admin: 07/19/16 02:32 Dose: 40 mg Pantoprazole Sodium (Protonix Iv) 40 mg IVPUSH Q12H [facility] Last Admin: 07/21/16 11:33 Dose: 40 mg Pantoprazole Sodium (Protonix) 40 mg PO DAILY [facility] Last Admin: 07/24/16 08:47 Dose: 40 mg Polyethylene Glycol (Miralax) 17 gm PO DAILY PRN PRN Reason: Constipation Potassium Chloride (Potassium Chloride) 40 meq PO BID [facility] Last Admin: 07/18/16 12:27 Dose: 40 meq Potassium Chloride (Potassium Chloride) 40 meq PO ONETIME ONE Stop: 07/20/16 11:05 Last Admin: 07/20/16 11:59 Dose: 40 meq Potassium Chloride (Pharmacy To Dose - Potassium Replacement) 1 dose .XX ASDIRECTED [facility] Potassium Chloride (Potassium Chloride Solution) 20 meq PO Q3H [facility] Stop: 07/21/16 20:01 Last Admin: 07/21/16 20:06 Dose: 20 meq Potassium Chloride (Potassium Chloride Solution) 20 meq PO Q3H [facility] Stop: 07/22/16 12:31 Last Admin: 07/22/16 13:04 Dose: 20 meq Prednisone (Prednisone) 10 mg PO DAILY [facility] PRN Reason: Taper Stop: 08/05/16 09:59 Last Admin: 07/24/16 15:08 Dose: Not Given Rivaroxaban (Xarelto) 15 mg PO QPM [facility] Last Admin: 07/19/16 18:14 Dose: 15 mg Rivaroxaban (Xarelto) 15 mg PO QPM [facility] Last Admin: 07/24/16 19:57 Dose: Not Given Senna (Senna) 17.2 mg PO BID [facility] Last Admin: 07/24/16 08:47 Dose: 17.2 mg Simethicone (Simethicone) 320 mg PO ONETIME ONE Stop: 07/18/16 22:28 Last Admin: 07/18/16 22:41 Dose: 320 mg Simvastatin (Zocor) 20 mg PO QPM [facility] Last Admin: 07/24/16 19:57 Dose: Not Given Theophylline (Theophylline Anhydrous) 300 mg PO DAILY [facility] Last Admin: 07/23/16 09:58 Dose: 300 mg Theophylline (Theophylline Anhydrous) 300 mg PO DAILY [facility] - Exam Quality Assessment: Reports: supplemental oxygen, DVT prophylaxis General: Reports: alert, oriented, cooperative, no acute distress HEENT: Reports: Pupils equal, Pupils reactive, EOMI, Mucous membr. moist/pink Neck: Reports: supple Lungs: Reports: Normal respiratory effort, Decreased breath sounds, Wheezing Cardiovascular: Reports: Irregular Rhythm Abdomen: Reports: bowel sounds present, soft, no tenderness, abnormal bowel sounds (Female) Exam: Deferred Rectal (Female) Exam: Deferred Back Exam: Reports: Normal Inspection Extremities: Reports: edema (trace to 1+ to LE bilat) Neurological: Reports: no new focal deficit Psy/Mental Status: Reports: alert, normal affect, normal mood *Q Meaningful Use (DIS) - VTE *Q VTE Criteria *Q: - Stroke *Q Stroke Criteria *Q: - AMI *Q AMI Criteria *Q: <Doris Kendall - Last Filed: 07/25/16 16:39> Discharge Summary - Hospital Course Free Text/Narrative:: Comprehensive summary as above, patient has changed her level of care to comfort care, will be discharged to [place] as above. - Discharge Diagnosis/Problem(s) (1) CHF (congestive heart failure) SNOMED Code(s): 55095429 ICD Code: I50.9 - HEART FAILURE, UNSPECIFIED Status: Acute Qualifiers: Congestive heart failure type: unspecified congestive heart failure type Congestive heart failure chronicity: acute on chronic Qualified Code(s): I50.9 - Heart failure, unspecified (2) CHF exacerbation SNOMED Code(s): 84222041 ICD Code: I50.9 - HEART FAILURE, UNSPECIFIED Status: Acute Priority: High Qualifiers: Congestive heart failure type: combined Qualified Code(s): I50.43 - Acute on chronic combined systolic (congestive) and diastolic (congestive) heart failure (3) COPD exacerbation SNOMED Code(s): 410655230, 297514531 ICD Code: J44.1 - CHRONIC OBSTRUCTIVE PULMONARY DISEASE W (ACUTE) EXACERBATION Status: Acute Priority: High (4) Hypercapnia SNOMED Code(s): 50148880 ICD Code: R06.89 - OTHER ABNORMALITIES OF BREATHING Status: Acute Priority: High (5) Elevated troponin SNOMED Code(s): 799759706, 773737021 ICD Code: R74.8 - ABNORMAL LEVELS OF OTHER SERUM ENZYMES Status: Acute (6) Leg edema SNOMED Code(s): 351598684 ICD Code: R60.0 - LOCALIZED EDEMA Status: Acute (7) SBO (small bowel obstruction) SNOMED Code(s): 572355714 ICD Code: K56.69 - OTHER INTESTINAL OBSTRUCTION Status: Acute - Patient Data Vitals - Most Recent: Last Vital Signs Temp 36.2 C 07/25/16 05:52 Pulse 98 07/25/16 08:12 Resp 16 07/25/16 05:52 BP 90/52 L 07/25/16 08:12 Pulse Ox 95 07/25/16 05:52 I&O - Last 24 hours: Intake & Output 07/25/16 07/25/16 07/25/16 06:59 14:59 22:59 Intake Total 200 780 Output Total 850 500 Balance -650 280 ITZ Results - Last 24 hrs: Microbiology 07/23/16 10:00 Gram Stain - Final Thoracentesis Fluid - Left Body Fluid Culture - Preliminary NO GROWTH AFTER 2 DAYS 07/17/16 12:25 Aerobic Blood Culture - Final Blood - Venous NO GROWTH AFTER 7 DAYS Anaerobic Blood Culture - Final NO GROWTH AFTER 7 DAYS 07/17/16 12:35 Aerobic Blood Culture - Final Blood - Venous - Lab Draw NO GROWTH AFTER 7 DAYS Anaerobic Blood Culture - Final NO GROWTH AFTER 7 DAYS Med Orders - Current: Current Medications Discontinued Medications Acetaminophen (Tylenol) 650 mg PO Q4H PRN PRN Reason: Pain (Mild 1-3)/fever Hydrocodone Bitart/Acetaminophen ([place] 325-5 Mg) 1 tab PO Q4H PRN PRN Reason: Pain (moderate 4-6) Last Admin: 07/24/16 13:24 Dose: 1 tab Hydrocodone Bitart/Acetaminophen ([place] 325-5 Mg) 1 tab PO Q4H [facility] Last Admin: 07/25/16 12:19 Dose: 1 tab Acetazolamide (Diamox) 500 mg PO ONETIME ONE Stop: 07/20/16 11:05 Last Admin: 07/20/16 11:58 Dose: 500 mg Albuterol (Proventil Neb Soln) 2.5 mg NEB Q2H PRN PRN Reason: Shortness Of Breath/wheezing Albuterol/Ipratropium (Duoneb 3.0-0.5 Mg/3 Ml) 3 ml NEB ONETIME ONE Stop: 07/16/16 08:55 Last Admin: 07/16/16 09:14 Dose: 3 ml Albuterol/Ipratropium (Duoneb 3.0-0.5 Mg/3 Ml) 3 ml NEB Q6HRRT [facility] Last Admin: 07/23/16 22:17 Dose: Not Given Aspirin (Aspirin) 81 mg PO DAILY [facility] Last Admin: 07/19/16 10:11 Dose: Not Given Benzocaine/Menthol (Cepacol Sore Throat) 1 lozenge MUCMEM Q2H PRN PRN Reason: Sore Throat Last Admin: 07/20/16 21:56 Dose: 1 lozenge Citalopram Hydrobromide (Celexa) 40 mg PO DAILY [facility] Last Admin: 07/24/16 08:47 Dose: 40 mg Diltiazem HCl (Dilacor Xr) 240 mg PO DAILY [facility] Last Admin: 07/20/16 08:49 Dose: 240 mg Diltiazem HCl (Dilacor Xr) 240 mg PO DAILY [facility] Last Admin: 07/22/16 10:26 Dose: 240 mg Diltiazem HCl (Cardizem) 180 mg PO Q12HR [facility] Diltiazem HCl (Cardizem Cd) 360 mg PO DAILY [facility] Last Admin: 07/24/16 08:48 Dose: 360 mg Docusate Sodium (Colace) 100 mg PO BID PRN PRN Reason: Constipation Docusate Sodium (Colace) 100 mg PO BID [facility] [facility] Last Admin: 07/25/16 08:12 Dose: 100 mg Enoxaparin Sodium (Lovenox) 30 mg SUBCUT DAILY [facility] Last Admin: 07/17/16 00:03 Dose: Not Given Enoxaparin Sodium (Lovenox) 30 mg SUBCUT DAILY [facility] Last Admin: 07/23/16 09:59 Dose: 30 mg Famotidine (Pepcid) 20 mg PO DAILY [facility] Last Admin: 07/22/16 10:25 Dose: 20 mg Furosemide (Lasix) 80 mg IVPUSH NOW ONE Stop: 07/16/16 08:25 Last Admin: 07/16/16 08:32 Dose: 80 mg Furosemide (Lasix) 80 mg IVPUSH NOW ONE Stop: 07/18/16 12:01 Last Admin: 07/18/16 12:14 Dose: Not Given Furosemide (Lasix) 80 mg IVPUSH NOW ONE Stop: 07/19/16 08:01 Last Admin: 07/19/16 08:36 Dose: 80 mg Furosemide (Lasix) 20 mg IVPUSH ONETIME ONE Stop: 07/23/16 13:01 Last Admin: 07/23/16 13:12 Dose: 20 mg Furosemide (Lasix) 20 mg IVPUSH NOW ONE Stop: 07/24/16 16:33 Last Admin: 07/24/16 20:08 Dose: 20 mg Furosemide (Lasix) Confirm Administered Dose 40 mg .ROUTE .STK-MED ONE Stop: 07/24/16 20:04 Last Admin: 07/24/16 20:40 Dose: Not Given Gabapentin (Neurontin) 100 mg PO BID [facility] Last Admin: 07/25/16 08:12 Dose: 100 mg Hydromorphone HCl (Dilaudid) 0.5 mg IVPUSH ONETIME ONE Stop: 07/16/16 08:30 Last Admin: 07/16/16 09:48 Dose: Not Given Levofloxacin/Dextrose 750 mg/ (Premix) 150 mls @ 100 mls/hr IV Q48H [facility] Last Admin: 07/24/16 13:25 Dose: 100 mls/hr Cefepime HCl 2 gm/ Premix 50 mls @ 100 mls/hr IV Q24H [facility] Last Admin: 07/24/16 13:25 Dose: 100 mls/hr Aminophylline 275 mg/ Sodium (Chloride) 111 mls @ 222 mls/hr IV ONETIME ONE Stop: 07/18/16 15:59 Last Admin: 07/18/16 15:23 Dose: 222 mls/hr Aminophylline 285 mg/ Sodium (Chloride) 511.4 mls @ 21.3 mls/hr IV Q24H ONE Stop: 07/19/16 14:00 Last Admin: 07/18/16 16:06 Dose: Not Given Aminophylline 285 mg/ Sodium (Chloride) 511.4 mls @ 21.3 mls/hr IV Q24H ONE Stop: 07/19/16 16:00 Last Admin: 07/18/16 16:04 Dose: 21.3 mls/hr Diltiazem HCl 100 mg/ Sodium (Chloride) 100 mls @ 5 mls/hr IV TITRATE [facility]; 5 MG /HR PRN Reason: Protocol Last Titration: 07/19/16 05:30 Dose: 15 mg/hr, 15 mls/hr Sodium Chloride (Normal Saline) 1,000 mls @ 315 mls/hr IV ASDIRECTED [facility] Last Admin: 07/19/16 03:07 Dose: 315 mls/hr Diltiazem HCl 125 mg/ Sodium (Chloride) 125 mls @ 5 mls/hr IV TITRATE TONJA; 5 MG /HR PRN Reason: Protocol Last Titration: 07/19/16 18:15 Dose: 15 mg/hr, 15 mls/hr Diltiazem HCl 100 mg/ Sodium (Chloride) 100 mls @ 5 mls/hr IV TITRATE TONJA; 5 MG /HR PRN Reason: Protocol Last Admin: 07/19/16 19:12 Dose: 5 mg/hr, 5 mls/hr Diltiazem HCl 100 mg/ Sodium (Chloride) 100 mls @ 5 mls/hr IV TITRATE TONJA; 5 MG /HR PRN Reason: Protocol Last Titration: 07/20/16 09:20 Dose: Infused Aminophylline 500 mg/ Sodium (Chloride) 270 mls @ 7.5 mls/hr IV ASDIRECTED [facility] Stop: 07/24/16 11:00 Last Admin: 07/23/16 11:07 Dose: 7.5 mls/hr Iopamidol (Isovue-370 (76%)) 100 ml IVPUSH ONETIME ONE Stop: 07/19/16 03:54 Last Admin: 07/19/16 04:23 Dose: 100 ml Lidocaine (Lidoderm 5%) 700 mg TRDERM Q24H [facility] Last Admin: 07/25/16 08:19 Dose: 700 mg Lorazepam (Ativan) 0.5 mg PO Q4H PRN PRN Reason: Anxiety Last Admin: 07/17/16 03:04 Dose: 0.5 mg Lorazepam (Ativan) 0.25 mg IVPUSH ONETIME ONE Stop: 07/16/16 12:56 Last Admin: 07/16/16 13:23 Dose: 0.25 mg Lorazepam (Ativan) 0.5 mg PO Q4H PRN PRN Reason: Anxiety Last Admin: 07/24/16 02:27 Dose: 0.5 mg Lorazepam (Ativan) 1 mg IVPUSH ONETIME ONE Stop: 07/19/16 02:07 Last Admin: 07/19/16 02:32 Dose: 1 mg Lorazepam (Ativan) 1 mg IVPUSH Q4H PRN PRN Reason: anxiety/restlessness/sob Magnesium Hydroxide (Milk Of Magnesia) 30 ml PO Q12H PRN PRN Reason: Constipation Methylprednisolone Sodium Succinate (Solu-Medrol) 125 mg IVPUSH ONETIME ONE Stop: 07/16/16 10:15 Last Admin: 07/16/16 10:27 Dose: 125 mg Methylprednisolone Sodium Succinate (Solu-Medrol) 125 mg IVPUSH Q12H [facility] Last Admin: 07/18/16 09:38 Dose: 125 mg Methylprednisolone Sodium Succinate (Solu-Medrol) 125 mg IVPUSH Q8H [facility] Last Admin: 07/19/16 16:35 Dose: 125 mg Methylprednisolone Sodium Succinate (Solu-Medrol) 125 mg IVPUSH Q6H [facility] Last Admin: 07/21/16 11:33 Dose: 125 mg Methylprednisolone Sodium Succinate (Solu-Medrol) 125 mg IVPUSH Q12H [facility] Last Admin: 07/23/16 09:59 Dose: 125 mg Methylprednisolone Sodium Succinate (Solu-Medrol) 40 mg IVPUSH Q12H [facility] Last Admin: 07/23/16 21:40 Dose: Not Given Metoclopramide HCl (Reglan) 10 mg IVPUSH ONETIME ONE Stop: 07/19/16 02:07 Last Admin: 07/19/16 02:32 Dose: 10 mg Metoprolol Succinate (Toprol Xl) 25 mg PO DAILY [facility] Last Admin: 07/23/16 09:55 Dose: 25 mg Metoprolol Succinate (Toprol Xl) 50 mg PO DAILY [facility] Last Admin: 07/25/16 08:12 Dose: 50 mg Metoprolol Succinate (Toprol Xl) 25 mg PO ONETIME ONE Stop: 07/23/16 16:01 Last Admin: 07/23/16 17:00 Dose: 25 mg Metoprolol Tartrate (Lopressor) 5 mg IVPUSH Q4H PRN PRN Reason: heart rate>120 Last Admin: 07/24/16 02:27 Dose: 5 mg Miscellaneous Information (Remove Patch) 0 ea TRDERM DAILY@2100 [facility] Last Admin: 07/24/16 20:10 Dose: Not Given Morphine Sulfate (Morphine) 2 mg IVPUSH Q2H PRN PRN Reason: Pain (severe 7-10) Stop: 07/17/16 12:24 Last Admin: 07/17/16 03:03 Dose: 2 mg Morphine Sulfate (Morphine) 2 mg IVPUSH Q2H PRN PRN Reason: Breakthrough Pain Last Admin: 07/25/16 13:39 Dose: 2 mg Ondansetron HCl (Zofran) 4 mg IV Q4H PRN PRN Reason: Nausea/Vomiting Last Admin: 07/19/16 00:26 Dose: 4 mg Pantoprazole Sodium (Protonix Iv) 40 mg IVPUSH ONETIME ONE Stop: 07/19/16 02:07 Last Admin: 07/19/16 02:32 Dose: 40 mg Pantoprazole Sodium (Protonix Iv) 40 mg IVPUSH Q12H [facility] Last Admin: 07/21/16 11:33 Dose: 40 mg Pantoprazole Sodium (Protonix) 40 mg PO DAILY [facility] Last Admin: 07/24/16 08:47 Dose: 40 mg Polyethylene Glycol (Miralax) 17 gm PO DAILY PRN PRN Reason: Constipation Potassium Chloride (Potassium Chloride) 40 meq PO BID [facility] Last Admin: 07/18/16 12:27 Dose: 40 meq Potassium Chloride (Potassium Chloride) 40 meq PO ONETIME ONE Stop: 07/20/16 11:05 Last Admin: 07/20/16 11:59 Dose: 40 meq Potassium Chloride (Pharmacy To Dose - Potassium Replacement) 1 dose .XX ASDIRECTED [facility] Potassium Chloride (Potassium Chloride Solution) 20 meq PO Q3H [facility] Stop: 07/21/16 20:01 Last Admin: 07/21/16 20:06 Dose: 20 meq Potassium Chloride (Potassium Chloride Solution) 20 meq PO Q3H [facility] Stop: 07/22/16 12:31 Last Admin: 07/22/16 13:04 Dose: 20 meq Prednisone (Prednisone) 10 mg PO DAILY [facility] PRN Reason: Taper Stop: 08/05/16 09:59 Last Admin: 07/24/16 15:08 Dose: Not Given Prednisone (Prednisone) 40 mg PO DAILY [facility] Stop: 07/26/16 09:01 Last Admin: 07/25/16 08:18 Dose: 40 mg Prednisone (Prednisone) 30 mg PO DAILY [facility] Stop: 07/29/16 09:01 Prednisone (Prednisone) 20 mg PO DAILY [facility] Stop: 08/01/16 09:01 Prednisone (Prednisone) 10 mg PO DAILY [facility] Stop: 08/04/16 09:01 Rivaroxaban (Xarelto) 15 mg PO QPM [facility] Last Admin: 07/19/16 18:14 Dose: 15 mg Rivaroxaban (Xarelto) 15 mg PO QPM [facility] Last Admin: 07/24/16 19:57 Dose: Not Given Senna (Senna) 17.2 mg PO BID [facility] Last Admin: 07/24/16 08:47 Dose: 17.2 mg Simethicone (Simethicone) 320 mg PO ONETIME ONE Stop: 07/18/16 22:28 Last Admin: 07/18/16 22:41 Dose: 320 mg Simvastatin (Zocor) 20 mg PO QPM [facility] Last Admin: 07/24/16 19:57 Dose: Not Given Sodium Chloride (Saline Flush) 10 ml FLUSH ASDIRECTED PRN PRN Reason: Keep Vein Open Last Admin: 07/19/16 04:23 Dose: 10 ml Temazepam (Restoril) 15 mg PO BEDTIME PRN PRN Reason: Insomnia Last Admin: 07/24/16 23:00 Dose: 15 mg Theophylline (Theophylline Anhydrous) 300 mg PO DAILY [facility] Last Admin: 07/23/16 09:58 Dose: 300 mg Theophylline (Theophylline Anhydrous) 300 mg PO DAILY [facility] Trazodone HCl (Trazodone) 150 mg PO BEDTIME [facility] Last Admin: 07/24/16 20:09 Dose: 150 mg *Q Meaningful Use (DIS) - VTE *Q VTE Criteria *Q: - Stroke *Q Stroke Criteria *Q: - AMI *Q AMI Criteria *Q:
[2016-07-25] MEDS: Morphine 2 MG/ML Syringe IVPUSH PRN (13:39)
[2016-07-26] MEDS ORDERED: Theophylline 300 MG Tab.ER PO SCH (09:00)
[2016-07-27] MEDS ORDERED: predniSONE 10 MG Tab PO SCH (09:00)
[2016-07-30] MEDS ORDERED: predniSONE 20 MG Tab PO SCH (09:00)
[2016-08-02] MEDS ORDERED: predniSONE 10 MG Tab PO SCH (09:00)
== END 2016-07-25 14:10 | DRG 291 ==
LOC: JD.ED 08:03 → JD.ICU 11:39
PROVIDERS: ADMIT Internal Medicine; ATTEND Internal Medicine
PROC: 0D9670Z Drainage of Stomach with Drainage Device, Via Natural or Artificial Opening (ICD-10-PCS; 2016-07-19)
PROC: 0W9B3ZX Drainage of Left Pleural Cavity, Percutaneous Approach, Diagnostic (ICD-10-PCS; principal; 2016-07-23)
DX: I11.0 Hypertensive heart disease with heart failure (principal); R06.89 Other abnormalities of breathing; J96.02 Acute respiratory failure with hypercapnia; J18.9 Pneumonia, unspecified organism; J44.0 Chronic obstructive pulmonary disease with (acute) lower respiratory infection; J44.1 Chronic obstructive pulmonary disease with (acute) exacerbation; J90 Pleural effusion, not elsewhere classified; K56.60 Unspecified intestinal obstruction; C79.51 Secondary malignant neoplasm of bone; I50.43 Acute on chronic combined systolic (congestive) and diastolic (congestive) heart failure; Y95 Nosocomial condition; R41.82 Altered mental status, unspecified; I25.10 Atherosclerotic heart disease of native coronary artery without angina pectoris; Z87.891 Personal history of nicotine dependence; I48.91 Unspecified atrial fibrillation; F32.9 Major depressive disorder, single episode, unspecified; F41.9 Anxiety disorder, unspecified; M19.90 Unspecified osteoarthritis, unspecified site; G89.29 Other chronic pain; I25.2 Old myocardial infarction; Z95.5 Presence of coronary angioplasty implant and graft; Z66 Do not resuscitate; R74.8 Abnormal levels of other serum enzymes; R53.1 Weakness; Z79.01 Long term (current) use of anticoagulants; Z79.82 Long term (current) use of aspirin; Z79.899 Other long term (current) drug therapy
CPT/HCPCS: 36415; 36600; 51702; 71010; 80053; 81001; 82803; 83880; 84484; 85025; 93005; 94664; 96374; 96375; 99285; J1940; J2930; J7050; 71020; 71020-26; 74020; 74020-26; 74177; 74177-26; 76942; 80048; 80198; 82042; 82945; 83615; 83735; 83986; 85610; 86140; 86738; 87040; 87070; 87205; 87641; 87899; 88112; 88112-26; 88305; 88305-26; 89050; 94640-76; 94660; 97110-GO; 97110-GP; 97116-GP; 97161-GP; 97166-GO; 97530-GO; 97530-GP; A9270-GY; C1729; C9113; J0280; J0692; J1650; J1956; J2060; J2270; J2405; J2765; J3490; J7030; J7040; Q9967